=== PATIENT | male | born 1965 | race African-American/Black ===

== ENCOUNTER 2017-04-07 18:27 | Inpatient (IN) | payer MEDICARE, MEDICAID, SELFPAY ==
[2017-04-07 18:30] VITALS: BP 162/86; PULSE 69; RESP 16; TEMP 36.9; O2SAT 97
--- NOTE | 2017-04-07 18:50 | RAD_ITS ---
STUDY: X-RAY CHEST REASON FOR EXAM: Male, 51 years old. Cough and congestion times several days TECHNIQUE: Single AP portable view of the chest. COMPARISON: 06/04/2016 FINDINGS: The lungs are clear and expanded. There is no demonstrated pleural abnormality. Normal size heart. Normal mediastinum and velma. Normal visualized pulmonary arteries. Normal visualized aortic arch and descending thoracic aorta. Normal visualized thoracic spine. Normal visualized ribs, clavicles, and shoulders. There is no demonstrated abnormality of the visualized soft tissue structures of the upper abdomen. RAD/Chest 1 View (Portable) IMPRESSION: Normal x-ray examination of the chest. Electronically Signed: Stephan Buenrostro DO at 19:10 EST Tel , Service support ,
--- NOTE | 2017-04-07 18:50 | EKG12_ITS ---
Test Reason : COLD SYM Blood Pressure : / mmHG Vent. Rate : 064 BPM Atrial Rate : 064 BPM P-R Int : 148 ms QRS Dur : 084 ms QT Int : 400 ms P-R-T Axes : 068 -01 027 degrees QTc Int : 412 ms Normal sinus rhythm Low voltage QRS Confirmed by COLLEEN TOMAS, KAREN ([id number]), medical editor YASMIN HOOVER ([id number] on 04/10/2017 11:26:20 AM Referred By: Confirmed By:KAREN MACIAS MD
[2017-04-07 19:37] LABS: Absolute Lymphocyte Count 0.95 X10^3/ul (0.83-4.51); Absolute Neutrophil Count 6.6 X10^3/uL (2.0-7.7); Basophil# 0.04 X10^3/uL; Basophil% 0.4 % (0-1); Eosinophil# 0.33 X10^3/uL; Eosinophils% 3.7 % (0-5); Hematocrit 35.6 % (40-54); Hemoglobin 11.7 g/dl (13.0-16.5); Lymphocyte # 0.95 X10^3/ul (4.0); Lymphocyte % 10.5 % (19-41); Mean Corp Hgb Conc 32.9 g/gl (32-36); Mean Corpuscular Volume 91.3 fL (80-94); Monocyte% 12.2 % (0-10); Platelet Count 214 K/mm3 (150-450); RBC Distribution Width CV 13.1 % (11.6-14.6); RBC Distribution Width SD 43.5 fl (35.1-43.9)
[2017-04-07 19:38] LABS: POSITIVE COUNT NO; POSITIVE DIFFERENTIAL NO; POSITIVE MORPHOLOGY NO
[2017-04-07 20:23] LABS: Anion Gap 13 (5-15); BUN 81 mg/dL (7-18); BUN/Creat Ratio 3.2 RATIO (10-20); Calcium,Total 8.7 mg/dL (8.5-10.1); Chloride 100 mmol/L (98-107); EST Glomerular Filtration Rate 2 mL/min (>60); Est Glom Filt Rate - Afr Amer 3 mL/min (>60); Estimated Creatinine Clearance 18.38 ml/min; Glucose 79 mg/dL (70-110); Potassium 6.9 mmol/L (3.5-5.1); Sodium Level 138 mmol/L (136-145)
--- NOTE | 2017-04-07 20:23 | ED.RN ---
DR. ENRIQUEZ AWARE OF CRITICAL LABS K 6.9 AND CR 25.1
--- NOTE | 2017-04-07 20:50 | ED.VISSUMM ---
- ER Visit Summary Date of Service: 04/07/17 Chief Complaint: [Cough congestion and need for dialysis] History of Present Illness: The patient is a 51 M [presents to the emergency department stating that he has been without dialysis for almost a week. Patient apparently has had some issues with his eyes and was diagnosed with styes to both eyes and he missed dialysis last Friday. Patient apparently went to try to go to dialysis 3 days ago but was told he did not have a chair for him. Patient had dialysis scheduled for this morning but apparently missed it because he was feeling too weak. Patient complaining of dyspnea. Denies any chest pain. He denies any fevers.] Physical Examination: [HEENT-PERRLA, EOMI. Cranial nerves II through XII grossly intact. TMs clear. Mucous membranes moist. No adenopathy. Cardiovascular-regular rate and rhythm without murmur or ectopy Lungs-clear to auscultation, chest wall stable without crepitus or subcu emphysema Abdomen-normoactive bowel sounds, soft, nontender, no rebound or rigidity, no peritoneal signs. Patient morbidly obese Extremities-intact ?4, normal range of motion, normal pulses, atraumatic] Test Results: [EKG obtained showed a sinus rhythm with a ventricular rate of 64 bpm with no acute ST segment changes noted. CBC with differential showed a white count of 9.0 hemoglobin 11.7, hematocrit 36, platelets 214. Chemistry showed a sodium 138, potassium 6.9, chloride 100, CO2 25, glucose 79, BUN 81, creatinine 25. Troponin was less than 0.02. Chest x-ray was read as normal.] Emergency Department Course and Treatment: [Patient was ordered Kayexalate, calcium chloride, sodium bicarb, insulin and dextrose.] Treatment Plan: [Discussed case with government affairs researcher on-call for Dr. Carrillo who asked that we admit patient and he will make arrangements to have patient dialyzed tonight.] Disposition: [Admit for dialysis] Impression: [Hyperkalemia Renal failure] This note was generated with [employer] dictation software. It may contain incorrect words, spelling, and punctuation that were not noted in review of the chart prior to signing ED Disposition - Plan for ED Patient: Chief Complaint: Cold Sx Referrals: Kiet Martinez DO [Primary Care Provider] -
--- NOTE | 2017-04-07 20:53 | ED.DCSUM_ITS ---
- ER Visit Summary Date of Service: 04/07/17 Chief Complaint: [Cough congestion and need for dialysis] History of Present Illness: The patient is a 51 M [presents to the emergency department stating that he has been without dialysis for almost a week. Patient apparently has had some issues with his eyes and was diagnosed with styes to both eyes and he missed dialysis last Friday. Patient apparently went to try to go to dialysis 3 days ago but was told he did not have a chair for him. Patient had dialysis scheduled for this morning but apparently missed it because he was feeling too weak. Patient complaining of dyspnea. Denies any chest pain. He denies any fevers.] Physical Examination: [HEENT-PERRLA, EOMI. Cranial nerves II through XII grossly intact. TMs clear. Mucous membranes moist. No adenopathy. Cardiovascular-regular rate and rhythm without murmur or ectopy Lungs-clear to auscultation, chest wall stable without crepitus or subcu emphysema Abdomen-normoactive bowel sounds, soft, nontender, no rebound or rigidity, no peritoneal signs. Patient morbidly obese Extremities-intact ?4, normal range of motion, normal pulses, atraumatic] Test Results: [EKG obtained showed a sinus rhythm with a ventricular rate of 64 bpm with no acute ST segment changes noted. CBC with differential showed a white count of 9.0 hemoglobin 11.7, hematocrit 36, platelets 214. Chemistry showed a sodium 138, potassium 6.9, chloride 100, CO2 25, glucose 79, BUN 81, creatinine 25. Troponin was less than 0.02. Chest x-ray was read as normal.] Emergency Department Course and Treatment: [Patient was ordered Kayexalate, calcium chloride, sodium bicarb, insulin and dextrose.] Treatment Plan: [Discussed case with production team member on-call for Dr. Carrillo who asked that we admit patient and he will make arrangements to have patient dialyzed tonight.] Disposition: [Admit for dialysis] Impression: [Hyperkalemia Renal failure] This note was generated with [employer] dictation software. It may contain incorrect words, spelling, and punctuation that were not noted in review of the chart prior to signing ED Disposition - Plan for ED Patient: Chief Complaint: Cold Sx Referrals: Kiet Martinez DO [Primary Care Provider] -
[2017-04-07 21:26] VITALS: BP 144/65; PULSE 69; RESP 24; O2SAT 95
[2017-04-07 21:36] VITALS: BP 160/100; PULSE 79; RESP 19; TEMP 37.2; O2SAT 97
--- NOTE | 2017-04-07 22:06 | PCM.HP.STD ---
Problem List (1) Gastroesophageal reflux disease Status: Chronic (2) CKD (chronic kidney disease) Status: Chronic Qualifiers: Chronic kidney disease stage: on chronic dialysis Qualified Code(s): N18.6 - End stage renal disease; Z99.2 - Dependence on renal dialysis Comment: dialysis 2012 (3) Tobacco abuse Status: Chronic (4) Type II diabetes mellitus Status: Chronic Qualifiers: (5) ESRD (end stage renal disease) Status: Chronic (6) Hyperkalemia Status: Acute (7) TAY (obstructive sleep apnea) Status: Chronic History of Present Illness Date of Admission: 04/07/17 Chief Complaint: fatigue, general illness The patient is a 51 year old male patient who is on dialysis for the past eight years presents to the ER feeling fatigued. He has not attended dialysis since last Friday. He apparently avoided treatment due to an eye lid infection and when he went Friday found there were not spaces available for him. Today he is feeling more sickly and fatigued. His creatinine is 25 and his potassium is markedly elevated. He has received calcium chloride, insulin and dextrose along with bicarbonate. He will be admitted for dialysis. Past Medical History Past Medical History (Chronic Problems): Chronic Problems Gastroesophageal reflux disease (Chronic) CKD (chronic kidney disease) (Chronic) dialysis 2012 Tobacco abuse (Chronic) Type II diabetes mellitus (Chronic) ESRD (end stage renal disease) (Chronic) TAY (obstructive sleep apnea) (Chronic) Allergies latex Allergy (Verified 12/29/16 14:38) Rash TAPE Allergy (Uncoded 12/29/16 14:38) Rash Home Medications: Ambulatory Orders Medication Instructions Recorded Amlodipine [Norvasc] 10 mg PO DAILY 06/04/16 Cinacalcet HCl [Sensipar] 60 mg PO DAILY 06/04/16 Lisinopril [Zestril] 20 mg PO DAILY 06/04/16 Metoprolol Tartrate [Lopressor 50 mg PO DAILY 06/04/16 (beta cheryle)] Sevelamer Carbonate [Renvela] 2,400 mg PO TID 12/29/16 Surgical History: total knee arthroplasty - Left, - - Fistula right arm left knee Smoking Status: Unknown if ever smoked - *Family History Paternal History Items: Diabetes, Heart Disease, Hypertension, - - Polycystic kidney disease, at age 58 from renal failure Maternal History Items: No pertinent history Review of Systems Constitutional: Reports: Weakness, Fatigue. Denies: Chills, Fever, Weight Change HEENT: Denies: Head Aches, Sinus Congestion, Sinus Drainage Cardiovascular: Denies: Chest Pain, Palpitations Respiratory: Denies: Cough, Shortness of breath at rest, Sputum production Gastrointestinal: Denies: Abdominal Pain, Nausea, Vomiting Genitourinary: Denies: Dysuria Musculoskeletal: Denies: Joint Pain, Joint Tenderness Skin: Denies: Rash, Wounds Neurological: Denies: Numbness, Tingling, Focal weakness Psychiatric: Denies: Anxiety, Depression, Homicidal Ideations, Suicidal Ideations Hematologic/ Lymphatic: Denies: Easy Bruising, Easy Bleeding VTE Information - Inpt Only VTE Present on Admission: No VTE Mechan Device Prophylaxis: SCD's VTE Pharm Prophylaxis ordered?: No Reason prophylaxis not ordered:: Medical Contraindication - Physical Exam General: Alert, Oriented x3, Cooperative HEENT: Atraumatic, Normocephalic Neck: Supple Lungs: Clear to auscultation, Normal air movement, No rhonchi, No wheeze, No rales Cardiovascular: Regular rate, Regular Rhythm, Normal S1, Normal S2, No murmurs Abdomen: Bowel Sounds Present, Soft, Non Tender, Obese Extremities: No edema, - - right arm fistula with palpable thrill Skin: No rashes, No breakdown Musculoskeletal: No Tenderness to Palpation of Joints or Extremities Neurological: Neuro grossly intact Psych/Mental Status: Normal Affect, Appropriate Vital Signs Temp Pulse Resp BP Pulse Ox 98.9 F 79 19 H 160/100 H 97 04/07/17 21:36 04/07/17 21:36 04/07/17 21:36 04/07/17 21:36 04/07/17 21:36 Oxygen Delivery Method Room Air Weight: 804 lb 10.995 oz Body Mass Index (BMI) 4.2 Finger Stick Blood Glucose 100 Laboratory Tests Past 24 Hrs 04/07/17 04/07/17 19:02 19:02 WBC 9.0 RBC 3.90 L Hgb 11.7 L Hct 35.6 L MCV 91.3 MCH 30.0 MCHC 32.9 RDW 13.1 RDW Differential 43.5 Plt Count 214 MPV 9.0 Immature Gran % (Auto) 0.200 Neut % (Auto) 73.0 H Lymph % (Auto) 10.5 L Routt % (Auto) 12.2 H Eos % (Auto) 3.7 Baso % (Auto) 0.4 Absolute Neuts (auto) 6.6 Absolute Lymphs (auto) 0.95 Total Counted Not Reportable Sodium 138 Potassium 6.9 H* Chloride 100 Carbon Dioxide 25.0 Anion Gap 13 BUN 81 H Creatinine 25.10 H* Estim Creat Clear Calc 18.38 Est GFR (MDRD) Af Amer 3 L Est GFR (MDRD) Non-Af 2 L BUN/Creatinine Ratio 3.2 L Glucose 79 Calcium 8.7 Troponin I < 0.02 Assessment/Plan Chronic Problems Gastroesophageal reflux disease (Chronic) CKD (chronic kidney disease) (Chronic) dialysis 2012 Tobacco abuse (Chronic) Type II diabetes mellitus (Chronic) ESRD (end stage renal disease) (Chronic) Hyperkalemia (Chronic) TAY (obstructive sleep apnea) (Chronic) Assessment - Renal Failure with hyperkalemia Plan - admit to medical surgical floor. - Consult Dr Carrillo for dialysis - bmp in am - renal diet - SCDs for DVT prophylaxis - continue routine home medications - tobacco cessation encouraged Code Visit Inpatient E&M: 58397 Init Hosp L3
[2017-04-07] MEDS: Dextrose 50%-Water 25 GM/50 ML DISP.SYRIN IV (22:19)
[2017-04-07] MEDS: Calcium Chloride 1 GM/10 ML Syringe IV (22:19)
[2017-04-07] MEDS: Sodium Bicarbonate 8.4% 50 ML Syringe IV (22:19)
[2017-04-07] MEDS: Sodium Polystyrene Sulfonate 15 GM/60 ML UDC 30 GM PO (22:20)
[2017-04-07 23:01] VITALS: BMI 54.1
[2017-04-07 23:20] VITALS: BP 168/83; PULSE 96; RESP 20; TEMP 37.1; O2SAT 96
[2017-04-07 23:21] LABS: Bedside Glucose 106 mg/dL (70-110)
[2017-04-08 03:21] VITALS: BP 148/82; PULSE 79; RESP 20; TEMP 36.8
--- NOTE | 2017-04-08 03:22 | DIALYSIS ---
Pt ran 2 hours and 55 min. Tx was discontinued 5 min early per pt request d/t needing to use the restroom. Tolerated tx well. Used upper right arm fistula. Stable post tx. See tx sheet for more details. Report was given to MESERET Saeed.
[2017-04-08 03:29] VITALS: PULSE 89
[2017-04-08 07:35] LABS: Anion Gap 10 (5-15); BUN 49 mg/dL (7-18); BUN/Creat Ratio 2.8 RATIO (10-20); Calcium,Total 8.1 mg/dL (8.5-10.1); Chloride 100 mmol/L (98-107); EST Glomerular Filtration Rate 3 mL/min (>60); Est Glom Filt Rate - Afr Amer 4 mL/min (>60); Estimated Creatinine Clearance 5.35 ml/min; Glucose 145 mg/dL (70-110); Potassium 4.9 mmol/L (3.5-5.1); Sodium Level 139 mmol/L (136-145)
[2017-04-08] MEDS: SEVELAMER CARBONATE 800 MG TABLET 2400 MG PO (08:16)
[2017-04-08 08:50] VITALS: BP 156/95; PULSE 88; RESP 16; TEMP 37.1; O2SAT 98
[2017-04-08 08:54] VITALS: PULSE 88
[2017-04-08] MEDS: amLODIPine 10 MG Tablet PO (08:54)
[2017-04-08] MEDS: Cinacalcet HCl 30 MG Tablet 60 MG PO (08:54)
[2017-04-08] MEDS: Metoprolol Tartrate 50 MG Tablet PO (08:54)
[2017-04-08] MEDS: Lisinopril 20 MG Tablet PO (08:54)
--- NOTE | 2017-04-08 09:05 | DS.PCM_ITS ---
Discharge Date and Diagnosis Date of Admission: 04/07/17 Date of Discharge: 04/08/17 - Primary Discharge Diagnosis Hyperkalemia - Secondary Discharge Diagnosis Chronic Problems Gastroesophageal reflux disease (Chronic) CKD (chronic kidney disease) (Chronic) dialysis 2012 Tobacco abuse (Chronic) Type II diabetes mellitus (Chronic) ESRD (end stage renal disease) (Chronic) TAY (obstructive sleep apnea) (Chronic) Hospital Course and Treatment Imaging Results: Clinical Impression(s) from Imaging Studies Chest X-Ray 04/07/17 18:50 IMPRESSION: Normal x-ray examination of the chest. Electronically Signed: Stephan Buenrostro DO at 19:10 EST Tel , Service support , Operations: None, - - OR 04/23/14 w/ L quadriceps tendon repair using transpatellar technique Dr. Boudreaux. Summary of Care Provided: The patient is a 51 year old M with past medical history significant for hypertension, end-stage renal disease on hemodialysis presented with shortness of breath. Patient apparently missed his dialysis because of an eye infection patient was found to have hyperkalemia on admission. Patient was admitted to regular nursing floor did have emergency dialysis with improvement both in his symptoms as well as his potassium level. Patient was discharged a day after his admission in stable condition. 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 for dialysis as outpatient Discharge Diet: Renal Diet Home Medications: Medications to take at Discharge Amlodipine [Norvasc] 10 mg PO DAILY 06/04/16 Cinacalcet HCl [Sensipar] 60 mg PO DAILY 06/04/16 Lisinopril [Zestril] 20 mg PO DAILY 06/04/16 Metoprolol Tartrate [Lopressor (beta cheryle)] 50 mg PO DAILY 06/04/16 Sevelamer Carbonate [Renvela] 2,400 mg PO TIDCM 12/29/16 Primary Care Physician: Kiet Martinez DO [Primary Care Provider] - Disposition: Home Minutes spent on discharge:: 35 Patient Condition:: Stable Meaningful Use Info Meaningful Use Diagnoses (Choose all that apply): None applicable Code Visit Inpatient E&M: 81732 Disch Hosp
--- NOTE | 2017-04-08 09:05 | PCM.DC ---
You will use the following diet at home:: Renal (restricted protein/sodium) Discharge Activity: Return to Normal Activity Allergies/Adverse Reactions: Allergies latex Allergy (Verified 12/29/16 14:38) Rash TAPE Allergy (Uncoded 12/29/16 14:38) Rash Medications to take at Discharge Amlodipine [Norvasc] 10 mg PO DAILY 06/04/16 Cinacalcet HCl [Sensipar] 60 mg PO DAILY 06/04/16 Lisinopril [Zestril] 20 mg PO DAILY 06/04/16 Metoprolol Tartrate [Lopressor (beta cheryle)] 50 mg PO DAILY 06/04/16 Sevelamer Carbonate [Renvela] 2,400 mg PO TIDCM 12/29/16 Primary Care Physician: Kiet Martinez DO [Primary Care Provider] - Please follow up with your Primary Care Physician in: in 3-5 days
--- NOTE | 2017-04-08 10:27 | PCM.CONS.R ---
Problem List (1) ESRD (end stage renal disease) on dialysis Status: Acute (2) Hyperkalemia Status: Acute Consultation - Renal PCP/ Referring MD: Requesting physician: [] Primary care physician: Kiet Martinez - History of Present Illness History of Present Illness: The patient is a 51 year old M PMH of ESRD on MWF . Patient missed HD for a week due to eye lid infection. Patient presented to ED with fatigue. Patient was found to have hyperkalemia t 6.9. Patient was urgently dialyzed. K today is 4.9. The plan is to discharge him ROS: 12 systems review this morning is negative - Allergies Allergies: Allergies latex Allergy (Verified 12/29/16 14:38) Rash TAPE Allergy (Uncoded 12/29/16 14:38) Rash - Past Medical History Past Medical History (Chronic Problems): Chronic Problems Gastroesophageal reflux disease (Chronic) CKD (chronic kidney disease) (Chronic) dialysis 2012 Tobacco abuse (Chronic) Type II diabetes mellitus (Chronic) ESRD (end stage renal disease) (Chronic) TAY (obstructive sleep apnea) (Chronic) - Past Surgical History Surgical History: total knee arthroplasty - Left, - - Fistula right arm left knee - Social History Smoking Status: Current some day smoker - Family History Paternal History Items: Diabetes, Heart Disease, Hypertension, - - Polycystic kidney disease, at age 58 from renal failure Maternal History Items: No pertinent history - Physical Exam General: Alert, Oriented x3 HEENT: Atraumatic Oral: Moist Mucosa Neck: Supple, No JVD Lungs: Clear to auscultation, Normal air movement, No rhonchi, No wheeze Cardiovascular: Regular rate, Regular Rhythm, Normal S1, Normal S2 Abdomen: Bowel Sounds Present, Soft, Non Tender Extremities: No clubbing, No cyanosis, No edema Skin: No rashes Musculoskeletal: No Tenderness to Palpation of Joints or Extremities Lymphatic: No Cervical, Supraclavicular, or Inguinal Adenopathy Neurological: Cranial nerves II-XII grossly intact, Neuro grossly intact Psych/Mental Status: Normal Affect Vital Signs Temp Pulse Resp BP Pulse Ox 98.8 F 88 16 156/95 H 98 04/08/17 08:50 04/08/17 08:54 04/08/17 08:50 04/08/17 08:50 04/08/17 08:50 Oxygen Delivery Method Room Air Weight: 173.6 kg Body Mass Index (BMI) 54.1 Intake and Output for Last 24 Hours 04/06/17 04/07/17 04/08/17 23:59 23:59 23:59 Intake Total 400 / 400 Output Total 5900 / 5900 Balance -5500 / -5500 Laboratory Tests Past 24 Hrs 04/08/17 06:48 Sodium 139 Potassium 4.9 Chloride 100 Carbon Dioxide 29.0 Anion Gap 10 BUN 49 H Creatinine 17.80 H* Estim Creat Clear Calc 5.35 Est GFR (MDRD) Af Amer 4 L Est GFR (MDRD) Non-Af 3 L BUN/Creatinine Ratio 2.8 L Glucose 145 H Calcium 8.1 L POC Glucose 04/07/17 23:16 POC Glucose 106 Assessment/Plan 1- ESRD on MWF Last HD session last night for 3 hours . Next HD 2 2- hyperkalemia due to missing HD . resolved with HD thank you for the consult Georgie Velez
== END 2017-04-08 10:16 | disposition home or self-care (01) | DRG 640 ==
LOC: ED 21:33 → MS3 22:22
PROVIDERS: Admitting Provider Family Medicine; Emergency Provider Emergency Medicine; Family Provider Student in an Organized Health Care Education/Training Program; PCP Student in an Organized Health Care Education/Training Program; Visit Provider Internal Medicine
DX: E87.5 Hyperkalemia (principal); N18.6 End stage renal disease; I12.0 Hypertensive chronic kidney disease with stage 5 chronic kidney disease or end stage renal disease; Z68.43 Body mass index [BMI] 50.0-59.9, adult; K21.9 Gastro-esophageal reflux disease without esophagitis; E11.9 Type 2 diabetes mellitus without complications; G47.33 Obstructive sleep apnea (adult) (pediatric); F17.210 Nicotine dependence, cigarettes, uncomplicated; Z99.2 Dependence on renal dialysis; Z91.040 Latex allergy status
CPT/HCPCS: 36415; 71045; 80048; 82962; 84484; 85025; 90937; 93005; 99284; J7050; A4216; G0257

== ENCOUNTER 2017-06-18 08:50 | Day surgery (SDC) | payer MEDICARE, MEDICAID, SELFPAY ==
[2017-06-17 08:16] VITALS: BMI 52.9
--- NOTE | 2017-06-18 11:39 | OP.PCM_ITS ---
Problem List (1) ESRD (end stage renal disease) on dialysis Status: Acute Report of Operation Date of Procedure: 06/18/17 Pre-Operative Diagnosis: Function AV fistula with poor clearance and increased bleeding times Post-Operative Diagnosis: The same Surgery/Procedure Performed:: 1. Ultrasound-guided access antegrade right brachial basilic AV fistula. 2. Fistula gram a central venous imaging. 3. Balloon angioplasty of the fistula in 2 different spots with an 8 mm and then a 10 mm balloon. 4. Balloon through the subclavian and innominate vein that was widely patent Type of Anesthesia:: Sedation,Conscious Description of Procedure: Patient brought to the Double Needle Operator. Underwent the appropriate timeout consent. Underwent conscious sedation. Prepped and draped in a sterile fashion. We did ultrasound-guided access antegrade in the AV fistula. We then did a cystogram showing some areas of stenosis. We will put a Glidewire through it with the 6 Bulgarian sheath. Gave 3000 units of heparin. We then balloon through the outflow with an 8 mm balloon and then just past the sheet with an 8 mm balloon each of these for over 2-1/2 minutes. It appeared improved on the fistulogram the upper area on the outflow we ballooned with a 10 mm balloon then. As was much improved with better flow through here. Still little bit sluggish centrally we imaged hard to tell if there is a stenosis from the subclavian to innominate we ballooned with a 10 mm balloon and this actually passed were able to pull and push with the fully inflated freely through the segment so it was widely patent. There is a probably getting some higher right-sided heart pressures at sleepiness some of this increased bleeding times. We then put a U stitch around the sheath removed out the sheath held pressure had to hold for about 5-10 minutes got hemostasis he was then brought to recovery in stable condition
== END 2017-06-18 23:59 | disposition home or self-care (01) ==
LOC: CLSP 08:51
PROVIDERS: Family Provider Student in an Organized Health Care Education/Training Program; PCP Student in an Organized Health Care Education/Training Program; Visit Provider Surgery Vascular Surgery
DX: T82.858A Stenosis of other vascular prosthetic devices, implants and grafts, initial encounter (principal); I12.0 Hypertensive chronic kidney disease with stage 5 chronic kidney disease or end stage renal disease; N18.6 End stage renal disease; Z99.2 Dependence on renal dialysis; F41.9 Anxiety disorder, unspecified; E11.59 Type 2 diabetes mellitus with other circulatory complications; I51.9 Heart disease, unspecified; K76.9 Liver disease, unspecified; Z87.891 Personal history of nicotine dependence
CPT/HCPCS: 36902; 76937; 99152; 99153; J3010; J7030; Q9967; C1725; C1769

== ENCOUNTER 2017-10-31 15:02 | Emergency (ER) | payer MEDICARE, MEDICAID, SELFPAY ==
[2017-10-31 15:03] VITALS: BP 142/75; PULSE 82; RESP 15; TEMP 37.1; O2SAT 99; BMI 52.4
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
[2017-10-31] MEDS: oxyCODONE 5 MG Tablet 10 MG PO (15:13)
[2017-10-31 16:22] VITALS: BP 142/85; PULSE 74; RESP 15; O2SAT 95
== END 2017-10-31 16:23 | disposition home or self-care (01) ==
LOC: ED 16:21
PROVIDERS: Emergency Provider Emergency Medicine; Family Provider Student in an Organized Health Care Education/Training Program; PCP Student in an Organized Health Care Education/Training Program
DX: S80.02XA Contusion of left knee, initial encounter (principal); S80.01XA Contusion of right knee, initial encounter; S13.4XXA Sprain of ligaments of cervical spine, initial encounter; V43.52XA Car driver injured in collision with other type car in traffic accident, initial encounter; Y93.9 Activity, unspecified; Y92.410 Unspecified street and highway as the place of occurrence of the external cause; Y99.8 Other external cause status; N18.6 End stage renal disease; Z99.2 Dependence on renal dialysis
CPT/HCPCS: 72040; 73564; 99284

== ENCOUNTER 2018-01-15 03:06 | Emergency (ER) | payer MEDICARE, MEDICAID, SELFPAY ==
[2018-01-15 03:06] VITALS: BP 172/93; PULSE 80; RESP 24; TEMP 36.8; O2SAT 94; BMI 49.5
--- NOTE | 2018-01-15 03:24 | RAD_ITS ---
STUDY: X-RAY CHEST REASON FOR EXAM: Male, 52 years old. Shortness of breath TECHNIQUE: Single AP portable view of the chest. COMPARISON: 04/07/2017 FINDINGS: Moderate central pulmonary vascular congestion. Mild to moderate bilateral perihilar and bibasilar interstitial and airspace infiltration. No pleural effusion or pneumothorax. Borderline cardiomegaly. Normal mediastinum and velma. Normal visualized aortic arch and descending thoracic aorta. Normal visualized thoracic spine. Normal visualized ribs, clavicles, and shoulders. There is no demonstrated abnormality of the visualized soft tissue structures of the upper abdomen. RAD/Chest 1 View (Portable) IMPRESSION: Mild to moderate congestive heart failure. Electronically Signed: Devon Chapman MD at 3:40 EST Tel , Service support ,
--- NOTE | 2018-01-15 03:24 | EKG12_ITS ---
Test Reason : SOB Blood Pressure : / mmHG Vent. Rate : 067 BPM Atrial Rate : 067 BPM P-R Int : 144 ms QRS Dur : 090 ms QT Int : 442 ms P-R-T Axes : 062 008 063 degrees QTc Int : 467 ms Normal sinus rhythm Nonspecific T wave abnormality Prolonged QT Abnormal ECG Confirmed by GERRI DAVIS ([id number]), news editor YASMIN HOOVER ([id number]) on 01/19/2018 2:31:53 PM Referred By: DR DESIR Confirmed By:GERRI DAVIS
[2018-01-15 03:38] VITALS: PULSE 79; RESP 20
[2018-01-15] MEDS: Ipratropium/Albuterol Sulfate 3 ML AMPUL.NEB INHALATION (03:38)
--- NOTE | 2018-01-15 03:55 | ED.RN ---
MD AWARE PT WILL NOT PERMIT AN IV.
[2018-01-15 04:02] LABS: Absolute Lymphocyte Count 1.78 X10^3/ul (0.83-4.51); Basophil# 0.02 X10^3/uL; Basophil% 0.2 % (0-1); Eosinophil# 0.35 X10^3/uL; Eosinophils% 4.4 % (0-5); Hematocrit 30.4 % (40-54); Lymphocyte # 1.78 X10^3/ul (4.0); Lymphocyte % 22.1 % (19-41); Mean Corp Hgb Conc 32.9 g/gl (32-36); Mean Corpuscular Hgb 30.1 pg (27.0-32.0); Mean Corpuscular Volume 91.6 fL (80-94); Mean Platelet Vol. 9.1 fl (6.2-12.0); Monocyte# 0.92 X10^3/uL; Monocyte% 11.4 % (0-10); Neutrophil # 4.96 X10^3/uL (2.7-7.7); Neutrophil % 61.8 % (47-70); Platelet Count 191 K/mm3 (150-450); RBC Distribution Width CV 12.8 % (11.6-14.6); RBC Distribution Width SD 41.6 fl (35.1-43.9); Red Blood Count 3.32 M/mm3 (4.6-6.2)
[2018-01-15 04:03] LABS: POSITIVE COUNT NO; POSITIVE DIFFERENTIAL NO; POSITIVE MORPHOLOGY NO
[2018-01-15 04:29] LABS: Anion Gap 8 (5-15); BUN 24 mg/dL (7-18); BUN/Creat Ratio 2.7 RATIO (10-20); Calcium,Total 7.5 mg/dL (8.5-10.1); Chloride 98 mmol/L (98-107); Creatinine, Serum 9.03 mg/dL (0.70-1.30); EST Glomerular Filtration Rate 7 mL/min (>60); Est Glom Filt Rate - Afr Amer 8 mL/min (>60); Estimated Creatinine Clearance 10.42 ml/min; Glucose 87 mg/dL (74-106); Potassium 4.3 mmol/L (3.5-5.1); Sodium Level 140 mmol/L (136-145)
--- NOTE | 2018-01-15 04:29 | ED.RN ---
DR DESIR AWARE OF CREAT 11.10.
--- NOTE | 2018-01-15 05:13 | ED.DCSUM_ITS ---
- ER Visit Summary Date of Service: 01/15/18 Chief Complaint: Shortness of breath History of Present Illness: The patient is a 52 M who presents with shortness of breath, he has dialysis he had dialysis less than 24 hours ago, he has had dialysis for the past 2 times and has continued to have a cough and congestion. No fever or chills. The cough is productive but clear. He has no chest pain. No abdominal pain. Physical Examination: Not appear in acute distress. Moist mucous membranes, no obvious facial deformity No C-spine tenderness supple neck. Regular rate and rhythm without any obvious murmurs Coarse and slightly wheezy lungs bilaterally speaking in full sentences without any obvious respiratory distress Abdomen soft and nontender no guarding or rebound Moves all extremities without any difficulty or pain. Fistula shows palpable thrill Skin does not show any obvious rashes or lesions, no trauma. Alert oriented ?3 with no gross focal deficit Emergency Department Course and Treatment: Patient appears well, he is unremarkable workup. This may be bronchitis with his medical history I am worried about progression to pneumonia therefore I will treat with antibiotics. There is some congestion on his x-ray, he has normal saturation is speaking in full sentences and appears well. Discharge stable condition Impression: Bronchitis End-stage renal disease on dialysis This note was generated with [employer] dictation software. It may contain incorrect words, spelling, and punctuation that were not noted in review of the chart prior to signing ED Disposition - Plan for ED Patient: Disposition: Home or Assisted Living Chief Complaint: Shortness of Breath Instructions: Acute Bronchitis Prescriptions: Azithromycin 500 mg PO DAILY #4 tab Referrals: Kiet Martinez DO [Primary Care Provider] - 2 Days
[2018-01-15] MEDS: Azithromycin 250 MG Tablet 500 MG PO (05:18)
[2018-01-15 05:24] VITALS: BP 162/80; PULSE 72; RESP 20; O2SAT 96
== END 2018-01-15 05:25 | disposition home or self-care (01) ==
PROVIDERS: Emergency Provider Emergency Medicine; Family Provider Student in an Organized Health Care Education/Training Program; PCP Student in an Organized Health Care Education/Training Program
DX: J40 Bronchitis, not specified as acute or chronic (principal); I12.0 Hypertensive chronic kidney disease with stage 5 chronic kidney disease or end stage renal disease; N18.6 End stage renal disease; Z99.2 Dependence on renal dialysis; E11.9 Type 2 diabetes mellitus without complications
CPT/HCPCS: 36415; 71045; 80048; 85025; 93005; 94640; 99284

== ENCOUNTER → 2018-03-12 21:24 | Outpatient (CLI) | payer MEDICARE, SELFPAY ==
[2018-02-24 13:55] VITALS: BMI 51.3
== END ==
PROVIDERS: Family Provider Student in an Organized Health Care Education/Training Program; PCP Student in an Organized Health Care Education/Training Program; Visit Provider Internal Medicine Cardiovascular Disease
DX: G47.33 Obstructive sleep apnea (adult) (pediatric) (principal)
CPT/HCPCS: 95811

== ENCOUNTER → 2018-04-14 12:48 | Outpatient (CLI) | payer MEDICARE, SELFPAY ==
[2018-02-24 13:55] VITALS: BMI 51.3
--- NOTE | 2018-04-14 12:54 | ECHOD_ITS ---
Reason For Study: Dyspnea/SOB Procedure This was a 2D Doppler, Color Flow transthoracic echocardiogram. Exam performed in department. Left Ventricle Moderate concentric left ventricular hypertrophy. The estimated ejection fraction is 65 %. Stage 1 diastolic dysfunction. No regional wall motion abnormalities noted. Right Ventricle Mildly dilated right ventricle. Normal systolic function. Atria The left atrium is severely enlarged. The right atrium is moderately enlarged. Mitral Valve The mitral valve is structurally normal. No prolapse or stenosis seen. Tricuspid Valve Normal tricuspid valve. Trivial tricuspid valve insufficiency. Right ventricular systolic pressure estimated to be 42 mmHg. Mild pulmonary hypertension. Aortic Valve Trisinus/trileaflet aortic valve. Pulmonic Valve Normal pulmonic valve. Trivial pulmonic valve insufficiency. Great Vessels Normal aortic root. Normal arch. Normal inferior vena cava. Inferior vena cava collapse with sniff. Pericardium/Pleural No pericardial effusion. MMode/2D Measurements & Calculations LVIDd: 6.3 cm IVSd: 1.6 cm LVOT diam: 2.4 cm LVIDs: 3.9 cm LVPWd: 1.4 cm LVOT area: 4.3 cm2 RVDd: 3.8 cm FS: 38.6 % Ao root diam: 3.9 cm LAV(MOD-bp): 142.4 ml LA A4 area: 37.0 cm2 LA dimension: 4.9 cm LAV(MOD-bp) Indexed: 52.3 ml/m2 LAV(MOD-sp2): 136.4 ml LAV(MOD-sp4): 135.9 ml RA A4 area: 23.1 cm2 Time Measurements MV dec time: 0.30 sec Doppler Measurements & Calculations MV E max jean carlos: 102.6 cm/sec Lat Peak E' Jean Carlos: 10.5 cm/sec Med Peak E' Jean Carlos: 10.4 cm/sec MV A max jean carlos: 128.8 cm/sec E/E' lat: 9.7 E/E' med: 9.8 MV E/A: 0.80 MV V2 max: 137.2 cm/sec MV P1/2t max jean carlos: 120.8 cm/sec Ao V2 max: 214.8 cm/sec MV max P.5 mmHg MV P1/2t: 144.4 msec Ao max P.5 mmHg MV V2 mean: 81.1 cm/sec MV dec slope: 245.0 cm/sec2 Ao V2 mean: 130.4 cm/sec MV mean P.1 mmHg Ao mean P.2 mmHg MV V2 VTI: 52.1 cm MVA(P1/2t): 1.5 cm2 Ao V2 VTI: 39.4 cm MVA(VTI): 2.8 cm2 AMISH(I,D): 3.8 cm2 AMISH(V,D): 3.1 cm2 LV V1 max: 153.5 cm/sec SV(LVOT): 148.2 ml PA V2 max: 141.2 cm/sec LV V1 max P.4 mmHg LV V1 mean P.2 mmHg LV V1 mean: 106.7 cm/sec LV V1 VTI: 34.1 cm TR max jean carlos: 307.0 cm/sec TR max P.7 mmHg Interpretation Summary Moderate concentric left ventricular hypertrophy. The estimated ejection fraction is 65 %. Stage 1 diastolic dysfunction. Mildly dilated right ventricle. The left atrium is severely enlarged. The right atrium is moderately enlarged. Trivial tricuspid valve insufficiency. Right ventricular systolic pressure estimated to be 42 mmHg. Mild pulmonary hypertension. Compared to echo report dated 06/05/2016, LVH has gone from mild to moderate, LVEF and pulmonary pressures have remained the same. Ordering Physician: Yousuf Slade Referring Physician: Yousuf Slade Performed By: Milton Vu RCS
== END ==
PROVIDERS: Family Provider Student in an Organized Health Care Education/Training Program; PCP Student in an Organized Health Care Education/Training Program; Referring Provider Internal Medicine Cardiovascular Disease; Visit Provider Internal Medicine Cardiovascular Disease
DX: I36.1 Nonrheumatic tricuspid (valve) insufficiency (principal)
CPT/HCPCS: 93306

== ENCOUNTER → 2018-04-16 12:38 | Outpatient (CLI) | payer MEDICARE, SELFPAY ==
[2018-02-24 13:55] VITALS: BMI 51.3
--- NOTE | 2018-04-16 12:40 | STE_ITS ---
Reason For Study: DYSPNEA/SOB Stress Results Protocol: Stress Echocardiogram Maximum Predicted HR: 170 bpm Target HR: 145 bpm % Maximum Predicted HR: 71 % Heart Stage Duration Rate BP Comment (mm:ss) (bpm) PT REQUESTED TO NOT HAVE IV DUE TO HARD STICK, BASELINE 74 120/59 REQUESTED TO DO TREADMILL HOA PROTOCOL- STAGE 1 3:00 121 176/100SOB, FATIGUE RECOVERY 80 144/80 Stress Duration: 3:00 mm:ss Maximum Stress HR: 121 bpm Baseline Echocardiogram Findings The estimated ejection fraction is 65 %. Stress Echo Wall motion Data Resting WM Intermediate WM Stress WM Resting Wall Motion Wall Motion Stress No regional wall motion No regional wall motion abnormalities noted. abnormalities noted. EKG Data Normal intervals are noted. The patient exercised according to the regular Hoa protocol for a total duration of 4:11. The maximum heart rate attained was 121 beats per minute. This was 71% of maximum predicted heart rate. The patient exercised into stage 2 of the Hoa protocol. During stress, there were no ST or T wave changes noted to suggest ischemia. No clinical angina was noted. Interpretation Summary The estimated ejection fraction is 65 %. Normal, adequate, treadmill echocardiogram. Negative for ischemia by EKG and echocardiographic criteria. No anginal symptoms noted. Rare PVCs and ventricular couplets noted during exercise. Below average exercise capacity for age. Appropriate blood pressure response to exercise. Test terminated due to dyspnea and fatigue. Final LVEF is 75%. Although patient did not reach target heart rate, his rate pressure product was sufficient to indicate an adequate test. No complications. Ordering Physician: Yousuf Slade Referring Physician: Yousuf Slade Performed By: Janae Sellers RDCS
== END ==
PROVIDERS: Family Provider Student in an Organized Health Care Education/Training Program; PCP Student in an Organized Health Care Education/Training Program; Referring Provider Internal Medicine Cardiovascular Disease; Visit Provider Internal Medicine Cardiovascular Disease
DX: R06.09 Other forms of dyspnea (principal); R07.9 Chest pain, unspecified
CPT/HCPCS: 93017; 93350

== ENCOUNTER 2018-08-12 11:39 | Observation (INO) | payer MEDICARE, SELFPAY ==
[2018-02-24 13:55] VITALS: BMI 51.3
[2018-08-12] VITALS (17 sets, daily range): BP systolic 175–213; BP diastolic 102–140; PULSE 65–81; RESP 14–24; TEMP 36.7–36.9; O2SAT 83–99; BMI 44.6; BMI 43.9
--- NOTE | 2018-08-12 11:55 | EKG12_ITS ---
Test Reason : SOB Blood Pressure : / mmHG Vent. Rate : 070 BPM Atrial Rate : 070 BPM P-R Int : 150 ms QRS Dur : 092 ms QT Int : 414 ms P-R-T Axes : 069 007 042 degrees QTc Int : 447 ms Normal sinus rhythm Low voltage QRS (limb leads) Poor R wave progression Confirmed by COLLEEN TOMAS, KAREN ([id number]), primer expeditor and drier YASMIN HOOVER ([id number]) on 08/14/2018 6:38:02 AM Referred By: MINA Confirmed By:KAREN MACIAS MD
--- NOTE | 2018-08-12 11:55 | RAD_ITS ---
STUDY: X-RAY CHEST REASON FOR EXAM: Male, 52 years old. Chest pain. TECHNIQUE: Single AP portable view of the chest. COMPARISON: Comparison is made with prior study dated January 15, 2019. FINDINGS: EKG electrodes are seen. There is evidence of vascular congestion and mild degree of CHF. There is no demonstrated pleural abnormality. There is moderate cardiac enlargement. Normal mediastinum and velma. Normal visualized pulmonary arteries. Normal visualized aortic arch and descending thoracic aorta. Normal visualized thoracic spine. Normal visualized ribs, clavicles, and shoulders. There is no demonstrated abnormality of the visualized soft tissue structures of the upper abdomen. RAD/Chest 1 View (Portable) IMPRESSION: Cardiomegaly. Vascular congestion and CHF. Electronically Signed: Aron Wagner, at 12:49 EDT , Service support ,
--- NOTE | 2018-08-12 11:59 | ED.VISSUMM ---
- ER Visit Summary Date of Service: 08/12/18 Chief Complaint: [Shortness of breath] History of Present Illness: The patient is a 52 M [presents the emergency department complaint of shortness of breath for the last 5 days. Patient has had a persistent cough. Cough at times productive of sputum that is clear to green in color. Patient had subjective fever and chills. Patient also states that he has been throwing up every time he tries to eat. He denies any abdominal pain. He denies any diarrhea. Patient did not feel well 2 days ago so he missed dialysis. He denies any sick contacts. Patient has history of diabetes, hypertension, high cholesterol, end-stage renal disease, sleep apnea, and hyperparathyroidism. She denies any chest pain. She denies recent travel or surgery.] Physical Examination: [RUBIA SHARMAMI. Cranial nerves II through XII grossly intact. TMs clear. Mucous membranes moist. No adenopathy. Cardiovascular-regular rate and rhythm without murmur or ectopy Lungs-good aeration bilaterally. Patient has faint expiratory wheezes noted bilaterally. No accessory muscle use or retractions noted. Abdomen-normoactive bowel sounds, soft, nontender, no rebound or rigidity, no peritoneal signs. Patient is morbidly obese. Extremities-intact ?4, normal range of motion, normal pulses, atraumatic. No edema. Left anterior white patient has a small soft tissue swelling to the anterior tibia measuring approximately 1.5 cm in diameter with a central excoriated area that appears suspicious for a small soft tissue abscess. There is no surrounding erythema or cellulitis.] Test Results: [EKG obtained on arrival showed a sinus rhythm with a ventricular rate of 70 bpm with no acute I segment changes. CBC with differential showed a white count 7.4, hemoglobin 9.9, hematocrit 30, platelets 192. Chemistries unremarkable. BUN was 52 and creatinine was 18. Troponin was 0.064. Chest x-ray showed cardiomegaly and CHF.] Emergency Department Course and Treatment: [While in the emergency department patient received a DuoNeb aerosol. Patient was noted to drop his O2 sat down into the 83% range and was placed on oxygen. Patient continues to complain of feeling dyspneic.] Treatment Plan: [Admit] Disposition: [Admit] Impression: [Asthmatic bronchitis CHF Acute on chronic renal failure Elevated troponin I-rule out non-ST TX] This note was generated with [employer] dictation software. It may contain incorrect words, spelling, and punctuation that were not noted in review of the chart prior to signing ED Disposition - Plan for ED Patient: Referrals: Kiet Martinez DO [Primary Care Provider] -
--- NOTE | 2018-08-12 12:03 | ED.DCSUM_ITS ---
- ER Visit Summary Date of Service: 08/12/18 Chief Complaint: [Shortness of breath] History of Present Illness: The patient is a 52 M [presents the emergency department complaint of shortness of breath for the last 5 days. Patient has had a persistent cough. Cough at times productive of sputum that is clear to green in color. Patient had subjective fever and chills. Patient also states that he has been throwing up every time he tries to eat. He denies any abdominal pain. He denies any diarrhea. Patient did not feel well 2 days ago so he missed dialysis. He denies any sick contacts. Patient has history of diabetes, hypertension, high cholesterol, end-stage renal disease, sleep apnea, and hyperparathyroidism. She denies any chest pain. She denies recent travel or surgery.] Physical Examination: [RUBIA SHARMAMI. Cranial nerves II through XII grossly intact. TMs clear. Mucous membranes moist. No adenopathy. Cardiovascular-regular rate and rhythm without murmur or ectopy Lungs-good aeration bilaterally. Patient has faint expiratory wheezes noted bilaterally. No accessory muscle use or retractions noted. Abdomen-normoactive bowel sounds, soft, nontender, no rebound or rigidity, no peritoneal signs. Patient is morbidly obese. Extremities-intact ?4, normal range of motion, normal pulses, atraumatic. No edema. Left anterior white patient has a small soft tissue swelling to the anterior tibia measuring approximately 1.5 cm in diameter with a central excoriated area that appears suspicious for a small soft tissue abscess. There is no surrounding erythema or cellulitis.] Test Results: [EKG obtained on arrival showed a sinus rhythm with a ventricular rate of 70 bpm with no acute I segment changes. CBC with differential showed a white count 7.4, hemoglobin 9.9, hematocrit 30, platelets 192. Chemistries unremarkable. BUN was 52 and creatinine was 18. Troponin was 0.064. Chest x- ray showed cardiomegaly and CHF.] Emergency Department Course and Treatment: [While in the emergency department patient received a DuoNeb aerosol. Patient was noted to drop his O2 sat down into the 83% range and was placed on oxygen. Patient continues to complain of feeling dyspneic.] Treatment Plan: [Admit] Disposition: [Admit] Impression: [Asthmatic bronchitis CHF Acute on chronic renal failure Elevated troponin I-rule out non-ST ND] This note was generated with [employer] dictation software. It may contain incorrect words, spelling, and punctuation that were not noted in review of the chart prior to signing ED Disposition - Plan for ED Patient: Referrals: Kiet Martinez DO [Primary Care Provider] -
[2018-08-12] MEDS: 0.9% Normal Saline 1,000 ML 15 ML IV (12:28)
[2018-08-12] MEDS: Ondansetron 4 MG/2 ML Vial IV (12:28)
[2018-08-12] MEDS: Ipratropium/Albuterol Sulfate 3 ML AMPUL.NEB INHALATION ×4 (12:28→23:15)
[2018-08-12 12:47] LABS: Lactic Acid 0.8 mmol/L (0.4-2.0)
[2018-08-12 12:48] LABS: ALB/GLOB Ratio 0.6 RATIO (0.9-2.4); AST(SGOT) 37 U/L (15-37); Alanine Aminotransfer ALT/SGPT 18 U/L (16-61); Albumin, Serum 2.1 g/dL (3.2-5.0); Alkaline Phosphatase 37 U/L (45-117); Anion Gap 11 (5-15); BUN 52 mg/dL (7-18); BUN/Creat Ratio 2.8 RATIO (10-20); Calcium,Total 8.6 mg/dL (8.5-10.1); Chloride 98 mmol/L (98-107); EST Glomerular Filtration Rate 3 mL/min (>60); Est Glom Filt Rate - Afr Amer 4 mL/min (>60); Estimated Creatinine Clearance 5.12 ml/min; Globulin 3.3 g/dL (2.2-4.2); Glucose 122 mg/dL (74-106); Lipase 128 U/L (73-393); Potassium 4.5 mmol/L (3.5-5.1); Protein, Total 5.4 g/dL (6.4-8.2); Sodium Level 140 mmol/L (136-145)
[2018-08-12 13:44] LABS: Absolute Lymphocyte Count 1.44 X10^3/ul (0.83-4.51); Basophil# 0.02 X10^3/uL; Basophil% 0.3 % (0-1); Eosinophil# 0.32 X10^3/uL; Eosinophils% 4.3 % (0-5); Hematocrit 29.8 % (40-54); Hemoglobin 9.9 g/dl (13.0-16.5); Lymphocyte # 1.44 X10^3/ul (4.0); Lymphocyte % 19.5 % (19-41); Mean Corp Hgb Conc 33.2 g/gl (32-36); Mean Corpuscular Hgb 28.8 pg (27.0-32.0); Mean Corpuscular Volume 86.6 fL (80-94); Mean Platelet Vol. 9.6 fl (6.2-12.0); Monocyte# 0.66 X10^3/uL; Monocyte% 8.9 % (0-10); Neutrophil # 4.95 X10^3/uL (2.7-7.7); Neutrophil % 66.9 % (47-70); Platelet Count 192 K/mm3 (150-450); RBC Distribution Width CV 13.9 % (11.6-14.6); RBC Distribution Width SD 44.2 fl (35.1-43.9); Red Blood Count 3.44 M/mm3 (4.6-6.2); White Blood Count 7.4 K/mm3 (4.4-11.0)
[2018-08-12 13:45] LABS: POSITIVE COUNT NO; POSITIVE DIFFERENTIAL NO; POSITIVE MORPHOLOGY NO
--- NOTE | 2018-08-12 14:29 | NURSING ---
DR CASTORENA FOR DR ENRIQUEZ
[2018-08-12] MEDS: Aspirin 81 MG TAB.CHEW 162 MG PO (14:35)
[2018-08-12] MEDS: MethylPREDNISolone 125 MG/2 ML Vial 60 MG IV (14:35)
--- NOTE | 2018-08-12 14:41 | NURSING ---
PCU ACUTE ON CHRONIC RENAL FAILURE, ELEVATED TRP, HTN, HYPOXIA, ASTHMATIC BRONCHITIS REBECA
--- NOTE | 2018-08-12 14:59 | HP.PCM_ITS ---
<Deo Wiley - Last Filed: 08/12/18 14:53> Problem List (1) COPD exacerbation Status: Acute (2) CHF (congestive heart failure) Status: Acute (3) History of obstructive sleep apnea Status: Chronic (4) Nonrheumatic tricuspid (valve) insufficiency Status: Chronic Comment: Moderate (2+) per echo 06/05/2016: RVSP38 mmhg (5) History of Vides's palsy Status: Chronic (6) Bipolar affective disorder Status: Chronic (7) Hyperparathyroidism due to end stage renal disease on dialysis Status: Chronic (8) Anemia Status: Chronic Comment: associated with renal disease (9) Polycystic kidney disease Status: Chronic (10) Hypertriglyceridemia Status: Chronic (11) History of peptic ulcer disease Status: Chronic (12) Hypertension Status: Chronic (13) Type II diabetes mellitus Status: Chronic (14) Gastroesophageal reflux disease Status: Chronic (15) ESRD (end stage renal disease) on dialysis Status: Chronic (16) Pulmonary HTN Status: Chronic History of Present Illness Date of Admission: 08/12/18 Chief Complaint: SOB The patient is a 52 year old M with past medical history of end-stage renal disease secondary to polycystic kidney disease, dialysis patient for 7 years, patient of Dr. Dent, also with a history of COPD, pulmonary hypertension, obesity, ongoing nicotine abuse, hyperlipidemia, who presented to the emergency room with complaints of shortness of breath progressively worsening over the past 5 days associated with a nonproductive cough. In the ER he was hypoxic on room air at 83%. He has stable on 3 L/min oxygen via nasal cannula at this point. He has severely elevated blood pressure 213/125, however he does admit that he recently ran out of a blood pressure medications and has not been taking 1 of them. The patient has been feeling unwell for several days with increased nausea, vomiting, and diarrhea. For this reason he states he missed dialysis on Friday. He is Friday dialysis patient. He has become more short of breath since then. He has not eaten anything in several days as every time he eats he vomits. At the moment his nausea is controlled in the ER. No fevers or chills. In the ER his chest x-ray is suggestive of CHF, his troponin is indeterminate beta natruretic peptide is pending, EKG is negative for acute changes, and his renal function is grossly abnormal with a BUN of 52 a creatinin e of 18.4, potassium is normal at this point. He will be admitted for suspected COPD exacerbation and CHF exacerbation secondary to missing dialysis. [] Past Medical History Past Medical History (Chronic Problems): Chronic Problems (Last Reviewed 03/19/18 @ 08:09 by Wendie Carrillo) Pulmonary HTN (Chronic) Obstructive Sleep Apnea-Hypopnea Syndrome (Chronic) History of obstructive sleep apnea (Chronic) Snoring (Chronic) Excessive daytime sleepiness (Chronic) Nonrheumatic tricuspid (valve) insufficiency (Chronic) Moderate (2+) per echo 06/05/2016: RVSP38 mmhg History of Vides's palsy (Chronic) Bipolar affective disorder (Chronic) Hyperparathyroidism due to end stage renal disease on dialysis (Chronic) Anemia (Chronic) associated with renal disease Polycystic kidney disease (Chronic) Hypertriglyceridemia (Chronic) Hyperlipidemia (Chronic) History of peptic ulcer disease (Chronic) AV fistula (Chronic ~2013) Right arm Hypertension (Chronic) Type II diabetes mellitus (Chronic) Tobacco abuse (Chronic) Gastroesophageal reflux disease (Chronic) ESRD (end stage renal disease) on dialysis (Chronic) TAY (obstructive sleep apnea) (Chronic) Medical History: Medical History (Last Reviewed 03/19/18 @ 08:09 by Wendie Carrillo) Obstructive Sleep Apnea-Hypopnea Syndrome (Chronic) G47.33 History of obstructive sleep apnea (Chronic) Z86.69 Snoring (Chronic) R06.83 Excessive daytime sleepiness (Chronic) G47.19 Nonrheumatic tricuspid (valve) insufficiency (Chronic) I36.1 Moderate (2+) per echo 06/05/2016: RVSP38 mmhg History of Vides's palsy (Chronic) Z86.69 Bipolar affective disorder (Chronic) F31.9 Hyperparathyroidism due to end stage renal disease on dialysis (Chronic) N25.81, N18.6, Z99.2 Anemia (Chronic) D64.9 associated with renal disease Polycystic kidney disease (Chronic) Q61.3 Hypertriglyceridemia (Chronic) E78.1 Hyperlipidemia (Chronic) E78.5 Edema extremities (Acute) R60.0 History of peptic ulcer disease (Chronic) Z87.11 Hypertension (Chronic) I10 Type II diabetes mellitus (Chronic) E11.9 Tobacco abuse (Chronic) Z72.0 Gastroesophageal reflux disease (Chronic) K21.9 ESRD (end stage renal disease) on dialysis (Chronic) N18.6, Z99.2 TAY (obstructive sleep apnea) (Chronic) G47.33 Chest pain (Acute) R07.9 Derangement of left patella M22.3X2 Allergies latex Allergy (Verified 08/12/18 11:41) Rash hydrocodone Adverse Reaction (Verified 08/12/18 11:41) Abd cramps/diarrhea TAPE Allergy (Uncoded 08/12/18 11:41) Rash Home Medications: Ambulatory Orders Medication Instructions Recorded Metoprolol Tartrate [Lopressor 50 mg PO DAILY 06/04/16 (beta cheryle)] vitamin B complex and vitamin C 1 cap PO DAILY 11/17/17 no.20-folic acid 1 mg capsule amlodipine 10 mg tablet 10 mg PO DAILY 02/24/18 furosemide 80 mg tablet 80 mg PO DAILY 02/24/18 lisinopril 40 mg tablet 40 mg PO DAILY 02/24/18 minoxidil 10 mg tablet 5 mg PO DAILY 02/24/18 aspirin 81 mg tablet,delayed 81 mg PO DAILY #30 tab 02/25/18 release Calcitriol 3 mcg PO DAILY 08/12/18 Cinacalcet HCl [Sensipar] 180 mg PO DAILY 08/12/18 Ferric Citrate [Auryxia] 420 mg PO TIDCM 08/12/18 Surgical History: Surgical History (Last Reviewed 03/19/18 @ 08:09 by Wendie Carrillo) AV fistula (Chronic) Onset Date: ~2013 I77.0 Right arm History of facial surgery Z98.890 History of total left knee replacement Z96.652 Surgical History: total knee arthroplasty - Left, - - Fistula right arm left knee Smoking Status: Current some day smoker - *Family History Paternal Family History: Family History (Last Reviewed 03/19/18 @ 08:09 by Wendie Carrillo) Brother CAD (coronary artery disease) Congestive heart failure Father Diabetes CAD (coronary artery disease) Kidney disease Mother Bleeding disorder Brother Kidney disease History Items: Diabetes, Heart Disease, Hypertension, - - Polycystic kidney disease, at age 58 from renal failure Maternal Family History: Family History (Last Reviewed 03/19/18 @ 08:09 by Wendie Carrillo) Brother CAD (coronary artery disease) Congestive heart failure Father Diabetes CAD (coronary artery disease) Kidney disease Mother Bleeding disorder Brother Kidney disease History Items: No pertinent history Review of Systems Constitutional: Reports: Malaise. Denies: Chills, Fever, Weight Change HEENT: Denies: Head Aches, Sinus Congestion, Sinus Drainage Cardiovascular: Reports: Edema. Denies: Chest Pain, Chest Pressure, Chest Tightness, Light Headedness, Palpitations Respiratory: Reports: Shortness of Breath, Shortness of breath at rest, Shortness of breath upon exertion, Wheezing. Denies: Cough, Sputum production Gastrointestinal: Denies: Abdominal Pain, Nausea, Vomiting Genitourinary: Denies: Dysuria Musculoskeletal: Denies: Joint Pain, Joint Tenderness Skin: Denies: Rash, Wounds Neurological: Denies: Numbness, Tingling, Focal weakness Psychiatric: Denies: Anxiety, Depression, Homicidal Ideations, Suicidal Ideations Hematologic/ Lymphatic: Denies: Easy Bruising, Easy Bleeding VTE Information - Inpt Only VTE Present on Admission: No VTE Mechan Device Prophylaxis: None VTE Pharm Prophylaxis ordered?: Yes Patient Problems: Active and Suspected Problems (Last Reviewed 03/19/18 @ 08:09 by Wendie Carrillo) COPD exacerbation (Acute) CHF (congestive heart failure) (Acute) - Physical Exam General: Alert, Oriented x3, Cooperative HEENT: Atraumatic, PERRLA, EOMI, Normocephalic Neck: Supple, No JVD, Negative Carotid Bruits Lungs: Diminished, Wheezes Cardiovascular: Regular rate, No murmurs Abdomen: Bowel Sounds Present, Soft, Non Tender, Obese Extremities: Capillary Refill Less than 3 Seconds, Edema - trace Skin: No rashes, No breakdown Musculoskeletal: No Tenderness to Palpation of Joints or Extremities Neurological: Cranial nerves II-XII grossly intact Psych/Mental Status: Normal Affect, Appropriate, Alert and oriented to time, place, person, mood and affect Vital Signs Temp Pulse Resp BP Pulse Ox 98.4 F 71 20 H 177/105 H 91 08/12/18 13:02 08/12/18 13:53 08/12/18 13:53 08/12/18 13:53 08/12/18 13:53 Oxygen Flow Rate (L/min) 3 Oxygen Delivery Method Nasal Cannula Weight: 319 lb 10.724 oz Body Mass Index (BMI) 44.6 Finger Stick Blood Glucose 100 Laboratory Tests Past 24 Hrs 08/12/18 08/12/18 08/12/18 12:11 12:11 12:11 WBC 7.4 RBC 3.44 L Hgb 9.9 L Hct 29.8 L MCV 86.6 MCH 28.8 MCHC 33.2 RDW 13.9 RDW Differential 44.2 H Plt Count 192 MPV 9.6 Immature Gran % (Auto) 0.100 Neut % (Auto) 66.9 Lymph % (Auto) 19.5 [place] % (Auto) 8.9 Eos % (Auto) 4.3 Baso % (Auto) 0.3 Absolute Neuts (auto) 5.0 Absolute Lymphs (auto) 1.44 Total Counted Not Reportable Sodium 140 Potassium 4.5 Chloride 98 Carbon Dioxide 31.0 Anion Gap 11 BUN 52 H Creatinine 18.40 H* Estim Creat Clear Calc 5.12 Est GFR (MDRD) Af Amer 4 L Est GFR (MDRD) Non-Af 3 L BUN/Creatinine Ratio 2.8 L Glucose 122 H Lactic Acid 0.8 Calcium 8.6 Total Bilirubin 0.40 AST 37 ALT 18 Alkaline Phosphatase 37 L Troponin I 0.064 H Total Protein 5.4 L Albumin 2.1 L Globulin 3.3 Albumin/Globulin Ratio 0.6 L Lipase 128 Assessment/Plan All Active Problems (Last Reviewed 03/19/18 @ 08:09 by Wendie Carrillo) COPD exacerbation (Acute) CHF (congestive heart failure) (Acute) Edema extremities (Acute) Leucocytosis (Acute) Hyperkalemia (Acute) Chest pain (Acute) 1. Acute hypoxia secondary to COPD exacerbation and diastolic congestive heart failure exacerbation-patient will undergo dialysis for fluid removal, he will be started on breathing treatments and steroids with IV Solu-Medrol. provide incentive spirometer. Doubt infectious respiratory etiology at this time. No fever/leukocytosis. Patient does not use oxygen at home. He recently had an echocardiogram that was performed April 14 of this year showing an EF of 65% stage I diastolic dysfunction, mild pulmonary hypertension with an RVSP of 42 mmHg and a severely enlarged left atrium. 2. Indeterminate troponin-likely secondary to heart failure exacerbation with underlying CKD-the patient recently had a stress test by Dr. Slade which was negative for ischemia. Will maintain on telemetry and repeat EKG. 3. Possible gastroenteritis - N/V/D with inability to tolerate PO for several days. This will be managed with supportive care. Again, no fever/leukocytosis. 4. End-stage renal disease secondary to polycystic kidney disease-dialysis per Dr. Dent. Missed his Friday session and is due for another session tonight. Patient states that he needs to continue to lose weight in order to be considered for kidney transplant. 5. Ongoing nicotine abuse-despite his COPD and other end-stage issues he continues to smoke intermittently-cigars occasionally, and sometimes will partake of his significant other cigarettes that she is smoking. 6. Uncontrolled hypertension-patient recently ran out of 1 of his blood pressure medications he cannot remember which at this time. Will resume his normal home medications. Suspect his blood pressure to be depressed after undergoing fluid removal with dialysis. PRN hydralazine in the meantime. 7. Type 2 diabetes mellitus-does not appear that he is on any medications for this, can add sliding scale insulin if his blood sugar rises, currently mildly elevated at 122. Continue to treat with diabetic diet. 8. Obstructive sleep apnea-continue home CPAP DVT prophylaxis: Heparin This patient was seen by Deo Wiley PA-C under the supervision of Doctor Leatha. <Silvestre Zhang - Last Filed: 08/12/18 17:14> History of Present Illness The patient is a 52 year old M [] Past Medical History Medical History: Medical History (Last Reviewed 03/19/18 @ 08:09 by Wendie Carrillo) Obstructive Sleep Apnea-Hypopnea Syndrome (Chronic) G47.33 History of obstructive sleep apnea (Chronic) Z86.69 Snoring (Chronic) R06.83 Excessive daytime sleepiness (Chronic) G47.19 Nonrheumatic tricuspid (valve) insufficiency (Chronic) I36.1 Moderate (2+) per echo 06/05/2016: RVSP38 mmhg History of Vides's palsy (Chronic) Z86.69 Bipolar affective disorder (Chronic) F31.9 Hyperparathyroidism due to end stage renal disease on dialysis (Chronic) N25.81, N18.6, Z99.2 Anemia (Chronic) D64.9 associated with renal disease Polycystic kidney disease (Chronic) Q61.3 Hypertriglyceridemia (Chronic) E78.1 Hyperlipidemia (Chronic) E78.5 Edema extremities (Acute) R60.0 History of peptic ulcer disease (Chronic) Z87.11 Hypertension (Chronic) I10 Type II diabetes mellitus (Chronic) E11.9 Tobacco abuse (Chronic) Z72.0 Gastroesophageal reflux disease (Chronic) K21.9 ESRD (end stage renal disease) on dialysis (Chronic) N18.6, Z99.2 TAY (obstructive sleep apnea) (Chronic) G47.33 Chest pain (Acute) R07.9 Derangement of left patella M22.3X2 Allergies latex Allergy (Verified 08/12/18 11:41) Rash hydrocodone Adverse Reaction (Verified 08/12/18 11:41) Abd cramps/diarrhea TAPE Allergy (Uncoded 08/12/18 11:41) Rash Surgical History: Surgical History (Last Reviewed 03/19/18 @ 08:09 by Wendie Carrillo) AV fistula (Chronic) Onset Date: ~2013 I77.0 Right arm History of facial surgery Z98.890 History of total left knee replacement Z96.652 - *Family History Paternal Family History: Family History (Last Reviewed 03/19/18 @ 08:09 by Wendie Carrillo) Brother CAD (coronary artery disease) Congestive heart failure Father Diabetes CAD (coronary artery disease) Kidney disease Mother Bleeding disorder Brother Kidney disease Maternal Family History: Family History (Last Reviewed 03/19/18 @ 08:09 by Wendie Carrillo) Brother CAD (coronary artery disease) Congestive heart failure Father Diabetes CAD (coronary artery disease) Kidney disease Mother Bleeding disorder Brother Kidney disease - Physical Exam Vital Signs Temp Pulse Resp BP Pulse Ox 98.1 F 70 18 187/102 H 95 08/12/18 15:22 08/12/18 15:39 08/12/18 15:39 08/12/18 15:39 08/12/18 15:39 Oxygen Flow Rate (L/min) 2 Oxygen Delivery Method Nasal Cannula Weight: 319 lb 10.724 oz Body Mass Index (BMI) 43.9 Finger Stick Blood Glucose 100 Laboratory Tests Past 24 Hrs 08/12/18 08/12/18 08/12/18 12:11 12:11 12:11 WBC 7.4 RBC 3.44 L Hgb 9.9 L Hct 29.8 L MCV 86.6 MCH 28.8 MCHC 33.2 RDW 13.9 RDW Differential 44.2 H Plt Count 192 MPV 9.6 Immature Gran % (Auto) 0.100 Neut % (Auto) 66.9 Lymph % (Auto) 19.5 [place] % (Auto) 8.9 Eos % (Auto) 4.3 Baso % (Auto) 0.3 Absolute Neuts (auto) 5.0 Absolute Lymphs (auto) 1.44 Total Counted Not Reportable Sodium 140 Potassium 4.5 Chloride 98 Carbon Dioxide 31.0 Anion Gap 11 BUN 52 H Creatinine 18.40 H* Estim Creat Clear Calc 5.12 Est GFR (MDRD) Af Amer 4 L Est GFR (MDRD) Non-Af 3 L BUN/Creatinine Ratio 2.8 L Glucose 122 H Lactic Acid 0.8 Calcium 8.6 Total Bilirubin 0.40 AST 37 ALT 18 Alkaline Phosphatase 37 L Troponin I 0.064 H B-Natriuretic Peptide Total Protein 5.4 L Albumin 2.1 L Globulin 3.3 Albumin/Globulin Ratio 0.6 L Lipase 128 08/12/18 12:11 WBC RBC Hgb Hct MCV MCH MCHC RDW RDW Differential Plt Count MPV Immature Gran % (Auto) Neut % (Auto) Lymph % (Auto) [place] % (Auto) Eos % (Auto) Baso % (Auto) Absolute Neuts (auto) Absolute Lymphs (auto) Total Counted Sodium Potassium Chloride Carbon Dioxide Anion Gap BUN Creatinine Estim Creat Clear Calc Est GFR (MDRD) Af Amer Est GFR (MDRD) Non-Af BUN/Creatinine Ratio Glucose Lactic Acid Calcium Total Bilirubin AST ALT Alkaline Phosphatase Troponin I B-Natriuretic Peptide 1866.4 H Total Protein Albumin Globulin Albumin/Globulin Ratio Lipase Code Visit Addendum: Dr. Zhang I personally examined the patient and reviewed the chart. I agree with the above. 52-year-old male with a history of polycystic kidney disease presenting to the hospital with shortness of breath. He states that for the last several days he has not been able to eat or drink anything very well because he is either had nausea and vomiting or diarrhea. He skipped dialysis on Friday because he was not feeling well and today he had more significant shortness of breath. He does have difficulty with chronic lower extremity edema though it does not seem to be bad edematous today. He had an elevated BNP to over 1800 though a lot of this is due to the lack of filtration through his kidneys. Also had an elevated troponin II 0.067 without any chest pain and this is likely secondary to also his renal failure and possible heart failure due to fluid overload. He also has some wheezing on exam and therefore will be started on duo nebs and steroids as well as twice daily Lasix IV. Nephrology was consulted for dialysis. Inpatient E&M: 83876 Init Hosp L3
[2018-08-12 15:39] LABS: BNP,B-Type NATRIURETIC PEPTIDE 1866.4 pg/mL (0-100)
[2018-08-12] MEDS: Furosemide 40 MG/4 ML Vial IV (16:04)
[2018-08-12] MEDS: 0.9% NaCl Peripheral Flush Adult/Peds IV ×2 (16:05→22:56)
[2018-08-12] MEDS: Heparin 10,000 UNITS/10 ML Vial 16000 UNITS IV (18:14)
--- NOTE | 2018-08-12 21:40 | DIALYSIS ---
Hemodialysis x 4.75 hours completed. Pt tolerated tx well. Fluid balance -5000ml. [place] pulled. Hemostasis achieved. Dressing applied. Venofer 50mg given. Heparin 44199tccle pre tx bolus given. Report given to MESERET Lau. Pt stable.
[2018-08-12] MEDS: hydrALAZINE 20 MG/ML Vial 10 MG IV (22:55)
[2018-08-13] VITALS (12 sets, daily range): BP systolic 108–183; BP diastolic 85–105; PULSE 65–80; RESP 14–18; TEMP 36.8–37; O2SAT 92–98
--- NOTE | 2018-08-13 00:11 | CPS ---
pt has own bipap, set up and ready for use with o2 bled in 2L
[2018-08-13] MEDS: 0.9% NaCl Peripheral Flush Adult/Peds IV ×2 (05:43→13:29)
[2018-08-13 06:19] LABS: Absolute Lymphocyte Count 0.56 X10^3/ul (0.83-4.51); Absolute Neutrophil Count 5.7 X10^3/uL (2.0-7.7); Hematocrit 28.5 % (40-54); Hemoglobin 9.4 g/dl (13.0-16.5); Lymphocyte # 0.56 X10^3/ul (4.0); Lymphocyte % 8.6 % (19-41); Mean Corpuscular Hgb 28.5 pg (27.0-32.0); Mean Corpuscular Volume 86.4 fL (80-94); Mean Platelet Vol. 9.6 fl (6.2-12.0); Monocyte# 0.17 X10^3/uL; Monocyte% 2.6 % (0-10); Neutrophil # 5.73 X10^3/uL (2.7-7.7); Neutrophil % 88.5 % (47-70); Platelet Count 181 K/mm3 (150-450); RBC Distribution Width CV 13.8 % (11.6-14.6); White Blood Count 6.5 K/mm3 (4.4-11.0)
[2018-08-13 06:28] LABS: Differential Indicated SCAN CRITERIA MET; POSITIVE COUNT NO; POSITIVE DIFFERENTIAL YES; POSITIVE MORPHOLOGY NO
[2018-08-13] MEDS: Ipratropium/Albuterol Sulfate 3 ML AMPUL.NEB INHALATION ×2 (06:42→10:39)
[2018-08-13 06:45] LABS: Anion Gap 8 (5-15); BUN 34 mg/dL (7-18); BUN/Creat Ratio 2.9 RATIO (10-20); Calcium,Total 8.7 mg/dL (8.5-10.1); Chloride 99 mmol/L (98-107); EST Glomerular Filtration Rate 5 mL/min (>60); Est Glom Filt Rate - Afr Amer 6 mL/min (>60); Estimated Creatinine Clearance 8.11 ml/min; Glucose 127 mg/dL (74-106); Potassium 5.1 mmol/L (3.5-5.1); Sodium Level 139 mmol/L (136-145)
[2018-08-13] MEDS: Furosemide 80 MG Tablet PO (10:51)
[2018-08-13] MEDS: Aspirin E.C. 81 MG Tablet PO (10:51)
[2018-08-13] MEDS: Lisinopril 40 MG Tablet PO (10:51)
[2018-08-13] MEDS: Metoprolol Tartrate 50 MG Tablet PO (10:52)
[2018-08-13] MEDS: amLODIPine 10 MG Tablet PO (10:52)
[2018-08-13] MEDS: Folic Acid/Vitamin B Comp W-C 1 Capsule 1 CAP PO (10:52)
[2018-08-13] MEDS: Minoxidil 10 MG Tablet 5 MG PO (10:52)
[2018-08-13] MEDS: Calcitriol 0.25 MCG Capsule 3 MCG PO (10:53)
[2018-08-13] MEDS: Doxycycline 100 MG CAPSULE PO (10:54)
--- NOTE | 2018-08-13 11:36 | PCM.DC ---
- Discharge Diagnoses Current Active Problems: Current Active and Chronic Problems (Last Reviewed 03/19/18 @ 08:09 by Wendie Carrillo) COPD exacerbation (Acute) CHF (congestive heart failure) (Acute) Pulmonary HTN (Chronic) You will use the following diet at home:: Renal (restricted protein/sodium) Your food should be the consistency of: Regular Your liquids should be the consistency of: Regular/Thin Discharge Activity: Return to Normal Activity Weight Bearing Status: Weight bearing as tolerated Call your doctor if you observe: Fever of 101 or Higher, Shortness of breath, Dizziness, Swelling in the ankles Instructions: ED Renal Failure Chronic, Hemodialysis Allergies/Adverse Reactions: Allergies latex Allergy (Verified 08/12/18 11:41) Rash hydrocodone Adverse Reaction (Verified 08/12/18 11:41) Abd cramps/diarrhea TAPE Allergy (Uncoded 08/12/18 11:41) Rash Medications to take at Discharge Metoprolol Tartrate [Lopressor (beta chreyle)] 50 mg PO DAILY 06/04/16 vitamin B complex and vitamin C no.20-folic acid 1 mg capsule 1 cap PO DAILY 11/17/17 amlodipine 10 mg tablet 10 mg PO DAILY 02/24/18 furosemide 80 mg tablet 80 mg PO DAILY 02/24/18 lisinopril 40 mg tablet 40 mg PO DAILY 02/24/18 minoxidil 10 mg tablet 5 mg PO DAILY 02/24/18 aspirin 81 mg tablet,delayed release 81 mg PO DAILY #30 tab 02/25/18 Calcitriol 3 mcg PO DAILY 08/12/18 Cinacalcet HCl [Sensipar] 180 mg PO DAILY 08/12/18 Ferric Citrate [Auryxia] 420 mg PO TIDCM 08/12/18 Doxycycline 100 mg PO BID 5 Days #10 capsule 08/13/18 The following prescriptions were given: Doxycycline 100 mg PO BID 5 Days #10 capsule Primary Care Physician: Kiet Martinez DO [Primary Care Provider] - Please follow up with your Primary Care Physician in: one week Test Results: Test results from this visit will be discussed in further detail at your follow-up appointment, if applicable. Please Follow Up With: Sandhya Dent MD When: one week Proposed Discharge Date: 08/13/18
--- NOTE | 2018-08-13 11:40 | DCINST_ITS ---
- Discharge Diagnoses Current Active Problems: Current Active and Chronic Problems (Last Reviewed 03/19/18 @ 08:09 by Wendie Carrillo) COPD exacerbation (Acute) CHF (congestive heart failure) (Acute) Pulmonary HTN (Chronic) You will use the following diet at home:: Renal (restricted protein/sodium) Your food should be the consistency of: Regular Your liquids should be the consistency of: Regular/Thin Discharge Activity: Return to Normal Activity Weight Bearing Status: Weight bearing as tolerated Call your doctor if you observe: Fever of 101 or Higher, Shortness of breath, Dizziness, Swelling in the ankles Instructions: ED Renal Failure Chronic, Hemodialysis Allergies/Adverse Reactions: Allergies latex Allergy (Verified 08/12/18 11:41) Rash hydrocodone Adverse Reaction (Verified 08/12/18 11:41) Abd cramps/diarrhea TAPE Allergy (Uncoded 08/12/18 11:41) Rash Medications to take at Discharge Metoprolol Tartrate [Lopressor (beta cheryle)] 50 mg PO DAILY 06/04/16 vitamin B complex and vitamin C no.20-folic acid 1 mg capsule 1 cap PO DAILY 11/17/17 amlodipine 10 mg tablet 10 mg PO DAILY 02/24/18 furosemide 80 mg tablet 80 mg PO DAILY 02/24/18 lisinopril 40 mg tablet 40 mg PO DAILY 02/24/18 minoxidil 10 mg tablet 5 mg PO DAILY 02/24/18 aspirin 81 mg tablet,delayed release 81 mg PO DAILY #30 tab 02/25/18 Calcitriol 3 mcg PO DAILY 08/12/18 Cinacalcet HCl [Sensipar] 180 mg PO DAILY 08/12/18 Ferric Citrate [Auryxia] 420 mg PO TIDCM 08/12/18 Doxycycline 100 mg PO BID 5 Days #10 capsule 08/13/18 The following prescriptions were given: Doxycycline 100 mg PO BID 5 Days #10 capsule Primary Care Physician: Kiet Martinez DO [Primary Care Provider] - Please follow up with your Primary Care Physician in: one week Test Results: Test results from this visit will be discussed in further detail at your follow- up appointment, if applicable. Please Follow Up With: Sandhya Dent MD When: one week Proposed Discharge Date: 08/13/18
--- NOTE | 2018-08-13 11:40 | PCM.DC.SUM ---
Discharge Date and Diagnosis - Problem List Patient Problems: Active and Suspected Problems (Last Reviewed 03/19/18 @ 08:09 by Wendie Carrillo) COPD exacerbation (Acute) CHF (congestive heart failure) (Acute) Date of Admission: 08/12/18 Date of Discharge: 08/13/18 - Primary Discharge Diagnosis Active and Suspected Problems (Last Reviewed 03/19/18 @ 08:09 by Wendie Carrillo) fluid overload from missed dialysis cellulitis of LLE - Secondary Discharge Diagnosis Chronic Problems (Last Reviewed 03/19/18 @ 08:09 by Wendie Carrillo) Pulmonary HTN (Chronic) Obstructive Sleep Apnea-Hypopnea Syndrome (Chronic) History of obstructive sleep apnea (Chronic) Snoring (Chronic) Excessive daytime sleepiness (Chronic) Nonrheumatic tricuspid (valve) insufficiency (Chronic) Moderate (2+) per echo 06/05/2016: RVSP38 mmhg History of Vides's palsy (Chronic) Bipolar affective disorder (Chronic) Hyperparathyroidism due to end stage renal disease on dialysis (Chronic) Anemia (Chronic) associated with renal disease Polycystic kidney disease (Chronic) Hypertriglyceridemia (Chronic) Hyperlipidemia (Chronic) History of peptic ulcer disease (Chronic) AV fistula (Chronic ~2013) Right arm Hypertension (Chronic) Type II diabetes mellitus (Chronic) Tobacco abuse (Chronic) Gastroesophageal reflux disease (Chronic) ESRD (end stage renal disease) on dialysis (Chronic) TAY (obstructive sleep apnea) (Chronic) Hospital Course and Treatment Imaging Results: Diagnostic Data Chest X-Ray 08/12/18 11:55 IMPRESSION: Cardiomegaly. Vascular congestion and CHF. Electronically Signed: Aron Wagner, at 12:49 EDT , Service support , nephrology- Dr Dent Operations: None, - - OR 04/23/14 w/ L quadriceps tendon repair using transpatellar technique Dr. Boudreaux. Procedures: Dialysis Summary of Care Provided: The patient is a 52 year old M with past medical history which includes ESRD due to polycystic kidney disease and on dialysis on Wednesdays and not compliant with dialysis. He was admitted to the ED on 08/12/2018 with a complaint of shortness of breath which had progressively worsened over the past 5 days prior to admission as well as a nonproductive cough. He was found to be hypoxic in the ED saturation at 83% and required 3 L of oxygen to maintain saturation above 90%. His blood pressure was also markedly elevated at 213/125 patient admitted he had run out of 1 of his blood pressure medication stand up and taking them. He also had nausea vomiting and diarrhea and admits dialysis on Friday. Chest x-ray was suggestive of CHF and BNP was elevated but in the setting of ESRD, BNP is not accurate and reliable. EKG showed acute ST changes. He was admitted initially for acute CHF exacerbation and COPD exacerbation. However the diagnosis was revised to fluid overload due to noncompliance with dialysis. Patient received dialysis on the evening of 08/12/2018 with removal of about 5 L of fluid. Shortness of breath resolved and blood pressure control improved. Patient also came off of oxygen was saturating well. Per discussion with patient, he stated that his dry weight had not been consistent at the dialysis center. This was discussed with director of mechanical engineering who stated patient had not been compliant with dialysis and was always giving excuses about why he missed dialysis. They had therefore not been able to accurately get a dry weight on account of his inconsistent attendance. Patient was counseled strongly that he needed to be compliant with dialysis. Of note, patient complained of swelling on his left white. On examination, was noted to be a cellulitic area which he said had oozed pus for a few days. It was firm and indurated but not tender. A diagnosis of cellulitis likely due to insect bite was made and he was given a prescription for p.o. doxycycline 100 mg twice daily for 5 days. Patient remained stable and was discharged on 08/13/2018. He is to follow-up with dialysis on 08/14/2018. Of note, patient also complained of weight loss and said he thought he had lost about 30 pounds in 1 week. When asked how he knew he had lost 30 pounds in 1 week as it seemed excessive, patient stated that he had been weighing himself at dialysis even though he had not been very compliant with dialysis. Patient also said he had had early satiety and stated that his grandfather of stomach cancer at the age of 67. Patient told to follow-up with his PCP for appointment for EGD on outpatient basis as needed as well as colonoscopy as he had just turned 52 and had never had a colonoscopy. Patient seen and examined prior to discharge. He complained of weight loss as above. Shortness of breath had resolved and review of systems otherwise negative. Patient stated that he had had a lot on his mind of late and thus had not been taking care of himself and been compliant with dialysis. Labs and vitals reviewed. Home medication reviewed and reconciled. o/e: Vital Signs Height 5 ft 11.5 in Weight: 311 lb 15.265 oz Weight in Pounds 312.0 lbs Pulse Ox 98 Temperature 98.6 F Pulse Rate 72 Respiratory Rate 14 Blood Pressure [BP] 187/102 Blood Pressure 183/105 Blood Pressure Position [BP] Semi-Fowlers Blood Pressure Position Sitting [] Patient Problems: Active and Suspected Problems (Last Reviewed 03/19/18 @ 08:09 by Wendie Carrillo) COPD exacerbation (Acute) CHF (congestive heart failure) (Acute) - Physical Exam General: Alert, Oriented x3, Cooperative, No apparent distress HEENT: Atraumatic, PERRLA, EOMI, Normocephalic Oral: Moist Mucosa Neck: Supple, No JVD, Negative Carotid Bruits Lungs: Clear to auscultation, Normal air movement, No rhonchi, No wheeze, No rales Cardiovascular: Regular rate, Regular Rhythm, Normal S1, Normal S2, No murmurs Abdomen: Bowel Sounds Present, Soft, Non Tender, Non-Distended, No Hepato-splenomegaly Extremities: No cyanosis, No edema, Capillary Refill Less than 3 Seconds, - - AV fistula in LUE with good thrill Skin: - - small area of firmness and induration and superficially ulcerated swelling on right white; no discharge Musculoskeletal: No Tenderness to Palpation of Joints or Extremities Lymphatic: No Cervical, Supraclavicular, or Inguinal Adenopathy Neurological: Cranial nerves II-XII grossly intact, Deep Tendon Reflexes 2+/4 and Symmetrical, Neuro grossly intact, Motor Exam 5/5 strength throughout Psych/Mental Status: Normal Affect, Appropriate, Alert and oriented to time, place, person, mood and affect Vital Signs Temp Pulse Resp BP Pulse Ox 98.6 F 80 16 159/85 H 92 08/13/18 09:34 08/13/18 10:52 08/13/18 10:39 08/13/18 10:52 08/13/18 09:34 Oxygen Flow Rate (L/min) 2 Oxygen Delivery Method Room Air Weight: 311 lb 15.265 oz Body Mass Index (BMI) 43.9 Finger Stick Blood Glucose 100 Intake and Output for Last 24 Hours 08/11/18 08/12/18 08/13/18 23:59 23:59 23:59 Intake Total 360 / 360 240 / 240 Output Total 225 / 225 125 / 125 Balance 135 / 135 115 / 115 Laboratory Tests Past 24 Hrs 08/12/18 08/12/18 08/12/18 12:11 12:11 12:11 WBC 7.4 RBC 3.44 L Hgb 9.9 L Hct 29.8 L MCV 86.6 MCH 28.8 MCHC 33.2 RDW 13.9 RDW Differential 44.2 H Plt Count 192 MPV 9.6 Immature Gran % (Auto) 0.100 Neut % (Auto) 66.9 Lymph % (Auto) 19.5 [place] % (Auto) 8.9 Eos % (Auto) 4.3 Baso % (Auto) 0.3 Absolute Neuts (auto) 5.0 Absolute Lymphs (auto) 1.44 Total Counted Not Reportable Sodium 140 Potassium 4.5 Chloride 98 Carbon Dioxide 31.0 Anion Gap 11 BUN 52 H Creatinine 18.40 H* Estim Creat Clear Calc 5.12 Est GFR (MDRD) Af Amer 4 L Est GFR (MDRD) Non-Af 3 L BUN/Creatinine Ratio 2.8 L Glucose 122 H Lactic Acid 0.8 Calcium 8.6 Total Bilirubin 0.40 AST 37 ALT 18 Alkaline Phosphatase 37 L Troponin I 0.064 H B-Natriuretic Peptide Total Protein 5.4 L Albumin 2.1 L Globulin 3.3 Albumin/Globulin Ratio 0.6 L Lipase 128 08/12/18 08/13/18 08/13/18 12:11 05:35 05:35 WBC 6.5 RBC 3.30 L Hgb 9.4 L Hct 28.5 L MCV 86.4 MCH 28.5 MCHC 33.0 RDW 13.8 RDW Differential 44.0 H Plt Count 181 MPV 9.6 Immature Gran % (Auto) 0.300 Neut % (Auto) 88.5 H Lymph % (Auto) 8.6 L [place] % (Auto) 2.6 Eos % (Auto) 0.0 Baso % (Auto) 0.0 Absolute Neuts (auto) 5.7 Absolute Lymphs (auto) 0.56 L Total Counted Not Reportable Sodium 139 Potassium 5.1 Chloride 99 Carbon Dioxide 32.0 Anion Gap 8 BUN 34 H Creatinine 11.60 H* Estim Creat Clear Calc 8.11 Est GFR (MDRD) Af Amer 6 L Est GFR (MDRD) Non-Af 5 L BUN/Creatinine Ratio 2.9 L Glucose 127 H Lactic Acid Calcium 8.7 Total Bilirubin AST ALT Alkaline Phosphatase Troponin I B-Natriuretic Peptide 1866.4 H Total Protein Albumin Globulin Albumin/Globulin Ratio Lipase Diagnostic Data Chest X-Ray 08/12/18 11:55 IMPRESSION: Cardiomegaly. Vascular congestion and CHF. Electronically Signed: Aron Wagner, at 12:49 EDT , Service support , Discharge Diet: Renal Diet Discharge Activity: Return to Normal Activity Weight Bearing Status: Weight bearing as tolerated Call your doctor if you observe: Fever of 101 or Higher, Shortness of breath, Dizziness, Swelling in the ankles Home Medications: Medications to take at Discharge Metoprolol Tartrate [Lopressor (beta cheryle)] 50 mg PO DAILY 06/04/16 vitamin B complex and vitamin C no.20-folic acid 1 mg capsule 1 cap PO DAILY 11/17/17 amlodipine 10 mg tablet 10 mg PO DAILY 02/24/18 furosemide 80 mg tablet 80 mg PO DAILY 02/24/18 lisinopril 40 mg tablet 40 mg PO DAILY 02/24/18 minoxidil 10 mg tablet 5 mg PO DAILY 02/24/18 aspirin 81 mg tablet,delayed release 81 mg PO DAILY #30 tab 02/25/18 Calcitriol 3 mcg PO DAILY 08/12/18 Cinacalcet HCl [Sensipar] 180 mg PO DAILY 08/12/18 Ferric Citrate [Auryxia] 420 mg PO TIDCM 08/12/18 Doxycycline 100 mg PO BID 5 Days #10 capsule 08/13/18 Following Prescrptions Were Given to Patient: Doxycycline 100 mg PO BID 5 Days #10 capsule Primary Care Physician: Kiet Martinez DO [Primary Care Provider] - Please follow up with your Primary Care Physician in: one week Please Follow Up With: Sandhya Dent MD When: one week Patient Instructions: Hemodialysis, ED Renal Failure Chronic Disposition: Home Minutes spent on discharge:: 40 Patient Condition:: Stable Medical Necessity - Tobacco Use Smoking Status: Current some day smoker Tobacco Use: Cigarettes Meaningful Use Info Meaningful Use Diagnoses (Choose all that apply): None applicable Code Visit Inpatient E&M: 83666 Disch Hosp
[2018-08-13] MEDS: hydrALAZINE 20 MG/ML Vial 10 MG IV (13:29)
--- NOTE | 2018-08-13 13:36 | NURSING ---
hydralazine given for bp Dr. Oconnor aware
--- NOTE | 2018-08-13 14:44 | PCM.CONS.R ---
Problem List (1) ESRD (end stage renal disease) on dialysis Status: Chronic Consultation - Renal 08/13/18 PCP/ Referring MD: Requesting physician: Dr Jauregui Primary care physician: Kiet Martinez DO Reason for Consultation:: ESRD - History of Present Illness History of Present Illness: The patient is a 52 year old M well known to us. ESRD on HD MWF schedule. admitted with dyspnea. found to have CHF. s/p dialysis yesterday. feels better today. Bp usually runs high. fairly non compliant although he has been doing better recently. - Allergies Allergies: Allergies latex Allergy (Verified 08/12/18 11:41) Rash hydrocodone Adverse Reaction (Verified 08/12/18 11:41) Abd cramps/diarrhea TAPE Allergy (Uncoded 08/12/18 11:41) Rash - Past Medical History Past Medical History (Chronic Problems): Chronic Problems (Last Reviewed 03/19/18 @ 08:09 by Wendie Carrillo) Pulmonary HTN (Chronic) Obstructive Sleep Apnea-Hypopnea Syndrome (Chronic) History of obstructive sleep apnea (Chronic) Snoring (Chronic) Excessive daytime sleepiness (Chronic) Nonrheumatic tricuspid (valve) insufficiency (Chronic) Moderate (2+) per echo 06/05/2016: RVSP38 mmhg History of Vides's palsy (Chronic) Bipolar affective disorder (Chronic) Hyperparathyroidism due to end stage renal disease on dialysis (Chronic) Anemia (Chronic) associated with renal disease Polycystic kidney disease (Chronic) Hypertriglyceridemia (Chronic) Hyperlipidemia (Chronic) History of peptic ulcer disease (Chronic) AV fistula (Chronic ~2013) Right arm Hypertension (Chronic) Type II diabetes mellitus (Chronic) Tobacco abuse (Chronic) Gastroesophageal reflux disease (Chronic) ESRD (end stage renal disease) on dialysis (Chronic) TAY (obstructive sleep apnea) (Chronic) - Past Surgical History Surgical History: total knee arthroplasty - Left, - - Fistula right arm left knee - Social History Smoking Status: Current some day smoker - Family History Paternal Family History: Family History (Last Reviewed 03/19/18 @ 08:09 by Wendie Carrillo) Brother CAD (coronary artery disease) Congestive heart failure Father Diabetes CAD (coronary artery disease) Kidney disease Mother Bleeding disorder Brother Kidney disease History Items: Diabetes, Heart Disease, Hypertension, - - Polycystic kidney disease, at age 58 from renal failure Maternal Family History: Family History (Last Reviewed 03/19/18 @ 08:09 by Wendie Carrillo) Brother CAD (coronary artery disease) Congestive heart failure Father Diabetes CAD (coronary artery disease) Kidney disease Mother Bleeding disorder Brother Kidney disease History Items: No pertinent history Review of Systems Constitutional: Denies: Chills, Fever, Weight Change HEENT: Denies: Head Aches, Sinus Congestion, Sinus Drainage Cardiovascular: Denies: Chest Pain, Palpitations Respiratory: Denies: Cough, Shortness of breath at rest, Sputum production Gastrointestinal: Denies: Abdominal Pain, Nausea, Vomiting Genitourinary: Denies: Dysuria Musculoskeletal: Denies: Joint Pain, Joint Tenderness Skin: Denies: Rash, Wounds Neurological: Denies: Numbness, Tingling, Focal weakness Psychiatric: Denies: Anxiety, Depression, Homicidal Ideations, Suicidal Ideations Hematologic/ Lymphatic: Denies: Easy Bruising, Easy Bleeding - Physical Exam General: Alert, Oriented x3, Cooperative HEENT: Atraumatic, PERRLA, EOMI, Normocephalic Neck: Supple, No JVD, Negative Carotid Bruits Lungs: Clear to auscultation, Normal air movement Cardiovascular: Regular rate, No murmurs Abdomen: Bowel Sounds Present, Soft, Non Tender Extremities: No edema, Capillary Refill Less than 3 Seconds Skin: No rashes, No breakdown Musculoskeletal: No Tenderness to Palpation of Joints or Extremities Neurological: Cranial nerves II-XII grossly intact Psych/Mental Status: Normal Affect, Appropriate Vital Signs Temp Pulse Resp BP Pulse Ox 98.6 F 72 14 108/97 H 97 08/13/18 13:21 08/13/18 13:56 08/13/18 13:21 08/13/18 13:56 08/13/18 14:25 Oxygen Flow Rate (L/min) 2 Oxygen Delivery Method Room Air Weight: 141.5 kg Body Mass Index (BMI) 43.9 Finger Stick Blood Glucose 100 Intake and Output for Last 24 Hours 08/11/18 08/12/18 08/13/18 23:59 23:59 23:59 Intake Total 360 / 360 820 / 820 Output Total 225 / 225 125 / 125 Balance 135 / 135 695 / 695 Laboratory Tests Past 24 Hrs 08/12/18 08/13/18 08/13/18 12:11 05:35 05:35 WBC 6.5 RBC 3.30 L Hgb 9.4 L Hct 28.5 L MCV 86.4 MCH 28.5 MCHC 33.0 RDW 13.8 RDW Differential 44.0 H Plt Count 181 MPV 9.6 Immature Gran % (Auto) 0.300 Neut % (Auto) 88.5 H Lymph % (Auto) 8.6 L [place] % (Auto) 2.6 Eos % (Auto) 0.0 Baso % (Auto) 0.0 Absolute Neuts (auto) 5.7 Absolute Lymphs (auto) 0.56 L Total Counted Not Reportable Sodium 139 Potassium 5.1 Chloride 99 Carbon Dioxide 32.0 Anion Gap 8 BUN 34 H Creatinine 11.60 H* Estim Creat Clear Calc 8.11 Est GFR (MDRD) Af Amer 6 L Est GFR (MDRD) Non-Af 5 L BUN/Creatinine Ratio 2.9 L Glucose 127 H Calcium 8.7 B-Natriuretic Peptide 1866.4 H Assessment/Plan All Active Problems (Last Reviewed 03/19/18 @ 08:09 by Wendie Carrillo) COPD exacerbation (Acute) CHF (congestive heart failure) (Acute) Edema extremities (Acute) Leucocytosis (Acute) Hyperkalemia (Acute) Chest pain (Acute) ESRD. HD yesterday. continue as per schedule HTN. UF as tolerated Weight loss. lost significant weight in last 2 months. Reviewed data from dialysis clinic. weight was 151 kg. early this year he was in 160s. now 145. says has been nauseated for a while now. ? etiology. will adjust down EDW. called dialysis clinic and adjusted EDW referral to surgery regarding nausea zofran script given
== END 2018-08-13 11:38 | disposition home or self-care (01) ==
LOC: ED 12:12 → PCU 15:10
PROVIDERS: Physician Assistant; Admitting Provider Family Medicine; Emergency Provider Emergency Medicine; Family Provider Student in an Organized Health Care Education/Training Program; PCP Student in an Organized Health Care Education/Training Program; Visit Provider Student in an Organized Health Care Education/Training Program
DX: J44.1 Chronic obstructive pulmonary disease with (acute) exacerbation (principal); I13.2 Hypertensive heart and chronic kidney disease with heart failure and with stage 5 chronic kidney disease, or end stage renal disease; I50.33 Acute on chronic diastolic (congestive) heart failure; E66.01 Morbid (severe) obesity due to excess calories; G47.33 Obstructive sleep apnea (adult) (pediatric); F31.9 Bipolar disorder, unspecified; N25.81 Secondary hyperparathyroidism of renal origin; Q61.3 Polycystic kidney, unspecified; D63.1 Anemia in chronic kidney disease; E11.22 Type 2 diabetes mellitus with diabetic chronic kidney disease; N18.6 End stage renal disease; I27.20 Pulmonary hypertension, unspecified; K21.9 Gastro-esophageal reflux disease without esophagitis; Z87.11 Personal history of peptic ulcer disease; E78.5 Hyperlipidemia, unspecified; Z99.2 Dependence on renal dialysis; Z79.82 Long term (current) use of aspirin; Z79.899 Other long term (current) drug therapy; Z68.41 Body mass index [BMI] 40.0-44.9, adult; Z71.3 Dietary counseling and surveillance; F17.210 Nicotine dependence, cigarettes, uncomplicated; Z91.15 Patient's noncompliance with renal dialysis; E87.79 Other fluid overload
CPT/HCPCS: 36415; 71045; 80048; 80053; 83605; 83690; 83880; 84484; 85025; 87040; 90937; 93005; 94640; 96374; 96375; 96376; 99218; 99285; J1756; J7030; A4216; G0257; G0378; J1940; J2405

== ENCOUNTER 2018-11-11 08:48 | Day surgery (SDC) | payer MEDICARE, SELFPAY ==
[2018-08-19 10:54] VITALS: BMI 43.9
[2018-11-11 09:46] VITALS: BMI 41.1
[2018-11-11 09:49] LABS: Hemoglobin 10.3 g/dL (13.0-16.5); Mean Corp Hgb Conc 33.2 g/dL (32-36); Mean Corpuscular Hgb 29.4 pg (27.0-32.0); Mean Corpuscular Volume 88.6 fL (80-94); Mean Platelet Vol. 9.5 fl (6.2-12.0); Platelet Count 234 K/mm3 (150-450); RBC Distribution Width CV 13.2 % (11.6-14.6); RBC Distribution Width SD 42.5 fl (35.1-43.9); White Blood Count 7.7 K/mm3 (4.4-11.0)
[2018-11-11 10:11] LABS: Albumin, Serum 2.6 g/dL (3.2-5.0); BUN 46 mg/dL (7-18); BUN/Creat Ratio 3.4 RATIO (10-20); Calcium,Total 9.5 mg/dL (8.5-10.1); Chloride 103 mmol/L (98-107); EST Glomerular Filtration Rate 4 mL/min (>60); Est Glom Filt Rate - Afr Amer 5 mL/min (>60); Estimated Creatinine Clearance 6.89 ml/min; Glucose 89 mg/dL (74-106); Phosphorus 6.2 mg/dL (2.5-4.9); Sodium Level 141 mmol/L (136-145)
--- NOTE | 2018-11-11 11:16 | PCM.OPRPT ---
Problem List (1) AV fistula Status: Chronic Comment: Right arm Report of Operation Date of Procedure: 11/11/18 Pre-Operative Diagnosis: malfunction fistula Post-Operative Diagnosis: same Surgery/Procedure Performed:: 1. Ultrasound guided access right arm fistula. 2. Fistulogram with central venous imaging. 3. Balloon angioplasty of the mid outflow fascia with an 8 mm balloon x3 inflations Type of Anesthesia:: Sedation,Conscious Description of Procedure: Patient brought to the operating room. And with the appropriate timeout consent. Underwent sedation. Prepped and draped in a sterile fashion. We did ultrasound guided access antegrade into the AV fistula. Put a Glidewire up and then a 6 [place] sheath. We did a fistulogram showing some stenosis around the area of the tortuosity. There was some aneurysmal segments. We then image centrally in the basilic then through the axillary and subclavian through innominate veins were widely patent. We then brought an 8 x 80 balloon and balloon from the area the outflow through the AV fistula with 3 different inflations. Each of these for over 2 minutes. Was markedly improved with better flow appeared to have a better thrill felt. We put a U stitch removed out the sheath held pressure with good hemostasis although had some bleeding and had to put another stitch but was then good. Brought to recovery stable condition. Sedation: This 53-year-old gentleman underwent moderate sedation given by Dr. Adolph Escamilla. He was moderate EKG blood pressure and pulse ox for over the 30 minutes of the procedure. See the EMR for complete record.
== END 2018-11-11 12:30 | disposition home or self-care (01) ==
LOC: CLSP 08:51
PROVIDERS: Family Provider Student in an Organized Health Care Education/Training Program; PCP Student in an Organized Health Care Education/Training Program; Referring Provider Surgery Vascular Surgery; Visit Provider Surgery Vascular Surgery
DX: T82.858A Stenosis of other vascular prosthetic devices, implants and grafts, initial encounter (principal); E11.59 Type 2 diabetes mellitus with other circulatory complications; K76.9 Liver disease, unspecified; I13.11 Hypertensive heart and chronic kidney disease without heart failure, with stage 5 chronic kidney disease, or end stage renal disease; E11.22 Type 2 diabetes mellitus with diabetic chronic kidney disease; N18.6 End stage renal disease; Z87.891 Personal history of nicotine dependence; F41.9 Anxiety disorder, unspecified
CPT/HCPCS: 36415; 36902; 76937; 80069; 85027; 99152; 99153; J7040; Q9967; C1725; C1769; C1887; C1894

== ENCOUNTER 2018-11-18 10:49 | Emergency (ER) | payer MEDICARE, SELFPAY ==
[2018-11-18 10:50] VITALS: BP 164/76; PULSE 64; RESP 16; TEMP 36.3; O2SAT 93; BMI 42.0
--- NOTE | 2018-11-18 11:24 | EKG12_ITS ---
Test Reason : CP Blood Pressure : / mmHG Vent. Rate : 054 BPM Atrial Rate : 054 BPM P-R Int : 158 ms QRS Dur : 096 ms QT Int : 430 ms P-R-T Axes : 071 -22 012 degrees QTc Int : 407 ms Sinus bradycardia Otherwise normal ECG Confirmed by DEAN TOMAS, MARLENE ([id number]), video effects editor PATRICIO VALENZUELA ([id number]) on 11/20/2018 11:38:18 AM Referred By: THANG Confirmed By:CLINTON MORAN MD
[2018-11-18 11:34] VITALS: PULSE 55; RESP 22
[2018-11-18] MEDS: Ipratropium/Albuterol Sulfate 3 ML AMPUL.NEB INHALATION (11:34)
--- NOTE | 2018-11-18 12:10 | ED.VIS.GEN ---
History of Present Illness Chief Complaint: Chest Pain Narrative: Patient told me that he missed the last 3 dialysis sessions due to stress at home, he is presenting with chest pain and shortness of breath today. He denies fever chills or cough. He does not know if he has gained weight or not. He denies abdominal pain, he does admit to some increased swelling. Past Medical History - Allergies and Home Meds Allergies/Adverse Reactions: Allergies latex Allergy (Verified 11/18/18 10:50) Rash hydrocodone Adverse Reaction (Verified 11/18/18 10:50) Abd cramps/diarrhea TAPE Allergy (Uncoded 11/18/18 10:50) Rash Primary Care Physician: Kiet Martinez DO [Primary Care Provider] - Past Medical History: - - End-stage renal disease, DJD, multiple medical problems, see [facility] Surgical History: total knee arthroplasty, - Smoking Status: Current every day smoker - Family History Paternal Family History: Family History (Last Reviewed 08/26/18 @ 13:44 by Brianda Yang) Brother CAD (coronary artery disease) Congestive heart failure Father Diabetes CAD (coronary artery disease) Kidney disease Mother Bleeding disorder Brother Kidney disease Family History: Reports: Diabetes, Heart Disease, Hypertension, - - Polycystic kidney disease, at age 58 from renal failure Maternal Family History: Family History (Last Reviewed 08/26/18 @ 13:44 by Brianda Yang) Brother CAD (coronary artery disease) Congestive heart failure Father Diabetes CAD (coronary artery disease) Kidney disease Mother Bleeding disorder Brother Kidney disease Family History: Reports: No pertinent history Review of Systems All systems negative except as indicated General: Denies: Fever Cardiovascular: Reports: Chest pain. Denies: Palpitations Respiratory: Reports: Dyspnea Gastrointestinal: Denies: Nausea Neurological: Denies: Headache, Weakness Psych: Reports: Anxiety Physical Exam Vital Signs/Narrative: Vital Signs Temp Pulse Resp BP Pulse Ox 11/18/18 11:34 55 L 22 H 11/18/18 10:50 97.4 F L 64 16 164/76 H 93 General: Negative for: Acute Distress Head: Normocephalic Eyes: Perrl ENT: Moist mucous membranes Neck: Supple Cardiovascular: Regular rate Respiratory: - - Coarse bilateral breath sounds with some wheezing. Speaking in full sentences Abdomen: Soft Back: Nontender, Normal Inspection Extremities: Edema - Symmetric bilateral lower extremity edema, - - Left upper extremity shows an old fistula without any palpable thrill. Right upper extremity shows a fistula with a palpable thrill. There is been a recent procedure and he has one stitch present in the antecubital region. No signs of infection. Skin: Normal color Neurological: Alert, Normal Strength Diagnostic/Tx/Re-eval - Medical Decision Making I wanted to do a chest x-ray and assess his potassium, I wanted to work him up, unfortunately the nurse came up to me and told me that the patient had left and could not talk to him any further or explained to him the urgency of me getting an x-ray or EKG or potassium. Disposition is eloped ED Disposition - Plan for ED Patient: Diagnosis: ESRD (end stage renal disease) on dialysis Referrals: Kiet Martinez DO [Primary Care Provider] -
--- NOTE | 2018-11-18 12:11 | ED.RN ---
Pt unable to tolerate IV attempts x3. He bucked all over the bed and needed assist x1 to hold arm till. Pt became frustrated with inability to start line and refused additional treatment. He would not accept redirection or allow another attempt. He removed naturopathic oncology provider and walked out of department. dr Garcia is aware.
== END 2018-11-18 12:15 | disposition left against medical advice (07) ==
PROVIDERS: Emergency Provider Emergency Medicine; Family Provider Student in an Organized Health Care Education/Training Program; PCP Student in an Organized Health Care Education/Training Program
DX: N18.6 End stage renal disease (principal); Z99.2 Dependence on renal dialysis; F17.200 Nicotine dependence, unspecified, uncomplicated; Z82.49 Family history of ischemic heart disease and other diseases of the circulatory system; Z88.5 Allergy status to narcotic agent; Z91.040 Latex allergy status
CPT/HCPCS: 93005; 94640

== ENCOUNTER 2019-05-17 22:07 | Observation (INO) | payer MEDICARE, MEDICAID, SELFPAY ==
[2019-05-17 22:09] VITALS: BP 186/88; PULSE 62; RESP 15; TEMP 36.7; O2SAT 93; BMI 40.9
--- NOTE | 2019-05-17 22:41 | EKG12_ITS ---
Test Reason : WEAKNESS Blood Pressure : / mmHG Vent. Rate : 056 BPM Atrial Rate : 056 BPM P-R Int : 162 ms QRS Dur : 100 ms QT Int : 470 ms P-R-T Axes : 074 -09 021 degrees QTc Int : 453 ms Sinus bradycardia Otherwise normal ECG Confirmed by COLLEEN TOMAS, KAREN ([id number]), clinical editor PATRICIO VALENZUELA ([id number]) on 05/18/2019 1:46:14 PM Referred By: PHILIP Confirmed By:KAREN MACIAS MD
--- NOTE | 2019-05-17 22:42 | ED.DCSUM_ITS ---
- ER Visit Summary Date of Service: 05/17/19 Chief Complaint: I have missed my dialysis and not feeling well History of Present Illness: The patient is a 53 M history of end-stage renal disease and dialysis. He is dialyzed Friday. Last dialysis was last Friday he missed Friday and today. Patient states he just did not go. Patient also history of diet-controlled diabetes and hypertension. States she just feels weak all over. He has some nausea. He has some mild chills. No vomiting. Mild nonproductive cough. Physical Examination: Middle-aged male no acute distress. Vital signs are stable and afebrile. He does not look septic or toxic. H EENT exam unremarkable. Neck nontender no JVD. Lungs dry cough but no rales, rhonchi or wheezing. Heart regular rate and rhythm no murmur. Abdomen morbidly obese but soft nontender normal bowel sounds no peritoneal signs. Extremities moves all 4. Calves are nontender without cords. He has a right upper arm fistula with a good thrill. Neurologically is awake alert with no focal motor deficits. Test Results: CBC white count of 5. Hemoglobin 10. Which is his baseline chronic anemia. EKG shows a sinus bradycardia rate of 56 unchanged from prior EKG from November of last year. Chest x-ray cardiomegaly. Right pleural effusion. BMP shows hypokalemia with a potassium of 6.9 and acute on chronic renal failure. Anion gap is 17. Emergency Department Course and Treatment: Dialysis patient has not been dialyzed now for 5 days. Generalized weakness. Repeat exam at 12:20 AM is unchanged. Discussed with patient at length. He abs olutely refuses an IV. He understands he has severe hyperkalemia and this could potentially be fatal. He is still refusing the IV. He will be given p.o. Kayexalate and aerosol treatments. Will be admitted for dialysis. Treatment Plan: Admission for treatment of hyperkalemia and dialysis. I also spoke to the certified corporate travel executive alternative medicine practitioner. He wants to have the potassium repeated 2 hours after the patient is treated with the Kayexalate. He will hold on emergency dialysis at this time. That will be reconsidered if the patient's status worsens. Disposition: Admission Impression: Acute generalized weakness Acute hyperkalemia End-stage renal disease and has missed dialysis. Medical Noncompliance and refusing IV This note was generated with [employer] dictation software. It may contain incorrect words, spelling, and punctuation that were not noted in review of the chart prior to signing ED Disposition - Plan for ED Patient:
--- NOTE | 2019-05-17 23:00 | RAD_ITS ---
STUDY: X-RAY CHEST REASON FOR EXAM: Male, 53 years old. weakness today. Hx of HTN, CHF. dialysis patient. TECHNIQUE: Portable chest COMPARISON: 08/12/2018 FINDINGS: There are patchy bilateral pulmonary opacities. This is most significant within the right upper lobe and right lower lobe. There is stable mild cardiomegaly. There is likely small right pleural effusion. Normal mediastinum and velma. Normal visualized pulmonary arteries. Normal visualized aortic arch and descending thoracic aorta. Normal visualized thoracic spine. Normal visualized ribs, clavicles, and shoulders. There is no demonstrated abnormality of the visualized soft tissue structures of the upper abdomen. RAD/Chest 1 View (Portable) IMPRESSION: Patchy bilateral pulmonary opacities most significant within the right upper lobe and right lower lobe, pneumonia and/or pulmonary edema Mild cardiomegaly Likely small right pleural effusion Electronically Signed: Juan Manuel Connor, at 23:21 EDT Tel , Service support ,
[2019-05-17 23:35] LABS: Absolute Lymphocyte Count 1.18 X10^3/uL (0.83-4.51); Absolute Neutrophil Count 3.7 X10^3/uL (2.0-7.7); Basophil# 0.02 X10^3/uL; Basophil% 0.4 % (0-1); Eosinophil# 0.18 X10^3/uL; Eosinophils% 3.2 % (0-5); Hematocrit 31.7 % (40-54); Hemoglobin 10.3 g/dL (13.0-16.5); Lymphocyte # 1.18 X10^3/ul (4.0); Lymphocyte % 21.1 % (19-41); Mean Corp Hgb Conc 32.5 g/dL (32-36); Mean Corpuscular Hgb 28.7 pg (27.0-32.0); Mean Corpuscular Volume 88.3 fL (80-94); Mean Platelet Vol. 9.9 fl (6.2-12.0); Monocyte# 0.45 X10^3/uL; NRBC Flagged by Analyzer 0 % (0-5); Neutrophil # 3.73 X10^3/uL (2.7-7.7); Neutrophil % 66.6 % (47-70); Platelet Count 184 K/mm3 (150-450); RBC Distribution Width CV 12.7 % (11.6-14.6); RBC Distribution Width SD 41.1 fl (35.1-43.9); Red Blood Count 3.59 M/mm3 (4.6-6.2); White Blood Count 5.6 K/mm3 (4.4-11.0)
[2019-05-18] VITALS (15 sets, daily range): BP systolic 150–208; BP diastolic 70–95; PULSE 54–73; RESP 16–22; TEMP 36.7–37.2; O2SAT 93–97; BMI 40.4
[2019-05-18 00:06] LABS: Anion Gap 17 (5-15); BUN 141 mg/dL (7-18); Calcium,Total 8.6 mg/dL (8.5-10.1); Chloride 101 mmol/L (98-107); Glucose 68 mg/dL (74-106); Potassium 6.9 mmol/L (3.5-5.1); Sodium Level 138 mmol/L (136-145)
[2019-05-18] MEDS: Sodium Polystyrene Sulfonate 15 GM/60 ML UDC 30 GM PO ×2 (00:37→04:11)
[2019-05-18] MEDS: Polyethylene Glycol 3350 17 GM PACKET 34 GM PO ×2 (00:37→06:00)
--- NOTE | 2019-05-18 00:43 | ED.RN ---
pt refusing IV for admission, pt took kayexalate and would only drink half of miralax. pt states he can't have that much fluids and refuses to drink the rest of it. fluids left at bedside to see if pt will complete later.
--- NOTE | 2019-05-18 00:52 | HP.PCM_ITS ---
Problem List (1) COPD exacerbation Status: Acute (2) CHF (congestive heart failure) Status: Chronic (3) Pulmonary HTN Status: Chronic (4) Obstructive Sleep Apnea-Hypopnea Syndrome Status: Chronic (5) History of obstructive sleep apnea Status: Chronic (6) Snoring Status: Chronic (7) Excessive daytime sleepiness Status: Chronic (8) Nonrheumatic tricuspid (valve) insufficiency Status: Chronic Comment: Moderate (2+) per echo 06/05/2016: RVSP38 mmhg (9) History of Vides's palsy Status: Chronic (10) Bipolar affective disorder Status: Chronic (11) Hyperparathyroidism due to end stage renal disease on dialysis Status: Chronic (12) Anemia Status: Chronic Comment: associated with renal disease (13) Polycystic kidney disease Status: Chronic (14) Hypertriglyceridemia Status: Chronic (15) Hyperlipidemia Status: Chronic (16) History of peptic ulcer disease Status: Chronic (17) AV fistula Status: Chronic Comment: Right arm (18) Hypertension Status: Chronic (19) Type II diabetes mellitus Status: Chronic Qualifiers: (20) Tobacco abuse Status: Chronic (21) Gastroesophageal reflux disease Status: Chronic (22) ESRD (end stage renal disease) on dialysis Status: Chronic (23) TAY (obstructive sleep apnea) Status: Chronic (24) Hyperkalemia Status: Acute (25) Chest pain Status: Acute Qualifiers: Chest pain type: unspecified Qualified Code(s): R07.9 - Chest pain, unspecified History of Present Illness Date of Admission: 05/18/19 Chief Complaint: leg weakness The patient is a 53 year old M with a significant history of hypertension; COPD; end-stage renal disease who presents emergency department with leg weakness x1 week. Associated with symptoms is back pain. Patient get dialysis Mondays, Wednesdays and Fridays. Patient has missed dialysis. At the emergency department his potassium was found to be severely elevated. His BUN was also severely elevated. At the time of examination his creatinine was pending. Further patient reported he has been coughing for about 2 weeks. Associated with his cough is left-sided chest pain. He reported his cough is productive for clear sputum. He thinks that he got a cold from a relative. Past Medical History Past Medical History (Chronic Problems): Chronic Problems (Last Reviewed 05/18/19 @ 01:[address] Tano García MD) CHF (congestive heart failure) (Chronic) Pulmonary HTN (Chronic) Obstructive Sleep Apnea-Hypopnea Syndrome (Chronic) History of obstructive sleep apnea (Chronic) Snoring (Chronic) Excessive daytime sleepiness (Chronic) Nonrheumatic tricuspid (valve) insufficiency (Chronic) Moderate (2+) per echo 06/05/2016: RVSP38 mmhg History of Vides's palsy (Chronic) Bipolar affective disorder (Chronic) Hyperparathyroidism due to end stage renal disease on dialysis (Chronic) Anemia (Chronic) associated with renal disease Polycystic kidney disease (Chronic) Hypertriglyceridemia (Chronic) Hyperlipidemia (Chronic) History of peptic ulcer disease (Chronic) AV fistula (Chronic ~2013) Right arm Hypertension (Chronic) Type II diabetes mellitus (Chronic) Tobacco abuse (Chronic) Gastroesophageal reflux disease (Chronic) ESRD (end stage renal disease) on dialysis (Chronic) TAY (obstructive sleep apnea) (Chronic) Medical History: Medical History (Last Reviewed 05/18/19 @ 01:[address] Tano García MD) Obstructive Sleep Apnea-Hypopnea Syndrome (Chronic) G47.33 History of obstructive sleep apnea (Chronic) Z86.69 Snoring (Chronic) R06.83 Excessive daytime sleepiness (Chronic) G47.19 Nonrheumatic tricuspid (valve) insufficiency (Chronic) I36.1 Moderate (2+) per echo 06/05/2016: RVSP38 mmhg History of Vides's palsy (Chronic) Z86.69 Bipolar affective disorder (Chronic) F31.9 Hyperparathyroidism due to end stage renal disease on dialysis (Chronic) N25.81, N18.6, Z99.2 Anemia (Chronic) D64.9 associated with renal disease Polycystic kidney disease (Chronic) Q61.3 Hypertriglyceridemia (Chronic) E78.1 Hyperlipidemia (Chronic) E78.5 Edema extremities (Inactive) R60.0 History of peptic ulcer disease (Chronic) Z87.11 Hypertension (Chronic) I10 Type II diabetes mellitus (Chronic) E11.9 Tobacco abuse (Chronic) Z72.0 Gastroesophageal reflux disease (Chronic) K21.9 ESRD (end stage renal disease) on dialysis (Chronic) N18.6, Z99.2 TAY (obstructive sleep apnea) (Chronic) G47.33 Chest pain (Acute) R07.9 Derangement of left patella M22.3X2 Allergies latex Allergy (Verified 05/17/19 22:18) Rash hydrocodone Adverse Reaction (Verified 05/17/19 22:18) Abd cramps/diarrhea TAPE Allergy (Uncoded 05/17/19 22:18) Rash Home Medications: Ambulatory Orders Medication Instructions Recorded Metoprolol Tartrate [Lopressor 50 mg PO DAILY 06/04/16 (beta cheryle)] lisinopril 40 mg tablet 40 mg PO DAILY 02/24/18 Cinacalcet HCl [Sensipar] 60 mg PO DAILY 11/10/18 Renal-Neal Tablet 1 cap PO DAILY 11/10/18 Sevelamer Carbonate [Renvela] 1 tab PO TID 11/10/18 Sucroferric Oxyhydroxide [Velphoro] 1,000 mg PO TID 11/10/18 Amlodipine [Norvasc] 10 mg PO DAILY 05/17/19 Surgical History: Surgical History (Last Reviewed 05/18/19 @ 01:[address] Tano García MD) AV fistula (Chronic) Onset Date: ~2013 I77.0 Right arm History of facial surgery Z98.890 History of total left knee replacement Z96.652 Surgical History: total knee arthroplasty, - Psychiatric History: No pertinent psych hx Lives: Alone Smoking Status: Current every day smoker Tobacco Use: Cigarettes, Cigars - *Family History Paternal Family History: Family History (Last Reviewed 05/18/19 @ 01:[address] Tano García MD) Brother CAD (coronary artery disease) Congestive heart failure Father Diabetes CAD (coronary artery disease) Kidney disease Mother Bleeding disorder Brother Kidney disease History Items: Diabetes, Heart Disease, Hypertension, - - Polycystic kidney d parveen, at age 58 from renal failure Maternal Family History: Family History (Last Reviewed 05/18/19 @ 01:[address] Tano García MD) Brother CAD (coronary artery disease) Congestive heart failure Father Diabetes CAD (coronary artery disease) Kidney disease Mother Bleeding disorder Brother Kidney disease History Items: No pertinent history Review of Systems Constitutional: Denies: Chills, Fever, Weight Change HEENT: Denies: Head Aches, Sinus Congestion, Sinus Drainage Cardiovascular: Reports: Chest Pain. Denies: Palpitations Respiratory: Reports: Cough, Sputum production. Denies: Shortness of breath at rest Gastrointestinal: Denies: Abdominal Pain, Nausea, Vomiting Genitourinary: Denies: Dysuria Musculoskeletal: Denies: Joint Pain, Joint Tenderness Skin: Denies: Rash, Wounds Neurological: Denies: Numbness, Tingling, Focal weakness Psychiatric: Denies: Anxiety, Depression, Homicidal Ideations, Suicidal Ideations Hematologic/ Lymphatic: Denies: Easy Bruising, Easy Bleeding VTE Information - Inpt Only VTE Present on Admission: No VTE Mechan Device Prophylaxis: None VTE Pharm Prophylaxis ordered?: Yes - Physical Exam Vitals/I&O's: Vital Signs Temp Pulse Resp BP Pulse Ox 98.1 F 62 15 186/88 H 93 05/17/19 22:09 05/17/19 22:09 05/17/19 22:09 05/17/19 22:05/17/19 22:09 Oxygen Delivery Method Room Air Weight: 133.2 kg Body Mass Index (BMI) 40.9 Finger Stick Blood Glucose 100 General: Alert, Oriented x3, Cooperative HEENT: Atraumatic, PERRLA, EOMI, Normocephalic Neck: Supple, Trachea Midline Lungs: Rhonchi, Wheezes Cardiovascular: Normal S1, Normal S2, No murmurs, Bradycardic Abdomen: Bowel Sounds Present, Soft, Non Tender Extremities: No edema, Capillary Refill Less than 3 Seconds Skin: No rashes, No breakdown, - - Dialysis shunt in the right arm with bruit and thrill. Musculoskeletal: No Tenderness to Palpation of Joints or Extremities Neurological: Cranial nerves II-XII grossly intact Psych/Mental Status: Normal Affect, Appropriate Laboratory Results 05/17/19 23:20: WBC 5.6, RBC 3.59 L, Hgb 10.3 L, Hct 31.7 L, MCV 88.3, MCH 28.7, MCHC 32.5, RDW Std Deviation 41.1, RDW Coeff of Mook 12.7, Plt Count 184, MPV 9.9, Immature Gran % (Auto) 0.700, Neut % (Auto) 66.6, Lymph % (Auto) 21.1, Motley % (Auto) 8.0, Eos % (Auto) 3.2, Baso % (Auto) 0.4, Absolute Neuts (auto) 3.7, Absolute Lymphs (auto) 1.18, Nucleated RBC % 0 05/17/19 23:20: Sodium 138, Potassium 6.9 H*, Chloride 101, Carbon Dioxide 20.0 L, Anion Gap 17 H, BUN 141 H*, Creatinine Pending, Est GFR (MDRD) Af Amer 3 L, Est GFR (MDRD) Non-Af 2 L, BUN/Creatinine Ratio 6.4 L, Glucose 68 L, Calcium 8.6 Current Medications Albuterol/Ipratropium (Duoneb) 3 ml INHALATION Q4HWA.RT NORAH Hydralazine HCl (Apresoline Iv) 5 mg IV Q4H PRN PRN PRN Reason: SBP > 160 OR DBP > 120 Polyethylene Glycol (Miralax) 34 gm PO X1 PRN PRN Reason: Bowel Movement Prednisone () 40 mg PO DAILY@0800 [facility] Assessment/Plan All Active Problems (Last Reviewed 05/18/19 @ 01:[address] Tano García MD) COPD exacerbation (Acute) Hyperkalemia (Acute) Chest pain (Acute) The patient is a 53 year old M with a significant history of hypertension; COPD; end-stage renal disease who presents emergency department with leg weakness and back pain; and was found to have severely elevated potassium and also with signs of probably acute exacerbation of COPD. Hyperkalemia Potassium on presentation was 6.9. Likely secondary to missing dialysis. Patient is refusing IV insertion. Kayexalate and MiraLAX ordered at the emergency department. Emergent department doctor discussed the case with application technician who recommended that potassium level should be checked 2 hours after giving Kayexalate and potassium level is still elevated patient may be considered for dialysis. Also patient received treatment dose of albuterol inhaler for hyperkalemia. Hold lisinopril. Acute exacerbation of COPD. Chest pain from coughing. Scheduled DuoNeb and PRN albuterol ordered. Prednisone ordered. Mucinex ordered End-stage renal disease on dialysis: Phosphate binders continued. Sensipar continued. Low phosphate and low potassium diet. Nephrology consult. Hypertension: On presentation blood pressure was not within goal. Amlodipine and metoprolol continued. Lisinopril held secondary to hyperkalemia. PRN hydralazine added. Tobacco abuse: Counseled. DVT prophylaxis: Subcutaneous heparin OBSV E&M: 00080 Initial observation care L3
--- NOTE | 2019-05-18 00:52 | ED.RN ---
this RN went into patients room to hook him up to monitor and get ready to be admitted. pt refused to allow new BP to be taken, heart monitor to be applied or this RN to wheel him upstairs. He states RN is a liar for unknown reasons and yelled at her for not believing him that the heart monitor itched his chest. this RN stated that for transport we prefer to keep them on the monitor in order to ensure they are stable. pt refused and states we do not know what he needs he knows what he needs and we know nothing. this RN tried to explain the situation but refused to allow the RN to continue talking and said bye and forced this RN to leave room.
[2019-05-18 00:56] LABS: EST Glomerular Filtration Rate 3 mL/min (>60); Est Glom Filt Rate - Afr Amer 4 mL/min (>60); Estimated Creatinine Clearance 4.63 ml/min
[2019-05-18] MEDS: guaiFENesin 1,200 MG Tablet 1200 MG PO ×3 (01:42→21:59)
[2019-05-18] MEDS: predniSONE 20 MG Tablet 40 MG PO (01:43)
[2019-05-18 03:38] LABS: Anion Gap 18 (5-15); BUN 143 mg/dL (7-18); BUN/Creat Ratio 6.5 RATIO (10-20); Calcium,Total 8.3 mg/dL (8.5-10.1); Chloride 99 mmol/L (98-107); EST Glomerular Filtration Rate 2 mL/min (>60); Est Glom Filt Rate - Afr Amer 3 mL/min (>60); Glucose 117 mg/dL (74-106); Potassium 6.3 mmol/L (3.5-5.1); Sodium Level 139 mmol/L (136-145)
[2019-05-18] MEDS: Ipratropium/Albuterol Sulfate 3 ML AMPUL.NEB INHALATION ×3 (04:18→14:45)
--- NOTE | 2019-05-18 04:56 | NURSING ---
Pt refusing tele monitor. Will continue to monitor and attempt to put back on pt. Tony, RN
[2019-05-18 05:37] LABS: Estimated Creatinine Clearance 4.23 ml/min
[2019-05-18 08:48] LABS: Anion Gap 18 (5-15); BUN 141 mg/dL (7-18); BUN/Creat Ratio 6.6 RATIO (10-20); Calcium,Total 8.4 mg/dL (8.5-10.1); Chloride 100 mmol/L (98-107); EST Glomerular Filtration Rate 2 mL/min (>60); Est Glom Filt Rate - Afr Amer 3 mL/min (>60); Glucose 139 mg/dL (74-106); Potassium 6.6 mmol/L (3.5-5.1); Sodium Level 137 mmol/L (136-145)
[2019-05-18] MEDS: SEVELAMER CARBONATE 800 MG TABLET 2400 MG PO ×2 (09:52→14:55)
[2019-05-18] MEDS: Cinacalcet HCl 30 MG Tablet 60 MG PO (09:53)
[2019-05-18] MEDS: Folic Acid/Vitamin B Comp W-C 1 Capsule 1 CAP PO (09:54)
[2019-05-18 11:36] LABS: Estimated Creatinine Clearance 4.33 ml/min
--- NOTE | 2019-05-18 12:00 | PCM.HOSP.N ---
Hospitalist Note Pt came in for HD as he has not been to HD since last Friday becasue he didnt feel like going. he has been argumentative with all staff this am and verbally abusive. I went into the room trying to assess the situation and he explained that if he was not willing to do HD that there wasnt a reason for him to stay and assess if he would be signing out AMA. He states at that time that I threatened him and kicked me out of the room refusing to allow me to talk and was verbally abusive with me. He did say he would maybe take HD later today and I explained that dialysis would not come back today to do it. He did say that maybe he would allow it tomorrow. The fish processing supervisor was at the bedside at the end of the conversation (pt kicked him out of the room earlier) and said that he would now only allow him to examine him. Nsg gas pumping station supervisor was at the bedside. Security had to be called earlier today. The pt advocate was contacted.
--- NOTE | 2019-05-18 12:57 | NURSING ---
Pt continues to be difficult with all staff members. HD RN tried for hours to get patient to allow her to start his HD treatment and he consistently came up with excuses for why she was not allow to start him. First he wanted this breakfast, then he wanted a fan, then he wanted more food. After HD RN obtained Access through his fistula he became irate and combative complaining that she was hurting him and not placing the needle in the right spot. manager gift, hospitalist and gis physical scientist all came to bedside. Pt kicked hospitalist and gis physical scientist out of room along with HD RN. Pt has been noncompliant and refusing care since arrival. He has not allowed this RN to complete a full assessment or take vital signs. Later the gis physical scientist returned and did speak with him, unit tender and myself in a more cordal way but still refused to get HD right at this time but states he would be willing to try with another HD RN in a couple hours. Pt continues to not follow staff recommendations/rules. He went into RR and took a shower despite being told he should not.
--- NOTE | 2019-05-18 13:10 | NURSING ---
RN in to see patient and attempt to take VS, pt told RN to go away
--- NOTE | 2019-05-18 13:11 | CON.PCM_ITS ---
Consultation - Renal PCP/ Referring MD: Requesting physician: [] Primary care physician: Kiet Martinez, DO - History of Present Illness History of Present Illness: The patient is a 53 year old M PMH of ESRD on MWF HD schedule at [facility]. Pt missed the last 2 sessions of HD . Pt presented with legs weakness. Pt also has been coughing with elft side chest pain for 2 weeks. In ED he was found to have hyperkalemia at 6.9. Pt was given Kyaexalate . K improved to 6.3 but increased again to 6.6 Pt has h/o non compliance with HD session. Today the patient became agitated when HD nurse was trying to adjust HD needle after cannulating him . He asked the nurse to pull the needles right away and refused to start HD. Pt then became verbally offensive to the medical staff . Dr. Harmon , the primary hospitalist tried to convince him to do HD but he also refused and asked her to leave the room. Initially, I tried to walk to his room but he asked me to leave the room right now. After many be an hour, I tried again to talk to him. Pt agreed to have conversation with me. He said he would do HD but after 2 hours because his arm hurts him ROS: 12 systems review is negative except what mentioned in HPI [] - Allergies Allergies: Allergies latex Allergy (Verified 05/17/19 22:18) Rash hydrocodone Adverse Reaction (Verified 05/17/19 22:18) Abd cramps/diarrhea TAPE Allergy (Uncoded 05/17/19 22:18) Rash - Current Medications Current Medications: Current Medications Acetaminophen (Tylenol) 650 mg PO Q6H PRN PRN PRN Reason: Pain Score 1-10/Temp > 100.7 F Albuterol Sulfate (Ventolin Aerosols) 2.5 mg INHALATION Q2H PRN PRN PRN Reason: SOB/Wheezing Albuterol/Ipratropium (Duoneb) 3 ml INHALATION Q4HWA.RT [facility] Last Admin: 05/18/19 11:25 Dose: Not Given Documented by: Amlodipine Besylate (Norvasc) 10 mg PO DAILY [facility] Cinacalcet (Sensipar) 60 mg PO DAILYCM [facility] Last Admin: 05/18/19 09:53 Dose: 60 mg Documented by: Glucagon () 1 mg IM .X1 PRN PRN Reason: Hypoglycemia Guaifenesin (Mucinex) 1,200 mg PO BID [facility] Last Admin: 05/18/19 09:53 Dose: 1,200 mg Documented by: Heparin Sodium (Porcine) (Heparin Na) 5,000 unit SC Q8 [facility] Last Admin: 05/18/19 06:02 Dose: Not Given Documented by: Hydralazine HCl (Apresoline Iv) 5 mg IV Q4H PRN PRN PRN Reason: SBP > 160 OR DBP > 120 Dextrose (Dextrose 10%-Water) 250 mls @ 999 mls/hr IV .Q16M PRN; Protocol PRN Reason: HYPOGLYCEMIA Melatonin (Melatonin) 3 mg PO QHS PRN PRN PRN Reason: INSOMNIA Metoprolol Tartrate (Lopressor (Beta Seth)) 50 mg PO DAILY [facility] Multivit/Ca Carb/B Cmplx/FA/Prenat (Nephrocaps, Renaphro) 1 capsule PO DAILY [facility] Last Admin: 05/18/19 09:54 Dose: 1 capsule Documented by: Nicotine (Nicoderm Cq (Pbkc)) 21 mg TRANSDERM. DAILY [facility] Last Admin: 05/18/19 09:53 Dose: 21 mg Documented by: Ondansetron HCl (Zofran) 4 mg IV Q8H PRN PRN PRN Reason: NAUSEA/VOMITING Polyethylene Glycol (Miralax) 34 gm PO X1 PRN PRN Reason: Bowel Movement Last Admin: 05/18/19 06:00 Dose: 34 gm Documented by: Prednisone () 40 mg PO DAILYCM [facility] Last Admin: 05/18/19 01:43 Dose: 40 mg Documented by: Sevelamer Carbonate (Renvela) 2,400 mg PO TIDCM [facility] Last Admin: 05/18/19 09:52 Dose: 2,400 mg Documented by: Sodium Chloride () 10 - 40 ml IV UD PRN PRN Reason: SALINE FLUSH - Past Medical History Past Medical History (Chronic Problems): Chronic Problems (Last Reviewed 05/18/19 @ 01:[address] Tano García MD) CHF (congestive heart failure) (Chronic) Pulmonary HTN (Chronic) Obstructive Sleep Apnea-Hypopnea Syndrome (Chronic) History of obstructive sleep apnea (Chronic) Snoring (Chronic) Excessive daytime sleepiness (Chronic) Nonrheumatic tricuspid (valve) insufficiency (Chronic) Moderate (2+) per echo 06/05/2016: [id number] mmhg History of Vides's palsy (Chronic) Bipolar affective disorder (Chronic) Hyperparathyroidism due to end stage renal disease on dialysis (Chronic) Anemia (Chronic) associated with renal disease Polycystic kidney disease (Chronic) Hypertriglyceridemia (Chronic) Hyperlipidemia (Chronic) History of peptic ulcer disease (Chronic) AV fistula (Chronic ~2013) Right arm Hypertension (Chronic) Type II diabetes mellitus (Chronic) Tobacco abuse (Chronic) Gastroesophageal reflux disease (Chronic) ESRD (end stage renal disease) on dialysis (Chronic) TAY (obstructive sleep apnea) (Chronic) - Past Surgical History Surgical History: total knee arthroplasty, - - Social History Smoking Status: Current every day smoker - Family History Paternal Family History: Family History (Last Reviewed 05/18/19 @ 01:[address] Tano García MD) Brother CAD (coronary artery disease) Congestive heart failure Father Diabetes CAD (coronary artery disease) Kidney disease Mother Bleeding disorder Brother Kidney disease History Items: Diabetes, Heart Disease, Hypertension, - - Polycystic kidney disease, at age 58 from renal failure Maternal Family History: Family History (Last Reviewed 05/18/19 @ 01:[address] Tano García MD) Brother CAD (coronary artery disease) Congestive heart failure Father Diabetes CAD (coronary artery disease) Kidney disease Mother Bleeding disorder Brother Kidney disease History Items: No pertinent history - Physical Exam Vitals/I&O's: Vital Signs Temp Pulse Resp BP Pulse Ox 98.9 F 67 20 H 150/70 H 93 05/18/19 06:02 05/18/19 07:15 05/18/19 07:15 05/18/19 06:02 05/18/19 08:09 Oxygen Flow Rate (L/min) 2 Oxygen Delivery Method Room Air Weight: 131.5 kg Body Mass Index (BMI) 40.4 Finger Stick Blood Glucose 100 Intake and Output for Last 24 Hours 05/16/19 05/17/19 05/18/19 23:59 23:59 23:59 Intake Total 300 / 300 Balance 300 / 300 General: Alert, Oriented x3 HEENT: Atraumatic Oral: Moist Mucosa Neck: Supple, No JVD Lungs: Clear to auscultation, Normal air movement, No rhonchi Cardiovascular: Regular rate, Regular Rhythm, Normal S1, Normal S2 Abdomen: Bowel Sounds Present, Soft, Non Tender, Non-Distended Extremities: No clubbing, No cyanosis, No edema Skin: No rashes Lymphatic: No Cervical, Supraclavicular, or Inguinal Adenopathy Neurological: Cranial nerves II-XII grossly intact, Neuro grossly intact Psych/Mental Status: Agitated Laboratory Results 05/17/19 23:20: WBC 5.6, RBC 3.59 L, Hgb 10.3 L, Hct 31.7 L, MCV 88.3, MCH 28.7, MCHC 32.5, RDW Std Deviation 41.1, RDW Coeff of Mook 12.7, Plt Count 184, MPV 9.9, Immature Gran % (Auto) 0.700, Neut % (Auto) 66.6, Lymph % (Auto) 21.1, Kleberg % (Auto) 8.0, Eos % (Auto) 3.2, Baso % (Auto) 0.4, Absolute Neuts (auto) 3.7, Absolute Lymphs (auto) 1.18, Nucleated RBC % 0 05/17/19 23:20: Sodium 138, Potassium 6.9 H*, Chloride 101, Carbon Dioxide 20.0 L, Anion Gap 17 H, BUN 141 H*, Creatinine 20.10 H*, Estim Creat Clear Calc 4.63, Est GFR (MDRD) Af Amer 4 L, Est GFR (MDRD) Non-Af 3 L, BUN/Creatinine Ratio 7.0 L, Glucose 68 L, Calcium 8.6 05/18/19 02:53: Sodium 139, Potassium 6.3 H*, Chloride 99, Carbon Dioxide 22.0, Anion Gap 18 H, BUN 143 H*, Creatinine 22.00 H*, Estim Creat Clear Calc 4.23, Est GFR (MDRD) Af Amer 3 L, Est GFR (MDRD) Non-Af 2 L, BUN/Creatinine Ratio 6.5 L, Glucose 117 H, Calcium 8.3 L 05/18/19 07:36: Sodium 137, Potassium 6.6 H*, Chloride 100, Carbon Dioxide 19.0 L, Anion Gap 18 H, BUN 141 H*, Creatinine 21.50 H*, Estim Creat Clear Calc 4.33, Est GFR (MDRD) Af Amer 3 L, Est GFR (MDRD) Non-Af 2 L, BUN/Creatinine Ratio 6.6 L, Glucose 139 H, Calcium 8.4 L Current Medications Acetaminophen (Tylenol) 650 mg PO Q6H PRN PRN PRN Reason: Pain Score 1-10/Temp > 100.7 F Albuterol Sulfate (Ventolin Aerosols) 2.5 mg INHALATION Q2H PRN PRN PRN Reason: SOB/Wheezing Albuterol/Ipratropium (Duoneb) 3 ml INHALATION Q4HWA.RT [facility] Last Admin: 05/18/19 11:25 Dose: Not Given Documented by: Amlodipine Besylate (Norvasc) 10 mg PO DAILY [facility] Last Admin: 05/18/19 09:53 Dose: 60 mg Documented by: Glucagon () 1 mg IM .X1 PRN PRN Reason: Hypoglycemia Guaifenesin (Mucinex) 1,200 mg PO BID [facility] Last Admin: 05/18/19 09:53 Dose: 1,200 mg Documented by: Heparin Sodium (Porcine) (Heparin Na) 5,000 unit SC Q8 [facility] Last Admin: 05/18/19 06:02 Dose: Not Given Documented by: Hydralazine HCl (Apresoline Iv) 5 mg IV Q4H PRN PRN PRN Reason: SBP > 160 OR DBP > 120 Dextrose (Dextrose 10%-Water) 250 mls @ 999 mls/hr IV .Q16M PRN; Protocol PRN Reason: HYPOGLYCEMIA Melatonin (Melatonin) 3 mg PO QHS PRN PRN PRN Reason: INSOMNIA Metoprolol Tartrate (Lopressor (Beta Seth)) 50 mg PO DAILY [facility] Multivit/Ca Carb/B Cmplx/FA/Prenat (Nephrocaps, Renaphro) 1 capsule PO DAILY [facility] Last Admin: 05/18/19 09:54 Dose: 1 capsule Documented by: Nicotine (Nicoderm Cq (Pbkc)) 21 mg TRANSDERM. DAILY [facility] Last Admin: 05/18/19 09:53 Dose: 21 mg Documented by: Ondansetron HCl (Zofran) 4 mg IV Q8H PRN PRN PRN Reason: NAUSEA/VOMITING Polyethylene Glycol (Miralax) 34 gm PO X1 PRN PRN Reason: Bowel Movement Last Admin: 05/18/19 06:00 Dose: 34 gm Documented by: Prednisone () 40 mg PO DAILYCM [facility] Last Admin: 05/18/19 01:43 Dose: 40 mg Documented by: Sevelamer Carbonate (Renvela) 2,400 mg PO TIDCM [facility] Last Admin: 05/18/19 09:52 Dose: 2,400 mg Documented by: Sodium Chloride () 10 - 40 ml IV UD PRN PRN Reason: SALINE FLUSH Assessment/Plan All Active Problems (Last Reviewed 05/18/19 @ 01:[address] Tano García MD) COPD exacerbation (Acute) Hyperkalemia (Acute) Chest pain (Acute) 1- ESRD . On MWF HD schedule Pt has h/o of non compliance . He missed the last 2 HD session Will attempt HD session today after 2 hours. I hope the patient will be corporative with HD nurse. Pt understands if he does not have HD session today, his hyperkalemia might worsen and he might have cardiac arrest 2- Hyperkalemia . from missing HD session K 6.6 this am Will do HD session today with 1K for the 1st hr then 2 K 3-Metabolic acidosis from missing HD session HCO3 19 Should correct with HD session 4- HTN: BP is well controlled Will aim for 3-4L UF Thank you for the consult. Renal team will continue to follow Please call if any question at [phone] d/w Dr. Faustino Acuña MD
--- NOTE | 2019-05-18 13:21 | NURSING ---
RN spoke with marine engine driver about seeing patient and told her not too as he is difficult and noncompliant anyway. Junior Copywriter put in orders for cardiac diet, 1500 FR, and potassium, phos restriction. This RN spoke with Hospitalist of situation and patient refusal to comply, she ordered to allow to patient to eat a regular diet.
[2019-05-18] MEDS: amLODIPine 10 MG Tablet PO (14:54)
[2019-05-18] MEDS: Metoprolol Tartrate 50 MG Tablet PO (14:54)
[2019-05-18] MEDS: Albuterol 2.5 MG/3 ML VIAL.NEB. INHALATION (17:05)
[2019-05-18] MEDS: proMETHazine 25 MG Tablet PO (17:55)
--- NOTE | 2019-05-18 20:42 | DIALYSIS ---
Hemodialysis completed x 4 hours First hour on a 1 K bath then remaining 3 hours on a 2 K bath. Fluid removed was 3600. Report given to Ingrid CARL
[2019-05-19] VITALS (7 sets, daily range): BP systolic 143–172; BP diastolic 38–101; PULSE 63–74; RESP 16–22; TEMP 36.3–37.2; O2SAT 92–97
[2019-05-19] MEDS: Albuterol 2.5 MG/3 ML VIAL.NEB. INHALATION (05:34)
[2019-05-19] MEDS: Ipratropium/Albuterol Sulfate 3 ML AMPUL.NEB INHALATION (06:51)
--- NOTE | 2019-05-19 09:17 | CASEMGMT ---
RN CM NOTE: To room to review CASEY form. Pt sleeping. Did not awaken him at this time. CM to attempt at a later time. Jenny WHITEN RN CM
--- NOTE | 2019-05-19 10:20 | CASEMGMT ---
MESERET MAYO NOTE: To room to review CASEY form with pt. Pt agreeable to listening to MESERET MAYO, although he appeared irritated and gave very brief answers. MESERET MAYO reviewed CASEY form with pt and he denies having any questions. Pt signed form, copy made and placed on chart, and original given back to pt. Jenny LUTZ RN, CM
--- NOTE | 2019-05-19 10:40 | PCM.PN.REN ---
Subjective: Pt had HD session today No complaint today except finger tips tingling No nausea No vomiting No SOB - Physical Exam Vitals/I&O's: Vital Signs Temp Pulse Resp BP Pulse Ox 98.3 F 63 16 159/38 H 97 05/19/19 08:20 05/19/19 08:20 05/19/19 08:20 05/19/19 08:20 05/19/19 08:20 Oxygen Flow Rate (L/min) 2 Oxygen Delivery Method Room Air Weight: 131.5 kg Body Mass Index (BMI) 40.4 Finger Stick Blood Glucose 100 Intake and Output for Last 24 Hours 05/17/19 05/18/19 05/19/19 23:59 23:59 23:59 Intake Total 300 / 300 1065 / 1065 Output Total 3600 / 3600 3600 / 3600 Balance -3300 / -3300 -2535 / -2535 General: Oriented x3 HEENT: Atraumatic Oral: Moist Mucosa Neck: Supple, No JVD Lungs: Clear to auscultation, Normal air movement, No rhonchi Cardiovascular: Regular rate, Regular Rhythm, Normal S1, Normal S2 Abdomen: Bowel Sounds Present, Soft, Non Tender Extremities: No clubbing, No cyanosis, No edema Skin: No rashes Musculoskeletal: No Tenderness to Palpation of Joints or Extremities Lymphatic: No Cervical, Supraclavicular, or Inguinal Adenopathy Neurological: Cranial nerves II-XII grossly intact, Neuro grossly intact Psych/Mental Status: Appropriate Laboratory Results 05/18/19 07:36: Creatinine 21.50 H*, Estim Creat Clear Calc 4.33 Current Medications Acetaminophen (Tylenol) 650 mg PO Q6H PRN PRN PRN Reason: Pain Score 1-10/Temp > 100.7 F Albuterol Sulfate (Ventolin Aerosols) 2.5 mg INHALATION Q2H PRN PRN PRN Reason: SOB/Wheezing Last Admin: 05/19/19 05:34 Dose: 2.5 mg Documented by: Albuterol/Ipratropium (Duoneb) 3 ml INHALATION Q4HWA.RT [facility] Last Admin: 05/19/19 06:51 Dose: 3 ml Documented by: Amlodipine Besylate (Norvasc) 10 mg PO DAILY [facility] Last Admin: 05/18/19 14:54 Dose: 10 mg Documented by: Cinacalcet (Sensipar) 60 mg PO DAILYCM [facility] Last Admin: 05/18/19 09:53 Dose: 60 mg Documented by: Glucagon () 1 mg IM .X1 PRN PRN Reason: Hypoglycemia Guaifenesin (Mucinex) 1,200 mg PO BID [facility] Last Admin: 05/18/19 21:59 Dose: 1,200 mg Documented by: Heparin Sodium (Porcine) (Heparin Na) 5,000 unit SC Q8 [facility] Last Admin: 05/19/19 05:31 Dose: Not Given Documented by: Hydralazine HCl (Apresoline Iv) 5 mg IV Q4H PRN PRN PRN Reason: SBP > 160 OR DBP > 120 Dextrose (Dextrose 10%-Water) 250 mls @ 999 mls/hr IV .Q16M PRN; Protocol PRN Reason: HYPOGLYCEMIA Melatonin (Melatonin) 3 mg PO QHS PRN PRN PRN Reason: INSOMNIA Metoprolol Tartrate (Lopressor (Beta Seth)) 50 mg PO DAILY [facility] Last Admin: 05/18/19 14:54 Dose: 50 mg Documented by: Multivit/Ca Carb/B Cmplx/FA/Prenat (Nephrocaps, Renaphro) 1 capsule PO DAILY [facility] Last Admin: 05/18/19 09:54 Dose: 1 capsule Documented by: Nicotine (Nicoderm Cq (Pbkc)) 21 mg TRANSDERM. DAILY [facility] Last Admin: 05/18/19 09:53 Dose: 21 mg Documented by: Ondansetron HCl (Zofran) 4 mg IV Q8H PRN PRN PRN Reason: NAUSEA/VOMITING Polyethylene Glycol (Miralax) 34 gm PO X1 PRN PRN Reason: Bowel Movement Last Admin: 05/18/19 06:00 Dose: 34 gm Documented by: [facility] () [facility] Last Admin: 05/18/19 01:43 Dose: 40 mg Documented by: Promethazine HCl (Phenergan Tablet) 25 mg PO Q6H PRN PRN PRN Reason: NAUSEA/VOMITING Last Admin: 05/18/19 17:55 Dose: 25 mg Documented by: Sevelamer Carbonate (Renvela) 2,400 mg PO TIDCM [facility] Last Admin: 05/18/19 17:54 Dose: Not Given Documented by: Sodium Chloride () 10 - 40 ml IV UD PRN PRN Reason: SALINE FLUSH Medical Necessity - Tobacco Use Smoking Status: Current every day smoker Tobacco Use: Cigarettes, Cigars Assessment/Plan All Active Problems (Last Reviewed 05/18/19 @ 01:[address] Tano García MD) COPD exacerbation (Acute) Hyperkalemia (Acute) Chest pain (Acute) 1- ESRD . On MWF HD schedule Pt has h/o of non compliance . He missed the 2 HD sessions before presenting to the hospital Pt had HD session yesterday with 3.6 L UF Next HD session tomorrow 2- Hyperkalemia . from missing HD session K 6.6 on 05/17. Had HD session with 1K for one hour then 2 K yesterday No repeated lab. Continue renal diet 3-Metabolic acidosis from missing HD session HCO3 was 19 yesterday. Had HD session yesterday 4- HTN: BP is Ok. continue same BP meds for now Will aim for 3-4L UF with HD session 5-BMD: continue sevelamer for hyperphosphatemia and Sensipar for SHPT Renal team will continue to follow Please call if any question at [phone] Georgie Acuña MD
--- NOTE | 2019-05-19 11:47 | CASEMGMT ---
Pt normally runs at [facility] at 1520. Pt has not gone to dialysis in the last week which is why he is admitted for hyperkalemia at this time. Call to [facility] and they state that they can still take pt today at 1520 for dialysis after discharge but pt states that he has no way to get to dialysis at discharge and this RN MARIA ESTHER offered [facility] tranport to dialysis and pt then states that he has no way home after dialysis. Pt also states that his mother usually drives him to/from dialysis and she is out of the state right now for two days. Pt also states that he lives with his mother and he doesn't have a lauren into his home at this time. Per Dr. Harmon, the plan was already to run pt here prior to discharge so that we know that pt gets his dialysis today and as per [facility], pt is not very compliant with dialysis normally. Per Sonja at dialysis, pt normally drives self and pt lives with his sig other. According to pt's contact info, pt's lives with his sig other, Gisselle, and his parents live in [place]. Pt gets angry with MESERET MAYO for 'being nosy' and states to this RN MARIA ESTHER to 'get out of my fucking face.' Dialysis nurse is at bedside to start dialysis at this time. Bruce CARL updated on all at this time and is aware that sig other listed as person to notify for possible ride at discharge, if needed. Per Dr. Harmon, plan is still for pt to be discharged after dialysis today. SStaten MESERET MAYO
--- NOTE | 2019-05-19 11:50 | PCM.DC.SUM ---
Discharge Date and Diagnosis Date of Admission: 05/18/19 Date of Discharge: 05/19/19 - Secondary Discharge Diagnosis Chronic Problems (Last Reviewed 05/18/19 @ 01:[address] Tano García MD) CHF (congestive heart failure) (Chronic) Pulmonary HTN (Chronic) Obstructive Sleep Apnea-Hypopnea Syndrome (Chronic) History of obstructive sleep apnea (Chronic) Snoring (Chronic) Excessive daytime sleepiness (Chronic) Nonrheumatic tricuspid (valve) insufficiency (Chronic) Moderate (2+) per echo 06/05/2016: RVSP38 mmhg History of Vides's palsy (Chronic) Bipolar affective disorder (Chronic) Hyperparathyroidism due to end stage renal disease on dialysis (Chronic) Anemia (Chronic) associated with renal disease Polycystic kidney disease (Chronic) Hypertriglyceridemia (Chronic) Hyperlipidemia (Chronic) History of peptic ulcer disease (Chronic) AV fistula (Chronic ~2013) Right arm Hypertension (Chronic) Type II diabetes mellitus (Chronic) Tobacco abuse (Chronic) Gastroesophageal reflux disease (Chronic) ESRD (end stage renal disease) on dialysis (Chronic) TAY (obstructive sleep apnea) (Chronic) Hospital Course and Treatment Operations: None, - Procedures: Dialysis - run 05/17 and 05/18 Summary of Care Provided: Mr Mcneill is a 53 year old M who presented to the ED on 05/18/2019 early in the am with leg weakness and back pain. Pt has ESRD and is on HD. He has a long h/o non-compliance but is supposed to get HD on MWF. At the time of admission he had not been dialyzed for 1 week because he did not feel like going. He was admitted and was very abusive both verbally and physically with the staff. He has kick multiple people out of his room who were trying to help him. He initially refused HD on 05/17 but finally allowed HD to be run. He was also run on 05/18 which is his normal dialysis day prior to D/C. He also c/o of some SOB and cough on admission. His sats were stable on RA and his CXR showed B patchy opacities suspected to be most c/w volume overload give his clinical history. He did have a normal WBC ct and was stable on RA throughout his admission. He was afebrile. He was discharged in stable condition on 05/18 after HD was completed. Subjective: Pt is argumentative and combative again today. Currently on HD. Refuses to open eyes and only answers a few question. Objective: Pt refuses - Physical Exam Vitals/I&O's: Vital Signs Temp Pulse Resp BP Pulse Ox 98.3 F 63 16 159/38 H 97 05/19/19 08:20 05/19/19 08:20 05/19/19 08:20 05/19/19 08:20 05/19/19 08:20 Oxygen Flow Rate (L/min) 2 Oxygen Delivery Method Room Air Weight: 131.5 kg Body Mass Index (BMI) 40.4 Finger Stick Blood Glucose 100 Intake and Output for Last 24 Hours 05/17/19 05/18/19 05/19/19 23:59 23:59 23:59 Intake Total 300 / 300 1065 / 1065 Output Total 3600 / 3600 3600 / 3600 Balance -3300 / -3300 -2535 / -2535 General: - - lying in bed pretending to sleep, on HD, uncooperative with conversation Lungs: No rhonchi, No rales, Diminished, Wheezes - few scattered end expiratory wheezes Cardiovascular: Regular rate, Regular Rhythm, Normal S1, Normal S2, No murmurs, No Ectopic Activity, No rub noted, No Gallop Abdomen: Bowel Sounds Present, Soft, Non Tender, Non-Distended, Obese, No hernias noted Extremities: No clubbing, No cyanosis, No edema Psych/Mental Status: Impulsive, Irrational Behavior Current Medications Acetaminophen (Tylenol) 650 mg PO Q6H PRN PRN PRN Reason: Pain Score 1-10/Temp > 100.7 F Albuterol Sulfate (Ventolin Aerosols) 2.5 mg INHALATION Q2H PRN PRN PRN Reason: SOB/Wheezing Last Admin: 05/19/19 05:34 Dose: 2.5 mg Documented by: Albuterol/Ipratropium (Duoneb) 3 ml INHALATION Q4HWA.RT [facility] Last Admin: 05/19/19 06:51 Dose: 3 ml Documented by: Amlodipine Besylate (Norvasc) 10 mg PO DAILY [facility] Last Admin: 05/18/19 14:54 Dose: 10 mg Documented by: [facility]) [facility] Last Admin: 05/18/19 09:53 Dose: 60 mg Documented by: Glucagon () 1 mg IM .X1 PRN PRN Reason: Hypoglycemia Guaifenesin (Mucinex) 1,200 mg PO BID [facility] Last Admin: 05/18/19 21:59 Dose: 1,200 mg Documented by: Heparin Sodium (Porcine) (Heparin Na) 5,000 unit SC Q8 [facility] Last Admin: 05/19/19 05:31 Dose: Not Given Documented by: Hydralazine HCl (Apresoline Iv) 5 mg IV Q4H PRN PRN PRN Reason: SBP > 160 OR DBP > 120 Dextrose (Dextrose 10%-Water) 250 mls @ 999 mls/hr IV .Q16M PRN; Protocol PRN Reason: HYPOGLYCEMIA Melatonin (Melatonin) 3 mg PO QHS PRN PRN PRN Reason: INSOMNIA Metoprolol Tartrate (Lopressor (Beta Seth)) 50 mg PO DAILY [facility] Last Admin: 05/18/19 14:54 Dose: 50 mg Documented by: Multivit/Ca Carb/B Cmplx/FA/Prenat (Nephrocaps, Renaphro) 1 capsule PO DAILY [facility] Last Admin: 05/18/19 09:54 Dose: 1 capsule Documented by: Nicotine (Nicoderm Cq (Pbkc)) 21 mg TRANSDERM. DAILY [facility] Last Admin: 05/18/19 09:53 Dose: 21 mg Documented by: Ondansetron HCl (Zofran) 4 mg IV Q8H PRN PRN PRN Reason: NAUSEA/VOMITING Polyethylene Glycol (Miralax) 34 gm PO X1 PRN PRN Reason: Bowel Movement Last Admin: 05/18/19 06:00 Dose: 34 gm Documented by: Prednisone () [facility] Last Admin: 05/18/19 01:43 Dose: 40 mg Documented by: Promethazine HCl (Phenergan Tablet) 25 mg PO Q6H PRN PRN PRN Reason: NAUSEA/VOMITING Last Admin: 05/18/19 17:55 Dose: 25 mg Documented by: Sevelamer Carbonate (Renvela) 2,400 mg PO TIDCM [facility] Last Admin: 05/18/19 17:54 Dose: Not Given Documented by: Sodium Chloride () 10 - 40 ml IV UD PRN PRN Reason: SALINE FLUSH Home Medications: Medications to take at Discharge Metoprolol Tartrate [Lopressor (beta seth)] 50 mg PO DAILY 06/04/16 lisinopril 40 mg tablet 40 mg PO DAILY 02/24/18 Cinacalcet HCl [Sensipar] 60 mg PO DAILY 11/10/18 Renal-Enal Tablet 1 cap PO DAILY 11/10/18 Sevelamer Carbonate [Renvela] 1 tab PO TID 11/10/18 Sucroferric Oxyhydroxide [Velphoro] 1,000 mg PO TID 11/10/18 Amlodipine [Norvasc] 10 mg PO DAILY 05/17/19 Primary Care Physician: Kiet Martinez DO [Primary Care Provider] - Medical Necessity - Tobacco Use Smoking Status: Current every day smoker Tobacco Use: Cigarettes, Cigars Meaningful Use Info Meaningful Use Diagnoses (Choose all that apply): None applicable Inpatient E&M: 89618 [facility]
--- NOTE | 2019-05-19 12:12 | DCINST_ITS ---
You will use the following diet at home:: Renal (restricted protein/sodium) Your food should be the consistency of: Regular Your liquids should be the consistency of: Regular/Thin Discharge Activity: Return to Normal Activity, No Restrictions Allergies/Adverse Reactions: Allergies latex Allergy (Verified 05/17/19 22:18) Rash hydrocodone Adverse Reaction (Verified 05/17/19 22:18) Abd cramps/diarrhea TAPE Allergy (Uncoded 05/17/19 22:18) Rash Medications to take at Discharge Metoprolol Tartrate [Lopressor (beta cheryle)] 50 mg PO DAILY 06/04/16 lisinopril 40 mg tablet 40 mg PO DAILY 02/24/18 Cinacalcet HCl [Sensipar] 60 mg PO DAILY 11/10/18 Renal-Neal Tablet 1 cap PO DAILY 11/10/18 Sevelamer Carbonate [Renvela] 1 tab PO TID 11/10/18 Sucroferric Oxyhydroxide [Velphoro] 1,000 mg PO TID 11/10/18 Amlodipine [Norvasc] 10 mg PO DAILY 05/17/19 Primary Care Physician: Kiet Martinez DO [Primary Care Provider] - Please follow up with your Primary Care Physician in: 1-2 weeks Test Results: Test results from this visit will be discussed in further detail at your follow- up appointment, if applicable. Please Follow Up With: HD on Friday
--- NOTE | 2019-05-19 12:21 | PHA.DC.MR ---
Pharmacy Service has performed discharge medication reconciliation for this patient. The patient's discharge medication list was reviewed for discrepancies and discrepancies were resolved. Home Medications Metoprolol Tartrate [Lopressor (beta cheryle)] 50 mg PO DAILY 06/04/16 lisinopril 40 mg tablet 40 mg PO DAILY 02/24/18 Cinacalcet HCl [Sensipar] 60 mg PO DAILY 11/10/18 Renal-Neal Tablet 1 cap PO DAILY 11/10/18 Sevelamer Carbonate [Renvela] 1 tab PO TID 11/10/18 Sucroferric Oxyhydroxide [Velphoro] 1,000 mg PO TID 11/10/18 Amlodipine [Norvasc] 10 mg PO DAILY 05/17/19
--- NOTE | 2019-05-19 16:37 | DIALYSIS ---
HD x2.8 hours completed at 1610, tolerated well, UF 2700mL, accessed via NAYANA AVF using 15G needles, +bruit and +thrill, 2 aneurysms noted to AVF, good flows, pt moves RUE frequently, needs needles extra secured, came off his 3 hr tx 20 mins early, refused to continue, only c/o being hot and need to get out of here, fan on high for pt, needles pulled and stasis achieved in 10 mins each site
[2019-05-19] MEDS: predniSONE 20 MG Tablet 40 MG PO (16:42)
[2019-05-19] MEDS: guaiFENesin 1,200 MG Tablet 1200 MG PO (16:43)
[2019-05-19] MEDS: amLODIPine 10 MG Tablet PO (16:43)
[2019-05-19] MEDS: Metoprolol Tartrate 50 MG Tablet PO (16:44)
[2019-05-19] MEDS: Cinacalcet HCl 30 MG Tablet 60 MG PO (16:44)
[2019-05-19] MEDS: Folic Acid/Vitamin B Comp W-C 1 Capsule 1 CAP PO (16:44)
[2019-05-19] MEDS: SEVELAMER CARBONATE 800 MG TABLET 2400 MG PO (16:45)
== END 2019-05-19 12:13 | disposition home or self-care (01) ==
LOC: ED 05-18 00:15 → PCU 05-18 01:03
PROVIDERS: Admitting Provider Hospitalist; Emergency Provider Emergency Medicine; PCP Student in an Organized Health Care Education/Training Program; Visit Provider Internal Medicine
DX: E11.22 Type 2 diabetes mellitus with diabetic chronic kidney disease (principal); I13.2 Hypertensive heart and chronic kidney disease with heart failure and with stage 5 chronic kidney disease, or end stage renal disease; I50.9 Heart failure, unspecified; N18.6 End stage renal disease; N25.81 Secondary hyperparathyroidism of renal origin; J44.1 Chronic obstructive pulmonary disease with (acute) exacerbation; E87.2 Acidosis; G47.33 Obstructive sleep apnea (adult) (pediatric); K21.9 Gastro-esophageal reflux disease without esophagitis; E87.5 Hyperkalemia; J44.9 Chronic obstructive pulmonary disease, unspecified; I27.20 Pulmonary hypertension, unspecified; E78.5 Hyperlipidemia, unspecified; D63.1 Anemia in chronic kidney disease; Q61.3 Polycystic kidney, unspecified; Z99.2 Dependence on renal dialysis; Z91.19 Patient's noncompliance with other medical treatment and regimen; Z79.899 Other long term (current) drug therapy; F17.210 Nicotine dependence, cigarettes, uncomplicated
CPT/HCPCS: 36415; 71045; 80048; 85025; 90937; 93005; 94640; 97802; 99218; 99251; 99285; 99406; J7030; G0257; G0378; G0463

== ENCOUNTER 2019-05-25 16:13 | Inpatient (IN) | payer MEDICARE, MEDICAID, SELFPAY ==
[2019-05-18 01:20] VITALS: BMI 40.4
[2019-05-25] VITALS (12 sets, daily range): BP systolic 131–145; BP diastolic 60–86; PULSE 64–71; RESP 20–28; TEMP 36.7–36.9; O2SAT 93–100; BMI 42.2; BMI 41.7
--- NOTE | 2019-05-25 16:25 | EKG12_ITS ---
Test Reason : CP Blood Pressure : / mmHG Vent. Rate : 063 BPM Atrial Rate : 063 BPM P-R Int : 150 ms QRS Dur : 086 ms QT Int : 428 ms P-R-T Axes : 102 -31 007 degrees QTc Int : 437 ms Normal sinus rhythm Left axis deviation Possible Anterior infarct , age undetermined Abnormal ECG Confirmed by DEAN TOMAS, MARLENE ([id number]), news video editor PATRICIO VALENZUELA ([id number]) on 05/31/2019 11:17:15 AM Referred By: JOHANA Confirmed By:CLINTON MORAN MD
--- NOTE | 2019-05-25 16:35 | RAD_ITS ---
STUDY: X-RAY CHEST REASON FOR EXAM: Male, 53 years old. cough and worsening shortness of breath TECHNIQUE: Single AP portable view of the chest. COMPARISON: 05/17/2019 FINDINGS: No change in right upper lobe and right lower lobe discoid atelectasis or There is no demonstrated pleural abnormality. Normal size heart. Normal mediastinum and velma. Normal visualized pulmonary arteries. Normal visualized aortic arch and descending thoracic aorta. Normal visualized thoracic spine. Normal visualized ribs, clavicles, and shoulders. There is no demonstrated abnormality of the visualized soft tissue structures of the upper abdomen. RAD/Chest 1 View (Portable) IMPRESSION: No change from 05/17/2019. Electronically Signed: Delbert Gonzalez MD at 16:48 EDT Tel , Service support ,
[2019-05-25 16:51] LABS: Absolute Lymphocyte Count 1.47 X10^3/uL (0.83-4.51); Absolute Neutrophil Count 7.6 X10^3/uL (2.0-7.7); Basophil# 0.02 X10^3/uL; Basophil% 0.2 % (0-1); Eosinophil# 0.24 X10^3/uL; Eosinophils% 2.3 % (0-5); Hematocrit 27.1 % (40-54); Hemoglobin 8.8 g/dL (13.0-16.5); Lymphocyte # 1.47 X10^3/ul (4.0); Lymphocyte % 14.1 % (19-41); Mean Corp Hgb Conc 32.5 g/dL (32-36); Mean Corpuscular Hgb 28.9 pg (27.0-32.0); Mean Corpuscular Volume 89.1 fL (80-94); Mean Platelet Vol. 9.3 fl (6.2-12.0); Monocyte# 1.05 X10^3/uL; Monocyte% 10.1 % (0-10); NRBC Flagged by Analyzer 0 % (0-5); Neutrophil # 7.56 X10^3/uL (2.7-7.7); Neutrophil % 72.6 % (47-70); Platelet Count 299 K/mm3 (150-450); RBC Distribution Width CV 13.4 % (11.6-14.6); RBC Distribution Width SD 42.9 fl (35.1-43.9); Red Blood Count 3.04 M/mm3 (4.6-6.2); White Blood Count 10.4 K/mm3 (4.4-11.0)
[2019-05-25 17:07] LABS: Lactic Acid 0.7 mmol/L (0.4-1.9)
[2019-05-25 17:08] LABS: International Normalized Ratio 1.1; Prothrombin Time (Protime)PT. 13.9 SECONDS (11.7-14.9)
[2019-05-25 17:12] LABS: ALB/GLOB Ratio 0.6 RATIO (0.9-2.4); AST(SGOT) 26 U/L (15-37); Alanine Aminotransfer ALT/SGPT 20 U/L (16-61); Albumin, Serum 2.1 g/dL (3.2-5.0); Alkaline Phosphatase 69 U/L (45-117); Anion Gap 11 (5-15); BUN 89 mg/dL (7-18); BUN/Creat Ratio 6.5 RATIO (10-20); Calcium,Total 8.8 mg/dL (8.5-10.1); Chloride 102 mmol/L (98-107); EST Glomerular Filtration Rate 4 mL/min (>60); Est Glom Filt Rate - Afr Amer 5 mL/min (>60); Estimated Creatinine Clearance 6.79 ml/min; Globulin 3.5 g/dL (2.2-4.2); Glucose 99 mg/dL (74-106); Potassium 5.8 mmol/L (3.5-5.1); Protein, Total 5.6 g/dL (6.4-8.2); Sodium Level 140 mmol/L (136-145)
--- NOTE | 2019-05-25 17:56 | ED.DCSUM_ITS ---
- ER Visit Summary Date of Service: 05/25/19 Chief Complaint: Shortness of breath History of Present Illness: The patient is a 53 M with shortness of breath that started yesterday. The patient has end-stage renal disease. He missed his Friday dialysis because he did not have a ride. He also is complaining of fever, cough, chest pain. He was hypoxic for EMS and was started on a nonrebreather. Physical Examination: Afebrile and vital signs unremarkable. 100% on nonrebreather. Lungs diminished. Heart regular. Skin normal. Alert and oriented. Test Results: EKG showed sinus rhythm at a rate of 63. Hemoglobin 8.8. Potassium 5.8. BUN 89 and creatinine 13.7. Coags normal. Liver panel normal. Urinalysis pending. Troponin normal. Lactate normal. Respiratory panel and flu test pending. Cultures pending. Chest x-ray showed no change from his pr ior chest x-ray but shows patchy bilateral infiltrates, possible edema. Emergency Department Course and Treatment: Patient did screen positive for coronavirus. Influenza and respiratory panel are pending. Contact and droplet precautions were maintained by va. He was placed on a monitor. He was doing well on nasal cannula, 5 L, 100%. We will continue to wean. Lab work as above. He does not appear to be septic. He did not have a fever here. We were notified by EMS that he had a fever. I suspect most of his issues are related to missing dialysis. He was treated with calcium, dextrose, insulin. We will continue to monitor his respiratory panel, flu test, white count, temperature. Treatment Plan: As above Disposition: Admission Impression: 1. Hypoxic respiratory failure 2. End-stage renal disease 3. Hyperkalemia This note was generated with [employer] software. It may contain incorrect words, spelling, and punctuation that were not noted in review of the chart prior to signing ED Disposition - Plan for ED Patient: Referrals: Kiet Martinez DO [Primary Care Provider] -
--- NOTE | 2019-05-25 18:00 | NURSING ---
114 TRISTAN HYPOXIA, HYPERKALEMIA
[2019-05-25] MEDS: Insulin Lispro 5 UNIT in Syringe 0 ML 3 UNIT IV (18:07)
[2019-05-25] MEDS: Calcium Gluconate 1 GM/10 ML Vial IV (18:08)
[2019-05-25] MEDS: Dextrose 50%-Water 25 GM/50 ML DISP.SYRIN IV (18:08)
--- NOTE | 2019-05-25 18:47 | HP.PCM_ITS ---
History of Present Illness Date of Admission: 05/25/19 Chief Complaint: shortness of breath. fever. The patient is a 53 year old M is with shortness of breath and fever. Symptoms began over the past couple days. Patient is end-stage renal disease on dialysis on Friday but missed his dialysis on the due to the fact that is mother could or would not take him. Is been an issue before where he was just admitted and discharged on the after missing dialysis for a week. He stated that time his mother refused to take him. He states that he will finally have reliable transportation on June 09 for going to and fro from dialysis. In the emergency room, he was brought in on a nonrebreather and then eventually weaned down to 2 L. Chest x-ray was essentially unchanged from the . Patient was found to have a potassium of 5.8. Received Calcium gluconate, insulin and D50. Patient denies any recent travel nor any sick contacts outside being in the hospital and dialysis. [] Past Medical History Past Medical History (Chronic Problems): Chronic Problems (Last Reviewed 05/18/19 @ 01:[address] Tano García MD) CHF (congestive heart failure) (Chronic) Pulmonary HTN (Chronic) Obstructive Sleep Apnea-Hypopnea Syndrome (Chronic) History of obstructive sleep apnea (Chronic) Snoring (Chronic) Excessive daytime sleepiness (Chronic) Nonrheumatic tricuspid (valve) insufficiency (Chronic) Moderate (2+) per echo 06/05/2016: RVSP38 mmhg History of Vides's palsy (Chronic) Bipolar affective disorder (Chronic) Hyperparathyroidism due to end stage renal disease on dialysis (Chronic) Anemia (Chronic) associated with renal disease Polycystic kidney disease (Chronic) Hypertriglyceridemia (Chronic) Hyperlipidemia (Chronic) History of peptic ulcer disease (Chronic) AV fistula (Chronic ~2013) Right arm Hypertension (Chronic) Type II diabetes mellitus (Chronic) Tobacco abuse (Chronic) Gastroesophageal reflux disease (Chronic) ESRD (end stage renal disease) on dialysis (Chronic) TAY (obstructive sleep apnea) (Chronic) Medical History: Medical History (Last Reviewed 05/25/19 @ 18:[address] J Carlos Gonzales DO) Obstructive Sleep Apnea-Hypopnea Syndrome (Chronic) G47.33 History of obstructive sleep apnea (Chronic) Z86.69 Snoring (Chronic) R06.83 Excessive daytime sleepiness (Chronic) G47.19 Nonrheumatic tricuspid (valve) insufficiency (Chronic) I36.1 Moderate (2+) per echo 06/05/2016: RVSP38 mmhg History of Vides's palsy (Chronic) Z86.69 Bipolar affective disorder (Chronic) F31.9 Hyperparathyroidism due to end stage renal disease on dialysis (Chronic) N25.81, N18.6, Z99.2 Anemia (Chronic) D64.9 associated with renal disease Polycystic kidney disease (Chronic) Q61.3 Hypertriglyceridemia (Chronic) E78.1 Hyperlipidemia (Chronic) E78.5 Edema extremities (Inactive) R60.0 History of peptic ulcer disease (Chronic) Z87.11 Hypertension (Chronic) I10 Type II diabetes mellitus (Chronic) E11.9 Tobacco abuse (Chronic) Z72.0 Gastroesophageal reflux disease (Chronic) K21.9 ESRD (end stage renal disease) on dialysis (Chronic) N18.6, Z99.2 TAY (obstructive sleep apnea) (Chronic) G47.33 Chest pain (Acute) R07.9 Derangement of left patella M22.3X2 Allergies latex Allergy (Verified 05/25/19 16:13) Rash hydrocodone Adverse Reaction (Verified 05/25/19 16:13) Abd cramps/diarrhea TAPE Allergy (Uncoded 05/25/19 16:13) Rash Home Medications: Ambulatory Orders Medication Instructions Recorded Metoprolol Tartrate [Lopressor 50 mg PO DAILY 06/04/16 (beta cheryle)] lisinopril 40 mg tablet 40 mg PO DAILY 02/24/18 Cinacalcet HCl [Sensipar] 60 mg PO DAILY 11/10/18 Sevelamer Carbonate [Renvela] 1 tab PO TID 11/10/18 Sucroferric Oxyhydroxide [Velphoro] 1,000 mg PO TID 11/10/18 Amlodipine [Norvasc] 10 mg PO DAILY 05/17/19 Folic Acid/Vit B Complex and C 0.8 mg PO DAILY 05/25/19 [Renal Vitamin Tablet] Surgical History: Surgical History (Last Reviewed 05/25/19 @ 18:[address] J Carlos Gonzales, DO) AV fistula (Chronic) Onset Date: ~2013 I77.0 Right arm History of facial surgery Z98.890 History of total left knee replacement Z96.652 Surgical History: total knee arthroplasty, - Psychiatric History: No pertinent psych hx Smoking Status: Current every day smoker - *Family History Paternal Family History: Family History (Last Reviewed 05/25/19 @ 18:[address] J Carlos Gonzales DO) Brother CAD (coronary artery disease) Congestive heart failure Father Diabetes CAD (coronary artery disease) Kidney disease Mother Bleeding disorder Brother Kidney disease History Items: Diabetes, Heart Disease, Hypertension, - - Polycystic kidney disease, at age 58 from renal failure Maternal Family History: Family History (Last Reviewed 05/25/19 @ 18:[address] J Carlos Gonzales DO) Brother CAD (coronary artery disease) Congestive heart failure Father Diabetes CAD (coronary artery disease) Kidney disease Mother Bleeding disorder Brother Kidney disease History Items: No pertinent history Review of Systems Constitutional: Reports: Chills, Malaise. Denies: Anorexia Eyes: Denies: Blurred vision, Double vision HEENT: Denies: Head Aches, Sinus Congestion, Sinus Drainage Cardiovascular: Denies: Chest Pain, Palpitations Respiratory: Reports: Cough, Shortness of Breath Gastrointestinal: Denies: Abdominal Pain, Nausea, Vomiting Genitourinary: Denies: Dysuria Musculoskeletal: Denies: Joint Pain, Joint Tenderness Skin: Denies: Rash, Wounds Neurological: Denies: Numbness, Tingling, Focal weakness Psychiatric: Denies: Anxiety, Depression Hematologic/ Lymphatic: Denies: Easy Bruising, Easy Bleeding, Hx of blood clot Comment: All review of systems were negative except as mentioned above in the history of present illness and the other review of systems. VTE Information - Inpt Only VTE Present on Admission: No VTE Mechan Device Prophylaxis: None VTE Pharm Prophylaxis ordered?: Yes - Physical Exam Vitals/I&O's: Vital Signs Temp Pulse Resp BP Pulse Ox 36.9 C 64 23 H 140/85 H 99 05/25/19 18:28 05/25/19 18:28 05/25/19 18:28 05/25/19 18:28 05/25/19 18:28 Oxygen Flow Rate (L/min) 2 Oxygen Delivery Method Nasal Cannula Weight: 135.6 kg Body Mass Index (BMI) 41.7 Finger Stick Blood Glucose 100 Intake and Output for Last 24 Hours 05/23/19 05/24/19 05/25/19 23:59 23:59 23:59 Intake Total 0.05 / 0.05 Balance 0.05 / 0.05 General: Alert, Cooperative, No apparent distress HEENT: Atraumatic, Normocephalic Oral: Moist Mucosa, No Gingival or Mucosal Lesions/ Ulcerations Neck: No Nodes, Trachea Midline Lungs: Clear to auscultation, Normal air movement, No rhonchi, No wheeze, No rales Cardiovascular: Regular rate, Regular Rhythm, Normal S1, Normal S2, No murmurs Abdomen: Bowel Sounds Present, Soft, Non Tender, Non-Distended, No Hepato- splenomegaly Extremities: No Calf Tenderness, Edema - Trace around the ankles Skin: No rashes, No breakdown Musculoskeletal: No Tenderness to Palpation of Joints or Extremities, No Muscle Wasting Psych/Mental Status: Normal Affect, Appropriate Microbiology Past 72 Hours 05/25/19 16:45 Mucosa - Nose Influenza Types A,B Direct FA (CRISTHIAN) - Final Laboratory Results 05/25/19 16:30: Sodium 140, Potassium 5.8 H, Chloride 102, Carbon Dioxide 27.0, Anion Gap 11, BUN 89 H, Creatinine 13.70 H*, Estim Creat Clear Calc 6.79, Est GFR (MDRD) Af Amer 5 L, Est GFR (MDRD) Non-Af 4 L, BUN/Creatinine Ratio 6.5 L, Glucose 99, Calcium 8.8, Total Bilirubin 0.30, AST 26, ALT 20, Alkaline Phosphat ase 69, Troponin I 0.045, Total Protein 5.6 L, Albumin 2.1 L, Globulin 3.5, Albumin/Globulin Ratio 0.6 L 05/25/19 16:30: WBC 10.4, RBC 3.04 L, Hgb 8.8 L, Hct 27.1 L, MCV 89.1, MCH 28.9, MCHC 32.5, RDW Std Deviation 42.9, RDW Coeff of Mook 13.4, Plt Count 299, MPV 9.3, Immature Gran % (Auto) 0.700, Neut % (Auto) 72.6 H, Lymph % (Auto) 14.1 L, Wirt % (Auto) 10.1 H, Eos % (Auto) 2.3, Baso % (Auto) 0.2, Absolute Neuts (auto) 7.6, Absolute Lymphs (auto) 1.47, Nucleated RBC % 0 05/25/19 16:30: PT 13.9, INR 1.1, APTT 31.0 05/25/19 16:30: Lactic Acid 0.7 X-ray reviewed and showed atelectasis in the right lower lobe but unchanged from May 16. May be some pulmonary vascular congestion. Current Medications Sodium Chloride () 10 - 40 ml IV UD PRN PRN Reason: SALINE FLUSH Assessment/Plan All Active Problems (Last Reviewed 05/18/19 @ 01:[address] Tano García MD) COPD exacerbation (Acute) Hyperkalemia (Acute) Chest pain (Acute) 1. Hyperkalemia: Likely due to the fact that he did not receive dialysis. Did not appear to be hemolyzed. Patient received calcium gluconate plus insulin and D50. Will recheck and if still elevated then may consider giving Kayexalate. Patient will need to get dialysis to get further stabilization of his electrol ytes 2. Dyspnea: Patient does not have anything that is really concerning for a coronavirus. Feels related more with the volume overload. Wean oxygen as tolerated would anticipate that after he gets dialysis that his oxygen may continue to improve. 3. End-stage renal disease: Patient is noncompliant due to the fact that he does not have adequate transportation per his description. He states that he will have more reliable transportation, June 09. Nephrology will be on consultation. No indication for urgent dialysis at this time can be deferred until the . Discussed with Dr. Mays 4. Hypertension: Fair control. Continue with his home medications 5. VTE prophylaxis: Moderate risk. Subcu heparin. 6. Advanced care planning: Patient wishes to be full CODE STATUS. Inpatient E&M: 54042 Init Hosp L2
[2019-05-25] MEDS: Acetaminophen 325 MG Tablet 650 MG PO (19:07)
--- NOTE | 2019-05-25 22:16 | ED.RN ---
[facility] called to see if patient was tested for covid-19. patient not tested EMS aware
[2019-05-26] VITALS (11 sets, daily range): BP systolic 125–143; BP diastolic 67–75; PULSE 58–77; RESP 19–22; TEMP 36.7–36.9; O2SAT 95–99
[2019-05-26] MEDS: Acetaminophen 325 MG Tablet 650 MG PO (00:27)
[2019-05-26 00:35] LABS: Bedside Glucose 105 mg/dL (70-110)
[2019-05-26 00:55] LABS: Anion Gap 10 (5-15); BUN 94 mg/dL (7-18); BUN/Creat Ratio 6.8 RATIO (10-20); Calcium,Total 8.7 mg/dL (8.5-10.1); Chloride 101 mmol/L (98-107); EST Glomerular Filtration Rate 4 mL/min (>60); Est Glom Filt Rate - Afr Amer 5 mL/min (>60); Glucose 112 mg/dL (74-106); Potassium 5.9 mmol/L (3.5-5.1); Sodium Level 139 mmol/L (136-145)
[2019-05-26 06:50] LABS: Bedside Glucose 84 mg/dL (70-110)
[2019-05-26 07:22] LABS: Absolute Lymphocyte Count 1.46 X10^3/uL (0.83-4.51); Absolute Neutrophil Count 6.2 X10^3/uL (2.0-7.7); Basophil# 0.02 X10^3/uL; Basophil% 0.2 % (0-1); Eosinophil# 0.25 X10^3/uL; Eosinophils% 2.8 % (0-5); Hematocrit 23.8 % (40-54); Hemoglobin 7.8 g/dL (13.0-16.5); Lymphocyte # 1.46 X10^3/ul (4.0); Lymphocyte % 16.4 % (19-41); Mean Corp Hgb Conc 32.8 g/dL (32-36); Mean Corpuscular Hgb 29.3 pg (27.0-32.0); Mean Corpuscular Volume 89.5 fL (80-94); Mean Platelet Vol. 9.1 fl (6.2-12.0); Monocyte# 0.93 X10^3/uL; Monocyte% 10.4 % (0-10); NRBC Flagged by Analyzer 0 % (0-5); Neutrophil % 69.6 % (47-70); Platelet Count 243 K/mm3 (150-450); RBC Distribution Width CV 13.5 % (11.6-14.6); RBC Distribution Width SD 43.9 fl (35.1-43.9); Red Blood Count 2.66 M/mm3 (4.6-6.2); White Blood Count 8.9 K/mm3 (4.4-11.0)
[2019-05-26 07:45] LABS: Anion Gap 10 (5-15); BUN 97 mg/dL (7-18); BUN/Creat Ratio 6.9 RATIO (10-20); Calcium,Total 8.9 mg/dL (8.5-10.1); Chloride 100 mmol/L (98-107); EST Glomerular Filtration Rate 4 mL/min (>60); Est Glom Filt Rate - Afr Amer 5 mL/min (>60); Glucose 120 mg/dL (74-106); Potassium 5.8 mmol/L (3.5-5.1); Sodium Level 137 mmol/L (136-145)
--- NOTE | 2019-05-26 10:01 | CASEMGMT ---
Patient is stating he has no transportation to dialysis until June 09. SW wrote down the 800 number to [facility] Plan Transportation. SW went to patient's room and asked him if he has ever called [facility] to set up transport as this is available. He said he has not. SW told him if he calls this number it is a service available to him through his insurance, but he has to call and arrange it. SW wrote down the phone number and his insurance policy number. The phone number is toll free. Patient told DAREK, I'm not gonna do that. He mumbled something else and something along the lines of they won't help. SW asked why he does not think it will help and he did not answer. SW told him if he calls today he should be able to get transport to dialysis for Friday as they need 48 hours notice. He said if he is discharged today he won't be able to get to dialysis Friday. SW told him if he calls that 800 number he would likely be able to get transport for Friday. He said, I won't do it and turned his back to DAREK. DAREK then let physician know this information. She accompanied SW to the room and told him that staff is trying to help him. She told him he needs to call the number today and handed him his phone. He then got on his phone. Elvia BUENO
--- NOTE | 2019-05-26 10:11 | DCINST_ITS ---
- Discharge Diagnoses Reason(s) for Visit for Discharge Instructions: Shortness of breath You will use the following diet at home:: Renal (restricted protein/sodium) Your food should be the consistency of: Regular Your liquids should be the consistency of: Regular/Thin Discharge Activity: Return to Normal Activity Additional Instructions: Continue to take all your medications as prescribed. Continue with dialysis as scheduled. Follow-up on the resources given to you for transport to and from dialysis. Allergies/Adverse Reactions: Allergies latex Allergy (Verified 05/25/19 16:13) Rash hydrocodone Adverse Reaction (Verified 05/25/19 16:13) Abd cramps/diarrhea TAPE Allergy (Uncoded 05/25/19 16:13) Rash Medications to take at Discharge Metoprolol Tartrate [Lopressor (beta cheryle)] 50 mg PO DAILY 06/04/16 lisinopril 40 mg tablet 40 mg PO DAILY 02/24/18 Cinacalcet HCl [Sensipar] 60 mg PO DAILY 11/10/18 Sevelamer Carbonate [Renvela] 1 tab PO TID 11/10/18 Sucroferric Oxyhydroxide [Velphoro] 1,000 mg PO TID 11/10/18 Amlodipine [Norvasc] 10 mg PO DAILY 05/17/19 Folic Acid/Vit B Complex and C [Renal Vitamin Tablet] 0.8 mg PO DAILY 05/25/19 Primary Care Physician: Kiet Martinez DO [Primary Care Provider] - Please follow up with your Primary Care Physician in: within 1-2 weeks Test Results: Test results from this visit will be discussed in further detail at your follow- up appointment, if applicable. Proposed Discharge Date: 05/26/19
--- NOTE | 2019-05-26 10:14 | PCM.DC.SUM ---
Discharge Date and Diagnosis Date of Admission: 05/25/19 Date of Discharge: 05/26/19 - Primary Discharge Diagnosis Hyperkalemia secondary to missed dialysis Upper respiratory infection - Secondary Discharge Diagnosis Chronic Problems (Last Reviewed 05/25/19 @ 18:[address] J Carlos Gonzales, DO) CHF (congestive heart failure) (Chronic) Pulmonary HTN (Chronic) Obstructive Sleep Apnea-Hypopnea Syndrome (Chronic) History of obstructive sleep apnea (Chronic) Snoring (Chronic) Excessive daytime sleepiness (Chronic) Nonrheumatic tricuspid (valve) insufficiency (Chronic) Moderate (2+) per echo 06/05/2016: RVSP38 mmhg History of Vides's palsy (Chronic) Bipolar affective disorder (Chronic) Hyperparathyroidism due to end stage renal disease on dialysis (Chronic) Anemia (Chronic) associated with renal disease Polycystic kidney disease (Chronic) Hypertriglyceridemia (Chronic) Hyperlipidemia (Chronic) History of peptic ulcer disease (Chronic) AV fistula (Chronic ~2013) Right arm Hypertension (Chronic) Type II diabetes mellitus (Chronic) Tobacco abuse (Chronic) Gastroesophageal reflux disease (Chronic) ESRD (end stage renal disease) on dialysis (Chronic) TAY (obstructive sleep apnea) (Chronic) Hospital Course and Treatment Imaging Results: Clinical Impression(s) from Imaging Studies Chest X-Ray 05/25/19 16:35 IMPRESSION: No change from 05/17/2019. Electronically Signed: Delbert Gonzalez MD at 16:48 EDT Tel , Service support , Nephrology Operations: None, - Procedures: None Summary of Care Provided: The patient is a 53 year old M with past medical history of ESRD on hemodialysis, hypertension, type II DM who comes in with progressive shortness of breath and fever. Patient admits to missing his dialysis the day before discharge. He complains of lack of transport to dialysis. Patient has been in the hospital multiple times for similar episodes. He admits to feeling very weak and unable to walk or drive. In the emergency room, he was found to be hypoxic but improved with breathing treatments and oxygen therapy. His admitting chest x-ray was unchanged. His potassium on admission was 5.8. No acute EKG changes. Patient received calcium gluconate, insulin and D50. He underwent dialysis on the morning after discharge. His repeat potassium was 5.3. During the hospital stay, patient insisted on being on a regular diet. Counseled strongly about renal diet and the need to maintain low potassium. He was seen by PT and OT and skilled for subacute rehab. Subjective: On the day of discharge, patient was seen and examined. He denied any new complaints. Objective: Physical exam: General: Alert, Cooperative, No apparent distress HEENT: Atraumatic, Normocephalic Oral: Moist Mucosa, No Gingival or Mucosal Lesions/ Ulcerations Neck: No Nodes, Trachea Midline Lungs: Clear to auscultation, Normal air movement, No rhonchi, No wheeze, No rales Cardiovascular: Regular rate, Regular Rhythm, Normal S1, Normal S2, No murmurs Abdomen: Bowel Sounds Present, Soft, Non Tender, Non-Distended, No Hepato-splenomegaly Extremities: No Calf Tenderness, Edema - Trace around the ankles Skin: No rashes, No breakdown Musculoskeletal: No Tenderness to Palpation of Joints or Extremities, No Muscle Wasting Psych/Mental Status: Normal Affect, Appropriate - Physical Exam Vitals/I&O's: Vital Signs Temp Pulse Resp BP Pulse Ox 98.2 F 70 22 H 143/75 H 96 05/26/19 05:30 05/26/19 06:51 05/26/19 05:30 05/26/19 05:30 05/26/19 05:30 Oxygen Flow Rate (L/min) 3 Oxygen Delivery Method Nasal Cannula Weight: 135.6 kg Body Mass Index (BMI) 41.7 Finger Stick Blood Glucose 100 Intake and Output for Last 24 Hours 05/24/19 05/25/19 05/26/19 23:59 23:59 23:59 Intake Total 240.05 / 240.05 240 / 240 Balance 240.05 / 240.05 240 / 240 Microbiology Past 72 Hours 05/25/19 16:45 Mucosa - Nose Respiratory Panel (PCR) - Final 05/25/19 16:45 Mucosa - Nose Influenza Types A,B Direct FA ([facility]) - Final Laboratory Results 05/25/19 16:30: Sodium 140, Potassium 5.8 H, Chloride 102, Carbon Dioxide 27.0, Anion Gap 11, BUN 89 H, Creatinine 13.70 H*, Estim Creat Clear Calc 6.79, Est GFR (MDRD) Af Amer 5 L, Est GFR (MDRD) Non-Af 4 L, BUN/Creatinine Ratio 6.5 L, Glucose 99, Calcium 8.8, Total Bilirubin 0.30, AST 26, ALT 20, Alkaline Phosphatase 69, Troponin I 0.045, Total Protein 5.6 L, Albumin 2.1 L, Globulin 3.5, Albumin/Globulin Ratio 0.6 L 05/25/19 16:30: WBC 10.4, RBC 3.04 L, Hgb 8.8 L, Hct 27.1 L, MCV 89.1, MCH 28.9, MCHC 32.5, RDW Std Deviation 42.9, RDW Coeff of Mook 13.4, Plt Count 299, MPV 9.3, Immature Gran % (Auto) 0.700, Neut % (Auto) 72.6 H, Lymph % (Auto) 14.1 L, Jefferson % (Auto) 10.1 H, Eos % (Auto) 2.3, Baso % (Auto) 0.2, Absolute Neuts (auto) 7.6, Absolute Lymphs (auto) 1.47, Nucleated RBC % 0 05/25/19 16:30: PT 13.9, INR 1.1, APTT 31.0 05/25/19 16:30: Lactic Acid 0.7 05/26/19 00:10: POC Glucose 105 05/26/19 00:15: Sodium 139, Potassium 5.9 H, Chloride 101, Carbon Dioxide 28.0, Anion Gap 10, BUN 94 H, Creatinine 13.90 H*, Estim Creat Clear Calc 6.70, Est GFR (MDRD) Af Amer 5 L, Est GFR (MDRD) Non-Af 4 L, BUN/Creatinine Ratio 6.8 L, Glucose 112 H, Calcium 8.7 05/26/19 06:20: POC Glucose 84 05/26/19 07:10: WBC 8.9, RBC 2.66 L, Hgb 7.8 L, Hct 23.8 L, MCV 89.5, MCH 29.3, MCHC 32.8, RDW Std Deviation 43.9, RDW Coeff of Mook 13.5, Plt Count 243, MPV 9.1, Immature Gran % (Auto) 0.600, Neut % (Auto) 69.6, Lymph % (Auto) 16.4 L, Jefferson % (Auto) 10.4 H, Eos % (Auto) 2.8, Baso % (Auto) 0.2, Absolute Neuts (auto) 6.2, Absolute Lymphs (auto) 1.46, Nucleated RBC % 0 05/26/19 07:10: Sodium 137, Potassium 5.8 H, Chloride 100, Carbon Dioxide 27.0, Anion Gap 10, BUN 97 H, Creatinine 14.10 H*, Estim Creat Clear Calc 6.60, Est GFR (MDRD) Af Amer 5 L, Est GFR (MDRD) Non-Af 4 L, BUN/Creatinine Ratio 6.9 L, Glucose 120 H, Calcium 8.9 Current Medications Acetaminophen (Tylenol) 650 mg PO Q4H PRN PRN PRN Reason: Pain Score 1-10/10 Last Admin: 05/26/19 00:27 Dose: 650 mg Documented by: Acetaminophen (Tylenol) 650 mg PO Q6H PRN PRN PRN Reason: Pain Score 1-10/Temp > 100.7 F Amlodipine Besylate (Norvasc) 10 mg PO DAILY [facility] Cinacalcet (Sensipar) 60 mg PO DAILY [facility] Heparin Sodium (Porcine) (Heparin Na) 5,000 unit SC Q12 [facility] Last Admin: 05/26/19 00:22 Dose: Not Given Documented by: Lisinopril (Zestril) 40 mg PO DAILY [facility] Metoprolol Tartrate (Lopressor (Beta Seth)) 50 mg PO DAILY [facility] Multivit/Ca Carb/B Cmplx/FA/Prenat (Nephrocaps, Renaphro) 1 capsule PO DAILY [facility] Non-Formulary Medication (Sucroferric Oxyhydroxide) 1,000 mg PO TID [facility] Ondansetron HCl (Zofran) 4 mg IV Q8H PRN PRN PRN Reason: NAUSEA/VOMITING Sevelamer Carbonate (Renvela) 800 mg PO TIDCM [facility] Sodium Chloride () 10 - 40 ml IV UD PRN PRN Reason: SALINE FLUSH Discharge Diet: Renal Diet Discharge Activity: Return to Normal Activity Home Medications: Medications to take at Discharge Metoprolol Tartrate [Lopressor (beta seth)] 50 mg PO DAILY 06/04/16 lisinopril 40 mg tablet 40 mg PO DAILY 02/24/18 Cinacalcet HCl [Sensipar] 60 mg PO DAILY 11/10/18 Sevelamer Carbonate [Renvela] 1 tab PO TID 11/10/18 Sucroferric Oxyhydroxide [Velphoro] 1,000 mg PO TID 11/10/18 Amlodipine [Norvasc] 10 mg PO DAILY 05/17/19 Folic Acid/Vit B Complex and C [Renal Vitamin Tablet] 0.8 mg PO DAILY 05/25/19 Primary Care Physician: Kiet Martinez DO [Primary Care Provider] - Please follow up with your Primary Care Physician in: within 1-2 weeks Disposition: Senior Care facility Minutes spent on discharge:: 40 Patient Condition:: Stable Medical Necessity - Tobacco Use Smoking Status: Current every day smoker Tobacco Use: Cigarettes Meaningful Use Info Meaningful Use Diagnoses (Choose all that apply): None applicable Inpatient E&M: [id number] [facility]
--- NOTE | 2019-05-26 10:37 | PCM.CONS.R ---
Consultation - Renal PCP/ Referring MD: Requesting physician: [] Primary care physician: Kiet Martinez DO - History of Present Illness History of Present Illness: The patient is a 53 year old M PMH of ESRD on MWF HD schedule. Pt was just discharged from the hospital last week after he was admitted for fluid overload, hyperkalemia fro missing 2 HD sessions. Pt missed last outpatient session of HD due to transportation issue. Pt presented again because he is not feeling well and feeling SOB. In ED he was found to have hyperkalemia of 5.9 Hyperkalemia was treated medically.K is 5.8 this am. UD session was arranged for today and I saw the patient during HD session chest xray did not show pulmonary edema. No nausea No vomiting No SOB this am ROS: 12 systems review is negative this am [] - Allergies Allergies: Allergies latex Allergy (Verified 05/25/19 16:13) Rash hydrocodone Adverse Reaction (Verified 05/25/19 16:13) Abd cramps/diarrhea TAPE Allergy (Uncoded 05/25/19 16:13) Rash - Current Medications Current Medications: Current Medications Acetaminophen (Tylenol) 650 mg PO Q4H PRN PRN PRN Reason: Pain Score 1-10/10 Last Admin: 05/26/19 00:27 Dose: 650 mg Documented by: Acetaminophen (Tylenol) 650 mg PO Q6H PRN PRN PRN Reason: Pain Score 1-10/Temp > 100.7 F Amlodipine Besylate (Norvasc) 10 mg PO DAILY [facility] Cinacalcet (Sensipar) 60 mg PO DAILY [facility] Heparin Sodium (Porcine) (Heparin Na) 5,000 unit SC Q12 [facility] Last Admin: 05/26/19 00:22 Dose: Not Given Documented by: Lisinopril (Zestril) 40 mg PO DAILY [facility] Metoprolol Tartrate (Lopressor (Beta Seth)) 50 mg PO DAILY [facility] Multivit/Ca Carb/B Cmplx/FA/Prenat (Nephrocaps, Renaphro) 1 capsule PO DAILY [facility] Non-Formulary Medication (Sucroferric Oxyhydroxide) 1,000 mg PO TID [facility] Ondansetron HCl (Zofran) 4 mg IV Q8H PRN PRN PRN Reason: NAUSEA/VOMITING Sevelamer Carbonate (Renvela) 800 mg PO TIDCM [facility] Sodium Chloride () 10 - 40 ml IV UD PRN PRN Reason: SALINE FLUSH - Past Medical History Past Medical History (Chronic Problems): Chronic Problems (Last Reviewed 05/25/19 @ 18:[address] J Carlos Gonzales DO) CHF (congestive heart failure) (Chronic) Pulmonary HTN (Chronic) Obstructive Sleep Apnea-Hypopnea Syndrome (Chronic) History of obstructive sleep apnea (Chronic) Snoring (Chronic) Excessive daytime sleepiness (Chronic) Nonrheumatic tricuspid (valve) insufficiency (Chronic) Moderate (2+) per echo 06/05/2016: [id number] mmhg History of Vides's palsy (Chronic) Bipolar affective disorder (Chronic) Hyperparathyroidism due to end stage renal disease on dialysis (Chronic) Anemia (Chronic) associated with renal disease Polycystic kidney disease (Chronic) Hypertriglyceridemia (Chronic) Hyperlipidemia (Chronic) History of peptic ulcer disease (Chronic) AV fistula (Chronic ~2013) Right arm Hypertension (Chronic) Type II diabetes mellitus (Chronic) Tobacco abuse (Chronic) Gastroesophageal reflux disease (Chronic) ESRD (end stage renal disease) on dialysis (Chronic) TAY (obstructive sleep apnea) (Chronic) - Past Surgical History Surgical History: total knee arthroplasty, - - Social History Smoking Status: Current every day smoker - Family History Paternal Family History: Family History (Last Reviewed 05/25/19 @ 18:[address] J Carlos Gonzales DO) Brother CAD (coronary artery disease) Congestive heart failure Father Diabetes CAD (coronary artery disease) Kidney disease Mother Bleeding disorder Brother Kidney disease History Items: Diabetes, Heart Disease, Hypertension, - - Polycystic kidney disease, at age 58 from renal failure Maternal Family History: Family History (Last Reviewed 05/25/19 @ 18:[address] J Carlos Gonzales DO) Brother CAD (coronary artery disease) Congestive heart failure Father Diabetes CAD (coronary artery disease) Kidney disease Mother Bleeding disorder Brother Kidney disease History Items: No pertinent history - Physical Exam Vitals/I&O's: Vital Signs Temp Pulse Resp BP Pulse Ox 98.2 F 70 22 H 143/75 H 96 05/26/19 05:30 05/26/19 06:51 05/26/19 05:30 05/26/19 05:30 05/26/19 05:30 Oxygen Flow Rate (L/min) 3 Oxygen Delivery Method Nasal Cannula Weight: 135.6 kg Body Mass Index (BMI) 41.7 Finger Stick Blood Glucose 100 Intake and Output for Last 24 Hours 05/24/19 05/25/19 05/26/19 23:59 23:59 23:59 Intake Total 240.05 / 240.05 240 / 240 Balance 240.05 / 240.05 240 / 240 General: Alert HEENT: Atraumatic Oral: Moist Mucosa Neck: Supple, No JVD Lungs: Clear to auscultation, Normal air movement, No rhonchi, No wheeze, No rales Cardiovascular: Regular rate, Regular Rhythm, Normal S1, Normal S2 Abdomen: Bowel Sounds Present, Soft, Non Tender, Non-Distended Extremities: No clubbing, No cyanosis, No edema Skin: No rashes Musculoskeletal: No Tenderness to Palpation of Joints or Extremities Lymphatic: No Cervical, Supraclavicular, or Inguinal Adenopathy Neurological: Cranial nerves II-XII grossly intact, Neuro grossly intact Psych/Mental Status: Appropriate Microbiology Past 72 Hours 05/25/19 16:45 Mucosa - Nose Respiratory Panel (PCR) - Final 05/25/19 16:45 Mucosa - Nose Influenza Types A,B Direct FA (CRISTHIAN) - Final Laboratory Results 05/25/19 16:30: Sodium 140, Potassium 5.8 H, Chloride 102, Carbon Dioxide 27.0, Anion Gap 11, BUN 89 H, Creatinine 13.70 H*, Estim Creat Clear Calc 6.79, Est GFR (MDRD) Af Amer 5 L, Est GFR (MDRD) Non-Af 4 L, BUN/Creatinine Ratio 6.5 L, Glucose 99, Calcium 8.8, Total Bilirubin 0.30, AST 26, ALT 20, Alkaline Phosphatase 69, Troponin I 0.045, Total Protein 5.6 L, Albumin 2.1 L, Globulin 3.5, Albumin/Globulin Ratio 0.6 L 05/25/19 16:30: WBC 10.4, RBC 3.04 L, Hgb 8.8 L, Hct 27.1 L, MCV 89.1, MCH 28.9, MCHC 32.5, RDW Std Deviation 42.9, RDW Coeff of Mook 13.4, Plt Count 299, MPV 9.3, Immature Gran % (Auto) 0.700, Neut % (Auto) 72.6 H, Lymph % (Auto) 14.1 L, Overton % (Auto) 10.1 H, Eos % (Auto) 2.3, Baso % (Auto) 0.2, Absolute Neuts (auto) 7.6, Absolute Lymphs (auto) 1.47, Nucleated RBC % 0 05/25/19 16:30: PT 13.9, INR 1.1, APTT 31.0 05/25/19 16:30: Lactic Acid 0.7 05/26/19 00:10: POC Glucose 105 05/26/19 00:15: Sodium 139, Potassium 5.9 H, Chloride 101, Carbon Dioxide 28.0, Anion Gap 10, BUN 94 H, Creatinine 13.90 H*, Estim Creat Clear Calc 6.70, Est GFR (MDRD) Af Amer 5 L, Est GFR (MDRD) Non-Af 4 L, BUN/Creatinine Ratio 6.8 L, Glucose 112 H, Calcium 8.7 05/26/19 06:20: POC Glucose 84 05/26/19 07:10: WBC 8.9, RBC 2.66 L, Hgb 7.8 L, Hct 23.8 L, MCV 89.5, MCH 29.3, MCHC 32.8, RDW Std Deviation 43.9, RDW Coeff of Mook 13.5, Plt Count 243, MPV 9.1, Immature Gran % (Auto) 0.600, Neut % (Auto) 69.6, Lymph % (Auto) 16.4 L, Overton % (Auto) 10.4 H, Eos % (Auto) 2.8, Baso % (Auto) 0.2, Absolute Neuts (auto) 6.2, Absolute Lymphs (auto) 1.46, Nucleated RBC % 0 05/26/19 07:10: Sodium 137, Potassium 5.8 H, Chloride 100, Carbon Dioxide 27.0, Anion Gap 10, BUN 97 H, Creatinine 14.10 H*, Estim Creat Clear Calc 6.60, Est GFR (MDRD) Af Amer 5 L, Est GFR (MDRD) Non-Af 4 L, BUN/Creatinine Ratio 6.9 L, Glucose 120 H, Calcium 8.9 Current Medications Acetaminophen (Tylenol) 650 mg PO Q4H PRN PRN PRN Reason: Pain Score 1-12/17 Last Admin: 05/26/19 00:27 Dose: 650 mg Documented by: Acetaminophen (Tylenol) 650 mg PO Q6H PRN PRN PRN Reason: Pain Score 1-10/Temp > 100.7 F Amlodipine Besylate (Norvasc) 10 mg PO DAILY [facility] Cinacalcet (Sensipar) 60 mg PO DAILY [facility] Heparin Sodium (Porcine) (Heparin Na) 5,000 unit SC Q12 [facility] Last Admin: 05/26/19 00:22 Dose: Not Given Documented by: Lisinopril (Zestril) 40 mg PO DAILY [facility] Metoprolol Tartrate (Lopressor (Beta Seth)) 50 mg PO DAILY [facility] Multivit/Ca Carb/B Cmplx/FA/Prenat (Nephrocaps, Renaphro) 1 capsule PO DAILY [facility] Non-Formulary Medication (Sucroferric Oxyhydroxide) 1,000 mg PO TID [facility] Ondansetron HCl (Zofran) 4 mg IV Q8H PRN PRN PRN Reason: NAUSEA/VOMITING Sevelamer Carbonate (Renvela) 800 mg PO TIDCM [facility] Sodium Chloride () 10 - 40 ml IV UD PRN PRN Reason: SALINE FLUSH Assessment/Plan All Active Problems (Last Reviewed 05/25/19 @ 18:[address] J Carlos Gonzales, DO) COPD exacerbation (Acute) Hyperkalemia (Acute) Chest pain (Acute) 1- ESRD . On MWF HD schedule Pt has h/o of non compliance . He missed the last HD session HD session today: BQ 440 DQ 700 UF 3L 2- Hyperkalemia . from missing HD session K 5.8 this am Will do HD session today with 1K for the 1st hr then 2 K 3- HTN: BP is well controlled Will aim for 3-4L UF today. continue same BP medication Pt was calling his insurance, when I saw him today, to set up transportation back and forth to HD unit. Hope this will resolve frequent admissions from missing HD sessions Thank you for the consult. Renal team will continue to follow while inpatient Ok to d/c patient from nephrology stand point Please call if any question at [phone] Georgie Acuña MD
--- NOTE | 2019-05-26 11:32 | CASEMGMT ---
Per RN patient did call [facility] and they told him they won't be able to tell him if they can transport him Friday until tomorrow. DAREK called [facility] and was able to find out that transportation was set up for Friday05-28-19 through [facility] [employer]. However, this agency cannot provide transport for the other days. [facility] worker then said she will try and set up transport for every Friday, Fri and Fri. SW was put on hold. [facility] worker was able to arrange transportation through [employer] for every Friday, Fri, Fri with [employer] spot picker of [employer]. They will call patient the day before [employer] spot picker. The confirmation number is [id number]. SW wrote down the phone number for [facility]. SW took this information in to the patient and let him know [facility] will transport him every M,W, and F and that they will call him the day before to confirm. He said, We'll see. He said [facility] will start taking him on the 09 of June. SW told him they will now start Friday instead of the . He said it isn't up to [facility] it is up to his insurance. DAREK told him spoke with his insurance and they are the ones that arranged this. He then mumbled something and turned over in bed turning his back towards . Plan: DAREK called patient's insurance to get transportation to dialysis. [facility] arranged the transport through [employer]. This information was given to patient. Transport has been set up for every M,W, and F through [employer]. Patient's insurance arranged this. Elvia SIMPSON MSW
--- NOTE | 2019-05-26 11:40 | PHA.DC.MR ---
Pharmacy Service has performed discharge medication reconciliation for this patient. The patient's discharge medication list was reviewed for discrepancies and discrepancies were resolved. Home Medications Metoprolol Tartrate [Lopressor (beta cheryle)] 50 mg PO DAILY 06/04/16 lisinopril 40 mg tablet 40 mg PO DAILY 02/24/18 Cinacalcet HCl [Sensipar] 60 mg PO DAILY 11/10/18 Sevelamer Carbonate [Renvela] 1 tab PO TID 11/10/18 Sucroferric Oxyhydroxide [Velphoro] 1,000 mg PO TID 11/10/18 Amlodipine [Norvasc] 10 mg PO DAILY 05/17/19 Folic Acid/Vit B Complex and C [Renal Vitamin Tablet] 0.8 mg PO DAILY 05/25/19
[2019-05-26] MEDS: Metoprolol Tartrate 50 MG Tablet PO ×2 (14:27→20:46)
[2019-05-26] MEDS: Folic Acid/Vitamin B Comp W-C 1 Capsule 1 CAP PO (14:27)
[2019-05-26] MEDS: Lisinopril 40 MG Tablet PO (14:28)
[2019-05-26] MEDS: amLODIPine 10 MG Tablet PO (14:28)
--- NOTE | 2019-05-26 14:41 | CASEMGMT ---
Per RN patient was up and walking to the kitchenette earlier this am. However when he worked with therapy he was unstable. Patient started crying with therapy stating he wants to go to a correction. They did ask him what happened that he walked on his own to the kitchenette earlier and now he can't walk. He told them not to municipal court judge him and they don't know him. DAREK met with patient and gave him a list of nursing homes in the area. He said he wants [facility]. DAREK told him to think about other options in the event [facility] cannot accept him. DAREK called [facility] with referral and also faxed referral. DAREK called [facility] and spoke isabelle Pollard. He said that patient is usually there until about 9p. He said if patient is going to a correction they could possibly change his chair time to something that may be easier for transport. DAREK called [facility] and left a message for Keya letting her know this information. Elvia SIMPSON ENERGY CONTROL OFFICER
[2019-05-26] MEDS: CLARIFY ORDER NOTE ×2 (14:48)
--- NOTE | 2019-05-26 14:57 | CHAPLAIN ---
Type of Pastoral Visit _x__ Initial Visit ___ Follow-up Visit ___ On-call Visit ___ General Patient Visit ___ Spiritual Assessment ___ Family Conference ___ Bereavement ___ Rapid Response ___ Code Blue ___ Other (describe below) Pastoral Care Referral From _x__ Patient ___ Family ___ Nurse ___ Physician ___ Microphone Boom Operator ___ Inorganic Chemistry Professor ___ Other (describe below) Sacrament/Intervention ___ Active listening ___ Anointing ___ Episcopalian ___ Bereavement ___ Communion ___ Jailyn exploration ___ ___ Life review ___ Prayer ___ Reconciliation ___ Sacrament of Sick _x__ Supportive presence ___ Wedding ___ Other (describe below) Pastoral Comments patient was undergoing dialysis and declined further support at this time but would welcome that in the future
--- NOTE | 2019-05-26 15:00 | CASEMGMT ---
Readmission chart review: Pt was admitted as an OBS pt 05/17-05/19/19 for Hyperkalemia after missing dialysis for a week. Per dialysis center, pt is non-compliant intermittently. Pt was dialyzed here on day of discharge because he stated his mom was out of state and would not be able to take him to and from dialysis that day. His mom then came to pick him up at discharge that day. Pt then returned 05/25/19 for Hyperkalemia, SOB. Pt did not go to his dialysis on 05/24/19 as scheduled. Pt to be discharged today after dialysis but then states he would like to go to SNF at discharge. Pt states that he does not have transportation to/from dialysis now. Call to [facility] and SW there that pt has 'burned bridges' with [facility] transportation assistance because he was getting cab vouchers and then not using them for dialysis. Per dialysis SW, pt needs to call [facility] to set up transportation for self. E.Angelina SW aware, voices understanding. See SW note. CM to follow for any further discharge planning/needs. John CARL CM
--- NOTE | 2019-05-26 15:11 | PN_ITS ---
Reason for Visit: Upper respiratory symptoms/hyperkalemia Subjective: Patient was seen and examined. He insists on having a regular diet instead of a renal carb controlled diet. He complains of feeling very weak and unable to go for dialysis because he does not have a car and relies on his mother taking him to dialysis. Denies any fever. He has had upper respiratory symptoms including runny nose and cough ongoing for more than 1 month. Objective: Physical exam: General: Alert, Cooperative, No apparent distress HEENT: Atraumatic, Normocephalic Oral: Moist Mucosa, No Gingival or Mucosal Lesions/ Ulcerations Neck: No Nodes, Trachea Midline Lungs: Clear to auscultation, Normal air movement, No rhonchi, No wheeze, No rales Cardiovascular: Regular rate, Regular Rhythm, Normal S1, Normal S2, No murmurs Abdomen: Bowel Sounds Present, Soft, Non Tender, Non-Distended, No Hepato- splenomegaly Extremities: No Calf Tenderness, Edema - Trace around the ankles Skin: No rashes, No breakdown Musculoskeletal: No Tenderness to Palpation of Joints or Extremities, No Muscle Wasting Psych/Mental Status: Normal Affect, Appropriate Vitals/I&O's: Vital Signs Temp Pulse Resp BP Pulse Ox 98.4 F 70 20 H 125/67 H 95 05/26/19 11:30 05/26/19 14:27 05/26/19 11:30 05/26/19 11:30 05/26/19 11:30 Oxygen Flow Rate (L/min) 3 Oxygen Delivery Method Nasal Cannula Weight: 135.6 kg Body Mass Index (BMI) 41.7 Finger Stick Blood Glucose 100 Intake and Output for Last 24 Hours 05/24/19 05/25/19 05/26/19 23:59 23:59 23:59 Intake Total 240.05 / 240.05 240 / 240 Balance 240.05 / 240.05 240 / 240 Microbiology Past 72 Hours 05/25/19 16:45 Mucosa - Nose Respiratory Panel (PCR) - Final 05/25/19 16:45 Mucosa - Nose Influenza Types A,B Direct FA ([facility]) - Final Laboratory Results 05/25/19 16:30: Sodium 140, Potassium 5.8 H, Chloride 102, Carbon Dioxide 27.0, Anion Gap 11, BUN 89 H, Creatinine 13.70 H*, Estim Creat Clear Calc 6.79, Est GFR (MDRD) Af Amer 5 L, Est GFR (MDRD) Non-Af 4 L, BUN/Creatinine Ratio 6.5 L, Glucose 99, Calcium 8.8, Total Bilirubin 0.30, AST 26, ALT 20, Alkaline Phosphatase 69, Troponin I 0.045, Total Protein 5.6 L, Albumin 2.1 L, Globulin 3.5, Albumin/Globulin Ratio 0.6 L 05/25/19 16:30: WBC 10.4, RBC 3.04 L, Hgb 8.8 L, Hct 27.1 L, MCV 89.1, MCH 28.9, MCHC 32.5, RDW Std Deviation 42.9, RDW Coeff of Mook 13.4, Plt Count 299, MPV 9.3, Immature Gran % (Auto) 0.700, Neut % (Auto) 72.6 H, Lymph % (Auto) 14.1 L, Gilchrist % (Auto) 10.1 H, Eos % (Auto) 2.3, Baso % (Auto) 0.2, Absolute Neuts (auto) 7.6, Absolute Lymphs (auto) 1.47, Nucleated RBC % 0 05/25/19 16:30: PT 13.9, INR 1.1, APTT 31.0 05/25/19 16:30: Lactic Acid 0.7 05/26/19 00:10: POC Glucose 105 05/26/19 00:15: Sodium 139, Potassium 5.9 H, Chloride 101, Carbon Dioxide 28.0, Anion Gap 10, BUN 94 H, Creatinine 13.90 H*, Estim Creat Clear Calc 6.70, Est GFR (MDRD) Af Amer 5 L, Est GFR (MDRD) Non-Af 4 L, BUN/Creatinine Ratio 6.8 L, Glucose 112 H, Calcium 8.7 05/26/19 06:20: POC Glucose 84 05/26/19 07:10: WBC 8.9, RBC 2.66 L, Hgb 7.8 L, Hct 23.8 L, MCV 89.5, MCH 29.3, MCHC 32.8, RDW Std Deviation 43.9, RDW Coeff of Mook 13.5, Plt Count 243, MPV 9.1, Immature Gran % (Auto) 0.600, Neut % (Auto) 69.6, Lymph % (Auto) 16.4 L, Gilchrist % (Auto) 10.4 H, Eos % (Auto) 2.8, Baso % (Auto) 0.2, Absolute Neuts (auto) 6.2, Absolute Lymphs (auto) 1.46, Nucleated RBC % 0 05/26/19 07:10: Sodium 137, Potassium 5.8 H, Chloride 100, Carbon Dioxide 27.0, Anion Gap 10, BUN 97 H, Creatinine 14.10 H*, Estim Creat Clear Calc 6.60, Est GFR (MDRD) Af Amer 5 L, Est GFR (MDRD) Non-Af 4 L, BUN/Creatinine Ratio 6.9 L, Glucose 120 H, Calcium 8.9 Current Medications Acetaminophen (Tylenol) 650 mg PO Q4H PRN PRN PRN Reason: Pain Score 1-10/10 Last Admin: 05/26/19 00:27 Dose: 650 mg Documented by: Acetaminophen (Tylenol) 650 mg PO Q6H PRN PRN PRN Reason: Pain Score 1-10/Temp > 100.7 F Amlodipine Besylate (Norvasc) 10 mg PO DAILY FOR[facility]LY [facility], [facility]1983 Last Admin: 05/26/19 14:28 Dose: 10 mg Documented by: Cinacalcet (Sensipar) 60 mg PO DAILY [facility], [facility] Heparin Sodium (Porcine) (Heparin Na) 5,000 unit SC Q12 [facility], [facility] Last Admin: 05/26/19 14:26 Dose: Not Given Documented by: Lisinopril (Zestril) 40 mg PO DAILY [facility], [facility] Last Admin: 05/26/19 14:28 Dose: 40 mg Documented by: Metoprolol Tartrate (Lopressor (Beta Seth)) 50 mg PO DAILY [facility], [facility] Last Admin: 05/26/19 14:27 Dose: 50 mg Documented by: Multivit/Ca Carb/B Cmplx/FA/Prenat (Nephrocaps, Renaphro) 1 capsule PO DAILY [facility], [facility] Last Admin: 05/26/19 14:27 Dose: 1 capsule Documented by: Ondansetron HCl (Zofran) 4 mg IV Q8H PRN PRN PRN Reason: NAUSEA/VOMITING Sodium Chloride () 10 - 40 ml IV UD PRN PRN Reason: SALINE FLUSH STROKE Vital Signs/Narrative: Vital Signs Temp Pulse Resp BP Pulse Ox 05/26/19 14:27 70 05/26/19 11:30 98.4 F 74 20 H 125/67 H 95 Medical Necessity - Tobacco Use Smoking Status: Current every day smoker Tobacco Use: Cigarettes Assessment/Plan All Active Problems (Last Reviewed 05/25/19 @ 18:[address] J Carlos Gonzales, DO) COPD exacerbation (Acute) Hyperkalemia (Acute) Chest pain (Acute) 1. Hyperkalemia, secondary to missed dialysis, getting dialysis today, Will recheck in am 2. URI ongoing for 1 month, resp panel is negative, influenza negative 3. ESRD on HD, dialysis today 4. Hypertension, controlled, continue with amlodipine, lisinopril, metoprolol 5. DVT PPx- Heparin SC Inpatient E&M: 64630 Subs Hosp L2
--- NOTE | 2019-05-26 15:28 | CASEMGMT ---
DAREK spoke with patient asking for a second choice. [facility] has not said no, but it could be difficult finding a SNF due to dialysis. He picked [facility]. DAREK told him SW will probably not have an answer for him today. DAREK faxed referral to [facility] and also called with referral. Await responses from [facility] and [facility]. Elvia SIMPSON MSW
--- NOTE | 2019-05-26 15:48 | CASEMGMT ---
DAREK received a call from Keya at [facility] and she had some questions. She was asking what his dialysis schedule could be switched to, and she was wondering if he will be on 2 particular meds on his med list as they are around $5,000. DAREK will have to check with Annabel Ivy about the schedule and physician regarding medications. Elvia SIMPSON MSW
[2019-05-26 16:45] LABS: Bedside Glucose 97 mg/dL (70-110)
[2019-05-26] MEDS: Cinacalcet HCl 30 MG Tablet 60 MG PO (16:54)
[2019-05-27] VITALS (7 sets, daily range): BP systolic 121–136; BP diastolic 60–75; PULSE 58–66; RESP 19–20; TEMP 36.6–36.9; O2SAT 96–98
[2019-05-27 06:57] LABS: Absolute Lymphocyte Count 1.48 X10^3/uL (0.83-4.51); Absolute Neutrophil Count 5.8 X10^3/uL (2.0-7.7); Basophil# 0.03 X10^3/uL; Basophil% 0.3 % (0-1); Eosinophil# 0.25 X10^3/uL; Eosinophils% 2.9 % (0-5); Hematocrit 25.2 % (40-54); Hemoglobin 8.2 g/dL (13.0-16.5); Lymphocyte # 1.48 X10^3/ul (4.0); Lymphocyte % 17.2 % (19-41); Mean Corp Hgb Conc 32.5 g/dL (32-36); Mean Corpuscular Hgb 28.9 pg (27.0-32.0); Mean Corpuscular Volume 88.7 fL (80-94); Mean Platelet Vol. 9.4 fl (6.2-12.0); Monocyte# 1.02 X10^3/uL; Monocyte% 11.9 % (0-10); NRBC Flagged by Analyzer 0 % (0-5); Neutrophil # 5.77 X10^3/uL (2.7-7.7); Neutrophil % 67.1 % (47-70); Platelet Count 233 K/mm3 (150-450); RBC Distribution Width CV 13.6 % (11.6-14.6); RBC Distribution Width SD 43.6 fl (35.1-43.9); Red Blood Count 2.84 M/mm3 (4.6-6.2); White Blood Count 8.6 K/mm3 (4.4-11.0)
[2019-05-27 07:43] LABS: ALB/GLOB Ratio 0.6 RATIO (0.9-2.4); AST(SGOT) 24 U/L (15-37); Alanine Aminotransfer ALT/SGPT 18 U/L (16-61); Alkaline Phosphatase 44 U/L (45-117); Anion Gap 8 (5-15); BUN 65 mg/dL (7-18); BUN/Creat Ratio 6.1 RATIO (10-20); Calcium,Total 8.5 mg/dL (8.5-10.1); Chloride 101 mmol/L (98-107); EST Glomerular Filtration Rate 5 mL/min (>60); Est Glom Filt Rate - Afr Amer 7 mL/min (>60); Globulin 3.3 g/dL (2.2-4.2); Glucose 80 mg/dL (74-106); Potassium 5.3 mmol/L (3.5-5.1); Protein, Total 5.3 g/dL (6.4-8.2); Sodium Level 137 mmol/L (136-145)
[2019-05-27] MEDS: Metoprolol Tartrate 50 MG Tablet PO (08:45)
[2019-05-27] MEDS: Folic Acid/Vitamin B Comp W-C 1 Capsule 1 CAP PO (08:46)
[2019-05-27] MEDS: Lisinopril 40 MG Tablet PO (08:46)
[2019-05-27] MEDS: Acetaminophen 325 MG Tablet 650 MG PO (08:46)
[2019-05-27] MEDS: Loratadine 10 MG Tablet PO (08:46)
[2019-05-27] MEDS: amLODIPine 10 MG Tablet PO (08:46)
[2019-05-27] MEDS: Cinacalcet HCl 30 MG Tablet 60 MG PO (08:46)
--- NOTE | 2019-05-27 11:23 | PCM.TXEXTCAR ---
- Diet 05/26/19 10:30 Diet:Renal Diet Is pt able to select menu?: Yes - Routine Orders/Code Status Routine Lab Work: CBC - within 3 days, BMP - within 3 days Code Status: Full Code - Therapies Weight Bearing: Weight bearing as tolerated Physical Therapy: Eval and Treat Occupational Therapy: Eval and Treat - Allergies/Procedures Done in Hospital Allergies/Adverse Reactions: Allergies latex Allergy (Verified 05/25/19 16:13) Rash hydrocodone Adverse Reaction (Verified 05/25/19 16:13) Abd cramps/diarrhea TAPE Allergy (Uncoded 05/25/19 16:13) Rash - Type of Care/Length of Stay Estimated LOS: Convalescent Care Less Than 30 days Type of Care Needed: Skilled Rehab Potential: Good Prognosis: Good - Additional Orders/Day of Discharge Additional Orders: Dialysis as scheduled. Day of Discharge: 05/27/19 - Dietary and Speech Recommendations Dietitian Recommendations/Changes: Will provide pt CHO Controlled:Cardiac/Low Cholesterol/low sodium/ low phosphorous/ low potassium diet with fluid restriction as medically indicated. - Follow Up Care Primary Care Physician: Kiet Martinez DO [Primary Care Provider] - Please follow up with your Primary Care Physician in: within 1-2 weeks
--- NOTE | 2019-05-27 11:53 | CASEMGMT ---
DAREK received another call from [facility] and they are going to decline the referral. DAREK had a voice mail from Brenda at [facility] this am and she said they can take patient if the dialysis schedule can be changed to early afternoon or morning. DAREK called Atul at [facility] and he said they may not be able to change his dialysis time as they were told he came in with a fever. He needs to run this past his director. DAREK faxed him H&P and patient's vitals from his stay here at [facility]. Due to the Mckeon Virus if he has a fever he would have to stay at the late time. DAREK did receive a return call from Atul at [facility] and they can change patient to 630a and he would be done around noon. DAREK called Brenda at [facility] letting her know this information. She asked DAREK if [facility] was going to transport. DAREK told her SW will call. DAREK called [facility] and spoke with Tatiana. She said they can transport, but SW will have to go through patient's insurance to get it approved. DAREK called [facility] and made the changes for spanish moss picker and the address for spanish moss picker. Patient will be picked up at [facility] at 6a and they will pick him up at [facility] around noon. The confirmation number is [id number]. DAREK called Tatiana at [facility] and she looked and this did show up in the computer. They will start tomorrow. DAREK called [facility] and arranged for patient to get picked up at 2p via [facility]. [facility] and let Brenda know above information. DAREK went to patient's room and let him know. He told SW he was going to call his sister who is a nurse and see where she thinks he should go. DAREK told him SW already made arrangements for [facility] as this was his 2nd choice. He said he was going to call his sister. DAREK spoke with physician and she then went and talked with patient and his sister. She wanted to make sure that if he was not happy at [facility] he could move to another facility. DAREK called patient's sister, Sandra Youngblood ([phone]) and let her know that [facility]. She thanked DAREK for the return call and SW let her know that he will be leaving at 2p. Plan[facility] care on a convalescent stay. [facility] transported him via at 2p. Elvia BUENO
--- NOTE | 2019-05-27 13:48 | NURSING ---
report called to [facility]
== END 2019-05-27 13:49 | disposition skilled nursing facility (03) | DRG 640 ==
LOC: ED 17:56 → PCU 18:49
PROVIDERS: Emergency Provider Emergency Medicine; PCP Student in an Organized Health Care Education/Training Program; Visit Provider Internal Medicine
DX: E87.5 Hyperkalemia (principal); N18.6 End stage renal disease; I13.2 Hypertensive heart and chronic kidney disease with heart failure and with stage 5 chronic kidney disease, or end stage renal disease; Q61.3 Polycystic kidney, unspecified; Z99.2 Dependence on renal dialysis; Z91.15 Patient's noncompliance with renal dialysis; J06.9 Acute upper respiratory infection, unspecified; G47.33 Obstructive sleep apnea (adult) (pediatric); E78.5 Hyperlipidemia, unspecified; E11.22 Type 2 diabetes mellitus with diabetic chronic kidney disease; I50.9 Heart failure, unspecified; K21.9 Gastro-esophageal reflux disease without esophagitis; I36.1 Nonrheumatic tricuspid (valve) insufficiency; I27.20 Pulmonary hypertension, unspecified; F17.210 Nicotine dependence, cigarettes, uncomplicated
CPT/HCPCS: 36415; 71045; 80048; 80053; 82962; 83605; 84484; 85025; 85610; 85730; 87040; 87633; 87804; 90937; 93005; 97162; 97167; 97530; 99285; 99406; A4216; G0257; J0610

== ENCOUNTER 2019-12-11 03:20 | Observation (INO) | payer MEDICARE, MEDICAID, SELFPAY ==
[2019-05-25 18:35] VITALS: BMI 41.7
[2019-12-11] VITALS (10 sets, daily range): BP systolic 139–186; BP diastolic 69–92; PULSE 61–90; RESP 16–23; TEMP 36.8–37.1; O2SAT 96–100; BMI 39.4; BMI 39.1
--- NOTE | 2019-12-11 03:43 | ED.DCSUM_ITS ---
History of Present Illness Chief Complaint: Chest Pain Informant: Patient, EMS Onset: Hours - 2 Activity at onset: Sleep Timing: Continuous Quality: Aching Location: Left Chest - with some left arm discomfort Current Severity: 03/19 Maximum Severity: Moderate Worsened By: Nothing. Not Worsened By: Breathing Relieved By: NTG, NSAIDS - asa Associated Symptoms: Dyspnea. Negative for: Nausea, Vomiting, Diaphoresis, Cough, Fever, Lightheadedness, Palpitations Narrative: Patient has been feeling gradually dyspneic this past week, he has chronic kidney disease, and missed his last 2 dialysis sessions. He gets dialyzed Friday and Friday. It is currently Friday morning. He states he has had a treadmill stress test and was diagnosed with a leaky valve, but has no other known heart disease. He also has COPD, that has been stable recently. Denies any recent illness, he states he missed dialysis mainly because of family issues and depression. Feels heavier and more swollen but has not noticed anything in his legs. No fevers, chills, cough. Patient presents during the national coronavirus emergency declaration/pandemic. He denies any known contact with anyone infected with COVID-19. He denies traveling out of the [facility] area recently. Prior Similar Symptoms: Yes - Past Medical History (1) COPD (chronic obstructive pulmonary disease) Status: Chronic (2) Anemia Status: Chronic Comment: associated with renal disease (3) Bipolar affective disorder Status: Chronic (4) CHF (congestive heart failure) Status: Chronic (5) ESRD (end stage renal disease) on dialysis Status: Chronic (6) Gastroesophageal reflux disease Status: Chronic (7) Hyperlipidemia Status: Chronic (8) Hypertension Status: Chronic (9) Hypertriglyceridemia Status: Chronic (10) Nonrheumatic tricuspid (valve) insufficiency Status: Chronic Comment: Moderate (2+) per echo 06/05/2016: RVSP38 mmhg (11) TAY (obstructive sleep apnea) Status: Chronic (12) Obstructive Sleep Apnea-Hypopnea Syndrome Status: Chronic (13) Polycystic kidney disease Status: Chronic (14) Pulmonary HTN Status: Chronic (15) Type II diabetes mellitus Status: Chronic Past Medical History - Allergies and Home Meds Allergies/Adverse Reactions: Allergies latex Allergy (Verified 12/11/19 03:29) Rash hydrocodone Adverse Reaction (Verified 12/11/19 03:29) Abd cramps/diarrhea TAPE Allergy (Uncoded 12/11/19 03:29) Rash Primary Care Physician: Kiet Martinez DO [Primary Care Provider] - Doctors: Jailene - nephrology Surgical History: total knee arthroplasty, - - AVF BUE Smoking Status: Current every day smoker - Family History Paternal Family History: Family History (Last Reviewed 05/25/19 @ 18:[address] J Carlos Gonzales DO) Brother CAD (coronary artery disease) Congestive heart failure Father Diabetes CAD (coronary artery disease) Kidney disease Mother Bleeding disorder Brother Kidney disease Family History: Reports: Diabetes, Heart Disease, Hypertension, - - Polycystic kidney disease, at age 58 from renal failure Maternal Family History: Family History (Last Reviewed 05/25/19 @ 18:[address] J Carlos Gonzales DO) Brother CAD (coronary artery disease) Congestive heart failure Father Diabetes CAD (coronary artery disease) Kidney disease Mother Bleeding disorder Brother Kidney disease Family History: Reports: No pertinent history Review of Systems General: Reports: Malaise - I feel heavy/swollen. Denies: Chills, Fever, Sweats Eyes: Denies: Visual changes - bilaterally, Diplopia ENT: Denies: Rhinorrhea, Sore throat Cardiovascular: Reports: Chest pain. Denies: Palpitations Respiratory: Reports: Dyspnea, Dyspnea on exertion. Denies: Cough Gastrointestinal: Denies: Abdominal pain, Nausea, Vomiting, Diarrhea, Melena, Hematochezia Genitourinary: Denies: Dysuria, Hematuria, Frequency Musculoskeletal: Denies: Myalgias, Back pain Skin: Denies: Rash, Wounds Neurological: Denies: Headache, Weakness, Numbness Physical Exam Vital Signs/Narrative: Vital Signs Temp Pulse Resp BP Pulse Ox 12/11/19 03:21 98.2 F 67 16 160/92 H 98 Inital Vital Signs reviewed: Yes General: Well nourished, Well developed, No Acute Distress Head: Normocephalic, Atraumatic Eyes: Perrl, EOMI ENT: Moist mucous membranes, No rhinorrhea Neck: Supple, Nontender Cardiovascular: Regular rate, Regular rhythm Respiratory: No distress, CTA bilaterally, Chest nontender Abdomen: Soft, Nontender, Nondistended, Normal bowel sounds Back: Nontender, Normal Inspection Extremities: Nontender, No edema, - - Good palpable thrill AV fistula right upper arm. No palpable thrill AV fistula left upper arm, which patient states is nonfunctional. Good bilateral radial pulses, 2+/4, symmetric. Skin: Normal color, No rash Neurological: Alert, Oriented x3, Cranial nerves II-XII grossly intact, Normal Strength, Normal Sensation Psychological: Normal affect, Normal Mood Diagnostic/Tx/Re-eval Impressions Chest X-Ray 12/11/19 03:55 IMPRESSION: 1. Possible tiny right pleural effusion. 2. No CHF or pneumonia. at 0503 Reported and signed by: Desmond Mayberry MD Electronically Signed: Desmond Mayberry, at 5:02 EDT Tel , Service support , 12/11/19 03:55 Chest 1 View (Portable) [RAD] Stat Laboratory Results 12/11/19 12/11/19 05:24 05:24 WBC 7.1 RBC 3.48 L Hgb 10.8 L Hct 31.5 L MCV 90.5 MCH 31.0 MCHC 34.3 RDW Std Deviation 47.8 H RDW Coeff of Mook 14.6 Plt Count 234 MPV 8.9 Immature Gran % (Auto) 0.600 Neut % (Auto) 61.7 Lymph % (Auto) 25.6 [place] % (Auto) 8.3 Eos % (Auto) 2.8 Baso % (Auto) 1.0 Absolute Neuts (auto) 4.4 Absolute Lymphs (auto) 1.82 Nucleated RBC % 0 Sodium 130 L Potassium TNP Chloride 94 L Carbon Dioxide 20.0 L Anion Gap 16 H BUN 95 H Creatinine 16.90 H* Estim Creat Clear Calc 5.45 Est GFR (MDRD) Af Amer 4 L Est GFR (MDRD) Non-Af 3 L BUN/Creatinine Ratio 5.6 L Glucose 62 L Calcium 9.0 Troponin I < 0.015 - Rhythm Strip Rhythm Strip: Sinus Rhythm Rate: 60 Ectopy: None - EKG Initial EKG Interpretation: Sinus Rhythm, No Acute Injury Pattern, - - leftward axis Prior: Unchanged Treatment: Aspirin, NTG Topical ANGEL Risk: Age >/= 65, >/= 3RF Score: 2 - Medical Decision Making Nitroglycerin paste was placed in the patient's chest. On reevaluation his chest discomfort is completely gone. He states he feels well. There were significant delay in getting blood work from this patient since he is a very difficult venous stick. Multiple nurses and lab personnel tried. They eventually stuck him in the finger to get blood, so potassium was not tested for. In reviewing his EKG, he does have some lateral T wave peaks, but he has normal intervals otherwise throughout his EKG. This suggests he may have some mild hyperkalemia, but in no acute life-threatening state with it. He should be dialyzed, clearly. Discussed with nephrology Dr. Carrillo. He discussed with the outpatient dialysis center locally, and recommends we admit him to observation and dialyze him here today, to ensure that we take care of any hyperkalemia. Discussed with hospitalist. ED Disposition - Plan for ED Patient: Disposition: Acute Care [facility] Diagnosis: ESRD (end stage renal disease) on dialysis, Noncompliance with renal dialysis, Atypical chest pain, Hyperkalemia Referrals: Kiet Martinez DO [Primary Care Provider] -
--- NOTE | 2019-12-11 03:43 | EKG12_ITS ---
Test Reason : CP Blood Pressure : / mmHG Vent. Rate : 060 BPM Atrial Rate : 060 BPM P-R Int : 166 ms QRS Dur : 104 ms QT Int : 442 ms P-R-T Axes : 075 -29 052 degrees QTc Int : 442 ms Normal sinus rhythm Normal ECG Confirmed by DEAN TOMAS, MARLENE ([id number]), editorial specialist HARLEY ABDI ([id number]) on 12/14/2019 8:56:19 AM Referred By: JOHANA Confirmed By:CLINTON MORAN MD
--- NOTE | 2019-12-11 03:55 | RAD_ITS ---
HISTORY: CHEST PAIN STARTING 2 HOURS AGO. MISSED 2 DIALYSIS THIS WEEK. EXAMINATION/TECHNIQUE: XR Chest 1 View: Portable upright COMPARISON: 05/25/2019 FINDINGS: Cardiac telemetry leads in place. Low lung volumes. Normal heart size. No focal infiltrate or vascular congestion. Mild blunting of the right costophrenic angle with possible tiny right pleural effusion. No pneumothorax. RAD/Chest 1 View (Portable) IMPRESSION: 1. Possible tiny right pleural effusion. 2. No CHF or pneumonia. at 0503 Reported and signed by: Desmond Mayberry MD Electronically Signed: Desmond Mayberry, at 5:02 EDT Tel , Service support ,
[2019-12-11] MEDS: Nitroglycerin Oint 1 INCH PACKET TRANSDERM. (04:06)
[2019-12-11 05:30] LABS: Absolute Lymphocyte Count 1.82 X10^3/uL (0.83-4.51); Absolute Neutrophil Count 4.4 X10^3/uL (2.0-7.7); Basophil# 0.07 X10^3/uL; Eosinophils% 2.8 % (0-5); Hematocrit 31.5 % (40-54); Hemoglobin 10.8 g/dL (13.0-16.5); Lymphocyte # 1.82 X10^3/ul (4.0); Lymphocyte % 25.6 % (19-41); Mean Corp Hgb Conc 34.3 g/dL (32-36); Mean Corpuscular Volume 90.5 fL (80-94); Mean Platelet Vol. 8.9 fl (6.2-12.0); Monocyte# 0.59 X10^3/uL; Monocyte% 8.3 % (0-10); NRBC Flagged by Analyzer 0 % (0-5); Neutrophil # 4.38 X10^3/uL (2.7-7.7); Neutrophil % 61.7 % (47-70); Platelet Count 234 K/mm3 (150-450); RBC Distribution Width CV 14.6 % (11.6-14.6); RBC Distribution Width SD 47.8 fl (35.1-43.9); Red Blood Count 3.48 M/mm3 (4.6-6.2); White Blood Count 7.1 K/mm3 (4.4-11.0)
[2019-12-11 05:59] LABS: Anion Gap 16 (5-15); BUN 95 mg/dL (7-18); BUN/Creat Ratio 5.6 RATIO (10-20); Chloride 94 mmol/L (98-107); EST Glomerular Filtration Rate 3 mL/min (>60); Est Glom Filt Rate - Afr Amer 4 mL/min (>60); Estimated Creatinine Clearance 5.45 ml/min; Glucose 62 mg/dL (74-106); Sodium Level 130 mmol/L (136-145)
[2019-12-11] MEDS: Aspirin 81 MG TAB.CHEW 324 MG PO (07:28)
--- NOTE | 2019-12-11 07:59 | HP.PCM_ITS ---
Problem List (1) COPD exacerbation Status: Acute (2) CHF (congestive heart failure) Status: Chronic (3) Pulmonary HTN Status: Chronic (4) COPD (chronic obstructive pulmonary disease) Status: Chronic (5) Noncompliance with renal dialysis Status: Chronic (6) Atypical chest pain Status: Acute (7) Obstructive Sleep Apnea-Hypopnea Syndrome Status: Chronic (8) History of obstructive sleep apnea Status: Chronic (9) Snoring Status: Chronic (10) Excessive daytime sleepiness Status: Chronic (11) Nonrheumatic tricuspid (valve) insufficiency Status: Chronic Comment: Moderate (2+) per echo 06/05/2016: RVSP38 mmhg (12) History of Vides's palsy Status: Chronic (13) Bipolar affective disorder Status: Chronic (14) Hyperparathyroidism due to end stage renal disease on dialysis Status: Chronic (15) Anemia Status: Chronic Comment: associated with renal disease (16) Polycystic kidney disease Status: Chronic (17) Hypertriglyceridemia Status: Chronic (18) Hyperlipidemia Status: Chronic (19) Edema extremities Status: Inactive (20) History of peptic ulcer disease Status: Chronic (21) AV fistula Status: Chronic Comment: Right arm (22) Hypertension Status: Chronic (23) Type II diabetes mellitus Status: Chronic Qualifiers: (24) Tobacco abuse Status: Chronic (25) Gastroesophageal reflux disease Status: Chronic (26) ESRD (end stage renal disease) on dialysis Status: Chronic (27) TAY (obstructive sleep apnea) Status: Chronic (28) Leucocytosis Status: Inactive Qualifiers: Leukocytosis type: unspecified Qualified Code(s): D72.829 - Elevated white blood cell count, unspecified (29) Hyperkalemia Status: Suspected History of Present Illness Date of Admission: 12/11/19 Chief Complaint: chest pain The patient is a 54 year old Bianca Jenkins with a several day history of chest pain. Chest pain is midsternal rating to his left arm. Was concerned presented to the emergency room today. In the emergency room, patient's troponin and EKG were normal. Patient did have lab test but were very difficult to draw and were apparently drawn through his finger so potassium level could not be tested. Patient had missed the past dialysis sessions. The ER reached out to Dr. Carrillo who advised patient be brought in for dialysis treatment today. Patient states that he is very anxious and has been so for about the past year. Roughly a year ago, his father and then some point after that his brother and more recently cousin who was very close to the patient had . Also patient's significant other has been imprisoned which he describes her as being his rock. Patient is also looking to get a renal transplant at [facility]. Patient does state that he does drink on occasion and smoke marijuana on occasion. Does actively smoke though he stated that he threw away his cigarettes and is ashtrays when he started having this chest pain. Patient endorses that he is very anxious at this time and has been treated for anxiety and bipolar but had stopped taking medications because of perceived ineffectiveness. Has not followed up with any recent counselor or psychiatrist in the past few years. [] Past Medical History Past Medical History (Chronic Problems): Chronic Problems (Last Reviewed 05/25/19 @ 18:[address] J Carlos Gonzales DO) CHF (congestive heart failure) (Chronic) Pulmonary HTN (Chronic) COPD (chronic obstructive pulmonary disease) (Chronic) Noncompliance with renal dialysis (Chronic) Obstructive Sleep Apnea-Hypopnea Syndrome (Chronic) History of obstructive sleep apnea (Chronic) Snoring (Chronic) Excessive daytime sleepiness (Chronic) Nonrheumatic tricuspid (valve) insufficiency (Chronic) Moderate (2+) per echo 06/05/2016: RVSP38 mmhg History of Vides's palsy (Chronic) Bipolar affective disorder (Chronic) Hyperparathyroidism due to end stage renal disease on dialysis (Chronic) Anemia (Chronic) associated with renal disease Polycystic kidney disease (Chronic) Hypertriglyceridemia (Chronic) Hyperlipidemia (Chronic) History of peptic ulcer disease (Chronic) AV fistula (Chronic ~2013) Right arm Hypertension (Chronic) Type II diabetes mellitus (Chronic) Tobacco abuse (Chronic) Gastroesophageal reflux disease (Chronic) ESRD (end stage renal disease) on dialysis (Chronic) TAY (obstructive sleep apnea) (Chronic) Medical History: Medical History (Last Reviewed 12/11/19 @ 08:[address] J Carlos Gonzales DO) Obstructive Sleep Apnea-Hypopnea Syndrome (Chronic) G47.33 History of obstructive sleep apnea (Chronic) Z86.69 Snoring (Chronic) R06.83 Excessive daytime sleepiness (Chronic) G47.19 Nonrheumatic tricuspid (valve) insufficiency (Chronic) I36.1 Moderate (2+) per echo 06/05/2016: RVSP38 mmhg History of Vides's palsy (Chronic) Z86.69 Bipolar affective disorder (Chronic) F31.9 Hyperparathyroidism due to end stage renal disease on dialysis (Chronic) N25.81, N18.6, Z99.2 Anemia (Chronic) D64.9 associated with renal disease Polycystic kidney disease (Chronic) Q61.3 Hypertriglyceridemia (Chronic) E78.1 Hyperlipidemia (Chronic) E78.5 Edema extremities (Inactive) R60.0 History of peptic ulcer disease (Chronic) Z87.11 Hypertension (Chronic) I10 Type II diabetes mellitus (Chronic) E11.9 Tobacco abuse (Chronic) Z72.0 Gastroesophageal reflux disease (Chronic) K21.9 ESRD (end stage renal disease) on dialysis (Chronic) N18.6, Z99.2 ATY (obstructive sleep apnea) (Chronic) G47.33 Chest pain (Acute) R07.9 Derangement of left patella M22.3X2 Allergies latex Allergy (Verified 12/11/19 03:29) Rash hydrocodone Adverse Reaction (Verified 12/11/19 03:29) Abd cramps/diarrhea TAPE Allergy (Uncoded 12/11/19 03:29) Rash Home Medications: Ambulatory Orders Medication Instructions Recorded lisinopril 40 mg tablet 40 mg PO DAILY 18 Cinacalcet HCl [Sensipar] 60 mg PO DAILY 11/10/18 Sevelamer Carbonate [Renvela] 1 tab PO TID 11/10/18 Sucroferric Oxyhydroxide [Velphoro] 1,000 mg PO TID 11/10/18 Amlodipine [Norvasc] 10 mg PO DAILY 05/17/19 Folic Acid/Vit B Complex and C 0.8 mg PO DAILY 05/25/19 [Renal Vitamin Tablet] Surgical History: Surgical History (Last Reviewed 12/11/19 @ 08:[address] J Carlos Gonzales DO) AV fistula (Chronic) Onset Date: ~2013 I77.0 Right arm History of facial surgery Z98.890 History of total left knee replacement Z96.652 Surgical History: total knee arthroplasty, - - AVF BUE Psychiatric History: No pertinent psych hx Smoking Status: Current every day smoker - *Family History Paternal Family History: Family History (Last Reviewed 12/11/19 @ 08:[address] J Carlos Gonzales DO) Brother CAD (coronary artery disease) Congestive heart failure Father Diabetes CAD (coronary artery disease) Kidney disease Mother Bleeding disorder Brother Kidney disease History Items: Diabetes, Heart Disease, Hypertension, - - Polycystic kidney disease, at age 58 from renal failure Maternal Family History: Family History (Last Reviewed 12/11/19 @ 08:[address] J Carlos Gonzales DO) Brother CAD (coronary artery disease) Congestive heart failure Father Diabetes CAD (coronary artery disease) Kidney disease Mother Bleeding disorder Brother Kidney disease History Items: No pertinent history Review of Systems Constitutional: Denies: Anorexia, Fever, Night Sweats Eyes: Denies: Blurred vision, Double vision HEENT: Denies: Head Aches, Sinus Congestion, Sinus Drainage Cardiovascular: Reports: Edema - Trace. Denies: Chest Pain, Palpitations Respiratory: Denies: Cough, Shortness of breath at rest, Sputum production Genitourinary: Denies: Dysuria Musculoskeletal: Denies: Joint Pain, Joint Tenderness Skin: Denies: Rash, Wounds Neurological: Denies: Numbness, Tingling, Focal weakness Psychiatric: Denies: Anxiety, Depression Hematologic/ Lymphatic: Denies: Easy Bruising, Easy Bleeding, Hx of blood clot Comment: All review of systems were negative except as mentioned above in the history of present illness and the other review of systems. VTE Information - Inpt Only VTE Present on Admission: No VTE Mechan Device Prophylaxis: None VTE Pharm Prophylaxis ordered?: No Reason prophylaxis not ordered:: Treatment Not Indicated Patient Problems: Active and Suspected Problems (Last Reviewed 05/25/19 @ 18:[address] J Carlos Gonzales DO) Atypical chest pain (Acute) Hyperkalemia (Suspected) - Physical Exam Vitals/I&O's: Vital Signs Temp Pulse Resp BP Pulse Ox 36.8 C 73 18 186/88 H 98 12/11/19 07:24 12/11/19 07:24 12/11/19 07:24 12/11/19 07:24 12/11/19 05:43 Oxygen Delivery Method Room Air Weight: 128.367 kg Body Mass Index (BMI) 39.4 Finger Stick Blood Glucose 100 General: Alert, No apparent distress, - - Very anxious. Gets in and out of bed frequently. Cooperative and pleasant otherwise. HEENT: Atraumatic, Normocephalic, - - No icterus Oral: Moist Mucosa, No Gingival or Mucosal Lesions/ Ulcerations Neck: No Nodes, Thyroid Normal Size and Texture Lungs: Clear to auscultation, Normal air movement, No rhonchi, No wheeze, No rales Cardiovascular: Regular rate, Regular Rhythm, Normal S1, Normal S2, No murmurs Abdomen: Bowel Sounds Present, Soft, Non Tender, Non-Distended Extremities: No Calf Tenderness, Edema - Trace, - - Patient has palpable thrill in his right upper extremity fistula. 1 in his medial bicep region but also judie und the antecubital fossa. Patient has some old thrombosed fistulas on his left without any erythema. Skin: No rashes, No breakdown Musculoskeletal: No Tenderness to Palpation of Joints or Extremities, No Muscle Wasting Neurological: Coordination normal, Gait narrow based and stable Psych/Mental Status: Appropriate, Anxious Laboratory Results 12/11/19 05:24: WBC 7.1, RBC 3.48 L, Hgb 10.8 L, Hct 31.5 L, MCV 90.5, MCH 31.0, MCHC 34.3, RDW Std Deviation 47.8 H, RDW Coeff of Mook 14.6, Plt Count 234, MPV 8.9, Immature Gran % (Auto) 0.600, Neut % (Auto) 61.7, Lymph % (Auto) 25.6, [place] % (Auto) 8.3, Eos % (Auto) 2.8, Baso % (Auto) 1.0, Absolute Neuts (auto) 4.4, Absolute Lymphs (auto) 1.82, Nucleated RBC % 0 12/11/19 05:24: Sodium 130 L, Potassium TNP, Chloride 94 L, Carbon Dioxide 20.0 L, Anion Gap 16 H, BUN 95 H, Creatinine 16.90 H*, Estim Creat Clear Calc 5.45, Est GFR (MDRD) Af Amer 4 L, Est GFR (MDRD) Non-Af 3 L, BUN/Creatinine Ratio 5.6 L, Glucose 62 L, Calcium 9.0, Troponin I < 0.015 EKG reviewed and that was normal sinus rhythm with no acute changes. Chest x-ray showed normal airways without any infiltrate nor pulmonary edema. Assessment/Plan All Active Problems (Last Reviewed 05/25/19 @ 18:[address] J Carlos Gonzales, DO) COPD exacerbation (Acute) Atypical chest pain (Acute) 1. Chest pain: Atypical. I suspect is more related with anxiety but may also be component of costochondritis which may be overtly exacerbating his anxiety. His cardiac work-up thus far is unremarkable. Patient had a stress test in April 2018 that was normal. Being that my pretest probability of this being cardiac is extremely low I would not order stress test unless his cardiac enzymes are coming back abnormal. I feel that this chest pain is prime more from anxiety and/or costochondritis. We will cycle troponins though. 2. End-stage renal disease: Patient has missed dialysis least for the past couple sessions. Patient fairly endorses that. States that he is just been too anxious to get over and do his dialysis. Patient will have dialysis here then resume his normal routine. Patient is going to start the process for transplant evaluation. I did have a conversation with him that he needs to be compliant with dialysis because they will look at that as a criteria for showing compliance. Also told him that he needs to quit the tobacco alcohol and marijuana. 3. Anxiety, depression and bipolar disorder: This is overall complicating his medical care as he is very anxious and not following up appropriately. Reinforced compliance and also encouraged patient to be reinitiated on an SSRI and I recommended sertraline but also to seek out counseling so that he can develop better coping mechanisms. Patient further endorses he has been under a lot of stress and is actively grieving the passing of several family members within the past year but also the fact that his significant other is currently imprisoned complicates this. He is in agreement with starting sertraline and he is aware that he will not feel anything immediately with that and it may take several weeks to notice any effect but is possible that he may need to have the dosage increased down the road. Patient to follow-up with the primary care provider in regards to this but also he needs to seek counseling. 4. history of diabetes mellitus type 2: Not any home medications. Will monitor. Blood sugar appears stable at this time. 5. Disposition: Plan is just for the patient to be discharged today if cardiac enzymes are negative and patient tolerates dialysis well. OBSV E&M: 62420 Initial observation care L3
--- NOTE | 2019-12-11 08:36 | EKG12_ITS ---
Test Reason : ADMISSION CP Blood Pressure : / mmHG Vent. Rate : 065 BPM Atrial Rate : 065 BPM P-R Int : 158 ms QRS Dur : 102 ms QT Int : 424 ms P-R-T Axes : 072 -16 029 degrees QTc Int : 440 ms Normal sinus rhythm Normal ECG Confirmed by COLLEEN TOMAS, KAREN ([id number]), advertising editor HARLEY ABDI ([id number]) on 12/15/2019 10:25:57 AM Referred By: TRISTAN Confirmed By:KAREN MACIAS MD
--- NOTE | 2019-12-11 10:55 | NURSING ---
10:10, Physician notifed of patient refusing IV access and a critical K+ level of 6.0. Patient currently recieveing HD and physician order ok to leave patient without IV access
--- NOTE | 2019-12-11 13:01 | PCM.DC ---
- Discharge Diagnoses Current Active Problems: Current Active and Chronic Problems (Last Reviewed 12/11/19 @ 08:[address] J Carlos Gonzales DO) Noncompliance with renal dialysis (Chronic) Atypical chest pain (Acute) ESRD (end stage renal disease) on dialysis (Chronic) You will use the following diet at home:: Calorie/Carbohydrate Controlled (specify 1200, 1400, etc) - 1800 Call your doctor if you observe: Shortness of breath, Chest pain Allergies/Adverse Reactions: Allergies latex Allergy (Verified 12/11/19 03:29) Rash hydrocodone Adverse Reaction (Verified 12/11/19 03:29) Abd cramps/diarrhea TAPE Allergy (Uncoded 12/11/19 03:29) Rash Medications to take at Discharge lisinopril 40 mg tablet 40 mg PO DAILY 02/24/18 Cinacalcet HCl [Sensipar] 60 mg PO DAILY 11/10/18 Sevelamer Carbonate [Renvela] 1 tab PO TID 11/10/18 Sucroferric Oxyhydroxide [Velphoro] 1,000 mg PO TID 11/10/18 Amlodipine [Norvasc] 10 mg PO DAILY 05/17/19 Folic Acid/Vit B Complex and C [Renal Vitamin Tablet] 0.8 mg PO DAILY 05/25/19 Sertraline HCl [Zoloft] 50 mg PO DAILY #30 tab 12/11/19 The following prescriptions were given: Sertraline HCl [Zoloft] 50 mg PO DAILY #30 tab Transmission Status: Pending to [facility] Primary Care Physician: Kiet Martinez DO [Primary Care Provider] - Within 2 Weeks Test Results: Test results from this visit will be discussed in further detail at your follow-up appointment, if applicable. Proposed Discharge Date: 12/11/19
--- NOTE | 2019-12-11 13:02 | DS.PCM_ITS ---
Discharge Date and Diagnosis - Problem List Patient Problems: Active and Suspected Problems (Last Reviewed 12/11/19 @ 08:[address] J Carlos Gonzales DO) Atypical chest pain (Acute) Hyperkalemia (Suspected) Date of Admission: 12/11/19 Date of Discharge: 12/11/19 - Primary Discharge Diagnosis Acute Problems: Active Problems (Last Reviewed 12/11/19 @ 08:[address] J Carlos Gonzales DO) Atypical chest pain (Acute) Suspected Problems: Suspected Problems (Last Reviewed 12/11/19 @ 08:[address] J Carlos Gonzales DO) Hyperkalemia (Suspected) - Secondary Discharge Diagnosis Chronic Problems: Chronic Problems (Last Reviewed 12/11/19 @ 08:[address] J Carlos Gonzales DO) CHF (congestive heart failure) (Chronic) Pulmonary HTN (Chronic) COPD (chronic obstructive pulmonary disease) (Chronic) Noncompliance with renal dialysis (Chronic) Obstructive Sleep Apnea-Hypopnea Syndrome (Chronic) History of obstructive sleep apnea (Chronic) Snoring (Chronic) Excessive daytime sleepiness (Chronic) Nonrheumatic tricuspid (valve) insufficiency (Chronic) Moderate (2+) per echo 06/05/2016: RVSP38 mmhg History of Vides's palsy (Chronic) Bipolar affective disorder (Chronic) Hyperparathyroidism due to end stage renal disease on dialysis (Chronic) Anemia (Chronic) associated with renal disease Polycystic kidney disease (Chronic) Hypertriglyceridemia (Chronic) Hyperlipidemia (Chronic) History of peptic ulcer disease (Chronic) AV fistula (Chronic ~2013) Right arm Hypertension (Chronic) Type II diabetes mellitus (Chronic) Tobacco abuse (Chronic) Gastroesophageal reflux disease (Chronic) ESRD (end stage renal disease) on dialysis (Chronic) TAY (obstructive sleep apnea) (Chronic) Hospital Course and Treatment Imaging Results: Clinical Impression(s) from Imaging Studies Chest X-Ray 12/11/19 03:55 IMPRESSION: 1. Possible tiny right pleural effusion. 2. No CHF or pneumonia. at 0503 Reported and signed by: Desmond Mayberry MD Electronically Signed: Desmond Mayberry, at 5:02 EDT Tel , Service support , landa, nephrology Operations: None, - Procedures: Dialysis Summary of Care Provided: The patient is a 54 year old M presents with chest pain. Chest pain has been going on for some time now was midsternal. Essentially felt to be related with anxiety and/or costochondritis. Patient is here his troponins are negative. Not felt to be appropriate for a stress test as pretest probability of this being cardiac was extremely low. 1. Chest pain: Atypical. I suspect is more related with anxiety but may also be component of costochondritis which may be overtly exacerbating his anxiety. His cardiac work-up thus far is unremarkable. Patient had a stress test in April 2018 that was normal. Being that my pretest probability of this being cardiac is extremely low I would not order stress test unless his cardiac enzymes are coming back abnormal. I feel that this chest pain is prime more from anxiety and/or costochondritis. We will cycle troponins though. 2. End-stage renal disease: Patient has missed dialysis least for the past couple sessions. Patient fairly endorses that. States that he is just been too anxious to get over and do his dialysis. Patient will have dialysis here then resume his normal routine. Patient is going to start the process for transplant evaluation. I did have a conversation with him that he needs to be compliant with dialysis because they will look at that as a criteria for showing compliance. Also told him that he needs to quit the tobacco alcohol and marijuana. 3. Anxiety, depression and bipolar disorder: This is overall complicating his medical care as he is very anxious and not following up appropriately. Reinforced compliance and also encouraged patient to be reinitiated on an SSRI and I recommended sertraline but also to seek out counseling so that he can develop better coping mechanisms. Patient further endorses he has been under a lot of stress and is actively grieving the passing of several family members within the past year but also the fact that his significant other is currently imprisoned complicates this. He is in agreement with starting sertraline and he is aware that he will not feel anything immediately with that and it may take several weeks to notice any effect but is possible that he may need to have the dosage increased down the road. Patient to follow-up with the primary care provider in regards to this but also he needs to seek counseling. [] Patient Problems: Active and Suspected Problems (Last Reviewed 12/11/19 @ 08:[address] J Carlos Gonzales, DO) Atypical chest pain (Acute) Hyperkalemia (Suspected) - Physical Exam Vitals/I&O's: Vital Signs Temp Pulse Resp BP Pulse Ox 36.8 C 90 18 167/80 H 97 12/11/19 08:12 12/11/19 10:24 12/11/19 08:12 12/11/19 08:12 12/11/19 08:15 Oxygen Delivery Method Room Air Weight: 127.233 kg Body Mass Index (BMI) 39.1 Finger Stick Blood Glucose 100 Intake and Output for Last 24 Hours 12/09/19 12/10/19 12/11/19 23:59 23:59 23:59 Intake Total 240 / 240 Output Total 0 / 0 Balance 240 / 240 Laboratory Results 12/11/19 05:24: WBC 7.1, RBC 3.48 L, Hgb 10.8 L, Hct 31.5 L, MCV 90.5, MCH 31.0, MCHC 34.3, RDW Std Deviation 47.8 H, RDW Coeff of [place]ook 14.6, Plt Count 234, MPV 8.9, Immature Gran % (Auto) 0.600, Neut % (Auto) 61.7, Lymph % (Auto) 25.6, [place] % (Auto) 8.3, Eos % (Auto) 2.8, Baso % (Auto) 1.0, Absolute Neuts (auto) 4.4, Absolute Lymphs (auto) 1.82, Nucleated RBC % 0 12/11/19 05:24: Sodium 130 L, Potassium TNP, Chloride 94 L, Carbon Dioxide 20.0 L, Anion Gap 16 H, BUN 95 H, Creatinine 16.90 H*, Estim Creat Clear Calc 5.45, Est GFR (MDRD) Af Amer 4 L, Est GFR (MDRD) Non-Af 3 L, BUN/Creatinine Ratio 5.6 L, Glucose 62 L, Calcium 9.0, Troponin I < 0.015 12/11/19 08:25: Troponin I < 0.015 12/11/19 09:30: Potassium 6.0 H* 12/11/19 11:30: Troponin I 0.016 Current Medications Acetaminophen (Tylenol) 650 mg PO Q6H PRN PRN PRN Reason: Pain Score 1-10/Temp > 100.7 F Amlodipine Besylate (Norvasc) 10 mg PO DAILY [facility] Last Admin: 12/11/19 11:16 Dose: Not Given Documented by: Cinacalcet (Sensipar) 60 mg PO DAILY [facility] Lisinopril (Zestril) 40 mg PO DAILY [facility] Last Admin: 12/11/19 11:17 Dose: Not Given Documented by: Multivit/Ca Carb/B Cmplx/FA/Prenat (Nephrocaps, Renaphro) 1 capsule PO DAILY [facility] Non-Formulary Medication (Sucroferric Oxyhydroxide) 1,000 mg PO TID [facility] Pantoprazole Sodium (Protonix) 40 mg PO DAILY [facility] Sertraline HCl (Zoloft) 50 mg PO DAILY [facility] Sevelamer Carbonate (Renvela) 800 mg PO TID [facility] Discharge Diet: 1800 Calorie Control Diet Call your doctor if you observe: Shortness of breath, Chest pain Home Medications: Medications to take at Discharge lisinopril 40 mg tablet 40 mg PO DAILY 02/24/18 Cinacalcet HCl [Sensipar] 60 mg PO DAILY 11/10/18 Sevelamer Carbonate [Renvela] 1 tab PO TID 11/10/18 Sucroferric Oxyhydroxide [Velphoro] 1,000 mg PO TID 11/10/18 Amlodipine [Norvasc] 10 mg PO DAILY 05/17/19 Folic Acid/Vit B Complex and C [Renal Vitamin Tablet] 0.8 mg PO DAILY 05/25/19 Sertraline HCl [Zoloft] 50 mg PO DAILY #30 tab 12/11/19 Following Prescriptions Were Given to Patient: Sertraline HCl [Zoloft] 50 mg PO DAILY #30 tab Transmission Status: Pending to [facility] [facility] Primary Care Physician: Kiet Martinez DO [Primary Care Provider] - Within 2 Weeks Disposition: Home Minutes spent on discharge:: 45 Patient Condition:: Good Medical Necessity - Tobacco Use Smoking Status: Current every day smoker Tobacco Use: Cigarettes Meaningful Use Info Meaningful Use Diagnoses (Choose all that apply): None applicable OBSV E&M: 34231 Observ/hosp same date L3
[2019-12-11] MEDS: Folic Acid/Vitamin B Comp W-C 1 Capsule 1 CAP PO (14:20)
[2019-12-11] MEDS: SEVELAMER CARBONATE 800 MG TABLET PO (14:21)
[2019-12-11] MEDS: Pantoprazole Sodium 40 MG Tablet PO (14:21)
[2019-12-11] MEDS: Sertraline 50 MG Tablet PO (14:21)
[2019-12-11] MEDS: Cinacalcet HCl 30 MG Tablet 60 MG PO (14:22)
--- NOTE | 2019-12-11 15:01 | DIALYSIS ---
HD x4 hours completed at 1345 on a 2K bath, K level drawn pre-tx, tolerated well, UF 2900mL, accessed via NAYANA AVF using 15G needles, worked well, aneurysms noted and avoided, needles pulled post tx, stasis achieved without
== END 2019-12-11 13:01 | disposition home or self-care (01) ==
LOC: ED 06:34 → PCU 08:01
PROVIDERS: Emergency Provider Emergency Medicine; PCP Student in an Organized Health Care Education/Training Program
DX: R07.89 Other chest pain (principal); E11.22 Type 2 diabetes mellitus with diabetic chronic kidney disease; I13.2 Hypertensive heart and chronic kidney disease with heart failure and with stage 5 chronic kidney disease, or end stage renal disease; I50.9 Heart failure, unspecified; N18.6 End stage renal disease; Z23 Encounter for immunization; Z79.899 Other long term (current) drug therapy; E78.5 Hyperlipidemia, unspecified; K21.9 Gastro-esophageal reflux disease without esophagitis; E78.1 Pure hyperglyceridemia; G47.33 Obstructive sleep apnea (adult) (pediatric); I27.20 Pulmonary hypertension, unspecified; Q61.3 Polycystic kidney, unspecified; Z99.2 Dependence on renal dialysis; E87.5 Hyperkalemia; Z91.15 Patient's noncompliance with renal dialysis; J44.9 Chronic obstructive pulmonary disease, unspecified; N25.81 Secondary hyperparathyroidism of renal origin; F31.9 Bipolar disorder, unspecified; F41.9 Anxiety disorder, unspecified; F17.210 Nicotine dependence, cigarettes, uncomplicated
CPT/HCPCS: 36415; 71045; 80048; 84132; 84484; 85025; 90937; 93005; 97802; 99218; 99285; 99406; G0008; J7030; 90686; A4216; G0257; G0378

== ENCOUNTER 2020-06-14 19:40 | Inpatient (IN) | payer MEDICARE, MEDICAID, SELFPAY ==
[2019-12-11 08:09] VITALS: BMI 39.1
[2020-06-14] VITALS (8 sets, daily range): BP systolic 144–168; BP diastolic 74–93; PULSE 57–73; RESP 14–18; TEMP 36.4–36.7; O2SAT 98–100; BMI 41.3; BMI 41.2
--- NOTE | 2020-06-14 19:41 | ED.RN ---
RN CALLED FOR EKG, PULLED OLD EKGS FOR
--- NOTE | 2020-06-14 20:04 | EKG12_ITS ---
Test Reason : CP Blood Pressure : / mmHG Vent. Rate : 062 BPM Atrial Rate : 062 BPM P-R Int : 140 ms QRS Dur : 102 ms QT Int : 438 ms P-R-T Axes : 041 -10 044 degrees QTc Int : 444 ms Normal sinus rhythm Normal ECG Confirmed by DEAN TOMAS, MARLENE ([id number]), editorial clerk PATRICIO VALENZUELA ([id number]) on 06/16/2020 2:41:15 PM Referred By: CAT/KASSANDRA Confirmed By:CLINTON MORAN MD
[2020-06-14 20:12] LABS: Absolute Lymphocyte Count 0.78 X10^3/uL (0.83-4.51); Absolute Neutrophil Count 2.6 X10^3/uL (2.0-7.7); Basophil# 0.01 X10^3/uL; Basophil% 0.3 % (0-1); Eosinophil# 0.01 X10^3/uL; Eosinophils% 0.3 % (0-5); Hematocrit 34.6 % (40-54); Hemoglobin 11.5 g/dL (13.0-16.5); Lymphocyte # 0.78 X10^3/ul (4.0); Lymphocyte % 20.9 % (19-41); Mean Corp Hgb Conc 33.2 g/dL (32-36); Mean Corpuscular Volume 90.3 fL (80-94); Mean Platelet Vol. 9.5 fl (6.2-12.0); Monocyte# 0.34 X10^3/uL; Monocyte% 9.1 % (0-10); NRBC Flagged by Analyzer 0 % (0-5); Neutrophil # 2.57 X10^3/uL (2.7-7.7); Neutrophil % 68.6 % (47-70); Platelet Count 215 K/mm3 (150-450); RBC Distribution Width CV 12.5 % (11.6-14.6); RBC Distribution Width SD 40.8 fl (35.1-43.9); Red Blood Count 3.83 M/mm3 (4.6-6.2); White Blood Count 3.7 K/mm3 (4.4-11.0)
[2020-06-14] MEDS: Aspirin 81 MG TAB.CHEW 324 MG PO (20:15)
[2020-06-14] MEDS: Ondansetron 4 MG/2 ML Vial IV (20:16)
[2020-06-14] MEDS: morphine 8 MG/ML Syringe IV (20:18)
--- NOTE | 2020-06-14 20:20 | RAD_ITS ---
INDICATION: chest pain EXAMINATION/TECHNIQUE: X-RAY - XR Chest 1 View COMPARISON: None. FINDINGS: The lungs are clear. The cardiomediastinal silhouette is unremarkable. No pleural effusion or pneumothorax. No acute osseous abnormalities. RAD/Chest 1 View (Portable) IMPRESSION: No acute radiographic abnormalities. Electronically Signed: Ze Martines MD at 20:39 EDT Tel , Service support ,
[2020-06-14 20:30] LABS: Anion Gap 19 (5-15); BUN 91 mg/dL (7-18); BUN/Creat Ratio 3.9 RATIO (10-20); Calcium,Total 9.6 mg/dL (8.5-10.1); Chloride 87 mmol/L (98-107); EST Glomerular Filtration Rate 2 mL/min (>60); Est Glom Filt Rate - Afr Amer 3 mL/min (>60); Glucose 93 mg/dL (74-106); Sodium Level 127 mmol/L (136-145)
[2020-06-14 20:39] LABS: Estimated Creatinine Clearance 3.95 ml/min
--- NOTE | 2020-06-14 22:23 | PCM.HP.STD ---
Problem List (1) CHF (congestive heart failure) Status: Chronic (2) COPD (chronic obstructive pulmonary disease) Status: Chronic (3) Noncompliance with renal dialysis Status: Chronic (4) Hyperparathyroidism due to end stage renal disease on dialysis Status: Chronic (5) Polycystic kidney disease Status: Chronic (6) Hypertriglyceridemia Status: Chronic (7) Hyperlipidemia Status: Chronic (8) Type II diabetes mellitus Status: Chronic Qualifiers: (9) Gastroesophageal reflux disease Status: Chronic (10) ESRD (end stage renal disease) on dialysis Status: Chronic (11) TAY (obstructive sleep apnea) Status: Chronic History of Present Illness Date of Admission: 06/14/20 Chief Complaint: Chest pain. The patient is a 54 year old M with past medical history as mentioned above presented to the emergency room because of chest pain. Patient had a history of ESRD on hemodialysis and he stated that he missed hemodialysis for this week and last week. He is known with noncompliance to hemodialysis. Today, he started complaining of chest pain started around 7 hours ago when he was working, sharp pain, he said it is 10 out of 10 in severity, radiates to his right arm and associated with mild shortness of breath, was constant and no aggravating or relieving factors. In the emergency department, his vital signs are stable, was afebrile. Routine blood work was remarkable for hemoglobin of 11.5 which is chronic, sodium is 127, BUN is 91, creatinine is 23.3. EKG revealed normal sinus rhythm, normal IN interval, normal QRS, no acute ischemic changes. Troponin was negative. Chest x-ray showed no acute findings. He is being admitted for chest pain for evaluation and also for noncompliance with hemodialysis leading to highly elevated BUN and creatinine. Past Medical History Past Medical History (Chronic Problems): Chronic Problems (Last Updated 06/14/20 @ 22:[address] Ange Lopez MD) CHF (congestive heart failure) (Chronic) Pulmonary HTN (Chronic) COPD (chronic obstructive pulmonary disease) (Chronic) Noncompliance with renal dialysis (Chronic) Nonrheumatic tricuspid (valve) insufficiency (Chronic) Moderate (2+) per echo 06/05/2016: RVSP38 mmhg History of Vides's palsy (Chronic) Bipolar affective disorder (Chronic) Hyperparathyroidism due to end stage renal disease on dialysis (Chronic) Anemia (Chronic) associated with renal disease Polycystic kidney disease (Chronic) Hypertriglyceridemia (Chronic) Hyperlipidemia (Chronic) History of peptic ulcer disease (Chronic) AV fistula (Chronic ~2013) Right arm Hypertension (Chronic) Type II diabetes mellitus (Chronic) Tobacco abuse (Chronic) Gastroesophageal reflux disease (Chronic) ESRD (end stage renal disease) on dialysis (Chronic) TAY (obstructive sleep apnea) (Chronic) Medical History: Medical History (Last Updated 06/14/20 @ 22:[address] Ange Lopez MD) Nonrheumatic tricuspid (valve) insufficiency (Chronic) I36.1 Moderate (2+) per echo 06/05/2016: RVSP38 mmhg History of Vides's palsy (Chronic) Z86.69 Bipolar affective disorder (Chronic) F31.9 Hyperparathyroidism due to end stage renal disease on dialysis (Chronic) N25.81, N18.6, Z99.2 Anemia (Chronic) D64.9 associated with renal disease Polycystic kidney disease (Chronic) Q61.3 Hypertriglyceridemia (Chronic) E78.1 Hyperlipidemia (Chronic) E78.5 History of peptic ulcer disease (Chronic) Z87.11 Hypertension (Chronic) I10 Type II diabetes mellitus (Chronic) E11.9 Tobacco abuse (Chronic) Z72.0 Gastroesophageal reflux disease (Chronic) K21.9 ESRD (end stage renal disease) on dialysis (Chronic) N18.6, Z99.2 TAY (obstructive sleep apnea) (Chronic) G47.33 Derangement of left patella M22.3X2 Excessive daytime sleepiness (Inactive) G47.19 Obstructive Sleep Apnea-Hypopnea Syndrome (Inactive) G47.33 Allergies latex Allergy (Verified 06/14/20 19:43) Rash hydrocodone Adverse Reaction (Verified 06/14/20 19:43) Abd cramps/diarrhea TAPE Allergy (Uncoded 12/11/19 03:29) Rash Home Medications: Ambulatory Orders Medication Instructions Recorded lisinopril 40 mg tablet 40 mg PO DAILY 02/24/18 Cinacalcet HCl [Sensipar] 60 mg PO DAILY 11/10/18 Sevelamer Carbonate [Renvela] 1 tab PO TID 11/10/18 Sucroferric Oxyhydroxide [Velphoro] 1,000 mg PO TID 11/10/18 Amlodipine [Norvasc] 10 mg PO DAILY 05/17/19 Folic Acid/Vit B Complex and C 0.8 mg PO DAILY 05/25/19 [Renal Vitamin Tablet] Sertraline HCl [Zoloft] 50 mg PO DAILY #30 tab 12/11/19 Surgical History: Surgical History (Last Reviewed 12/11/19 @ 08:[address] J Carlos Gonzales DO) AV fistula (Chronic) Onset Date: ~2013 I77.0 Right arm History of facial surgery Z98.890 History of total left knee replacement Z96.652 Surgical History: total knee arthroplasty, - - AVF BUE Psychiatric History: No pertinent psych hx Smoking Status: Current every day smoker Tobacco Use: Cigarettes Alcohol: None Drugs: None - *Family History Paternal Family History: Family History (Last Reviewed 12/11/19 @ 08:[address] J Carlos Gonzales DO) Brother CAD (coronary artery disease) Congestive heart failure Father Diabetes CAD (coronary artery disease) Kidney disease Mother Bleeding disorder Brother Kidney disease History Items: Diabetes, Heart Disease, Hypertension, - - Polycystic kidney disease, at age 58 from renal failure Maternal Family History: Family History (Last Reviewed 12/11/19 @ 08:[address] J Carlos Gonzales DO) Brother CAD (coronary artery disease) Congestive heart failure Father Diabetes CAD (coronary artery disease) Kidney disease Mother Bleeding disorder Brother Kidney disease History Items: No pertinent history Review of Systems Constitutional: Denies: Anorexia, Chills, Fever, Weakness Eyes: Denies: Blurred vision, Double vision, Drainage, Redness HEENT: Denies: Difficulty Hearing, Ear Pain, Eye Pain, Nasal Congestion, Sore Throat Cardiovascular: Reports: Chest Pain. Denies: Chest Tightness, Edema, Heaviness, Palpitations, Paroxysmal Noc. Dyspnea, Syncope Respiratory: Reports: Shortness of Breath. Denies: Cough, Hemoptysis, Sputum production, Wheezing Gastrointestinal: Denies: Abdominal Pain, Constipation, Diarrhea, Nausea, Vomiting Genitourinary: Denies: Dysuria, Frequency, Hematuria Musculoskeletal: Denies: Arm Pain, Back Pain, Foot Pain Skin: Denies: Dryness, Rash Neurological: Denies: Balance problems, Double vision, Change in Speech, Slurred speech, Confusion, Headaches Psychiatric: Reports: Depression. Denies: Anxiety Endocrine: Denies: Change in Body Habitus, Polydipsia, Polyuria VTE Information - Inpt Only VTE Present on Admission: No VTE Mechan Device Prophylaxis: None VTE Pharm Prophylaxis ordered?: Yes - Physical Exam Vitals/I&O's: Vital Signs Temp Pulse Resp BP Pulse Ox 98.1 F 57 L 14 149/84 H 100 06/14/20 22:15 06/14/20 22:15 06/14/20 22:15 06/14/20 22:15 06/14/20 22:15 Oxygen Flow Rate (L/min) 2 Oxygen Delivery Method Nasal Cannula Weight: 296 lb 8.348 oz Body Mass Index (BMI) 41.3 Finger Stick Blood Glucose 100 General: Alert, Oriented x3, Cooperative, No apparent distress HEENT: Atraumatic, PERRLA, EOMI, Normocephalic Oral: Moist Mucosa, No Gingival or Mucosal Lesions/ Ulcerations Neck: Supple, No JVD, Negative Carotid Bruits, Trachea Midline, Thyroid Normal Size and Texture Lungs: Clear to auscultation, No rhonchi, No wheeze, No rales, Diminished Cardiovascular: Regular rate, Regular Rhythm, Normal S1, Normal S2, PMI Normal Abdomen: Bowel Sounds Present, Soft, Non Tender, Non-Distended, No Hepato-splenomegaly, Obese Extremities: No clubbing, No cyanosis, Edema Skin: No rashes, No breakdown Lymphatic: No Cervical, Supraclavicular, or Inguinal Adenopathy Neurological: Cranial nerves II-XII grossly intact, Motor Exam 5/5 strength throughout Psych/Mental Status: Normal Affect, Appropriate, Alert and oriented to time, place, person, mood and affect Laboratory Results 06/14/20 19:54: WBC 3.7 L, RBC 3.83 L, Hgb 11.5 L, Hct 34.6 L, MCV 90.3, MCH 30.0, MCHC 33.2, RDW Std Deviation 40.8, RDW Coeff of Mook 12.5, Plt Count 215, MPV 9.5, Immature Gran % (Auto) 0.800, Neut % (Auto) 68.6, Lymph % (Auto) 20.9, [place] % (Auto) 9.1, Eos % (Auto) 0.3, Baso % (Auto) 0.3, Absolute Neuts (auto) 2.6, Absolute Lymphs (auto) 0.78 L, Nucleated RBC % 0 06/14/20 19:54: Sodium 127 L, Potassium 5.0, Chloride 87 L, Carbon Dioxide 21.0, Anion Gap 19 H, BUN 91 H, Creatinine 23.30 H*, Estim Creat Clear Calc 3.95, Est GFR (MDRD) Af Amer 3 L, Est GFR (MDRD) Non-Af 2 L, BUN/Creatinine Ratio 3.9 L, Glucose 93, Calcium 9.6, Troponin I < 0.015 Clinical Impression(s) from Imaging Studies Chest X-Ray 06/14/20 20:20 IMPRESSION: No acute radiographic abnormalities. Electronically Signed: Ze Martines MD at 20:39 EDT Tel , Service support , Assessment/Plan This is a 54 years old male patient presented to the emergency room because of chest pain, missed hemodialysis over the last couple of weeks, found to have high elevated BUN and creatinine and is being admitted for evaluation for chest pain and hemodialysis. #1 chest pain: Risk factors are age, hypertension, history of diabetes and ESRD. Drug-seeking behavior is a possibility. EKG revealed no acute hemic changes. Troponin is negative. Chest x-ray showed no acute findings. Patient was ended back on April, for chest pain, had stress echocardiogram which was normal. He was readmitted again on December, for chest pain, had serial cardiac enzymes and EKG which was unremarkable and he was discharged home. No stress test done on December,. Plan: Admit to PCU, cardiac monitoring, serial cardiac enzymes, Tylenol as needed, sublingual nitro as needed, nuclear stress test tomorrow morning if cardiac enzymes are negative, continue aspirin and lisinopril. #2 uremia/noncompliance: Patient missed his dialysis this week and last week. His BUN is 91, creatinine is 23.3. No evidence of encephalopathy. Potassium is 5. Plan: Nephrology consult, patient will need hemodialysis tomorrow morning. No indication for urgent dialysis. #3 ESRD on hemodialysis: Patient known to be noncompliant with hemodialysis. Today, he stated that he will do hemodialysis as recommended by nephrology. Plan as above, continue sevelamer, cinacalcet and velphoro. #4 hyponatremia: It is likely due to hypervolemic hyponatremia due to fluid retention secondary to missed dialysis. Expect sodium to improve with hemodialysis. #5 COPD: Currently stable, chest x-ray without acute findings. Plan for DuoNeb every 6 hours. #6 hypertension: Blood pressure stable, continue Norvasc and lisinopril. #7 history of type 2 diabetes mellitus: Patient had a history of type 2 diabetes, not on treatment for now. We will check hemoglobin A1c. #8 GERD: He is not on PPI. #9 chronic anemia: Due to anemia of chronic disease, hemoglobin and hematocrit are stable. #10 DVT prophylaxis: Subcu heparin. This note was generated with [employer] dictation software. It may contain incorrect words, spelling, and punctuation that were not noted in checking the note before signing. Inpatient E&M: [id number] Init Hosp L3
--- NOTE | 2020-06-14 22:36 | ED.DCSUM_ITS ---
- ER Visit Summary Date of Service: 06/14/20 Chief Complaint: Chest pain History of Present Illness: The patient is a 54 M presenting with chest pain. Patient states this started approximately 4 hours prior to arrival. He has midsternal chest pain that radiates to his right arm. He has associated shortn ess of breath and nausea. He states he has missed his last 3 dialysis treatments. He states he has been under a lot of stress and did not go to dialysis for this reason. He denies fever. Denies other complaints. Physical Examination: Vitals are stable. Patient is afebrile. Alert no acute distress. HEENT exam is unremarkable. Neck is supple. Lungs are clear and equal bilaterally. Heart is regular rate and rhythm. Abdomen is soft nontender nondistended. Extremities are unremarkable. Skin is warm and dry. No focal neurologic deficit. Remainder of exam is unremarkable. Emergency Department Course and Treatment: Patient was given aspirin, morphine, Zofran. EKG is sinus rhythm rate of 62 with no acute ischemic changes. CBC shows white count 3.7, hemoglobin 11.5. Chemistries show sodium 127, BUN 91, creatinine 23.3. Troponin is negative. Chest x-ray read by myself and radiology shows no acute process. On reevaluation, patient is resting comfortably. Discussed with hospitalist for admission. Disposition: Observation Impression: Chest pain, end-stage renal disease, noncompliance This note was generated with [employer] dictation software. It may contain incorrect words, spelling, and punctuation that were not noted in review of the chart prior to signing ED Disposition - Plan for ED Patient: Disposition: Acute Care [facility]
[2020-06-14 23:46] LABS: International Normalized Ratio 1.1; Prothrombin Time (Protime)PT. 13.8 SECONDS (11.7-14.9)
[2020-06-15] VITALS (15 sets, daily range): BP systolic 118–153; BP diastolic 65–89; PULSE 52–65; RESP 13–18; TEMP 36.3–37.2; O2SAT 96–100
--- NOTE | 2020-06-15 00:25 | EKG12_ITS ---
Test Reason : CP ADMIT Blood Pressure : / mmHG Vent. Rate : 052 BPM Atrial Rate : 052 BPM P-R Int : 176 ms QRS Dur : 100 ms QT Int : 460 ms P-R-T Axes : 060 -04 029 degrees QTc Int : 427 ms Sinus bradycardia Low voltage QRS (Limb Leads) Confirmed by COLLEEN TOMAS, KAREN ([id number]), loan expeditor HARLEY ABDI ([id number]) on 06/22/2020 11:23:23 AM Referred By: DR CAPPS Confirmed By:KAREN MACIAS MD
[2020-06-15 00:26] LABS: Hemoglobin A1c 5.2 % (3.8-5.6)
--- NOTE | 2020-06-15 04:53 | EKG12_ITS ---
Test Reason : AM EKG Blood Pressure : / mmHG Vent. Rate : 051 BPM Atrial Rate : 051 BPM P-R Int : 178 ms QRS Dur : 100 ms QT Int : 454 ms P-R-T Axes : 062 007 044 degrees QTc Int : 418 ms Sinus bradycardia Otherwise normal ECG When compared with ECG of 14-JUN-2020 23:12, MANUAL COMPARISON REQUIRED, DATA IS UNCONFIRMED Confirmed by ANA ROSA TOMAS, INDER ([id number]), restaurant expeditor HARLEY ABDI ([id number]) on 06/21/2020 1:11:50 PM Referred By: GÉNESIS Confirmed By:INDER OSEGUERA MD
[2020-06-15] MEDS: Lisinopril 40 MG Tablet PO (05:33)
[2020-06-15] MEDS: Aspirin E.C. 81 MG Tablet PO (05:33)
--- NOTE | 2020-06-15 06:58 | NURSING ---
PT REFUSING VASCULAR LAB DRAWS. ONLY WANTS LABS DRAWN DURING DIALYSIS.
[2020-06-15 07:37] LABS: Absolute Lymphocyte Count 0.81 X10^3/uL (0.83-4.51); Absolute Neutrophil Count 2.1 X10^3/uL (2.0-7.7); Basophil# 0.03 X10^3/uL; Basophil% 0.9 % (0-1); Eosinophil# 0.03 X10^3/uL; Eosinophils% 0.9 % (0-5); Hematocrit 31.1 % (40-54); Hemoglobin 10.5 g/dL (13.0-16.5); Lymphocyte # 0.81 X10^3/ul (4.0); Lymphocyte % 24.3 % (19-41); Mean Corp Hgb Conc 33.8 g/dL (32-36); Mean Corpuscular Hgb 30.9 pg (27.0-32.0); Mean Corpuscular Volume 91.5 fL (80-94); Mean Platelet Vol. 9.4 fl (6.2-12.0); Monocyte# 0.31 X10^3/uL; Monocyte% 9.3 % (0-10); NRBC Flagged by Analyzer 0 % (0-5); Neutrophil # 2.13 X10^3/uL (2.7-7.7); Platelet Count 193 K/mm3 (150-450); RBC Distribution Width CV 12.5 % (11.6-14.6); RBC Distribution Width SD 40.9 fl (35.1-43.9); White Blood Count 3.3 K/mm3 (4.4-11.0)
[2020-06-15] MEDS: Ipratropium/Albuterol Sulfate 3 ML AMPUL.NEB INHALATION ×3 (07:42→19:51)
[2020-06-15 07:53] LABS: Anion Gap 20 (5-15); BUN 97 mg/dL (7-18); BUN/Creat Ratio 4.2 RATIO (10-20); Calcium,Total 9.3 mg/dL (8.5-10.1); Chloride 90 mmol/L (98-107); EST Glomerular Filtration Rate 2 mL/min (>60); Est Glom Filt Rate - Afr Amer 3 mL/min (>60); Glucose 75 mg/dL (74-106); Potassium 4.9 mmol/L (3.5-5.1); Sodium Level 128 mmol/L (136-145)
[2020-06-15] MEDS: Cinacalcet HCl 30 MG Tablet 60 MG PO (08:17)
[2020-06-15] MEDS: SEVELAMER CARBONATE 800 MG TABLET PO ×3 (08:17→17:18)
[2020-06-15] MEDS: amLODIPine 10 MG Tablet PO (08:17)
[2020-06-15] MEDS: Sertraline 50 MG Tablet PO (08:17)
[2020-06-15 08:31] LABS: Estimated Creatinine Clearance 3.95 ml/min
--- NOTE | 2020-06-15 10:22 | CASEMGMT ---
Addendum entered by Deon Henson 06/15/20 12:10: Unable to set up transportation for pt to receive OP dialysis @ [facility] today, as pt would have needed to arrive @ [facility] by [address] Fenton made aware. Pt to receive dialysis today @ [facility]. Per Atul @ [facility], they have chair time available for OP dialysis @ [facility] for pt @ 1230 tomorrow/Friday. Addendum entered by Deon Henson 06/15/20 10:27: Pt has not received dialysis @ [facility] yet and charge, Ivania, inquiring if pt able to receive OP dialysis @ [facility] today. Call placed to Atul @ [facility] and he states they have chair time available for pt to receive OP dialysis today. Ivania made aware and will notify Dr Fenton. Original Note: MESERET MAYO NOTE: Call placed to Atul @ [facility]. Per Atul, pt receives OP dialysis MWF @ [facility], chair time 0630, but he has missed his dialysis appts x 1 week. Last OP dialysis there was 06/07. Atul states they have been trying to reach pt, but have been unsuccessful. He was made aware pt has been admitted to [facility] and is receiving dialysis today. Jenny LUTZ RN, CM
--- NOTE | 2020-06-15 10:40 | CON.PCM_ITS ---
Problem List (1) ESRD (end stage renal disease) on dialysis Status: Chronic Consultation - Renal 06/15/20 PCP/ Referring MD: Requesting physician: [] Primary care physician: Dr. Kiet Martinez DO Reason for Consultation:: end-stage renal disease - History of Present Illness History of Present Illness: The patient is a 54 year old M who was admitted to the hospital with complains of chest pain. Nephrology consult for ESRD. ESRD on dialysis Friday, Friday, Friday schedule. Somewhat noncompliant. Is significantly above his estimated dry weight. Missed dialysis for more than a week now. Currently denies any complaints. - Allergies Allergies: Allergies latex Allergy (Verified 06/14/20 19:43) Rash hydrocodone Adverse Reaction (Verified 06/14/20 19:43) Abd cramps/diarrhea TAPE Allergy (Uncoded 12/11/19 03:29) Rash - Current Medications Current Medications: Current Medications Acetaminophen (Acetaminophen 325 Mg Tablet) 650 mg PO Q6H PRN PRN PRN Reason: Pain Score 1-10/Temp > 100.7 F Albuterol/Ipratropium (Ipratropium/Albuterol Sulfate 3 Ml Ampul.Neb) 3 ml INHALATION Q6H.RT [facility] Last Admin: 06/15/20 07:42 Dose: 3 ml Documented by: Amlodipine Besylate (Amlodipine 10 Mg Tablet) 10 mg PO DAILY [facility] Last Admin: 06/15/20 08:17 Dose: 10 mg Documented by: Aspirin (Aspirin E.C. 81 Mg Tablet) 81 mg PO DAILY@0800 [facility] Last Admin: 06/15/20 05:33 Dose: 81 mg Documented by: Cinacalcet (Cinacalcet Hcl 30 Mg Tablet) 60 mg PO DAILY [facility] Last Admin: 06/15/20 08:17 Dose: 60 mg Documented by: Heparin Sodium (Porcine) (Heparin Injection (Vial) 5,000 Unit/Ml Vial) 5,000 unit SC Q12 [facility] Sodium Chloride () 250 mls @ 15 mls/hr IV .[id number] PRN PRN Reason: Saline Flush Sodium Chloride () 250 mls @ 15 mls/hr IV .[id number] PRN PRN Reason: Additional IVPB Infusion Lisinopril (Lisinopril 40 Mg Tablet) 40 mg PO DAILY [facility] Last Admin: 06/15/20 05:33 Dose: 40 mg Documented by: Nitroglycerin (Nitroglycerin (Inpatient Use) 0.4 Mg Tab.Subl) 0.4 mg SL Q5M PRN PRN Reason: CARDIAC/CHEST PAIN Non-Formulary Medication (Sucroferric Oxyhydroxide) 1,000 mg PO TID [facility] Ondansetron HCl (Ondansetron 4 Mg/2 Ml Vial) 4 mg IV Q8H PRN PRN PRN Reason: NAUSEA/VOMITING Senna/Docusate Sodium (Senna/Docusate Sodium 1 Tablet) 2 tablet PO BID PRN PRN PRN Reason: Constipation Sertraline HCl (Sertraline 50 Mg Tablet) 50 mg PO DAILY [facility] Last Admin: 06/15/20 08:17 Dose: 50 mg Documented by: Sevelamer Carbonate (Sevelamer Carbonate 800 Mg Tablet) 800 mg PO TIDCM [facility] Last Admin: 06/15/20 08:17 Dose: 800 mg Documented by: Sodium Chloride (0.9% Saline Lock 10 Ml Syringe) 10 - 40 ml IV UD PRN PRN Reason: SALINE FLUSH Zolpidem Tartrate (Zolpidem Tartrate 5 Mg Tablet) 5 mg PO QHS PRN PRN PRN Reason: INSOMNIA - Past Medical History Past Medical History (Chronic Problems): Chronic Problems (Last Updated 06/14/20 @ 22:[address] Ange Lopez MD) CHF (congestive heart failure) (Chronic) Pulmonary HTN (Chronic) COPD (chronic obstructive pulmonary disease) (Chronic) Noncompliance with renal dialysis (Chronic) Nonrheumatic tricuspid (valve) insufficiency (Chronic) Moderate (2+) per echo 06/05/2016: [id number] mmhg History of Vides's palsy (Chronic) Bipolar affective disorder (Chronic) Hyperparathyroidism due to end stage renal disease on dialysis (Chronic) Anemia (Chronic) associated with renal disease Polycystic kidney disease (Chronic) Hypertriglyceridemia (Chronic) Hyperlipidemia (Chronic) History of peptic ulcer disease (Chronic) AV fistula (Chronic ~2013) Right arm Hypertension (Chronic) Type II diabetes mellitus (Chronic) Tobacco abuse (Chronic) Gastroesophageal reflux disease (Chronic) ESRD (end stage renal disease) on dialysis (Chronic) TAY (obstructive sleep apnea) (Chronic) - Past Surgical History Surgical History: total knee arthroplasty, - - AVF BUE - Social History Smoking Status: Former smoker Alcohol: None Drugs: None - Family History Paternal Family History: Family History (Last Reviewed 12/11/19 @ 08:[address] J Carlos Gonzales DO) Brother CAD (coronary artery disease) Congestive heart failure Father Diabetes CAD (coronary artery disease) Kidney disease Mother Bleeding disorder Brother Kidney disease History Items: Diabetes, Heart Disease, Hypertension, - - Polycystic kidney disease, at age 58 from renal failure Maternal Family History: Family History (Last Reviewed 12/11/19 @ 08:[address] J Carlos Gonzales DO) Brother CAD (coronary artery disease) Congestive heart failure Father Diabetes CAD (coronary artery disease) Kidney disease Mother Bleeding disorder Brother Kidney disease History Items: No pertinent history Review of Systems Constitutional: Denies: Chills, Fever, Weight Change HEENT: Denies: Head Aches, Sinus Congestion, Sinus Drainage Cardiovascular: Denies: Chest Pain, Palpitations Respiratory: Denies: Cough, Shortness of breath at rest, Sputum production Gastrointestinal: Denies: Abdominal Pain, Nausea, Vomiting Genitourinary: Denies: Dysuria Musculoskeletal: Denies: Joint Pain, Joint Tenderness Skin: Denies: Rash, Wounds Neurological: Denies: Numbness, Tingling, Focal weakness Psychiatric: Denies: Anxiety, Depression, Homicidal Ideations, Suicidal Ideations Hematologic/ Lymphatic: Denies: Easy Bruising, Easy Bleeding - Physical Exam Vitals/I&O's: Vital Signs Temp Pulse Resp BP Pulse Ox 97.3 F L 60 16 145/89 H 97 06/15/20 08:11 06/15/20 08:11 06/15/20 08:11 06/15/20 08:11 06/15/20 08:11 Oxygen Flow Rate (L/min) 3 Oxygen Delivery Method Room Air Weight: 134.5 kg Body Mass Index (BMI) 41.2 Finger Stick Blood Glucose 100 Intake and Output for Last 24 Hours 06/13/20 06/14/20 06/15/20 23:59 23:59 23:59 Intake Total 100 / 100 Output Total 0 / 0 Balance 100 / 100 General: Alert, Oriented x3, Cooperative HEENT: Atraumatic, PERRLA, EOMI, Normocephalic Neck: Supple, No JVD, Negative Carotid Bruits Lungs: Clear to auscultation, Normal air movement Cardiovascular: Regular rate, No murmurs Abdomen: Bowel Sounds Present, Soft, Non Tender Extremities: No edema, Capillary Refill Less than 3 Seconds Skin: No rashes, No breakdown Musculoskeletal: No Tenderness to Palpation of Joints or Extremities Neurological: Cranial nerves II-XII grossly intact Psych/Mental Status: Normal Affect, Appropriate Microbiology Past 72 Hours 06/14/20 23:15 Interface Orders SARS-CoV-2 Antigen (Rapid) - Final Laboratory Results 06/14/20 19:54: WBC 3.7 L, RBC 3.83 L, Hgb 11.5 L, Hct 34.6 L, MCV 90.3, MCH 30.0, MCHC 33.2, RDW Std Deviation 40.8, RDW Coeff of Mook 12.5, Plt Count 215, MPV 9.5, Immature Gran % (Auto) 0.800, Neut % (Auto) 68.6, Lymph % (Auto) 20.9, [place] % (Auto) 9.1, Eos % (Auto) 0.3, Baso % (Auto) 0.3, Absolute Neuts (auto) 2.6, Absolute Lymphs (auto) 0.78 L, Nucleated RBC % 0 06/14/20 19:54: Sodium 127 L, Potassium 5.0, Chloride 87 L, Carbon Dioxide 21.0, Anion Gap 19 H, BUN 91 H, Creatinine 23.30 H*, Estim Creat Clear Calc 3.95, Est GFR (MDRD) Af Amer 3 L, Est GFR (MDRD) Non-Af 2 L, BUN/Creatinine Ratio 3.9 L, Glucose 93, Calcium 9.6, Troponin I < 0.015 06/14/20 19:54: Hemoglobin A1c 5.2 06/14/20 23:20: PT 13.8, INR 1.1 06/14/20 23:20: Troponin I < 0.015 06/15/20 03:18: WBC 3.3 L, RBC 3.40 L, Hgb 10.5 L, Hct 31.1 L, MCV 91.5, MCH 30.9, MCHC 33.8, RDW Std Deviation 40.9, RDW Coeff of Mook 12.5, Plt Count 193, MPV 9.4, Immature Gran % (Auto) 0.600, Neut % (Auto) 64.0, Lymph % (Auto) 24.3, [place] % (Auto) 9.3, Eos % (Auto) 0.9, Baso % (Auto) 0.9, Absolute Neuts (auto) 2.1, Absolute Lymphs (auto) 0.81 L, Nucleated RBC % 0 06/15/20 03:18: Sodium 128 L, Potassium 4.9, Chloride 90 L, Carbon Dioxide 18.0 L, Anion Gap 20 H, BUN 97 H, Creatinine 23.30 H*, Estim Creat Clear Calc 3.95, Est GFR (MDRD) Af Amer 3 L, Est GFR (MDRD) Non-Af 2 L, BUN/Creatinine Ratio 4.2 L, Glucose 75, Calcium 9.3 06/15/20 03:18: Troponin I < 0.015 Current Medications Acetaminophen (Acetaminophen 325 Mg Tablet) 650 mg PO Q6H PRN PRN PRN Reason: Pain Score 1-10/Temp > 100.7 F Albuterol/Ipratropium (Ipratropium/Albuterol Sulfate 3 Ml Ampul.Neb) 3 ml INHALATION Q6H.RT [facility] Last Admin: 06/15/20 07:42 Dose: 3 ml Documented by: Amlodipine Besylate (Amlodipine 10 Mg Tablet) 10 mg PO DAILY [facility] Last Admin: 06/15/20 08:17 Dose: 10 mg Documented by: Aspirin (Aspirin E.C. 81 Mg Tablet) 81 mg PO DAILY@0800 [facility] Last Admin: 06/15/20 05:33 Dose: 81 mg Documented by: Cinacalcet (Cinacalcet Hcl 30 Mg Tablet) 60 mg PO DAILY [facility] Last Admin: 06/15/20 08:17 Dose: 60 mg Documented by: Heparin Sodium (Porcine) (Heparin Injection (Vial) 5,000 Unit/Ml Vial) 5,000 unit SC Q12 [facility] Sodium Chloride () 250 mls @ 15 mls/hr IV .[id number] PRN PRN Reason: Saline Flush Sodium Chloride () 250 mls @ 15 mls/hr IV .[id number] PRN PRN Reason: Additional IVPB Infusion Lisinopril (Lisinopril 40 Mg Tablet) 40 mg PO DAILY [facility] Last Admin: 06/15/20 05:33 Dose: 40 mg Documented by: Nitroglycerin (Nitroglycerin (Inpatient Use) 0.4 Mg Tab.Subl) 0.4 mg SL Q5M PRN PRN Reason: CARDIAC/CHEST PAIN Non-Formulary Medication (Sucroferric Oxyhydroxide) 1,000 mg PO TID [facility] Ondansetron HCl (Ondansetron 4 Mg/2 Ml Vial) 4 mg IV Q8H PRN PRN PRN Reason: NAUSEA/VOMITING Senna/Docusate Sodium (Senna/Docusate Sodium 1 Tablet) 2 tablet PO BID PRN PRN PRN Reason: Constipation Sertraline HCl (Sertraline 50 Mg Tablet) 50 mg PO DAILY [facility] Last Admin: 06/15/20 08:17 Dose: 50 mg Documented by: Sevelamer Carbonate (Sevelamer Carbonate 800 Mg Tablet) 800 mg PO TIDCM [facility] Last Admin: 06/15/20 08:17 Dose: 800 mg Documented by: Sodium Chloride (0.9% Saline Lock 10 Ml Syringe) 10 - 40 ml IV UD PRN PRN Reason: SALINE FLUSH Zolpidem Tartrate (Zolpidem Tartrate 5 Mg Tablet) 5 mg PO QHS PRN PRN PRN Reason: INSOMNIA Assessment/Plan end-stage renal disease. Dialysis today. Called staff. Anemia. Gets long-acting erythropoietin with dialysis. Chest pain. Treatment as per primary.
[2020-06-15] MEDS: Ondansetron 8 MG Tablet PO (11:31)
--- NOTE | 2020-06-15 11:48 | DCINST_ITS ---
- Discharge Diagnoses Current Active Problems: Current Active and Chronic Problems (Last Updated 06/14/20 @ 22:[address] Ange Lopez MD) CHF (congestive heart failure) (Chronic) COPD (chronic obstructive pulmonary disease) (Chronic) Noncompliance with renal dialysis (Chronic) Hyperparathyroidism due to end stage renal disease on dialysis (Chronic) Polycystic kidney disease (Chronic) Hypertriglyceridemia (Chronic) Hyperlipidemia (Chronic) Type II diabetes mellitus (Chronic) Gastroesophageal reflux disease (Chronic) ESRD (end stage renal disease) on dialysis (Chronic) TAY (obstructive sleep apnea) (Chronic) You will use the following diet at home:: Calorie/Carbohydrate Controlled (specify 1200, 1400, etc) - 1800 elmer Your liquids should be the consistency of: Regular/Thin Discharge Activity: Return to Normal Activity Weight Bearing Status: Full weight bearing Allergies/Adverse Reactions: Allergies latex Allergy (Verified 06/14/20 19:43) Rash hydrocodone Adverse Reaction (Verified 06/14/20 19:43) Abd cramps/diarrhea TAPE Allergy (Uncoded 12/11/19 03:29) Rash Medications to take at Discharge lisinopril 40 mg tablet 40 mg PO DAILY 02/24/18 Cinacalcet HCl [Sensipar] 60 mg PO DAILY 11/10/18 Sevelamer Carbonate [Renvela] 1 tab PO TID 11/10/18 Sucroferric Oxyhydroxide [Velphoro] 1,000 mg PO TID 11/10/18 Amlodipine [Norvasc] 10 mg PO DAILY 05/17/19 Sertraline HCl [Zoloft] 50 mg PO DAILY #30 tab 12/11/19 Primary Care Physician: Kiet Martinez DO [Primary Care Provider] - Please follow up with your Primary Care Physician in: in one week Test Results: Test results from this visit will be discussed in further detail at your follow- up appointment, if applicable.
--- NOTE | 2020-06-15 14:00 | CASEMGMT ---
Social Work Pt to be discharged from [facility] tomorrow at 12:00 to go directly to out patient dialysis at [facility] for 12:30 appointment. DAREK placed a call to [facility] ([phone]) and arranged for transportation pick up man at 12:00. [facility] states Meenakshi will be the provider and will return to [facility] at 4:30 to take pt to his home after dialysis. Nursing notified. RUSTY Roberts
--- NOTE | 2020-06-15 14:14 | DIALYSIS ---
Report from primary RN, Sander Ward Access: Right upper arm AVF: Site benign. 2 aneurysms exist. AVF cannulated with 15 gauge needles x 2. [place] taped securely to patient's arm.
--- NOTE | 2020-06-15 15:30 | CASEMGMT ---
Addendum entered by Deon Henson 06/16/20 07:15: Dr Fenton made aware pt states is almost out of his inhalers and that he has not seen his PCP in years. Original Note: RN CM DRY CLEANING MACHINE OPERATOR HELPER CM to room to meet with patient for initial transition planning/care coordination assessment. RN MARIA ESTHER introduced self and role at [facility].? Pt voices understanding and consents to assessment at this time.? Pt resting in bed in no distress at this time, receiving dialysis at this time. ? Pt would open his eyes and respond to most questions but then occasionally would close his eyes and not answer unless RN CM repeated question or re-worded the question. Care providers, pharmacy, and demographics verified/updated at this time. PCP: Dr Martinez. Pt states, though, I haven't seen her in years. When asked, pt would not elaborate any further on why he does not go to his doctor. Specialists: Dr Dent--nephrology. Dialysis: Goes to OP dialysis. Scheduled for every MWF. Chair time 0630. Pt has missed dialysis x 3 this past week. Last OP dialysis done 06/07. Preferred Pharmacy: [facility] retail Insurance: [facility], [facility] Prescription Benefit:? Yes LNOK: Mother, Edith Mcneill Living Arrangements: Lives alone in one-story apt. Pt states he tries to complete ADL's @ home, stating that he needs assistance with everything and states, It is starting to get overwhelming. Transportation: [place] or neighbors. DME: ?States has the following DME:? shower chair, cane, walker, CPAP. Pt had told staff earlier today that he has oxygen at home through [employer]. Call placed to [employer] and they state pt does not get oxygen from them. MESERET MAYO asked pt again about home O2. He stated, Oh, I'm sorry. I don't have oxygen. It's a CPAP that I have. HHC/SNF: [facility]. Pt does not remember name of HHC agency. Initially pt stated that he would be interested in HHC, but then he stated, I have a torn meniscus and I have been falling a lot. I would like to go to a snf. Jahaira OSWALD, made aware. Pt states he uses an inhaler @ home and that he it is almost out. He states there are no refills on them, as he has not went to his PCP in years. MESERET MAYO inquired of how he has been getting prescriptions for the inhaler he currently has and he states, When I go to the ER. PLAN: ?TBD. Pt states wishes to go to a SNF. PT/OT evals pending. Jenny LUTZ RN, CM
--- NOTE | 2020-06-15 16:16 | CASEMGMT ---
Social Work Per MESERET ChavarriaCM, pt now requesting to go to SNF at discharge. SW met with pt in room. Pt very sleepy and not interested in speaking with SW at this time. SW provided list of SNF providers including quality and resource use data and consistent with the patients preferred geographic region, medical needs and insurance network. SW requested pt review list and SW will meet with pt in morning to obtain pt preferred provider. RUSTY Roberts
--- NOTE | 2020-06-15 17:54 | PCM.PROGNOTE ---
Subjective: Patient was seen and examined today, he refused to undergo a stress test today, his cardiac enzymes have been normal. It was set up today that he would be discharged but the patient's transportation cannot be arranged and so the discharge was canceled. Late today, the patient stated to the case management nurse that he desired to go to a detention and did not feel he could take care of himself. This examiner doubts that this is true, I let the patient know that if he did not qualify for inpatient shelter services, he would have to pay for it out of his pocket at which time he told me that he could not afford this and I told him that he would have to go home. Patient will have dialysis today. Patient was quite belligerent and argumentative this morning with hospital workers including nursing, patient could not give me a reason why he went a whole week without dialysis. I also discussed with him the possibility of perhaps considering a kidney transplant, patient told me that he was evaluated for 1 but did not follow through with it. - Physical Exam Vitals/I&O's: Vital Signs Temp Pulse Resp BP Pulse Ox 98.5 F 56 L 15 133/69 H 98 06/15/20 13:45 06/15/20 16:46 06/15/20 13:55 06/15/20 13:45 06/15/20 13:45 Oxygen Flow Rate (L/min) 2 Oxygen Delivery Method Nasal Cannula Weight: 134.5 kg Body Mass Index (BMI) 41.2 Finger Stick Blood Glucose 100 Intake and Output for Last 24 Hours 06/13/20 06/14/20 06/15/20 23:59 23:59 23:59 Intake Total 100 / 100 Output Total 0 / 0 Balance 100 / 100 General: Alert, Oriented x3, Cooperative, No apparent distress, Well developed, Well nourished HEENT: Atraumatic, PERRLA, EOMI, Normocephalic Oral: Moist Mucosa Neck: Supple, No JVD, Trachea Midline, Thyroid Normal Size and Texture Lungs: Clear to auscultation, Normal air movement, No rhonchi, No wheeze, No rales Cardiovascular: Regular rate, Regular Rhythm, Normal S1, Normal S2, No murmurs, PMI Normal, No rub noted, No Gallop Abdomen: Bowel Sounds Present, Soft, Non Tender, Non-Distended, Obese Extremities: No clubbing, No cyanosis, No edema, Capillary Refill Less than 3 Seconds Skin: No rashes, No breakdown Musculoskeletal: No Tenderness to Palpation of Joints or Extremities Neurological: Cranial nerves II-XII grossly intact, Neuro grossly intact, Sensory exam intact to light touch and pain Psych/Mental Status: Normal Affect, Agitated - At times, Alert and oriented to time, place, person, mood and affect Microbiology Past 72 Hours 06/14/20 23:15 Interface Orders SARS-CoV-2 Antigen (Rapid) - Final Laboratory Results 06/14/20 19:54: WBC 3.7 L, RBC 3.83 L, Hgb 11.5 L, Hct 34.6 L, MCV 90.3, MCH 30.0, MCHC 33.2, RDW Std Deviation 40.8, RDW Coeff of Mook 12.5, Plt Count 215, MPV 9.5, Immature Gran % (Auto) 0.800, Neut % (Auto) 68.6, Lymph % (Auto) 20.9, Barton % (Auto) 9.1, Eos % (Auto) 0.3, Baso % (Auto) 0.3, Absolute Neuts (auto) 2.6, Absolute Lymphs (auto) 0.78 L, Nucleated RBC % 0 06/14/20 19:54: Sodium 127 L, Potassium 5.0, Chloride 87 L, Carbon Dioxide 21.0, Anion Gap 19 H, BUN 91 H, Creatinine 23.30 H*, Estim Creat Clear Calc 3.95, Est GFR (MDRD) Af Amer 3 L, Est GFR (MDRD) Non-Af 2 L, BUN/Creatinine Ratio 3.9 L, Glucose 93, Calcium 9.6, Troponin I < 0.015 06/14/20 19:54: Hemoglobin A1c 5.2 06/14/20 23:20: PT 13.8, INR 1.1 06/14/20 23:20: Troponin I < 0.015 06/15/20 03:18: WBC 3.3 L, RBC 3.40 L, Hgb 10.5 L, Hct 31.1 L, MCV 91.5, MCH 30.9, MCHC 33.8, RDW Std Deviation 40.9, RDW Coeff of Mook 12.5, Plt Count 193, MPV 9.4, Immature Gran % (Auto) 0.600, Neut % (Auto) 64.0, Lymph % (Auto) 24.3, Barton % (Auto) 9.3, Eos % (Auto) 0.9, Baso % (Auto) 0.9, Absolute Neuts (auto) 2.1, Absolute Lymphs (auto) 0.81 L, Nucleated RBC % 0 06/15/20 03:18: Sodium 128 L, Potassium 4.9, Chloride 90 L, Carbon Dioxide 18.0 L, Anion Gap 20 H, BUN 97 H, Creatinine 23.30 H*, Estim Creat Clear Calc 3.95, Est GFR (MDRD) Af Amer 3 L, Est GFR (MDRD) Non-Af 2 L, BUN/Creatinine Ratio 4.2 L, Glucose 75, Calcium 9.3 06/15/20 03:18: Troponin I < 0.015 06/15/20 17:30: Hep Bs Antigen Pending Current Medications Acetaminophen (Acetaminophen 325 Mg Tablet) 650 mg PO Q6H PRN PRN PRN Reason: Pain Score 1-10/Temp > 100.7 F Albuterol/Ipratropium (Ipratropium/Albuterol Sulfate 3 Ml Ampul.Neb) 3 ml INHALATION Q6H.RT [facility] Last Admin: 06/15/20 13:57 Dose: 3 ml Documented by: Amlodipine Besylate (Amlodipine 10 Mg Tablet) 10 mg PO DAILY [facility] Last Admin: 06/15/20 08:17 Dose: 10 mg Documented by: Aspirin (Aspirin E.C. 81 Mg Tablet) 81 mg PO DAILY@0800 [facility] Last Admin: 06/15/20 05:33 Dose: 81 mg Documented by: Cinacalcet (Cinacalcet Hcl 30 Mg Tablet) 60 mg PO DAILY [facility] Last Admin: 06/15/20 08:17 Dose: 60 mg Documented by: Heparin Sodium (Porcine) (Heparin Injection (Vial) 5,000 Unit/Ml Vial) 5,000 unit SC Q12 [facility] Last Admin: 06/15/20 11:32 Dose: Not Given Documented by: Sodium Chloride () 250 mls @ 15 mls/hr IV .[id number] PRN PRN Reason: Saline Flush Sodium Chloride () 250 mls @ 15 mls/hr IV .[id number] PRN PRN Reason: Additional IVPB Infusion Lisinopril (Lisinopril 40 Mg Tablet) 40 mg PO DAILY [facility] Last Admin: 06/15/20 05:33 Dose: 40 mg Documented by: Nitroglycerin (Nitroglycerin (Inpatient Use) 0.4 Mg Tab.Subl) 0.4 mg SL Q5M PRN PRN Reason: CARDIAC/CHEST PAIN Ondansetron HCl (Ondansetron 4 Mg/2 Ml Vial) 4 mg IV Q8H PRN PRN PRN Reason: NAUSEA/VOMITING Senna/Docusate Sodium (Senna/Docusate Sodium 1 Tablet) 2 tablet PO BID PRN PRN PRN Reason: Constipation Sertraline HCl (Sertraline 50 Mg Tablet) 50 mg PO DAILY [facility] Last Admin: 06/15/20 08:17 Dose: 50 mg Documented by: Sevelamer Carbonate (Sevelamer Carbonate 800 Mg Tablet) 800 mg PO TIDCM [facility] Last Admin: 06/15/20 17:18 Dose: 800 mg Documented by: Sodium Chloride (0.9% Saline Lock 10 Ml Syringe) 10 - 40 ml IV UD PRN PRN Reason: SALINE FLUSH Zolpidem Tartrate (Zolpidem Tartrate 5 Mg Tablet) 5 mg PO QHS PRN PRN PRN Reason: INSOMNIA Medical Necessity - Tobacco Use Smoking Status: Former smoker Tobacco Use: Cigarettes Assessment/Plan #1 chest pain-etiology unclear, resolved at this time, patient refuses further work-up (stress test) #2 end-stage renal disease requiring dialysis with noncompliance with dialysis #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 #7 anemia of end-stage renal disease Inpatient E&M: [id number] [facility] L2
--- NOTE | 2020-06-15 19:01 | DIALYSIS ---
Pt completed hemodialysis treatment via left arm AV fistula with 5 liters fluid removed. Stasis obtained after needles removed. Pt tolerated treatment without difficulty.
[2020-06-16] VITALS (11 sets, daily range): BP systolic 110–114; BP diastolic 55–70; PULSE 52–68; RESP 16–20; TEMP 36.2–37.6; O2SAT 94–100
[2020-06-16] MEDS: Ipratropium/Albuterol Sulfate 3 ML AMPUL.NEB INHALATION ×2 (06:53→13:26)
--- NOTE | 2020-06-16 09:05 | PN.RENAL_ITS ---
Subjective: no new events - Physical Exam Vitals/I&O's: Vital Signs Temp Pulse Resp BP Pulse Ox 97.2 F L 60 16 111/61 94 06/16/20 03:37 06/16/20 07:00 06/16/20 06:57 06/16/20 03:37 06/16/20 06:57 Oxygen Flow Rate (L/min) 2 Oxygen Delivery Method Room Air Weight: 129.8 kg Body Mass Index (BMI) 41.2 Finger Stick Blood Glucose 100 Intake and Output for Last 24 Hours 06/14/20 06/15/20 06/16/20 23:59 23:59 23:59 Intake Total 220 / 220 200 / 200 Output Total 22577 / 60361 Balance -9780 / -9780 200 / 200 General: Alert, Oriented x3, Cooperative HEENT: Atraumatic, PERRLA, EOMI, Normocephalic Neck: Supple, No JVD, Negative Carotid Bruits Lungs: Clear to auscultation, Normal air movement Cardiovascular: Regular rate, No murmurs Abdomen: Bowel Sounds Present, Soft, Non Tender Extremities: No edema, Capillary Refill Less than 3 Seconds Skin: No rashes, No breakdown Musculoskeletal: No Tenderness to Palpation of Joints or Extremities Neurological: Cranial nerves II-XII grossly intact Psych/Mental Status: Normal Affect, Appropriate Microbiology Past 72 Hours 06/14/20 23:15 Interface Orders SARS-CoV-2 Antigen (Rapid) - Final Laboratory Results 06/15/20 17:30: Hep Bs Antigen Pending Current Medications Acetaminophen (Acetaminophen 325 Mg Tablet) 650 mg PO Q6H PRN PRN PRN Reason: Pain Score 1-10/Temp > 100.7 F Albuterol/Ipratropium (Ipratropium/Albuterol Sulfate 3 Ml Ampul.Neb) 3 ml INHALATION Q6H.RT [facility] Last Admin: 06/16/20 06:53 Dose: 3 ml Documented by: Amlodipine Besylate (Amlodipine 10 Mg Tablet) 10 mg PO DAILY [facility] Last Admin: 06/15/20 08:17 Dose: 10 mg Documented by: Aspirin (Aspirin E.C. 81 Mg Tablet) 81 mg PO DAILY@0800 [facility] Last Admin: 06/15/20 05:33 Dose: 81 mg Documented by: Cinacalcet (Cinacalcet Hcl 30 Mg Tablet) 60 mg PO DAILY [facility] Last Admin: 06/15/20 08:17 Dose: 60 mg Documented by: Heparin Sodium (Porcine) (Heparin Injection (Vial) 5,000 Unit/Ml Vial) 5,000 unit SC Q12 [facility] Last Admin: 06/15/20 21:41 Dose: Not Given Documented by: Sodium Chloride () 250 mls @ 15 mls/hr IV .[id number] PRN PRN Reason: Saline Flush Sodium Chloride () 250 mls @ 15 mls/hr IV .[id number] PRN PRN Reason: Additional IVPB Infusion Lisinopril (Lisinopril 40 Mg Tablet) 40 mg PO DAILY [facility] Last Admin: 06/15/20 05:33 Dose: 40 mg Documented by: Nitroglycerin (Nitroglycerin (Inpatient Use) 0.4 Mg Tab.Subl) 0.4 mg SL Q5M PRN PRN Reason: CARDIAC/CHEST PAIN Ondansetron HCl (Ondansetron 4 Mg/2 Ml Vial) 4 mg IV Q8H PRN PRN PRN Reason: NAUSEA/VOMITING Senna/Docusate Sodium (Senna/Docusate Sodium 1 Tablet) 2 tablet PO BID PRN PRN PRN Reason: Constipation Sertraline HCl (Sertraline 50 Mg Tablet) 50 mg PO DAILY [facility] Last Admin: 06/15/20 08:17 Dose: 50 mg Documented by: Sevelamer Carbonate (Sevelamer Carbonate 800 Mg Tablet) 800 mg PO TIDCM [facility] Last Admin: 06/15/20 17:18 Dose: 800 mg Documented by: Sodium Chloride (0.9% Saline Lock 10 Ml Syringe) 10 - 40 ml IV UD PRN PRN Reason: SALINE FLUSH Zolpidem Tartrate (Zolpidem Tartrate 5 Mg Tablet) 5 mg PO QHS PRN PRN PRN Reason: INSOMNIA Medical Necessity - Tobacco Use Smoking Status: Former smoker Tobacco Use: Cigarettes Assessment/Plan end-stage renal disease. Dialysis today Anemia. Gets long-acting erythropoietin with dialysis. Chest pain. better dc today
--- NOTE | 2020-06-16 10:01 | CASEMGMT ---
Addendum entered by Makenzie Dasilva 06/16/20 13:42: SW completed hospital exemption in the [facility]. SW called [facility], the transportation has not yet been set up. BRANDAN Stanford Addendum entered by Makenzie Dasilva 06/16/20 13:02: SW spoke w/Magy from [facility], they can take pt today after dialysis, and they can set up transport with [facility] to and from dialysis. SW let pt know, he is agreeable. SW called [facility] to set up transport this evening to take pt, SW will need to call back to see if they can take pt this evening, otherwise, pt will need set up in the morning. BRANDAN Stanford Original Note: SW spoke w/pt in the room in regard to custodial choices. Pt had told physician he would like [facility], SW called and they have no beds. SW asked pt for other choices, he is agreeable to a referral being sent to [facility]. SW called [facility] to cancel transport for today to dialysis from the hospital. SW faxed referral to [facility], called Magy at [facility] and left a message. SW will continue to follow. BRANDAN Stanford
--- NOTE | 2020-06-16 10:06 | CASEMGMT ---
Per therapy, they are recommending SNF for pt and pt would like to go to SNF. Call to [facility] to notify that pt will not be coming for OP dialysis today d/t SNF placement, Veronica voices understanding. John CARL CM
[2020-06-16 10:09] LABS: Hepatitis B Surface Antigen Non-Reactive (Nonreactive)
[2020-06-16] MEDS: Cinacalcet HCl 30 MG Tablet 60 MG PO (10:23)
[2020-06-16] MEDS: Lisinopril 40 MG Tablet PO (10:23)
[2020-06-16] MEDS: Sertraline 50 MG Tablet PO (10:24)
[2020-06-16] MEDS: Aspirin E.C. 81 MG Tablet PO (10:24)
[2020-06-16] MEDS: amLODIPine 10 MG Tablet PO (10:24)
[2020-06-16] MEDS: SEVELAMER CARBONATE 800 MG TABLET PO ×3 (10:24→18:58)
--- NOTE | 2020-06-16 10:48 | PCM.TXEXTCAR ---
- Diet 06/15/20 10:37 Diet: Renal - General Is pt able to select menu?: Yes - Routine Orders/Code Status Routine Lab Work: BMP - 06/19/20 - Therapies Weight Bearing: Full weight bearing Physical Therapy: Eval and Treat Occupational Therapy: Eval and Treat - Problem/Diagnosis (1) COPD (chronic obstructive pulmonary disease) Status: Chronic (2) Noncompliance with renal dialysis Status: Chronic (3) Bipolar affective disorder Status: Chronic (4) Anemia Status: Chronic Comment: associated with renal disease (5) Polycystic kidney disease Status: Chronic (6) Hypertension Status: Chronic (7) ESRD (end stage renal disease) on dialysis Status: Chronic (8) TAY (obstructive sleep apnea) Status: Chronic - Allergies/Procedures Done in Hospital Allergies/Adverse Reactions: Allergies latex Allergy (Verified 06/14/20 19:43) Rash hydrocodone Adverse Reaction (Verified 06/14/20 19:43) Abd cramps/diarrhea TAPE Allergy (Uncoded 12/11/19 03:29) Rash Procedures: Dialysis - Type of Care/Length of Stay Estimated LOS: Convalescent Care Less Than 30 days Type of Care Needed: Skilled Rehab Potential: Good Prognosis: Good - Additional Orders/Day of Discharge H&P will serve as current which was dated: 06/14/20 Day of Discharge: 06/16/20 - Dietary and Speech Recommendations Dietitian Recommendations/Changes: will change diet to renal-general - Follow Up Care Primary Care Physician: Kiet Martinez DO [Primary Care Provider] - Please follow up with your Primary Care Physician in: in one week
--- NOTE | 2020-06-16 15:57 | CASEMGMT ---
Transportation was set up through [facility] for 7pm. SW completed hospital exemption, faxed this with discharge instructions to [facility]. SW called Magy at [facility], let her know pt will be leaving here at 7pm. SW let pt and pt's bedside RN know also the pickup time to go to [facility]. Pt in agreement, no further needs, pt to [facility] today. BRANDAN Stanford
--- NOTE | 2020-06-16 18:44 | NURSING ---
Report called to nurse Afia at [facility] for pt transfer.
--- NOTE | 2020-06-16 18:54 | DIALYSIS ---
Hemodialysis treatment completed, patient came off 15 min early due to cramping,Fluid removed 3800 ml. Tolerated well.
--- NOTE | 2020-06-16 19:00 | PCM.DC.SUM ---
Discharge Date and Diagnosis Date of Admission: 06/14/20 Date of Discharge: 06/16/20 - Primary Discharge Diagnosis Acute Problems: #1 chest pain-etiology unclear #2 end-stage renal disease requiring dialysis with noncompliance with dialysis #3 bipolar disorder with personality disorder #4 morbid obesity #5 acute debility #6 anemia of end-stage renal disease #7 uremia secondary to noncompliance with dialysis - Secondary Discharge Diagnosis Chronic Problems: Chronic Problems (Last Updated 06/14/20 @ 22:[address] Ange Lopez MD) CHF (congestive heart failure) (Chronic) Pulmonary HTN (Chronic) COPD (chronic obstructive pulmonary disease) (Chronic) Noncompliance with renal dialysis (Chronic) Nonrheumatic tricuspid (valve) insufficiency (Chronic) Moderate (2+) per echo 06/05/2016: [id number] mmhg History of Vides's palsy (Chronic) Bipolar affective disorder (Chronic) Hyperparathyroidism due to end stage renal disease on dialysis (Chronic) Anemia (Chronic) associated with renal disease Polycystic kidney disease (Chronic) Hypertriglyceridemia (Chronic) Hyperlipidemia (Chronic) History of peptic ulcer disease (Chronic) AV fistula (Chronic ~2013) Right arm Hypertension (Chronic) Type II diabetes mellitus (Chronic) Tobacco abuse (Chronic) Gastroesophageal reflux disease (Chronic) ESRD (end stage renal disease) on dialysis (Chronic) TAY (obstructive sleep apnea) (Chronic) Hospital Course and Treatment Operations: None, - Procedures: Dialysis Summary of Care Provided: The patient is a 54 year old M was seen in the emergency room at [facility] with a chief complaint of chest pain which started approximately 4 hours prior to arrival. He complained of radiation into his right arm, he also complained of shortness of breath and nausea. Patient missed his last 3 dialysis treatments and he could not give a compelling reason why he missed the dialysis treatments. Patient has a long history of noncompliance. Work-up in the emergency room included cardiac enzymes, chest x-ray, and an EKG which showed no evidence of acute ischemic changes. Cardiac enzymes were unremarkable, chest x-ray is unremarkable. Patient's labs showed a creatinine of 23.3 and a BUN of 91 as well as a sodium of 127. Patient was admitted to PCU for chest pain and uremia, he was seen in consultation by nephrology, patient refused to undergo any work-up for his chest discomfort, he was belligerent at times during his hospitalization and argumentative at times. Patient finally stated that he felt he could not go home and take care of himself and wanted to go to an extended care facility. He was seen in consultation by PT and OT. On 06/16/2020, patient was seen and examined: On examination he appeared in good health and spirits. Vital signs as documented. Skin warm and dry and without overt rashes. Neck without JVD, neck was supple, trachea midline, thyroid was normal. Lungs clear bilaterally, normal air movement was noted. Heart exam notable for regular rhythm, normal sounds and absence of murmurs, rubs or gallops. Abdomen unremarkable and without evidence of organomegaly, masses, or abdominal aortic enlargement. Patient is obese. Bowel sounds are present, abdomen is not distended. Extremities nonedematous, no cyanosis was noted, no clubbing was noted. Neuro: Cranial nerves II through XII are grossly intact, no focal motor deficits were noted, sensation to light touch and pinprick intact, motor exam 5/5 throughout. Psych: Patient is alert and oriented x3, he does not appear anxious or depressed, he does not appear agitated. Patient was transferred to an extended care facility on 06/16/2020 in stable condition. - Physical Exam Vitals/I&O's: Vital Signs Temp Pulse Resp BP Pulse Ox 99.6 F H 61 20 H 114/55 L 97 06/16/20 16:08 06/16/20 17:11 06/16/20 17:11 06/16/20 16:08 06/16/20 16:08 Oxygen Flow Rate (L/min) 2 Oxygen Delivery Method Room Air Weight: 129.8 kg Body Mass Index (BMI) 41.2 Finger Stick Blood Glucose 100 Intake and Output for Last 24 Hours 06/14/20 06/15/20 06/16/20 23:59 23:59 23:59 Intake Total 220 / 220 440 / 440 Output Total 74447 / 99213 3800 / 3800 Balance -9780 / -9780 -3360 / -3360 Microbiology Past 72 Hours 06/14/20 23:15 Interface Orders SARS-CoV-2 Antigen (Rapid) - Final Laboratory Results 06/15/20 17:30: Hep Bs Antigen Non-Reactive Current Medications Acetaminophen (Acetaminophen 325 Mg Tablet) 650 mg PO Q6H PRN PRN PRN Reason: Pain Score 1-10/Temp > 100.7 F Albuterol/Ipratropium (Ipratropium/Albuterol Sulfate 3 Ml Ampul.Neb) 3 ml INHALATION Q6H.RT [facility] Last Admin: 06/16/20 13:26 Dose: 3 ml Documented by: Amlodipine Besylate (Amlodipine 10 Mg Tablet) 10 mg PO DAILY [facility] Last Admin: 06/16/20 10:24 Dose: 10 mg Documented by: Aspirin (Aspirin E.C. 81 Mg Tablet) 81 mg PO DAILY@0800 [facility] Last Admin: 06/16/20 10:24 Dose: 81 mg Documented by: Cinacalcet (Cinacalcet Hcl 30 Mg Tablet) 60 mg PO DAILY [facility] Last Admin: 06/16/20 10:23 Dose: 60 mg Documented by: Heparin Sodium (Porcine) (Heparin Injection (Vial) 5,000 Unit/Ml Vial) 5,000 unit SC Q12 [facility] Last Admin: 06/16/20 10:27 Dose: Not Given Documented by: Sodium Chloride () 250 mls @ 15 mls/hr IV .[id number] PRN PRN Reason: Saline Flush Sodium Chloride () 250 mls @ 15 mls/hr IV .[id number] PRN PRN Reason: Additional IVPB Infusion Lisinopril (Lisinopril 40 Mg Tablet) 40 mg PO DAILY [facility] Last Admin: 06/16/20 10:23 Dose: 40 mg Documented by: Nitroglycerin (Nitroglycerin (Inpatient Use) 0.4 Mg Tab.Subl) 0.4 mg SL Q5M PRN PRN Reason: CARDIAC/CHEST PAIN Ondansetron HCl (Ondansetron 4 Mg/2 Ml Vial) 4 mg IV Q8H PRN PRN PRN Reason: NAUSEA/VOMITING Senna/Docusate Sodium (Senna/Docusate Sodium 1 Tablet) 2 tablet PO BID PRN PRN PRN Reason: Constipation Sertraline HCl (Sertraline 50 Mg Tablet) 50 mg PO DAILY [facility] Last Admin: 06/16/20 10:24 Dose: 50 mg Documented by: Sevelamer Carbonate (Sevelamer Carbonate 800 Mg Tablet) 800 mg PO TIDCM [facility] Last Admin: 06/16/20 18:58 Dose: 800 mg Documented by: Sodium Chloride (0.9% Saline Lock 10 Ml Syringe) 10 - 40 ml IV UD PRN PRN Reason: SALINE FLUSH Zolpidem Tartrate (Zolpidem Tartrate 5 Mg Tablet) 5 mg PO QHS PRN PRN PRN Reason: INSOMNIA Discharge Activity: Return to Normal Activity Weight Bearing Status: Full weight bearing Home Medications: Medications to take at Discharge lisinopril 40 mg tablet 40 mg PO DAILY 02/24/18 Cinacalcet HCl [Sensipar] 60 mg PO DAILY 11/10/18 Sevelamer Carbonate [Renvela] 1 tab PO TID 11/10/18 Sucroferric Oxyhydroxide [Velphoro] 1,000 mg PO TID 11/10/18 Amlodipine [Norvasc] 10 mg PO DAILY 05/17/19 Sertraline HCl [Zoloft] 50 mg PO DAILY #30 tab 12/11/19 Ipratropium/Albuterol Sulfate [Duoneb] 3 ml INHALATION Q6H.RT #0 ampul.neb 06/16/20 Primary Care Physician: Kiet Martinez DO [Primary Care Provider] - Please follow up with your Primary Care Physician in: in one week Disposition: Senior Living facility Minutes spent on discharge:: 33 Patient Condition:: Stable Medical Necessity - Tobacco Use Smoking Status: Former smoker Tobacco Use: Cigarettes Meaningful Use Info Meaningful Use Diagnoses (Choose all that apply): None applicable Inpatient E&M: 21324 Disch Hosp
--- NOTE | 2020-06-16 21:15 | NURSING ---
Transport here to pick pack worker pt at this time. Pt has not requested anything this evening. Has been resting comfortably in bed. Pt notified that transport is here for him. Belongings at pt side. IV and tele monitor removed by prior shift. Report and transport paperwork provided to transport. No further needs by pt or transport company at this time.
== END 2020-06-16 21:15 | disposition skilled nursing facility (03) | DRG 313 ==
LOC: ED 20:30 → PCU 22:22
PROVIDERS: Internal Medicine Nephrology; Admitting Provider Hospitalist; Emergency Provider Emergency Medicine; PCP Student in an Organized Health Care Education/Training Program; Visit Provider Internal Medicine
DX: R07.9 Chest pain, unspecified (principal); N18.6 End stage renal disease; E87.1 Hypo-osmolality and hyponatremia; I13.2 Hypertensive heart and chronic kidney disease with heart failure and with stage 5 chronic kidney disease, or end stage renal disease; Q61.3 Polycystic kidney, unspecified; Z68.41 Body mass index [BMI] 40.0-44.9, adult; J44.9 Chronic obstructive pulmonary disease, unspecified; K21.9 Gastro-esophageal reflux disease without esophagitis; I36.1 Nonrheumatic tricuspid (valve) insufficiency; I27.20 Pulmonary hypertension, unspecified; F60.9 Personality disorder, unspecified; E78.5 Hyperlipidemia, unspecified; E78.1 Pure hyperglyceridemia; G47.33 Obstructive sleep apnea (adult) (pediatric); G51.0 Bell's palsy; F31.9 Bipolar disorder, unspecified; E66.01 Morbid (severe) obesity due to excess calories; D63.1 Anemia in chronic kidney disease; Z91.15 Patient's noncompliance with renal dialysis; Z87.891 Personal history of nicotine dependence; Z87.11 Personal history of peptic ulcer disease; Z91.19 Patient's noncompliance with other medical treatment and regimen; R53.81 Other malaise; E11.22 Type 2 diabetes mellitus with diabetic chronic kidney disease
CPT/HCPCS: 36415; 71045; 80048; 83036; 84484; 85025; 85610; 87340; 87426; 90937; 93005; 94640; 94660; 97162; 97166; 97802; 99251; 99285; A4216; G0257; G0463; J2405; J2785

== ENCOUNTER 2020-09-09 07:52 | Inpatient (IN) | payer MEDICARE, MEDICAID, SELFPAY ==
[2020-06-14 22:41] VITALS: BMI 41.2
[2020-09-09] VITALS (12 sets, daily range): BP systolic 117–151; BP diastolic 55–103; PULSE 58–74; RESP 16–19; TEMP 36.4–37.2; O2SAT 96–99; BMI 39.7; BMI 42.1
--- NOTE | 2020-09-09 08:09 | EKG12_ITS ---
Test Reason : [facility] [place] Blood Pressure : / mmHG Vent. Rate : 059 BPM Atrial Rate : 059 BPM P-R Int : 154 ms QRS Dur : 096 ms QT Int : 404 ms P-R-T Axes : 064 -22 025 degrees QTc Int : 399 ms Sinus bradycardia Low Voltage QRS (Limb Leads) Confirmed by COLLEEN TOMAS, KAREN ([id number]), editor magazine PATRICIO VALENZUELA ([id number]) on 09/13/2020 1:46:30 PM Referred By: KASSANDRA Confirmed By:KAREN MACIAS MD
--- NOTE | 2020-09-09 08:16 | EDS_ITS ---
HPI HPI - Psych History of Present Illness Chief Complaint: Mental Health Narrative Narrative: Patient is a 54-year-old male with a past medical history of end- stage renal disease on dialysis, bipolar disorder who presents to the emergency department for suicidal ideation and depression. He states that he is tired of all of his medical issues and he keeps screwing up. He did have a plan with overdosing on his Neurontin. Patient states he has acted on suicidal ideation many years ago. He denies taking anything to harm himself now. He states he did drink heavily yesterday and this morning. Patient is depressed because he does not feel he is going to get a transplant. He is on a list but he states he keeps testing positive for illicit substances. He uses cannabinoids, cocaine. Patient states he has been off of his anxiety medications lately. He does follow with 180 regularly. Patient states he did miss his Friday dialysis. Last time he went was Friday. He does complain of some inability to feel like taking a deep breath occasionally. He is feeling mildly nauseous now. Denies any chest pain. [facility] Medical History (Updated 09/09/20 @ 12:[address] Tano Young, ) Anemia Bipolar affective disorder Derangement of left patella ESRD (end stage renal disease) on dialysis Excessive daytime sleepiness Gastroesophageal reflux disease History of Vides's palsy History of peptic ulcer disease Hyperlipidemia Hyperparathyroidism due to end stage renal disease on dialysis Hypertension Hypertriglyceridemia Nonrheumatic tricuspid (valve) insufficiency Obstructive Sleep Apnea-Hypopnea Syndrome TAY (obstructive sleep apnea) Polycystic kidney disease Renal failure Tobacco abuse Type II diabetes mellitus Home Medications lisinopril 40 mg tablet 40 mg PO DAILY 02/24/18 [History Last Taken 05/25/19] cinacalcet [Sensipar] 60 mg PO DAILY 11/10/18 [History Last Taken 05/25/19] sevelamer carbonate [Renvela] 1 tab PO TID 11/10/18 [History Last Taken 05/25/19] sucroferric oxyhydroxide [Velphoro] 1,000 mg PO TID 11/10/18 [History Last Taken 05/24/19] amlodipine 10 mg PO DAILY 05/17/19 [History Last Taken 05/25/19] sertraline 50 mg PO DAILY #30 tab 12/11/19 [Rx Last Taken Unknown] ipratropium-albuterol 3 ml INHALATION Q6H.RT #0 ampul.neb 06/16/20 [Rx Last Taken Unknown] Allergy/AdvReac Type Severity Reaction Status Date / Time latex Allergy Rash Verified 09/09/20 08:23 hydrocodone AdvReac Abd Verified 09/09/20 08:23 cramps/diarrhea TAPE Allergy Rash Uncoded 09/09/20 08:23 Family History Brother CAD (coronary artery disease) Congestive heart failure Father , age 58 from polycystic kidney disease Diabetes CAD (coronary artery disease) Kidney disease polycystic kidney disease Mother Bleeding disorder Brother Kidney disease Surgical History AV fistula (~2013) History of facial surgery History of total left knee replacement Social History Smoking Status: Current some day smoker tobacco type: cigarettes Tobacco: How many years used: 14 ROS ROS ED Constitutional Constitutional ED: Denies chills or fever(s) Eyes Eyes: Denies change in vision ENT ENT ED: Denies epistaxis or rhinorrhea Cardiovascular Cardiovascular: Denies chest pain or palpitations Respiratory/Chest Respiratory/Chest: Denies cough, dyspnea or dyspnea on exertion Gastrointestinal Gastrointestinal: Reports nausea; Denies abdominal pain, diarrhea or vomiting Musculoskeletal Musculoskeletal: Denies back pain or neck pain Integumentary Denies rash Neurologic Neurologic: Denies dizziness, headache(s) or weakness Psychiatric Psychiatric: Reports anxiety, depression and suicidal thoughts EXAM Physical Exam Const Vital Signs: 09/09/20 07:53 09/09/20 08:02 09/09/20 09:28 Temperature 97.5 F L 98.7 F Temperature Source Temporal Temporal Pulse Rate 66 60 Respiratory Rate 18 16 17 Blood Pressure 151/103 H Blood Pressure Mean 119 Pulse Ox 97 98 Oxygen Delivery Method Room Air Room Air Positive well nourished and well developed General Appearance ED: well developed and NAD HEENT Reports normocephalic, head/scalp atraumatic and moist mucous membranes Eyes PERRL and EOMs intact bilaterally Neck supple Chest Wall inspection of chest normal Resp normal respiratory effort and clear to auscultation bilaterally Auscultation: Negative for rales, rhonchi or wheezes Cardio regular rate, regular rhythm and no murmurs GI normal to inspection, nondistended, normoactive bowel sounds and non-tender Palpation: soft; Negative for guarding or rebound tenderness present Extremity normal to inspection General Extremety ED: Negative for edema or tenderness General Extremity: Negative for edema Neuro oriented x3, CN's II-XII intact bilaterally and no sensory deficits noted Sensorium / Orientation: alert Motor Exam: strength 5/5 throughout Psych Appearance: grossly normal Mood & Affect: tearful Skin no rashes or lesions noted MDM MDM MDM Narrative Medical decision making narrative: Patient presents to the emergency department for suicidal ideation. He did have a plan to overdose on his Neurontin. On arrival to the emergency department he is mildly hypertensive but otherwise normal vital signs. He is tearful throughout exam but has a benign examination otherwise. He states he did miss his dialysis this past Friday. Will check basic lab work and consult crisis. Patient's lab work did come back positive for hyperkalemia. His alcohol is within normal limits. He is positive for cocaine. Given the fact he skipped his dialysis patient [facility] and will require dialysis. Did speak with the hospitalist who was willing to meet the patient for this. He otherwise has remained stable throughout ED stay. Lab Data Labs: Laboratory Results - last 24 hr 09/09/20 09/09/20 09/09/20 08:15 08:36 08:36 WBC 8.7 RBC 4.03 L Hgb 11.9 L Hct 36.3 L MCV 90.1 MCH 29.5 MCHC 32.8 RDW Std Deviation 42.1 RDW Coeff of Mook 12.8 Plt Count 261 MPV 9.1 Immature Gran % (Auto) 0.300 Neut % (Auto) 66.5 Lymph % (Auto) 19.2 [place] % (Auto) 7.9 Eos % (Auto) 5.3 H Baso % (Auto) 0.8 Absolute Neuts (auto) 5.8 Absolute Lymphs (auto) 1.68 Nucleated RBC % 0 Sodium 133 L Potassium 6.0 H* Chloride 92 L Carbon Dioxide 28.0 Anion Gap 13 BUN 68 H Creatinine 12.30 H* Estim Creat Clear Calc 7.48 Est GFR (MDRD) Af Amer 6 L Est GFR (MDRD) Non-Af 5 L BUN/Creatinine Ratio 5.5 L Glucose 73 L Calcium 9.9 Urine Opiates Screen NEGATIVE Urine Methadone Screen NEGATIVE Ur Barbiturates Screen NEGATIVE Ur Phencyclidine Scrn NEGATIVE Ur Amphetamines Screen NEGATIVE U Methamphetamin-MDMA NEGATIVE U Benzodiazepines Scrn NEGATIVE Urine Cocaine Screen POSITIVE H U Cannabinoids Screen NEGATIVE Ur Drug Screen Comment Ethyl Alcohol 09/09/20 08:36 WBC RBC Hgb Hct MCV MCH MCHC RDW Std Deviation RDW Coeff of Mook Plt Count MPV Immature Gran % (Auto) Neut % (Auto) Lymph % (Auto) [place] % (Auto) Eos % (Auto) Baso % (Auto) Absolute Neuts (auto) Absolute Lymphs (auto) Nucleated RBC % Sodium Potassium Chloride Carbon Dioxide Anion Gap BUN Creatinine Estim Creat Clear Calc Est GFR (MDRD) Af Amer Est GFR (MDRD) Non-Af BUN/Creatinine Ratio Glucose Calcium Urine Opiates Screen Urine Methadone Screen Ur Barbiturates Screen Ur Phencyclidine Scrn Ur Amphetamines Screen U Methamphetamin-MDMA U Benzodiazepines Scrn Urine Cocaine Screen U Cannabinoids Screen Ur Drug Screen Comment Ethyl Alcohol 9.0 EKG Initial EKG: Attestation: I personally reviewed and interpreted this EKG as follows: (Rate of 59 bpm in sinus rhythm. Normal intervals. Normal axis. No significant ST elevations or depressions. No peak T waves.) Discharge Plan Triage Chief Complaint: Mental Health ED Provider: Tano Young Dx/Rx/DC Orders Clinical Impression: Depression with suicidal ideation, ESRD on dialysis, Hyperkalemia, Substance use disorder Primary Care Provider: Care Physician,No Primary Disposition Disposition: Acute Care Hospital [facility] Discharge Date/Time: 09/09/20 11:29
[2020-09-09 08:43] LABS: Absolute Lymphocyte Count 1.68 X10^3/uL (0.83-4.51); Absolute Neutrophil Count 5.8 X10^3/uL (2.0-7.7); Basophil# 0.07 X10^3/uL; Basophil% 0.8 % (0-1); Eosinophil# 0.46 X10^3/uL; Eosinophils% 5.3 % (0-5); Hematocrit 36.3 % (40-54); Hemoglobin 11.9 g/dL (13.0-16.5); Lymphocyte # 1.68 X10^3/ul (0.83-4.51); Lymphocyte % 19.2 % (19-41); Mean Corp Hgb Conc 32.8 g/dL (32-36); Mean Corpuscular Hgb 29.5 pg (27.0-32.0); Mean Corpuscular Volume 90.1 fL (80-94); Mean Platelet Vol. 9.1 fl (6.2-12.0); Monocyte# 0.69 X10^3/uL; Monocyte% 7.9 % (0-10); NRBC Flagged by Analyzer 0 % (0-5); Neutrophil % 66.5 % (47-70); Platelet Count 261 K/mm3 (150-450); RBC Distribution Width CV 12.8 % (11.6-14.6); RBC Distribution Width SD 42.1 fl (35.1-43.9); Red Blood Count 4.03 M/mm3 (4.6-6.2); White Blood Count 8.7 K/mm3 (4.4-11.0)
[2020-09-09] MEDS: Acetaminophen 325 MG Tablet 650 MG PO ×2 (08:46→20:39)
[2020-09-09 08:47] LABS: Amphetamine Urine VISTA NEGATIVE (<1000 ng/mL); Barbiturate Urine VISTA NEGATIVE (< 200 ng/mL); Benzodiazepine Urine VISTA NEGATIVE (< 200 ng/mL); Cocaine Urine VISTA POSITIVE (< 300 ng/mL); Ecstacy Urine VISTA NEGATIVE (< 500 ng/mL); Methadone Urine VISTA NEGATIVE (< 300 ng/mL); PCP Urine VISTA NEGATIVE (< 25 ng/mL); THC Urine VISTA NEGATIVE (< 50 ng/mL); Vista UDS pH Range 8
[2020-09-09 09:07] LABS: Anion Gap 13 (5-15); BUN 68 mg/dL (7-18); BUN/Creat Ratio 5.5 RATIO (10-20); Calcium,Total 9.9 mg/dL (8.5-10.1); Chloride 92 mmol/L (98-107); EST Glomerular Filtration Rate 5 mL/min (>60); Est Glom Filt Rate - Afr Amer 6 mL/min (>60); Estimated Creatinine Clearance 7.48 ml/min; Glucose 73 mg/dL (74-106); Sodium Level 133 mmol/L (136-145)
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
--- NOTE | 2020-09-09 12:10 | PCM.CONS.R ---
Assessment & Plan Assessment/Plan (1) ESRD (end stage renal disease) on dialysis: PLAN: The patient usually dialyzes on a MWF schedule. However, he missed dialysis yesterday. I have arranged for dialysis today. The patient is hyperkalemic, so we will use a 2 mEq potassium dialysate. Next dialysis will be scheduled for 09/11/2020. (2) Hyperkalemia: PLAN: Hyperkalemia is due to missing dialysis. As mentioned above, we will use a 2 mEq potassium dialysate. Recheck potassium level tomorrow. (3) Anemia: PLAN: Hemoglobin is 11.9. Goal hemoglobin for dialysis patient is between 10 to 11 g/dL. Therefore, there is no need for NED at this time. Continue to monitor hemoglobin (4) Hypertension: PLAN: Blood pressure is well controlled. Continue home antihypertensives. We will ultrafilter the patient to his usual target weight. (5) Bipolar affective disorder: PLAN: The patient is depressed and has suicidal ideation. He will need further psychiatry evaluation. HPI Consult Data Date of Consult: 09/09/20 HPI Narrative Reason for Consultation: ESRD, need for dialysis. HPI Narrative: The patient is a 54-year-old man, known to our service with ESRD secondary, bipolar disorder, hypertension, anemia, hyperlipidemia, type 2 diabetes mellitus, and obstructive sleep apnea. The patient usually dialyzes at [facility] on a Friday, Friday and Friday schedule. The patient presented to the emergency department today with suicidal ideation. He had plan to overdose on gabapentin. The patient has been depressed about his chronic medical problems as well as back and hip pain. The patient also has history of substance abuse, and he was turned down for kidney transplant because of marijuana and cocaine use. This has added to his depression. The patient did not go to dialysis yesterday because he was depressed, and he was drinking alcohol heavily yesterday. The patient complains of bilateral hip and left knee pain. He denies chest pain, shortness of breath at rest, nausea, vomiting or lower extremity edema. The patient presented with a potassium level of 6 mmol/L. [facility] Medical History (Updated 09/09/20 @ 12:[address] Isidoro Rivera MD) Anemia Bipolar affective disorder Derangement of left patella ESRD (end stage renal disease) on dialysis Excessive daytime sleepiness Gastroesophageal reflux disease History of Vides's palsy History of peptic ulcer disease Hyperlipidemia Hyperparathyroidism due to end stage renal disease on dialysis Hypertension Hypertriglyceridemia Nonrheumatic tricuspid (valve) insufficiency Obstructive Sleep Apnea-Hypopnea Syndrome TAY (obstructive sleep apnea) Polycystic kidney disease Renal failure Tobacco abuse Type II diabetes mellitus Home Medications lisinopril 40 mg tablet 40 mg PO DAILY 02/24/18 [History Last Taken 05/25/19] cinacalcet [Sensipar] 60 mg PO DAILY 11/10/18 [History Last Taken 05/25/19] sevelamer carbonate [Renvela] 1 tab PO TID 11/10/18 [History Last Taken 05/25/19] sucroferric oxyhydroxide [Velphoro] 1,000 mg PO TID 11/10/18 [History Last Taken 05/24/19] amlodipine 10 mg PO DAILY 05/17/19 [History Last Taken 05/25/19] sertraline 50 mg PO DAILY #30 tab 12/11/19 [Rx Last Taken Unknown] ipratropium-albuterol 3 ml INHALATION Q6H.RT #0 ampul.neb 06/16/20 [Rx Last Taken Unknown] Allergy/AdvReac Type Severity Reaction Status Date / Time latex Allergy Rash Verified 09/09/20 08:23 hydrocodone AdvReac Abd Verified 09/09/20 08:23 cramps/diarrhea TAPE Allergy Rash Uncoded 09/09/20 08:23 Family History Brother CAD (coronary artery disease) Congestive heart failure Father , age 58 from polycystic kidney disease Diabetes CAD (coronary artery disease) Kidney disease polycystic kidney disease Mother Bleeding disorder Brother Kidney disease Surgical History AV fistula (~2013) History of facial surgery History of total left knee replacement Social History Smoking Status: Current some day smoker tobacco type: cigarettes Tobacco: How many years used: 14 ROS ROS Narrative As per HPI. 12/17 organ systems were reviewed and are noncontributory. Physical Exam Narrative General appearance: Alert and oriented x3 no apparent distress HEENT: Normocephalic atraumatic, mucous membranes moist without erythema, hearing is intact Neck: Supple, no JVD Heart: Normal S1, S2. There is no murmur, rubs or gallops Lungs: Clear to auscultation bilaterally Abdomen: Normal bowel sound, soft, nontender on palpation. There is no guarding or rebound Extremity: No edema. There is no clubbing or cyanosis Neurologic: No focal neurologic deficit Musculoskeletal: Pain with passive range of motion of the left knee Skin: Warm and dry, no rash Lab / Micro Data Result Diagrams: 09/09/20 08:36 09/09/20 08:36 Labs: Laboratory Results - last 24 hr 09/09/20 09/09/20 09/09/20 08:15 08:36 08:36 WBC 8.7 RBC 4.03 L Hgb 11.9 L Hct 36.3 L MCV 90.1 MCH 29.5 MCHC 32.8 RDW Std Deviation 42.1 RDW Coeff of Mook 12.8 Plt Count 261 MPV 9.1 Immature Gran % (Auto) 0.300 Neut % (Auto) 66.5 Lymph % (Auto) 19.2 Caldwell % (Auto) 7.9 Eos % (Auto) 5.3 H Baso % (Auto) 0.8 Absolute Neuts (auto) 5.8 Absolute Lymphs (auto) 1.68 Nucleated RBC % 0 Sodium 133 L Potassium 6.0 H* Chloride 92 L Carbon Dioxide 28.0 Anion Gap 13 BUN 68 H Creatinine 12.30 H* Estim Creat Clear Calc 7.48 Est GFR (MDRD) Af Amer 6 L Est GFR (MDRD) Non-Af 5 L BUN/Creatinine Ratio 5.5 L Glucose 73 L Calcium 9.9 Urine Opiates Screen NEGATIVE Urine Methadone Screen NEGATIVE Ur Barbiturates Screen NEGATIVE Ur Phencyclidine Scrn NEGATIVE Ur Amphetamines Screen NEGATIVE U Methamphetamin-MDMA NEGATIVE U Benzodiazepines Scrn NEGATIVE Urine Cocaine Screen POSITIVE H U Cannabinoids Screen NEGATIVE Ur Drug Screen Comment Ethyl Alcohol 09/09/20 08:36 WBC RBC Hgb Hct MCV MCH MCHC RDW Std Deviation RDW Coeff of Mook Plt Count MPV Immature Gran % (Auto) Neut % (Auto) Lymph % (Auto) Caldwell % (Auto) Eos % (Auto) Baso % (Auto) Absolute Neuts (auto) Absolute Lymphs (auto) Nucleated RBC % Sodium Potassium Chloride Carbon Dioxide Anion Gap BUN Creatinine Estim Creat Clear Calc Est GFR (MDRD) Af Amer Est GFR (MDRD) Non-Af BUN/Creatinine Ratio Glucose Calcium Urine Opiates Screen Urine Methadone Screen Ur Barbiturates Screen Ur Phencyclidine Scrn Ur Amphetamines Screen U Methamphetamin-MDMA U Benzodiazepines Scrn Urine Cocaine Screen U Cannabinoids Screen Ur Drug Screen Comment Ethyl Alcohol 9.0 Micro: Microbiology 09/09/20 08:36 SARS-CoV-2 Antigen (Rapid) - Final Mucosa - Nose
--- NOTE | 2020-09-09 13:55 | HP.PCM.HOS_ITS ---
Documented by User: Mercedes Veliz NP, PEDIATRIC MEDICAL ASSISTANT-C 09/09/20 14:32 HPI - General General Date of Admission: 09/09/20 Date of Service: 09/09/20 Chief Complaint: Suicidal ideations HPI Narrative CINDI WASHINGTON, is a 54 M who presents to the emergency room due to suicidal ideation and depression. States he had a plan which included overdosing on Neurontin. Currently denies any thoughts of self-harm. Agreeable to psychiatric placement. Denies shortness of breath, chest pain or other symptoms or complaints. Patient reports he is depressed and feels that he is not going to get a kidney transplant. He is on a list however continues to test positive for illicit substances including cocaine. He missed his dialysis on Friday. He states he binge drank yesterday due to his depression. He has a past medical history of end-stage renal disease on hemodialysis, hypertension, COPD, polysubstance use, bipolar disorder/depression. [facility] Medical History (Updated 09/09/20 @ 13:18 by Saima Ashford) Anemia Bipolar affective disorder Chronic back pain COPD (chronic obstructive pulmonary disease) Derangement of left patella ESRD (end stage renal disease) on dialysis Excessive daytime sleepiness Gastroesophageal reflux disease History of Vides's palsy History of drug dependence/abuse History of peptic ulcer disease Hyperlipidemia Hyperparathyroidism due to end stage renal disease on dialysis Hypertension Hypertriglyceridemia Neuropathy Nonrheumatic tricuspid (valve) insufficiency Obstructive Sleep Apnea-Hypopnea Syndrome TAY (obstructive sleep apnea) Polycystic kidney disease Renal failure Tobacco abuse Type II diabetes mellitus Home Medications lisinopril 40 mg tablet 40 mg PO DAILY 02/24/18 [History Last Taken 05/25/19] cinacalcet [Sensipar] 60 mg PO DAILY 11/10/18 [History Last Taken 05/25/19] sevelamer carbonate [Renvela] 1 tab PO TID 11/10/18 [History Last Taken 05/25/19] sucroferric oxyhydroxide [Velphoro] 1,000 mg PO TID 11/10/18 [History Last Taken 05/24/19] amlodipine 10 mg PO DAILY 05/17/19 [History Last Taken 05/25/19] sertraline 50 mg PO DAILY #30 tab 12/11/19 [Rx Last Taken Unknown] ipratropium-albuterol 3 ml INHALATION Q6H.RT #0 ampul.neb 06/16/20 [Rx Last Taken Unknown] Allergy/AdvReac Type Severity Reaction Status Date / Time latex Allergy Rash Verified 09/09/20 08:23 hydrocodone AdvReac Abd Verified 09/09/20 08:23 cramps/diarrhea TAPE Allergy Rash Uncoded 09/09/20 08:23 Family History (Reviewed 09/09/20 @ 14:15 by Mercedes Veliz PEDIATRIC MEDICAL ASSISTANT, PEDIATRIC MEDICAL ASSISTANT-C) Brother CAD (coronary artery disease) Congestive heart failure Father , age 58 from polycystic kidney disease Diabetes CAD (coronary artery disease) Kidney disease polycystic kidney disease Mother Bleeding disorder Brother Kidney disease Surgical History (Reviewed 09/09/20 @ 14:15 by Mercedes Veliz PEDIATRIC MEDICAL ASSISTANT, PEDIATRIC MEDICAL ASSISTANT-C) AV fistula (~2013) History of facial surgery History of total left knee replacement Social History (Updated 09/09/20 @ 14:16 by Mercedes Veliz NP, PEDIATRIC MEDICAL ASSISTANT-C) Smoking Status: Current some day smoker tobacco type: cigarettes Tobacco: How many years used: 14 alcohol intake: current substance use type: crack/cocaine ROS Constitutional Constitutional: Denies change in weight, chills, fatigue, fever(s) or weakness Cardiovascular Cardiovascular: Denies chest pain, edema, lightheadedness, palpitations or syncope Respiratory/Chest Respiratory/Chest: Denies cough, dyspnea, productive cough, shortness of breath at rest, shortness of breath with exertion or wheezing Gastrointestinal Gastrointestinal: Denies abdominal pain, constipation, diarrhea, nausea or vomiting Genitourinary Genitourinary: Denies burning urination, difficulty urinating, dysuria, hematuria, urinary frequency, urinary incontinence or urinary urgency Musculoskeletal Musculoskeletal: Denies back pain, joint pain or muscle weakness Integumentary Integumentary: Denies erythema, lesions, rash or wounds Neurologic Neurologic: Denies abnormal speech, confusion, dizziness, focal weakness, numbness, paresthesias, seizure-like activity or syncope Psychiatric Psychiatric: Reports depression, suicidal ideation and other Details: denies active thoughts of self-harm ; Denies anxiety Hematologic/Lymphatic Hematologic/Lymphatic: Denies anemia, easy bleeding or easy bruising Allergic/Immunologic Allergic/Immunologic: Denies hives or asthma Vital Signs Vital Signs Vital Signs: 09/09/20 07:53 09/09/20 08:02 09/09/20 09:28 Temperature 97.5 F L 98.7 F Temperature Source Temporal Temporal Pulse Rate 66 60 Respiratory Rate 18 16 17 Blood Pressure 151/103 H Blood Pressure Mean 119 Blood Pressure Source Blood Pressure Position Blood Pressure Location Pulse Ox 97 98 Oxygen Delivery Method Room Air Room Air 09/09/20 11:22 09/09/20 11:54 Temperature 98.1 F 99.0 F Temperature Source Temporal Temporal Pulse Rate 74 62 Respiratory Rate 17 16 Blood Pressure 140/81 H 121/55 H Blood Pressure Mean 100 77 Blood Pressure Source Monitor Blood Pressure Position Semi-Fowlers Blood Pressure Location Left Forearm Pulse Ox 99 97 Oxygen Delivery Method Room Air Room Air Weight Weight: 302 lb 0.533 oz Body Mass Index (BMI) 42.1 Physical Exam Const alert, oriented x3 and no apparent distress Orientation / Consciousness: awake, oriented to person, oriented to place and oriented to time HEENT normocephalic and moist oral mucous membranes Eyes PERRL, EOMs intact bilaterally and conjunctivae normal Neck no lymphadenopathy Resp normal respiratory effort and clear to auscultation bilaterally Cardio regular rate, regular rhythm and no murmurs Peripheral Pulses: pulses 2+ throughout GI normal to inspection, nondistended, normoactive bowel sounds, non-tender and non-distended Extremity normal to inspection Skin no rashes or lesions noted Lesions: no lesions Rashes: no rashes Trauma: no lacerations or abrasions Neuro CN's II-XII intact bilaterally, no focal motor deficits, no sensory deficits noted and deep tendon reflexes 2+ bilaterally Psych mental status grossly normal and affect normal Results Lab / Micro Data Result Diagrams: 09/09/20 08:36 09/09/20 08:36 Labs: Laboratory Results - last 24 hr 09/09/20 09/09/20 09/09/20 08:15 08:36 08:36 WBC 8.7 RBC 4.03 L Hgb 11.9 L Hct 36.3 L MCV 90.1 MCH 29.5 MCHC 32.8 RDW Std Deviation 42.1 RDW Coeff of Mook 12.8 Plt Count 261 MPV 9.1 Immature Gran % (Auto) 0.300 Neut % (Auto) 66.5 Lymph % (Auto) 19.2 Todd % (Auto) 7.9 Eos % (Auto) 5.3 H Baso % (Auto) 0.8 Absolute Neuts (auto) 5.8 Absolute Lymphs (auto) 1.68 Nucleated RBC % 0 Sodium 133 L Potassium 6.0 H* Chloride 92 L Carbon Dioxide 28.0 Anion Gap 13 BUN 68 H Creatinine 12.30 H* Estim Creat Clear Calc 7.48 Est GFR (MDRD) Af Amer 6 L Est GFR (MDRD) Non-Af 5 L BUN/Creatinine Ratio 5.5 L Glucose 73 L Calcium 9.9 Urine Opiates Screen NEGATIVE Urine Methadone Screen NEGATIVE Ur Barbiturates Screen NEGATIVE Ur Phencyclidine Scrn NEGATIVE Ur Amphetamines Screen NEGATIVE U Methamphetamin-MDMA NEGATIVE U Benzodiazepines Scrn NEGATIVE Urine Cocaine Screen POSITIVE H U Cannabinoids Screen NEGATIVE Ur Drug Screen Comment Ethyl Alcohol 09/09/20 08:36 WBC RBC Hgb Hct MCV MCH MCHC RDW Std Deviation RDW Coeff of Mook Plt Count MPV Immature Gran % (Auto) Neut % (Auto) Lymph % (Auto) Todd % (Auto) Eos % (Auto) Baso % (Auto) Absolute Neuts (auto) Absolute Lymphs (auto) Nucleated RBC % Sodium Potassium Chloride Carbon Dioxide Anion Gap BUN Creatinine Estim Creat Clear Calc Est GFR (MDRD) Af Amer Est GFR (MDRD) Non-Af BUN/Creatinine Ratio Glucose Calcium Urine Opiates Screen Urine Methadone Screen Ur Barbiturates Screen Ur Phencyclidine Scrn Ur Amphetamines Screen U Methamphetamin-MDMA U Benzodiazepines Scrn Urine Cocaine Screen U Cannabinoids Screen Ur Drug Screen Comment Ethyl Alcohol 9.0 Micro: Microbiology 09/09/20 08:36 SARS-CoV-2 Antigen (Rapid) - Final Mucosa - Nose Assessment & Plan Assessment/Plan (1) ESRD on dialysis: (2) Substance use disorder: (3) Depression with suicidal ideation: PLAN: 1. Depression with suicidal ideation-denies active thoughts of self-harm. Social work attempting psychiatric placement pending dialysis, repeat labs. 2. End-stage renal disease on hemodialysis, noncompliant-nephrology consulted. To undergo dialysis. Trend BMP. Patient is on transplant list however is not being considered due to recurrent positive tox screen. 3. Bipolar disorder-patient is on sertraline, not on dual therapy. 4. Hypertension-stable, continue amlodipine. 5. Polysubstance use-tox screen positive for cocaine. Admits to heavy alcohol use as well. 6. Anemia of chronic disease-stable. 7. GERD-on PPI. 8. Chronic COPD-stable, as needed albuterol aerosol. DVT prophylaxis- heparin sc This patient was seen by MILTON Oliveira under the supervision of Dr. Fenton. Documented by User: Dr. Moncho Fenton, 09/09/20 18:29 HPI - General General Date of Admission: 09/09/20 [facility] Medical History (Updated 09/09/20 @ 13:18 by Saima Ashford) Anemia Bipolar affective disorder Chronic back pain COPD (chronic obstructive pulmonary disease) Derangement of left patella ESRD (end stage renal disease) on dialysis Excessive daytime sleepiness Gastroesophageal reflux disease History of Vides's palsy History of drug dependence/abuse History of peptic ulcer disease Hyperlipidemia Hyperparathyroidism due to end stage renal disease on dialysis Hypertension Hypertriglyceridemia Neuropathy Nonrheumatic tricuspid (valve) insufficiency Obstructive Sleep Apnea-Hypopnea Syndrome TAY (obstructive sleep apnea) Polycystic kidney disease Renal failure Tobacco abuse Type II diabetes mellitus Home Medications lisinopril 40 mg tablet 40 mg PO DAILY 02/24/18 [History Last Taken 05/25/19] cinacalcet [Sensipar] 60 mg PO DAILY 11/10/18 [History Last Taken 05/25/19] sevelamer carbonate [Renvela] 1 tab PO TID 11/10/18 [History Last Taken 05/25/19] sucroferric oxyhydroxide [Velphoro] 1,000 mg PO TID 11/10/18 [History Last Taken 05/24/19] amlodipine 10 mg PO DAILY 05/17/19 [History Last Taken 05/25/19] sertraline 50 mg PO DAILY #30 tab 12/11/19 [Rx Last Taken Unknown] ipratropium-albuterol 3 ml INHALATION Q6H.RT #0 ampul.neb 06/16/20 [Rx Last Taken Unknown] Allergy/AdvReac Type Severity Reaction Status Date / Time latex Allergy Rash Verified 09/09/20 08:23 hydrocodone AdvReac Abd Verified 09/09/20 08:23 cramps/diarrhea TAPE Allergy Rash Uncoded 09/09/20 08:23 Family History (Reviewed 09/09/20 @ 14:15 by Mercedes Veliz PEDIATRIC MEDICAL ASSISTANT, PEDIATRIC MEDICAL ASSISTANT-C) Brother CAD (coronary artery disease) Congestive heart failure Father , age 58 from polycystic kidney disease Diabetes CAD (coronary artery disease) Kidney disease polycystic kidney disease Mother Bleeding disorder Brother Kidney disease Surgical History (Reviewed 09/09/20 @ 14:15 by Mercedes Veliz PEDIATRIC MEDICAL ASSISTANT, PEDIATRIC MEDICAL ASSISTANT-C) AV fistula (~2013) History of facial surgery History of total left knee replacement Social History (Updated 09/09/20 @ 14:16 by Mercedes Veliz PEDIATRIC MEDICAL ASSISTANT, PEDIATRIC MEDICAL ASSISTANT-C) Smoking Status: Current some day smoker tobacco type: cigarettes Tobacco: How many years used: 14 alcohol intake: current substance use type: crack/cocaine Results Lab / Micro Data Result Diagrams: 09/09/20 08:36 09/09/20 08:36 Charges/Coding Addendum Addendum: Patient was seen and examined today independently of Mercedes Veliz, he came to the ER today with threats of hurting himself and taking an overdose of gabapentin. Patient however does not have a known prescription for gabapentin. Patient missed his last dialysis-he has end-stage renal disease and he is on chronic dialysis-and his potassium was elevated today. Attempts were made to place the patient in a psychiatric facility but because of his abnormal labs and the fact that he had positive cocaine on his tox screen, he was declined by psych facility. On examination he appeared in good health and spirits. Vital signs as documented. Skin warm and dry and without overt rashes. Neck without JVD, neck was supple, trachea midline, thyroid was normal. Lungs clear bilaterally, normal air movement was noted. Heart exam notable for regular rhythm, normal sounds and absence of murmurs, rubs or gallops. Abdomen unremarkable and without evidence of organomegaly, masses, or abdominal aortic enlargement. Bowel sounds are present, abdomen is not distended. Extremities nonedematous, no cyanosis was noted, no clubbing was noted. Neuro: Cranial nerves II through XII are grossly intact, no focal motor deficits were noted, sensation to light touch and pinprick intact, motor exam 5/5 throughout. Psych: Patient is alert and oriented x3, he does not appear anxious or depressed, he does not appear agitated. Patient will be admitted to PCU, he will be seen in consultation by nephrology and undergo dialysis today. We will make further attempts at placement in a psychiatric facility-patient consents to this according to the social problems specialist. I have reviewed Mercedes Veliz's history and physical including her medical assessment and plan of care and endorse it Visit Charges Inpatient E&M: 04386 Init Hosp L3
--- NOTE | 2020-09-09 16:40 | CM.ED ---
Addendum entered by María Goff 09/09/20 18:08: SW called [facility]. No beds SW called [facility]. They do take psych dialysis patient but patient's chart can only be reviewed when patient is medically stable, which is off dialysis. SW called [facility]. They are unsure if they can manage patient with dialysis but will review chart. María TINEO Original Note: DAREK Referral Source: ED Staff SW called various placement settings to secure placement for patient. SW called [facility]. Denied Acuity too high. SW called [facility]. Geripsych only SW called [facility] and left voice mail. SW called [facility]. No beds SW called [facility]. They can't take dialysis patients SW called [facility]. Can't take dialysis patients. SW called [facility]. They can't take diaylsis patients. SW called [facility]. No beds for patient with high acuity. SW called [facility]. They can't review patient till after the weekend. SW called [facility] No dialysis patients. [facility]. No dialysis patient SW called [facility]. No dialysis patients. SW called [facility]. No dialysis patients.
--- NOTE | 2020-09-09 17:14 | CM.ED ---
SW Note SW asked for clarification. Patient was pink slipped to [facility]. Patient is voluntarily in agreement with psych placement. María SIMPSON
--- NOTE | 2020-09-09 18:28 | DIALYSIS ---
HD today as ordered. 4hr 2k F180 dialyzer 450/800. uf -4200ml. tolerated well no issues post bp 156/88-67
[2020-09-09] MEDS: SEVELAMER CARBONATE 800 MG TABLET PO (18:53)
[2020-09-09] MEDS: Ipratropium/Albuterol Sulfate 3 ML AMPUL.NEB INHALATION (19:24)
--- NOTE | 2020-09-09 20:02 | MDS.RN ---
Lab notifying this RN that patient is refusing lab draw at this time. This RN discussed with patient need for bloodwork regarding transfer. Pt continues to refuse, will notify
--- NOTE | 2020-09-09 20:15 | NURSING ---
Social Work in to see patient regarding refusal of blood drawl. Pt agrees to lab draw by this RN.
--- NOTE | 2020-09-09 20:56 | CM.ED ---
Addendum entered by María Goff 09/09/20 21:25: DAREK called [facility]. No psych intake staff on after 7pm. Original Note: DAREK Note SW received call from [facility]. SW received voice mail message. SW was advised that patient was refusing lab draw. SW went to patient's room. He said I can't have rookie take my blood. SW explained that we need the blood work to ensure that he is medically ready for discharge. Patient agreed to have his RN take blood. Patient's blood was drawn. SW will remain available. María TINEO
[2020-09-09 21:08] LABS: Anion Gap 8 (5-15); BUN 33 mg/dL (7-18); BUN/Creat Ratio 4.7 RATIO (10-20); Calcium,Total 9.4 mg/dL (8.5-10.1); Chloride 97 mmol/L (98-107); Creatinine, Serum 7.08 mg/dL (0.70-1.30); EST Glomerular Filtration Rate 9 mL/min (>60); Est Glom Filt Rate - Afr Amer 11 mL/min (>60); Glucose 163 mg/dL (74-106); Potassium 4.4 mmol/L (3.5-5.1); Sodium Level 134 mmol/L (136-145)
--- NOTE | 2020-09-09 21:22 | PN.HOSP_ITS ---
Hospitalist Note Repeat BMP following HD with normalization of potassium 6-->4.4. Patient medically cleared for psychiatric placement shoulder crisis deem this arleen ropriate.
--- NOTE | 2020-09-09 22:19 | CM.ED ---
DAREK Note DAREK received call from Magy at [facility]. DAREK gave updated on patient's presentation to the MD and channel executive wendy. Wendy indicated that they could get patient on diaylsis on Friday. Patient was accepted by Dr. Grant. RN to RN is [phone]. They need pink slip, labs, demographics and covid screen. DAREK faxed Magy in admission patient's face sheet/demographics. DAREK faxed lab work, demo, COVID test, MD reports and this filing writer's assessment to Wendy at [facility]. DAREK faxed documentation from that stated patient is medically appropriate for discharge to [facility] facility. DAREK also sent updated lab work to [facility]. DAREK spoke to patient. He asked how long he would be at [facility]. Advised that it is evaluated on a daily basis. DAREK said inpatient hospitalization length of stay is 3-5 day on average with some people staying shorter and some longer. Patient asked about how to return to [place] and DAREK advised that patient has [facility] Medicaid and asked him if they help with rides and he said that [facility] helps with rides. SW encouraged patient to use insurance for return trip. Patient was advised that he needs medication adjustment and he agreed. Patient said that his girlfriend thought he would be in there for 2 weeks. DAREK advised that due to confidentiality and HIPPA rules patient will most likely NOT be able to use his cell phone but the unit may make other arrangements for him but that is something he needs to address when he goes to [facility] as each facility has different rules. DAREK updated gaming pit boss that patient is being discharged to [facility] in [place]. Patient is leaving at 11:30pm per channel executive. Plan: [facility] in [place] María TINEO
--- NOTE | 2020-09-09 22:52 | NURSING ---
report called to Wendy CARL at [facility]. [facility], [phone].
--- NOTE | 2020-09-10 01:01 | NURSING ---
Physicians here to roll picker patient, report given to Physicians staff
--- NOTE | 2020-09-10 14:08 | PCM.DC.SUM ---
Documented by User: Mercedes Veliz NP, TRENCHING MACHINE OPERATOR-C 09/10/20 14:20 Providers Date of Admission: 09/09/20 Date of Discharge: 09/09/20 Primary Care Physician: No Primary Care Phys Consultations 09/09/20 12:26 Consult: Nephrology Routine Consulting Provider: Isidoro Rivera Reason for Consult: ESRD EMERGENT Consult: No MD Notified: Yes Date Notified: 09/09/20 Time Notified: 11:05 Method of Notification: Verbal Reason For Visit: HYPERKALEMIA, SUICIDAL INTENT Diagnosis Discharge Diagnosis (1) ESRD on dialysis: Status: Acute Code(s): N18.6 - End stage renal disease; Z99.2 - Dependence on renal dialysis (2) Substance use disorder: Status: Acute Code(s): F19.90 - Other psychoactive substance use, unspecified, uncomplicated (3) Depression with suicidal ideation: Status: Acute Code(s): F32.9 - Major depressive disorder, single episode, unspecified; R45.851 - Suicidal ideations Medications at Discharge Home Medications lisinopril 40 mg tablet 40 mg PO DAILY 02/24/18 cinacalcet [Sensipar] 60 mg PO DAILY 11/10/18 sevelamer carbonate [Renvela] 1 tab PO TID 11/10/18 sucroferric oxyhydroxide [Velphoro] 1,000 mg PO TID 11/10/18 amlodipine 10 mg PO DAILY 05/17/19 sertraline 50 mg PO DAILY #30 tab 12/11/19 ipratropium-albuterol 3 ml INHALATION Q6H.RT #0 ampul.neb 06/16/20 Hospital Course Operations None Procedures Dialysis Summary of Care Provided Minutes Spent on Discharge: 35 Hospital Course: Patient is a 54 year old male admitted 09/09/20 due to depression/suicidal ideations. 1. Depression with suicidal ideation-denies active thoughts of self-harm. Patient transferred to inpatient psychiatric facility in stable condition. 2. End-stage renal disease on hemodialysis, noncompliant-nephrology consulted. Underwent dialysis x1. Patient is on transplant list however is not being considered due to recurrent positive tox screen. 3. Bipolar disorder-patient is on sertraline, not on dual therapy. 4. Hypertension-stable, continue amlodipine. 5. Polysubstance use-tox screen positive for cocaine. Admits to heavy alcohol use as well. 6. Anemia of chronic disease-stable. 7. GERD-on PPI. 8. Chronic COPD-stable, as needed albuterol aerosol. Physical Exam Const alert, oriented x3 and no apparent distress Orientation / Consciousness: awake, oriented to person, oriented to place and oriented to time HEENT normocephalic and moist oral mucous membranes Eyes PERRL, EOMs intact bilaterally and conjunctivae normal Neck no lymphadenopathy Resp normal respiratory effort and clear to auscultation bilaterally Cardio regular rate, regular rhythm and no murmurs Peripheral Pulses: pulses 2+ throughout GI normal to inspection, nondistended, normoactive bowel sounds, non-tender and non-distended Extremity normal to inspection Skin no rashes or lesions noted Lesions: no lesions Rashes: no rashes Trauma: no lacerations or abrasions Neuro CN's II-XII intact bilaterally, no focal motor deficits, no sensory deficits noted and deep tendon reflexes 2+ bilaterally Psych mental status grossly normal and affect normal Patient seen and examined prior to discharge. Physical assessment as noted above. Patient is stable for discharge with follow up recommendations as noted above. This patient was seen by MILTON Oliveira under the supervision of Dr. Fenton. Weight / BMI Weight Weight: 302 lb 0.533 oz Body Mass Index (BMI) 42.1 ABG / Lab / Microbiology Data Result Diagrams: 09/09/20 08:36 09/09/20 20:30 Laboratory: Laboratory Results - last 24 hr 09/09/20 20:30 Sodium 134 L Potassium 4.4 Chloride 97 L Carbon Dioxide 29.0 Anion Gap 8 BUN 33 H Creatinine 7.08 H Estim Creat Clear Calc 13.00 Est GFR (MDRD) Af Amer 11 L Est GFR (MDRD) Non-Af 9 L BUN/Creatinine Ratio 4.7 L Glucose 163 H Calcium 9.4 Microbiology: Microbiology 09/09/20 08:36 SARS-CoV-2 Antigen (Rapid) - Final Mucosa - Nose Microbiology 09/09/20 08:36 Mucosa - Nose SARS-CoV-2 Antigen (Rapid) - Final Meaningful Use Info Meaningful Use Diagnoses (Choose all that apply): None applicable Discharge Plan Admission Admit Date/Time: 09/09/20 11:09 Attending Provider: Moncho Fenton Primary Care Provider: Care Physician,No Primary Consulting Providers: Isidoro Rivera Discharge Orders/Prescriptions Prescriptions: No Action lisinopril 40 mg tablet 40 mg PO DAILY RF: 0 cinacalcet [Sensipar] 60 MG tablet 60 mg PO DAILY RF: 0 sevelamer carbonate [Renvela] 800 MG tablet 1 tab PO TID RF: 0 Velphoro 500 MG tablet,chewable 1,000 mg PO TID RF: 0 amlodipine 10 MG tablet 10 mg PO DAILY RF: 0 sertraline 50 MG tablet 50 mg PO DAILY Qty: 30 RF: 0 ipratropium-albuterol 3 ML solution for nebulization 3 ml INHALATION Q6H.RT Qty: 0 RF: 0 Referrals / Follow Up: Care Physician,No Primary [Primary Care Provider] - Disposition Disposition (needs filled in before D/C Order can be placed): Psychiatric Hospital or Unit Documented by User: Dr. Moncho Fenton DO 09/13/20 17:26 Providers Date of Admission: 09/09/20 Reason For Visit: HYPERKALEMIA, SUICIDAL INTENT Medications at Discharge Home Medications lisinopril 40 mg tablet 40 mg PO DAILY 02/24/18 cinacalcet [Sensipar] 60 mg PO DAILY 11/10/18 sevelamer carbonate [Renvela] 1 tab PO TID 11/10/18 sucroferric oxyhydroxide [Velphoro] 1,000 mg PO TID 11/10/18 amlodipine 10 mg PO DAILY 05/17/19 sertraline 50 mg PO DAILY #30 tab 12/11/19 ipratropium-albuterol 3 ml INHALATION Q6H.RT #0 [email or web address] 06/16/20 ABG / Lab / Microbiology Data Result Diagrams: 09/09/20 08:36 09/09/20 20:30 Discharge Plan Admission Admit Date/Time: 09/09/20 11:09 Attending Provider: Moncho Fenton Primary Care Provider: Care Physician,No Primary Consulting Providers: Isidoro Rivera Discharge Orders/Prescriptions Prescriptions: No Action lisinopril 40 mg tablet 40 mg PO DAILY RF: 0 cinacalcet [Sensipar] 60 MG tablet 60 mg PO DAILY RF: 0 sevelamer carbonate [Renvela] 800 MG tablet 1 tab PO TID RF: 0 Velphoro 500 MG tablet,chewable 1,000 mg PO TID RF: 0 amlodipine 10 MG tablet 10 mg PO DAILY RF: 0 sertraline 50 MG tablet 50 mg PO DAILY Qty: 30 RF: 0 ipratropium-albuterol 3 ML solution for nebulization 3 ml INHALATION Q6H.RT Qty: 0 RF: 0 Referrals / Follow Up: Care Physician,No Primary [Primary Care Provider] - Disposition Disposition (needs filled in before D/C Order can be placed): Psychiatric Hospital or Unit Charges/Coding Addendum Addendum: Patient was seen and examined today independently of Mercedes Veliz, early in the evening the patient received permission to be transferred to a psych facility for further care. On examination he appeared in good health and spirits. Vital signs as documented. Skin warm and dry and without overt rashes. Neck without JVD, neck was supple, trachea midline, thyroid was normal. Lungs clear bilaterally, normal air movement was noted. Heart exam notable for regular rhythm, normal sounds and absence of murmurs, rubs or gallops. Abdomen unremarkable and without evidence of organomegaly, masses, or abdominal aortic enlargement. Bowel sounds are present, abdomen is not distended. Extremities nonedematous, no cyanosis was noted, no clubbing was noted. Neuro: Cranial nerves II through XII are grossly intact, no focal motor deficits were noted, sensation to light touch and pinprick intact, motor exam 5/5 throughout. Psych: Patient is alert and oriented x3, he does not appear anxious or depressed, he does not appear agitated. I have reviewed Mercedes Jose Alfredo's discharge summary including her medical assessment and plan of care and endorse it. Visit Charges OBSV E&M: [id number] Observ/hosp same date L3
== END 2020-09-09 23:45 | DRG 640 ==
LOC: ED 09:18 → PCU 11:15
PROVIDERS: Family Medicine; Admitting Provider Internal Medicine; Emergency Provider Emergency Medicine; Visit Provider Internal Medicine
DX: E87.5 Hyperkalemia (principal); N18.6 End stage renal disease; R45.851 Suicidal ideations; I13.2 Hypertensive heart and chronic kidney disease with heart failure and with stage 5 chronic kidney disease, or end stage renal disease; N25.81 Secondary hyperparathyroidism of renal origin; Q61.3 Polycystic kidney, unspecified; F31.9 Bipolar disorder, unspecified; Z99.2 Dependence on renal dialysis; I50.9 Heart failure, unspecified; E11.22 Type 2 diabetes mellitus with diabetic chronic kidney disease; Z91.19 Patient's noncompliance with other medical treatment and regimen; Z76.82 Awaiting organ transplant status; D63.8 Anemia in other chronic diseases classified elsewhere; K21.9 Gastro-esophageal reflux disease without esophagitis; J44.9 Chronic obstructive pulmonary disease, unspecified; F19.90 Other psychoactive substance use, unspecified, uncomplicated; F41.9 Anxiety disorder, unspecified; E78.5 Hyperlipidemia, unspecified; F17.210 Nicotine dependence, cigarettes, uncomplicated; G47.33 Obstructive sleep apnea (adult) (pediatric); I25.10 Atherosclerotic heart disease of native coronary artery without angina pectoris; Z82.49 Family history of ischemic heart disease and other diseases of the circulatory system; Z82.71 Family history of polycystic kidney; Z91.040 Latex allergy status; Z87.11 Personal history of peptic ulcer disease; Z96.652 Presence of left artificial knee joint; Z91.048 Other nonmedicinal substance allergy status; Z83.2 Family history of diseases of the blood and blood-forming organs and certain disorders involving the immune mechanism; Z83.3 Family history of diabetes mellitus
CPT/HCPCS: 80048; 80307; 82077; 85025; 87426; 90471; 90937; 93005; 94640; 99285; G0257

== ENCOUNTER 2020-12-21 05:24 | Emergency (ER) | payer MEDICARE, MEDICAID, SELFPAY ==
[2020-12-21 05:26] VITALS: BP 154/89; PULSE 69; RESP 18; TEMP 36.2; O2SAT 99; BMI 42.4
--- NOTE | 2020-12-21 05:46 | EX.ED.DYSGE1 ---
HPI History of Present Illness Chief Complaint: Substance Abuse Informant: patient Narrative Narrative: 55-year-old male presents the emergency room at about 5:30 in the morning requesting detox from cocaine. He states he is on dialysis if need to stay clean for 1 year than he can get on the transplant list. He states that no one in his family knows it is dark secret. He states that he was working with [facility] in the past but it was not helping. He states he called a one 800-number who told him that there is a hospital here in [place] that did inpatient detox. [facility] Medical History Anemia Bipolar affective disorder Chronic back pain COPD (chronic obstructive pulmonary disease) Derangement of left patella ESRD (end stage renal disease) on dialysis Excessive daytime sleepiness Gastroesophageal reflux disease History of Vides's palsy History of drug dependence/abuse History of peptic ulcer disease Hyperlipidemia Hyperparathyroidism due to end stage renal disease on dialysis Hypertension Hypertriglyceridemia Neuropathy Nonrheumatic tricuspid (valve) insufficiency Obstructive Sleep Apnea-Hypopnea Syndrome TAY (obstructive sleep apnea) Polycystic kidney disease Renal failure Tobacco abuse Type II diabetes mellitus Home Medications lisinopril 40 mg tablet 40 mg PO DAILY 02/24/18 [History Last Taken 05/25/19] cinacalcet [Sensipar] 60 mg PO DAILY 11/10/18 [History Last Taken 05/25/19] sevelamer carbonate [Renvela] 1 tab PO TID 11/10/18 [History Last Taken 05/25/19] sucroferric oxyhydroxide [Velphoro] 1,000 mg PO TID 11/10/18 [History Last Taken 05/24/19] amlodipine 10 mg PO DAILY 05/17/19 [History Last Taken 05/25/19] sertraline 50 mg PO DAILY #30 tab 12/11/19 [Rx Last Taken Unknown] ipratropium-albuterol 3 ml INHALATION Q6H.RT #0 ampul.neb 06/16/20 [Rx Last Taken Unknown] Allergy/AdvReac Type Severity Reaction Status Date / Time latex Allergy Rash Verified 09/09/20 08:23 hydrocodone AdvReac Abd Verified 09/09/20 08:23 cramps/diarrhea TAPE Allergy Rash Uncoded 09/09/20 08:23 Family History Brother CAD (coronary artery disease) Congestive heart failure Father , age 58 from polycystic kidney disease Diabetes CAD (coronary artery disease) Kidney disease polycystic kidney disease Mother Bleeding disorder Brother Kidney disease Surgical History AV fistula (~2013) History of facial surgery History of total left knee replacement Social History Smoking Status: Current some day smoker tobacco type: cigarettes Tobacco: How many years used: 14 alcohol intake: current substance use type: crack/cocaine ROS ROS ED Constitutional Constitutional ED: Denies chills or weight loss Eyes Eyes: Denies change in vision or diplopia ENT ENT ED: Denies ear pain, rhinorrhea or sore throat Cardiovascular Cardiovascular: Denies chest pain, orthopnea, palpitations or racing heartbeat Respiratory/Chest Respiratory/Chest: Denies cough, dyspnea or orthopnea Gastrointestinal Gastrointestinal: Denies abdominal pain, diarrhea, nausea or vomiting Genitourinary Genitourinary ED: Denies dysuria, hematuria or urinary frequency Musculoskeletal Musculoskeletal: Denies arthralgias or myalgias Integumentary Denies abscess or rash Neurologic Neurologic: Denies headache(s) or weakness Psychiatric Psychiatric: Reports depression; Denies anxiety, suicidal ideation or suicidal thoughts Endocrine Endocrinology: Denies polydipsia, polyphagia or polyuria Allergic/Immunologic Allergic/Immunologic ED: Denies mouth swelling, tongue swelling or urticaria EXAM Physical Exam Const Vital Signs: 12/21/20 05:26 Temperature 97.1 F L Temperature Source Temporal Pulse Rate 69 Respiratory Rate 18 Blood Pressure 154/89 H Blood Pressure Mean 110 Pulse Ox 99 Oxygen Delivery Method Room Air Positive well nourished, well developed and obese General Appearance ED: well developed Nutritional Appearance: obese HEENT Reports normocephalic, head/scalp atraumatic and moist mucous membranes Eyes PERRL and EOMs intact bilaterally Neck no lymphadenopathy, supple and no JVD Resp normal respiratory effort and clear to auscultation bilaterally Cardio regular rate, regular rhythm and no murmurs GI normal to inspection, nondistended, normoactive bowel sounds and non-tender Palpation: soft Back/Spine no CVA tenderness and normal ROM Extremity normal to inspection General Extremety ED: Negative for edema General Extremity: Negative for edema Neuro oriented x3 and CN's II-XII intact bilaterally Sensorium / Orientation: alert Motor Exam: strength 5/5 throughout Psych mental status grossly normal Mood & Affect: Negative for depressed or tearful Skin no rashes or lesions noted and no wounds MDM MDM MDM Narrative Medical decision making narrative: I informed the patient that the hospital does not do inpatient cocaine detox. Patient became very upset started taking off his gown and stating that everybody waste his time. He states that nobody is willing to help him. I tried to tell him that I could have the social science instructor call him with possible resources when she comes in in the morning but he cut me off stating he wants to talk to the social science instructor now. I informed him that there is no one else to talk to besides me raoul. I encouraged the patient to follow-up with [facility]. Patient informed nursing that he will be suing me. He states that I am refusing to treat him for his chronic illnesses such as sleep apnea and renal failure. He states that he has not had dialysis in 2 days. As it is actually 6:00 in the morning and the dialysis center is open he could actually go get dialysis. He is able to ambulate and his vital signs are stable and I do not see an emergent medical condition raoul. Discharge Plan Triage Chief Complaint: Substance Abuse ED Provider: Yousuf Chester Dx/Rx/DC Orders Clinical Impression: Cocaine abuse Instructions: ED Cocaine And Crack Abuse Prescriptions: No Action lisinopril 40 mg tablet 40 mg PO DAILY RF: 0 cinacalcet [Sensipar] 60 MG tablet 60 mg PO DAILY RF: 0 sevelamer carbonate [Renvela] 800 MG tablet 1 tab PO TID RF: 0 Velphoro 500 MG tablet,chewable 1,000 mg PO TID RF: 0 amlodipine 10 MG tablet 10 mg PO DAILY RF: 0 sertraline 50 MG tablet 50 mg PO DAILY Qty: 30 RF: 0 ipratropium-albuterol 3 ML solution for nebulization 3 ml INHALATION Q6H.RT Qty: 0 RF: 0 Primary Care Provider: Care Physician,No Primary Referrals: Care Physician,No Primary [Primary Care Provider] - [facility] [STAFF PHYSICIAN] - As soon as possible Disposition Disposition: Home, Self Care
--- NOTE | 2020-12-21 06:06 | ED.RN ---
Patient explains to physician he was here for detox of cocaine abuse. It was explained we do not treat cocaine abuse in our program. The physician offered to have SW contact him later with references for detox care. Upon entering to review d/c the patient states the physician ignored his complaint regarding missing dialysis x2 in the last week. He then proceeded to call a correspondence analyst, leaving a message regarding refusal of care. The patient then requested a transfer to [facility] for cocaine detox and care for his dialysis. I spoke to the physician and he verified the patient requested cocaine detox as before. The physician stated the patient would be able to follow up with the dialysis center today for his treatment. I informed the patient of this and he was once again leaving a message to a correspondence analyst. He states we are not treating him because there is law suit against the hospital. I informed him we would have no knowledge whether there was a lawsuit. The patient requested a grievance paper. I handed him a card for the patient advocate and explained how the process worked to file a grievance.
--- NOTE | 2020-12-21 12:25 | ED.RN ---
WHILE I WAS TALKING WITH THE PT HE SAID THAT HE FELL SEVERAL TIMES BY THE TRIAGE DESK WHEN HE WAS HERE EARLIER TODAY. I HAD SECURITY LOOK THROUGH SECURITY RECORDINGS, THEY DID NOT SEE THE PT FALL. THEY WATCHED THE VIDEO FROM WHEN HE WALKED OUT THE DOORS AND INTO THE WAITING ROOM THEN WHEN [place] [employer] ARRIVED AND TOOK HIM OUTSIDE IN A WHEELCHAIR.
== END 2020-12-21 06:20 | disposition home or self-care (01) ==
PROVIDERS: Emergency Provider Emergency Medicine
DX: F14.10 Cocaine abuse, uncomplicated (principal); E66.9 Obesity, unspecified; F17.210 Nicotine dependence, cigarettes, uncomplicated; Z96.652 Presence of left artificial knee joint; D64.9 Anemia, unspecified; E11.22 Type 2 diabetes mellitus with diabetic chronic kidney disease; E11.40 Type 2 diabetes mellitus with diabetic neuropathy, unspecified; E78.5 Hyperlipidemia, unspecified; F31.9 Bipolar disorder, unspecified; G47.33 Obstructive sleep apnea (adult) (pediatric); G89.29 Other chronic pain; J44.9 Chronic obstructive pulmonary disease, unspecified; I12.0 Hypertensive chronic kidney disease with stage 5 chronic kidney disease or end stage renal disease; N18.6 End stage renal disease; K21.9 Gastro-esophageal reflux disease without esophagitis; Z87.11 Personal history of peptic ulcer disease; Z99.2 Dependence on renal dialysis
CPT/HCPCS: 99282

== ENCOUNTER 2020-12-21 08:54 | Emergency (ER) | payer MEDICARE, MEDICAID, SELFPAY ==
[2020-12-21 09:09] VITALS: BP 143/79; PULSE 64; RESP 16; TEMP 36.6; O2SAT 99; BMI 42.6
--- NOTE | 2020-12-21 09:30 | EDS_ITS ---
HPI History of Present Illness Chief Complaint: Mental Health Detail of Chief Complaint: Requesting detox for cocaine abuse Informant: patient Onset/Context/Timing Onset: Month(s) Context: Gradual Onset Timing: Intermittent Current Severity: Mild Maximum Severity: Mild Narrative Narrative: 55-year-old male has extensive past medical history including mental health with a diagnosis of bipolar, COPD, end-stage renal disease for which he gets dialysis and is skipped as Friday dialysis. His last dialysis was on Friday. Also has a history of substance abuse using cocaine. He denies any IV abuse. And neuropathies. Patient was actually here earlier this morning. Again a return he is requesting detox. He knows that we do not offer cocaine detox at this facility. He does not want any labs done. He wants to speak with psychosocial rehabilitation counselor. They were but I have him do that earlier this morning but he did not want to wait till they were available. They were not available at the time that he presented to the emergency department. Prior similar symptoms: Yes Recent Illness/Hospitalization: No PFSH PFS Medical History Anemia Bipolar affective disorder Chronic back pain COPD (chronic obstructive pulmonary disease) Derangement of left patella ESRD (end stage renal disease) on dialysis Excessive daytime sleepiness Gastroesophageal reflux disease History of Vides's palsy History of drug dependence/abuse History of peptic ulcer disease Hyperlipidemia Hyperparathyroidism due to end stage renal disease on dialysis Hypertension Hypertriglyceridemia Neuropathy Nonrheumatic tricuspid (valve) insufficiency Obstructive Sleep Apnea-Hypopnea Syndrome TAY (obstructive sleep apnea) Polycystic kidney disease Renal failure Tobacco abuse Type II diabetes mellitus Home Medications lisinopril 40 mg tablet 40 mg PO DAILY 02/24/18 [History Last Taken 05/25/19] cinacalcet [Sensipar] 60 mg PO DAILY 11/10/18 [History Last Taken 05/25/19] sevelamer carbonate [Renvela] 1 tab PO TID 11/10/18 [History Last Taken 05/25/19] sucroferric oxyhydroxide [Velphoro] 1,000 mg PO TID 11/10/18 [History Last Taken 05/24/19] amlodipine 10 mg PO DAILY 05/17/19 [History Last Taken 05/25/19] sertraline 50 mg PO DAILY #30 tab 12/11/19 [Rx Last Taken Unknown] ipratropium-albuterol 3 ml INHALATION Q6H.RT #0 ampul.neb 06/16/20 [Rx Last Taken Unknown] Allergy/AdvReac Type Severity Reaction Status Date / Time latex Allergy Rash Verified 12/21/20 09:15 hydrocodone AdvReac Abd Verified 12/21/20 09:15 cramps/diarrhea TAPE Allergy Rash Uncoded 12/21/20 09:15 Family History Brother CAD (coronary artery disease) Congestive heart failure Father , age 58 from polycystic kidney disease Diabetes CAD (coronary artery disease) Kidney disease polycystic kidney disease Mother Bleeding disorder Brother Kidney disease Surgical History AV fistula (~2013) History of facial surgery History of total left knee replacement Social History Smoking Status: Current some day smoker tobacco type: cigarettes Tobacco: How many years used: 14 alcohol intake: current substance use type: crack/cocaine ROS ROS ED ROS Narrative Patient denies recent illness. Review of Systems ROS Unobtainable: Denies due to encephalopathy Constitutional Constitutional ED: Denies fever(s) Eyes Eyes: Denies change in vision ENT ENT ED: Denies ear pain or sore throat Cardiovascular Cardiovascular: Denies chest pain Respiratory/Chest Respiratory/Chest: Denies dyspnea Gastrointestinal Gastrointestinal: Denies abdominal pain Genitourinary Genitourinary ED: Denies dysuria Musculoskeletal Musculoskeletal: Denies myalgias Integumentary Denies rash Neurologic Neurologic: Denies headache(s) Psychiatric Psychiatric: Reports depression Endocrine Endocrinology: Denies polyuria Hematologic/Lymphatic Hematologic/Lymphatic: Denies easy bruising Allergic/Immunologic Allergic/Immunologic ED: Denies urticaria EXAM Physical Exam Narrative Exam Narrative: Middle-age male no acute distress. Vital signs are stable and afebrile. His pulse ox 99% on room air no hypoxia. When I entered the room he was actually talking on the phone with an trade mark attorney. He does not appear clinically ill or in any type of distress. Is resting comfortably in bed. H EENT exam unremarkable. Moist mucous membranes. Neck nontender no lymphadenopathy. Lungs clear to auscultation bilaterally. Heart regular rhythm rate about 65 no murmur. Chest wall nontender. Abdomen soft nontender normal bowel sounds no peritoneal signs. He is moving all 4 extremities. There is no edema. He has normal motor strength. He does have a vascular fistula for rafael lysis in his right bicep region. It has a good thrill. 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 His back is nontender. Neurologically is awake and alert. He is moving all 4 extremities. He does have decreased sensation in his feet with a known neuropathy. Const Vital Signs: 12/21/20 09:09 Temperature 97.9 F Temperature Source Temporal Pulse Rate 64 Respiratory Rate 16 Blood Pressure 143/79 H Blood Pressure Mean 100 Pulse Ox 99 Oxygen Delivery Method Room Air Positive well nourished, well developed and obese; Negative for cachectic, contractures or unkempt General Appearance ED: well developed and NAD; Negative for unkempt, cachectic, contractures or pallor Nutritional Appearance: obese; Negative for cachectic HEENT Reports moist mucous membranes atraumatic Eyes PERRL and EOMs intact bilaterally Neck no lymphadenopathy, supple and no JVD Thyroid: Negative for tender Lymph Lymphatic: no lymphadenopathy noted; Negative for lymphadenopathy Chest Wall inspection of chest normal and palpation of chest normal Resp normal respiratory effort and clear to auscultation bilaterally Auscultation: Negative for rales, rhonchi or wheezes Cardio regular rate, regular rhythm, S1 normal heart sound, S2 normal heart sound and no murmurs GI soft to palpation, non-tender, non-distended and no masses Inspection: Negative for abdominal distention Palpation: Negative for tender, guarding or rigid Back/Spine no CVA tenderness Extremity General Extremety ED: Negative for edema or tenderness General Extremity: Negative for edema Neuro oriented x3 Sensorium / Orientation: alert, oriented to person, oriented to place and oriented to time; Negative for confused, lethargic or stuporous Motor Exam: strength 5/5 throughout Psych mental status grossly normal and thought process normal Appearance: Negative for unkempt Attitude: No belligerent, No agitated, No aggressive and No hostile Mood & Affect: Negative for depressed, anxious or tearful Skin General Skin Exam: Negative for jaundice or pallor Lesions: no lesions Rashes: no rashes MDM MDM MDM Narrative Medical decision making narrative: Middle-age male requesting detox at I believe he understands that we do not offer at this facility. He is in no extremities. His exam is normal. His vital signs are normal. He has scheduled dialysis tomorrow. I do not see any reason at this time where that is emergent would need to be done now. Nurses have already spoken to the dialysis center and they will see him tomorrow. flight attendant inflight services will come down and speak to the patient. They are tied up at this time with other patients but will be down to talk to him. I believe the patient spoke to his who is currently I believe in [facility]. She wanted to do this as an outpatient since he had other responsibilities. Said 1 to be discharged. I went into the room to talk to him because I called [facility] and there is a facility called [facility] in the morning [place] that they refer patients to for detox for cocaine. I discussed that with the patient why was sitting in the waiting room because he basically walked out and he thanked me for that but said he would consider looking into that into the future that he was not to do that at this time. Discharge Plan Triage Chief Complaint: Mental Health ED Provider: Ottoniel Max Dx/Rx/DC Orders Clinical Impression: Cocaine abuse, End stage chronic kidney disease, History of bipolar disorder Instructions: Cocaine: Getting Help Prescriptions: No Action lisinopril 40 mg tablet 40 mg PO DAILY RF: 0 cinacalcet [Sensipar] 60 MG tablet 60 mg PO DAILY RF: 0 sevelamer carbonate [Renvela] 800 MG tablet 1 tab PO TID RF: 0 Velphoro 500 MG tablet,chewable 1,000 mg PO TID RF: 0 amlodipine 10 MG tablet 10 mg PO DAILY RF: 0 sertraline 50 MG tablet 50 mg PO DAILY Qty: 30 RF: 0 ipratropium-albuterol 3 ML solution for nebulization 3 ml INHALATION Q6H.RT Qty: 0 RF: 0 Primary Care Provider: Care Physician,No Primary Referrals: Veronica Valdez [NON-STAFF] - As soon as possible Care Physician,No Primary [Primary Care Provider] - Activity Restrictions/Additional Instructions: Follow-up with dialysis tomorrow. It is very important you make your appointment. Call [facility] and follow-up with them about your drug addiction. Follow the plan you and social work therapist is set out. Disposition Disposition: Home, Self Care
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
== END 2020-12-21 11:41 | disposition home or self-care (01) ==
LOC: ED 10:03
PROVIDERS: Emergency Provider Emergency Medicine
DX: F14.10 Cocaine abuse, uncomplicated (principal); N18.6 End stage renal disease; E11.22 Type 2 diabetes mellitus with diabetic chronic kidney disease; F31.9 Bipolar disorder, unspecified; D64.9 Anemia, unspecified; E11.40 Type 2 diabetes mellitus with diabetic neuropathy, unspecified; E78.5 Hyperlipidemia, unspecified; G47.33 Obstructive sleep apnea (adult) (pediatric); I12.0 Hypertensive chronic kidney disease with stage 5 chronic kidney disease or end stage renal disease; J44.9 Chronic obstructive pulmonary disease, unspecified; K21.9 Gastro-esophageal reflux disease without esophagitis; G89.29 Other chronic pain; Z87.11 Personal history of peptic ulcer disease; Z99.2 Dependence on renal dialysis; F17.210 Nicotine dependence, cigarettes, uncomplicated
CPT/HCPCS: 99284

== ENCOUNTER 2021-06-09 05:30 | Inpatient (IN) | payer MEDICARE, MEDICAID, SELFPAY ==
[2021-06-09] VITALS (14 sets, daily range): BP systolic 119–155; BP diastolic 64–100; PULSE 55–73; RESP 14–18; TEMP 36.1–37.2; O2SAT 96–100; BMI 42.2; BMI 41.8; BMI 38.3
--- NOTE | 2021-06-09 05:47 | EKG12_ITS ---
Test Reason : CP Blood Pressure : / mmHG Vent. Rate : 053 BPM Atrial Rate : 053 BPM P-R Int : 156 ms QRS Dur : 104 ms QT Int : 454 ms P-R-T Axes : 077 -23 039 degrees QTc Int : 426 ms Sinus bradycardia Otherwise normal ECG Confirmed by COLLEEN TOMAS, KAREN ([id number]), state editor JARRET KERN ([id number]) on 06/12/2021 11:10:28 AM Referred By: RAD Confirmed By:KAREN MACIAS MD
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
[2021-06-09 06:14] LABS: Absolute Lymphocyte Count 1.74 X10^3/uL (0.83-4.51); Absolute Neutrophil Count 5.1 X10^3/uL (2.0-7.7); Basophil# 0.07 X10^3/uL; Basophil% 0.9 % (0-1); Eosinophil# 0.37 X10^3/uL; Eosinophils% 4.7 % (0-5); Hematocrit 38.4 % (40-54); Lymphocyte # 1.74 X10^3/ul (0.83-4.51); Lymphocyte % 22.3 % (19-41); Mean Corp Hgb Conc 33.9 g/dL (32-36); Mean Corpuscular Hgb 29.5 pg (27.0-32.0); Mean Corpuscular Volume 87.1 fL (80-94); Mean Platelet Vol. 9.5 fl (6.2-12.0); Monocyte# 0.54 X10^3/uL; Monocyte% 6.9 % (0-10); NRBC Flagged by Analyzer 0 % (0-5); Neutrophil # 5.07 X10^3/uL (2.7-7.7); Neutrophil % 64.8 % (47-70); Platelet Count 204 K/mm3 (150-450); RBC Distribution Width CV 13.9 % (11.6-14.6); RBC Distribution Width SD 43.9 fl (35.1-43.9); Red Blood Count 4.41 M/mm3 (4.6-6.2); White Blood Count 7.8 K/mm3 (4.4-11.0)
[2021-06-09] MEDS: Aspirin 325 MG Tablet PO (06:30)
[2021-06-09] MEDS: Nitroglycerin SL (ED/IMG/CATH) 0.4 MG TABLET SL ×3 (06:35→07:16)
--- NOTE | 2021-06-09 06:45 | RAD_ITS ---
EXAM: XR CHEST, 1 VIEW CLINICAL INDICATION: chest pain TECHNIQUE: Frontal view of the chest. This report was created using [employer] report generation technology. COMPARISON: 06/14/2020 and 12/11/2019. FINDINGS: LUNGS AND PLEURAL SPACES: Low lung volumes somewhat limit the exam. Patchy retrocardiac opacity left lower lung. This was also seen on the prior examination dated 06/14/2020 but not on the prior exam dated 12/11/2019. HEART: Unremarkable. MEDIASTINUM: Central airways and mediastinal contour are unremarkable. BONES/JOINTS: Unremarkable. SOFT TISSUES: Unremarkable. RAD/Chest 1 View (Portable) IMPRESSION: Low lung volumes somewhat limit the exam. Patchy retrocardiac opacity left lower lung may be due to pneumonia. Consider true PA upright and lateral view. Electronically Signed: Demetris Tobias MD at 7:06 EDT ,
--- NOTE | 2021-06-09 06:45 | EDS_ITS ---
HPI History of Present Illness Chief Complaint: Chest Pain Narrative Narrative: Patient is a 55-year-old male with past medical history of renal failure currently on dialysis which he receives Friday. He states he missed dialysis yesterday but is scheduled to go today. He reports that he had difficulty sleeping and therefore he drank a beer. He reports that after this to help with his chronic pain issues he did cocaine as well. He states he then noticed some midsternal/upper abdominal pain discomfort. He denies any nausea vomiting diaphoresis or shortness of breath associated with this. He states that he was concerned because of his complex medical history a nd therefore called EMS to bring him in for evaluation. After arrival to the ER the patient reports that he has been very depressed recently as he cannot get on the transplant list because of his recurrent cocaine use. He states that his partner is in nursing home and his father is and he feels all alone. He states that he believes his family would be better off if he was not around. He states that he does not have a plan of suicide but does have access to a gun and he is concerned of what he would do if left alone. Patient denies any previous suicide attempt or previous psychiatric admission [facility] Medical History Anemia Bipolar affective disorder Chronic back pain COPD (chronic obstructive pulmonary disease) Derangement of left patella ESRD (end stage renal disease) on dialysis Excessive daytime sleepiness Gastroesophageal reflux disease History of Vides's palsy History of drug dependence/abuse History of peptic ulcer disease Hyperlipidemia Hyperparathyroidism due to end stage renal disease on dialysis Hypertension Hypertriglyceridemia Neuropathy Nonrheumatic tricuspid (valve) insufficiency Obstructive Sleep Apnea-Hypopnea Syndrome TAY (obstructive sleep apnea) Polycystic kidney disease Renal failure Tobacco abuse Type II diabetes mellitus Home Medications lisinopril 40 mg tablet 40 mg PO DAILY 02/24/18 [History Last Taken 05/25/19] cinacalcet [Sensipar] 60 mg PO DAILY 11/10/18 [History Last Taken 05/25/19] sevelamer carbonate [Renvela] 1 tab PO TID 11/10/18 [History Last Taken 05/25/19] sucroferric oxyhydroxide [Velphoro] 1,000 mg PO TID 11/10/18 [History Last Taken 05/24/19] amlodipine 10 mg PO DAILY 05/17/19 [History Last Taken 05/25/19] sertraline 50 mg PO DAILY #30 tab 12/11/19 [Rx Last Taken Unknown] ipratropium-albuterol 3 ml INHALATION Q6H.RT #0 ampul.neb 06/16/20 [Rx Last Taken Unknown] Allergy/AdvReac Type Severity Reaction Status Date / Time latex Allergy Rash Verified 12/21/20 09:15 hydrocodone AdvReac Abd Verified 12/21/20 09:15 cramps/diarrhea TAPE Allergy Rash Uncoded 12/21/20 09:15 Family History Brother CAD (coronary artery disease) Congestive heart failure Father , age 58 from polycystic kidney disease Diabetes CAD (coronary artery disease) Kidney disease polycystic kidney disease Mother Bleeding disorder Brother Kidney disease Surgical History AV fistula (~2013) History of facial surgery History of total left knee replacement Social History Smoking Status: Current some day smoker tobacco type: cigarettes Tobacco: How many years used: 14 alcohol intake: current substance use type: crack/cocaine ROS ROS ED Constitutional Constitutional ED: Denies chills or fever(s) ENT ENT ED: Denies sore throat Cardiovascular Cardiovascular: Reports chest pain; Denies palpitations or racing heartbeat Respiratory/Chest Respiratory/Chest: Denies cough or dyspnea Gastrointestinal Gastrointestinal: Reports abdominal pain; Denies diarrhea, nausea or vomiting Musculoskeletal Musculoskeletal: Denies myalgias Integumentary Denies rash Neurologic Neurologic: Denies headache(s) Hematologic/Lymphatic Hematologic/Lymphatic: Reports easy bleeding and easy bruising EXAM Physical Exam Const Vital Signs: 06/09/21 05:31 06/09/21 05:52 06/09/21 06:08 Temperature 97 F L 97.6 F L 98 F Temperature Source Temporal Temporal Temporal Pulse Rate 56 L 58 L Respiratory Rate 17 16 Respiratory Pattern Normal Blood Pressure 149/84 H 143/100 H Blood Pressure Mean 105 114 Pulse Ox 100 100 Oxygen Delivery Method Room Air Room Air 06/09/21 06:35 06/09/21 06:48 06/09/21 07:16 Temperature Temperature Source Pulse Rate 55 L 55 L 55 L Respiratory Rate Respiratory Pattern Blood Pressure 155/81 H 149/78 H 137/68 H Blood Pressure Mean Pulse Ox Oxygen Delivery Method 06/09/21 07:20 Temperature Temperature Source Pulse Rate 60 Respiratory Rate 14 Respiratory Pattern Blood Pressure 139/99 H Blood Pressure Mean 112 Pulse Ox 100 Oxygen Delivery Method Room Air Positive well nourished, well developed and obese General Appearance ED: well developed Nutritional Appearance: obese HEENT Reports moist mucous membranes Eyes PERRL and EOMs intact bilaterally Neck supple and no JVD Chest Wall Chest Narrative: There is reproducible midsternal pain with palpation that the patient states is the same pain he has been experiencing. No bony deformity or crepitance noted Resp normal respiratory effort Resp Narrative: Breath sounds are diminished throughout with faint rhonchi in the bilateral bases but no nasal flaring retractions tachypnea or accessory muscle use Cardio regular rate and regular rhythm GI non-distended and no masses GI Narrative: Abdomen is obese soft and nondistended with normoactive bowel sounds. There is pain with palpation in the midepigastric region without voluntary guarding or rigidity. No pulsatile mass or fluid wave Auscultation: normoactive bowel sounds Palpation: soft Extremity Extremity Narrative: Patient has a fistula present in his right upper arm with palpable thrill and good bruit. There is trace edema to the bilateral extremities that is equal and symmetric with negative Homans' sign bilaterally Neuro oriented x3 and CN's II-XII intact bilaterally Sensorium / Orientation: alert Motor Exam: strength 5/5 throughout Psych Psych Narrative: Patient has a depressed tearful affect with suicidal ideation but no plan Mood & Affect: depressed and tearful Skin no rashes or lesions noted MDM MDM MDM Narrative Medical decision making narrative: Patient presented to the ER complaining of chest pain and abdominal pain that was worse with motion and with palpation despite no reported trauma. He is on dialysis but is missed his last session which was Friday. He also reported that he has a history of cocaine abuse and did cocaine prior to symptoms beginning. Therefore at this time as he has mi ssed dialysis for last few days there is concern he could be fluid overloaded causing his symptoms or even have electrolyte derangement such as hyperkalemia as the cause. Therefore a cardiac work-up was obtained and as patient did stress depression with suicidal ideation I elected to perform a psychiatric screen as well. The patient's EKG is sinus rhythm without ischemic changes or peaked T waves. His initial troponin is normal at 35. However his potassium and phosphorus are both elevated concerning for worsening of symptoms if he does not undergo dialysis. Patient was given calcium albuterol insulin and glucose to help stabilize the cardiac membranes and reduce the potassium value. However ultimately he will require dialysis and therefore he will be admitted to the hospital secondary to this. A chest x-ray questioned a possible left lower lung pneumonia but he does not have a fever or white count and he has got a minimal cough and therefore do not feel this clinically correlate. Patient cannot be cleared from medical standpoint for placement for his depression and therefore after he is medically stabilized on admission social work can evaluate the patient to discuss need for possible placement. Lab Data Attestation: I reviewed the patient's lab results. Labs: Laboratory Results - last 24 hr 06/09/21 06/09/21 06/09/21 06:08 06:08 06:08 WBC 7.8 RBC 4.41 L Hgb 13.0 Hct 38.4 L MCV 87.1 MCH 29.5 MCHC 33.9 RDW Std Deviation 43.9 RDW Coeff of Mook 13.9 Plt Count 204 MPV 9.5 Immature Gran % (Auto) 0.400 Neut % (Auto) 64.8 Lymph % (Auto) 22.3 [place] % (Auto) 6.9 Eos % (Auto) 4.7 Baso % (Auto) 0.9 Absolute Neuts (auto) 5.1 Absolute Lymphs (auto) 1.74 Nucleated RBC % 0 Sodium 128 L Potassium 7.4 H* Chloride 91 L Carbon Dioxide 23.0 Anion Gap 14 BUN 61 H Creatinine 13.00 H* Estim Creat Clear Calc 7.00 Est GFR (MDRD) Af Amer 5 L Est GFR (MDRD) Non-Af 4 L BUN/Creatinine Ratio 4.7 L Glucose 72 L Calcium 9.5 Phosphorus 9.0 H* Total Bilirubin 0.50 Direct Bilirubin 0.06 AST 23 ALT 15 L Alkaline Phosphatase 153 H Troponin I High Sens 35 Total Protein 8.1 Albumin 3.6 Globulin 4.5 H Lipase 189 Salicylates Acetaminophen Ethyl Alcohol 06/09/21 06:08 WBC RBC Hgb Hct MCV MCH MCHC RDW Std Deviation RDW Coeff of Mook Plt Count MPV Immature Gran % (Auto) Neut % (Auto) Lymph % (Auto) [place] % (Auto) Eos % (Auto) Baso % (Auto) Absolute Neuts (auto) Absolute Lymphs (auto) Nucleated RBC % Sodium Potassium Chloride Carbon Dioxide Anion Gap BUN Creatinine Estim Creat Clear Calc Est GFR (MDRD) Af Amer Est GFR (MDRD) Non-Af BUN/Creatinine Ratio Glucose Calcium Phosphorus Total Bilirubin Direct Bilirubin AST ALT Alkaline Phosphatase Troponin I High Sens Total Protein Albumin Globulin Lipase Salicylates < 1.7 L Acetaminophen 2.8 L Ethyl Alcohol 8.0 Radiography Diagnostic Testing: Clinical Impression(s) from Imaging Studies Chest X-Ray 06/09/21 06:45 IMPRESSION: Low lung volumes somewhat limit the exam. Patchy retrocardiac opacity left lower lung may be due to pneumonia. Consider true PA upright and lateral view. Electronically Signed: Demetris Tobias MD at 7:06 EDT , X-rays interpreted by the emergency medicine physician shows mild vascular congestion without pneumothorax or pleural effusion. There is a questionable opacity in the left lower lung Critical Care Time Critical Care Time: Yes Critical care time (excluding procedures): - (33 minutes) Discharge Plan Triage Chief Complaint: Chest Pain ED Provider: Papa Gann Dx/Rx/DC Orders Clinical Impression: Acute hyperkalemia, ESRD (end stage renal disease) on dialysis, Depression with suicidal ideation, Nonspecific chest pain Prescriptions: No Action lisinopril 40 mg tablet 40 mg PO DAILY RF: 0 cinacalcet [Sensipar] 60 MG tablet 60 mg PO DAILY RF: 0 sevelamer carbonate [Renvela] 800 MG tablet 1 tab PO TID RF: 0 Velphoro 500 MG tablet,chewable 1,000 mg PO TID RF: 0 amlodipine 10 MG tablet 10 mg PO DAILY RF: 0 sertraline 50 MG tablet 50 mg PO DAILY Qty: 30 RF: 0 ipratropium-albuterol 3 ML solution for nebulization 3 ml INHALATION Q6H.RT Qty: 0 RF: 0 Primary Care Provider: Care Physician,No Primary Referrals: Care Physician,No Primary [Primary Care Provider] - Disposition Disposition: [facility]
[2021-06-09 06:53] LABS: Acetaminophen (Tylenol) Level 2.8 ug/mL (10.0-30.0); Salicylate < 1.7 mg/dL (2.8-20.0)
[2021-06-09 06:59] LABS: AST(SGOT) 23 U/L (15-37); Alanine Aminotransfer ALT/SGPT 15 U/L (16-61); Albumin, Serum 3.6 g/dL (3.2-5.0); Alkaline Phosphatase 153 U/L (45-117); Anion Gap 14 (5-15); BUN 61 mg/dL (7-18); BUN/Creat Ratio 4.7 RATIO (10-20); Bilirubin, Direct 0.06 mg/dL (0.00-0.30); Calcium,Total 9.5 mg/dL (8.5-10.1); Chloride 91 mmol/L (98-107); EST Glomerular Filtration Rate 4 mL/min (>60); Est Glom Filt Rate - Afr Amer 5 mL/min (>60); Globulin 4.5 g/dL (2.2-4.2); Glucose 72 mg/dL (74-106); Lipase 189 U/L (73-393); Potassium 7.4 mmol/L (3.5-5.1); Protein, Total 8.1 g/dL (6.4-8.2); Sodium Level 128 mmol/L (136-145); Troponin-I HS 35 pg/mL (3.0-78.0)
--- NOTE | 2021-06-09 07:19 | ED.RN ---
pt does not know meds. called dialysis center to get list and let them know he was being admitted and would not make 1100 appointment
[2021-06-09] MEDS: LORazepam 2 MG/ML Syringe 1 MG IV (07:28)
[2021-06-09] MEDS: Calcium Gluconate IV 3 GM in Syringe 1 EACH IV (07:39)
[2021-06-09] MEDS: Dextrose 10%-Water 250 ML 999 ML IV (07:41)
[2021-06-09] MEDS: Insulin Lispro 10 UNIT in Syringe 0 ML 6 UNIT IV (07:57)
--- NOTE | 2021-06-09 08:13 | HP.PCM.HOS_ITS ---
HPI - General General Date of Admission: 06/09/21 Date of Service: 06/09/21 Chief Complaint: Chest pain HPI Narrative CINDI WASHINGTON, is a 55 M who presents with chest pain. He complains of chest pain that occurred around 4 AM today but describes it more lower chest but primarily right lateral abdominal. Patient uses cocaine intermittently when he has abdominal pain. Took cocaine last night. Presented to the emergency room with this. Patient is end-stage renal disease on hemodialysis and missed his dialysis yesterday and plan is for him to have dialysis today but he presented to the emergency room. In the emergency room, patient had he a potassium of 7.4 that was hemolyzed. In the emergency room, patient received aspirin, nitroglycerin, calcium gluconate, albuterol, insulin and dextrose and one-time dose of lorazepam. Patient did report suicidal ideation to the emergency room physician and a sitter was provided for him. Patient states a rather vague plan regards to suicide. He does not have a gun at his house but he has a gun at his cousin's house where he can get easily and would want someone to shoot him. He does not think that he can muster the strength to shoot himself but has not ruled out the possibility. [facility] Medical History Anemia Bipolar affective disorder Chronic back pain COPD (chronic obstructive pulmonary disease) Derangement of left patella ESRD (end stage renal disease) on dialysis Excessive daytime sleepiness Gastroesophageal reflux disease History of Vides's palsy History of drug dependence/abuse History of peptic ulcer disease Hyperlipidemia Hyperparathyroidism due to end stage renal disease on dialysis Hypertension Hypertriglyceridemia Neuropathy Nonrheumatic tricuspid (valve) insufficiency Obstructive Sleep Apnea-Hypopnea Syndrome TAY (obstructive sleep apnea) Polycystic kidney disease Renal failure Tobacco abuse Type II diabetes mellitus Home Medications lisinopril 40 mg tablet 40 mg PO DAILY 02/24/18 [History Last Taken 05/25/19] sevelamer carbonate [Renvela] 1 tab PO TID 11/10/18 [History Last Taken 05/25/19] sucroferric oxyhydroxide [Velphoro] 1,000 mg PO TID 11/10/18 [History Last Taken 05/24/19] amlodipine 10 mg PO DAILY 05/17/19 [History Last Taken 05/25/19] B complex-vitamin C-folic acid [[place]] 1 tab PO DAILY 06/09/21 [History Last Taken Unknown] hydroxyzine pamoate 25 mg PO TID PRN 06/09/21 [History Last Taken Unknown] sertraline 50 mg PO DAILY 06/09/21 [History Last Taken Unknown] tramadol 50 mg PO Q4H PRN 06/09/21 [History Last Taken Unknown] Allergy/AdvReac Type Severity Reaction Status Date / Time latex Allergy Rash Verified 12/21/20 09:15 hydrocodone AdvReac Abd Verified 12/21/20 09:15 cramps/diarrhea TAPE Allergy Rash Uncoded 12/21/20 09:15 Family History Brother CAD (coronary artery disease) Congestive heart failure Father , age 58 from polycystic kidney disease Diabetes CAD (coronary artery disease) Kidney disease polycystic kidney disease Mother Bleeding disorder Brother Kidney disease Surgical History AV fistula (~2013) History of facial surgery History of total left knee replacement Social History Smoking Status: Current some day smoker tobacco type: cigarettes Tobacco: How many years used: 14 alcohol intake: current substance use type: crack/cocaine ROS ROS Narrative All review of systems were negative except as mentioned above in the history of present illness and the other review of systems. Vital Signs Vital Signs Vital Signs: 06/09/21 05:31 06/09/21 05:52 06/09/21 06:08 Temperature 36.1 C L 36.4 C L 36.6 C Temperature Source Temporal Temporal Temporal Pulse Rate 56 L 58 L Respiratory Rate 17 16 Respiratory Pattern Normal Blood Pressure 149/84 H 143/100 H Blood Pressure Mean 105 114 Pulse Ox 100 100 Oxygen Delivery Method Room Air Room Air 06/09/21 06:35 06/09/21 06:48 06/09/21 07:16 Temperature Temperature Source Pulse Rate 55 L 55 L 55 L Respiratory Rate Respiratory Pattern Blood Pressure 155/81 H 149/78 H 137/68 H Blood Pressure Mean Pulse Ox Oxygen Delivery Method 06/09/21 07:20 06/09/21 08:00 Temperature 36.6 C Temperature Source Temporal Pulse Rate 60 59 L Respiratory Rate 14 18 Respiratory Pattern Blood Pressure 139/99 H 124/76 H Blood Pressure Mean 112 92 Pulse Ox 100 98 Oxygen Delivery Method Room Air Room Air Weight Weight: 136.078 kg Body Mass Index (BMI) 41.8 Physical Exam Const alert, no apparent distress and average body habitus General Appearance: cooperative HEENT normocephalic, head/scalp atraumatic, hearing grossly normal bilaterally and moist oral mucous membranes Resp normal respiratory effort, no retractions, no use of accessory muscles and clear to auscultation bilaterally Cardio regular rate, regular rhythm, S1 normal heart sound and S2 normal heart sound GI normal to inspection, nondistended, normoactive bowel sounds, soft to palpation and non-distended GI Narrative: Right upper quadrant tenderness. No hepatosplenomegaly. Extremity normal to inspection and no clubbing, cyanosis or edema Neuro Neuro Narrative: Slightly groggy but had just received lorazepam. Sensorium / Orientation: awake and alert Psych affect normal Results Lab / Micro Data Attestation: I reviewed the patient's lab results. Result Diagrams: 06/09/21 06:08 06/09/21 06:08 Labs: Laboratory Results - last 24 hr 06/09/21 06:08: WBC 7.8, RBC 4.41 L, Hgb 13.0, Hct 38.4 L, MCV 87.1, MCH 29.5, MCHC 33.9, RDW Std Deviation 43.9, RDW Coeff of Mook 13.9, Plt Count 204, MPV 9.5, Immature Gran % (Auto) 0.400, Neut % (Auto) 64.8, Lymph % (Auto) 22.3, [place] % (Auto) 6.9, Eos % (Auto) 4.7, Baso % (Auto) 0.9, Absolute Neuts (auto) 5.1, Absolute Lymphs (auto) 1.74, Nucleated RBC % 0 06/09/21 06:08: Sodium 128 L, Potassium 7.4 H*, Chloride 91 L, Carbon Dioxide 23.0, Anion Gap 14, BUN 61 H, Creatinine 13.00 H*, Estim Creat Clear Calc 7.00, Est GFR (MDRD) Af Amer 5 L, Est GFR (MDRD) Non-Af 4 L, BUN/Creatinine Ratio 4.7 L, Glucose 72 L, Calcium 9.5, Total Bilirubin 0.50, Direct Bilirubin 0.06, AST 23, ALT 15 L, Alkaline Phosphatase 153 H, Troponin I High Sens 35, Total Protein 8.1, Albumin 3.6, Globulin 4.5 H, Lipase 189 06/09/21 06:08: Phosphorus 9.0 H* 06/09/21 06:08: Salicylates < 1.7 L, Acetaminophen 2.8 L, Ethyl Alcohol 8.0 Micro: Microbiology 06/09/21 06:25 Nasal Secretion SARS-CoV-2 Antigen (Rapid) - Final EKG Initial EKG: Attestation: I personally reviewed and interpreted this EKG as follows: Prior EKG tracings: available for review EKG Rhythm Intrepretation: Sinus Rhythm Radiology Impression Chest X-Ray 06/09/21 06:45 IMPRESSION: Low lung volumes somewhat limit the exam. Patchy retrocardiac opacity left lower lung may be due to pneumonia. Consider true PA upright and lateral view. Electronically Signed: Demetris Tobias MD at 7:06 EDT , Assessment & Plan Assessment/Plan (1) Acute hyperkalemia: (2) Depression with suicidal ideation: (3) Nonspecific chest pain: (4) Substance use disorder: PLAN: 1. Hyperkalemia * Patient has no EKG changes associated with that and the sample was noted to be hemolyzed. I discussed with the ER physician and recommended getting a repeat BMP * Patient did receive a battery of medications in the emergency room. If continues to be elevated despite that, patient will be getting hemodialysis today and patient may require Kayexalate. 2. Nonspecific chest pain * Patient is indicating more of abdominal pain, particular in the right upper quadrant. And his description is really not chest pain but more abdominal pain. * Will cycle troponins which thus far are unremarkable and patient end-stage renal disease * Troponins do continue to go up then will proceed with additional testing based on the trend troponins * For the abdominal pain, will check a right upper quadrant ultrasound as I am c oncerned the patient may have potential gallbladder issues. Patient does still have his gallbladder and. 3. End-stage renal disease * On hemodialysis * Missed dialysis on the first. * Discussed with Dr. Carrillo who will arrange for dialysis today. 4. Cocaine abuse * Complicates care and recovery * States that he uses it intermittently but not daily 5. Suicidal ideation * Patient has a rather vague plan in place but does have access to a handgun though not his house * Once patient is medically stabilized, patient will need crisis evaluation * Sitter at bedside 6. VTE prophylaxis with subcu heparin Charges/Coding Visit Charges Inpatient E&M: 67876 Init Hosp L3
--- NOTE | 2021-06-09 08:17 | US_ITS ---
STUDY: ABDOMINAL ULTRASOUND - RIGHT UPPER QUADRANT REASON FOR VISIT: Male, 55 years old RUQ abdominal pain TECHNIQUE: Ultrasound evaluation of the right upper quadrant was performed with real-time and static whitaker-scale imaging. TECHNICAL QUALITY: Adequate. COMPARISON: None. FINDINGS: Liver: The liver measures 16.2 cm. There is a heterogeneous echogenicity of the liver. The bile ducts are within normal limits. There is hepatic color flow. The direction of portal flow is hepatopetal. There is no demonstrated mass lesion. Gallbladder: Distended gallbladder. The gallbladder wall measures 2.1 mm. There is a negative sonographic Osman''s sign. There is no pericholecystic fluid. There is biliary sludge dependent within the gallbladder. Common Bile Duct (C.B.D.): The common bile duct measures 4.9 mm. Pancreas: Normal size of the head, body and tail of the pancreas. There is increased echogenicity of the pancreas. There is no demonstrated pancreatic mass or cyst. Finishing Range Feeder notes a 5 mm stone in the pancreatic body. Right Kidney: Right kidney is hypertrophic measuring 16 x 12.8 x 8.4 cm with innumerable simple cysts consistent with polycystic kidney disease. No obstructive uropathy or suspicious solid renal lesion. There is mild cortical thinning at 0.9 cm. US/Abdomen Limited IMPRESSION: Heterogeneous echotexture within the liver suggests early fatty infiltration, no discrete lesion Echogenic sludge in the gallbladder but no sonographic evidence of acute gallbladder disease. Polycystic right kidney Parenchymal calcification within the pancreas Electronically Signed: Kayden Walker MD at 10:06 EDT ,
--- NOTE | 2021-06-09 08:17 | EKG12_ITS ---
Test Reason : ROUTINE ADMISSION Blood Pressure : / mmHG Vent. Rate : 059 BPM Atrial Rate : 059 BPM P-R Int : 154 ms QRS Dur : 098 ms QT Int : 430 ms P-R-T Axes : 078 -36 016 degrees QTc Int : 425 ms Sinus bradycardia Left axis deviation Abnormal ECG Confirmed by COLLEEN TOMAS, KAREN ([id number]), international editorial producer HARLEY ABDI ([id number]) on 06/21/2021 1:37:05 PM Referred By: TRISTAN Confirmed By:KAREN MACIAS MD
[2021-06-09] MEDS: Glucerna Shake 120 ML LIQUID PO ×4 (09:27→23:07)
[2021-06-09] MEDS: Sertraline 50 MG Tablet PO (09:27)
[2021-06-09] MEDS: Folic Acid/Vitamin B Comp W-C 1 Capsule 1 CAP PO (09:27)
[2021-06-09] MEDS: amLODIPine 10 MG Tablet PO (09:27)
[2021-06-09 09:31] LABS: Troponin-I HS 34 pg/mL (3.0-78.0)
[2021-06-09 09:51] LABS: Anion Gap 15 (5-15); BUN 61 mg/dL (7-18); BUN/Creat Ratio 4.7 RATIO (10-20); Calcium,Total 9.9 mg/dL (8.5-10.1); Chloride 91 mmol/L (98-107); EST Glomerular Filtration Rate 4 mL/min (>60); Est Glom Filt Rate - Afr Amer 5 mL/min (>60); Glucose 63 mg/dL (74-106); Potassium 5.7 mmol/L (3.5-5.1); Sodium Level 130 mmol/L (136-145)
--- NOTE | 2021-06-09 14:47 | NURSING ---
This RN called and updated the pt's sister, Brii via phone with pt's permission.
[2021-06-09] MEDS: SEVELAMER CARBONATE 800 MG TABLET PO ×2 (14:51→17:22)
[2021-06-09 15:28] LABS: Troponin-I HS 30 pg/mL (3.0-78.0)
--- NOTE | 2021-06-09 15:56 | DIALYSIS ---
HD x 4 hours complete. Ran on 1k bath x 1 hour and 2k bath x 3 hours. UF of 3800ml. Used right arm fistula. [place] removed post tx and pressure applied x 10 minutes. Hemostasis achieved. Fresh gauze and tape applied. See tx sheet for more details. Report was given to MESERET Dimas.
--- NOTE | 2021-06-09 18:02 | CON.PCM.RE_ITS ---
Assessment & Plan Assessment/Plan (1) ESRD (end stage renal disease) on dialysis: PLAN: -The patient usually dialyzes at on MWF schedule. He missed dialysis yesterday. -The patient was urgently dialyzed this morning because of hyperkalemia. I supervised the dialysis treatment. -He should be okay until Friday for next dialysis. (2) Hyperkalemia: PLAN: -Potassium level was 7.4 mmol/L on presentation. -We used a 1 mEq potassium dialysate for 1 hour, and we finish the rest of dialysis with 2 mEq potassium dialysate. -Potassium level should improve with dialysis. -Recheck potassium level tomorrow. (3) Hyponatremia: PLAN: -Hyponatremia is likely secondary to ESRD. The patient is essentially anuric. -He also missed dialysis yesterday which exacerbated hyponatremia. -There is no worrisome symptoms of hyponatremia such as headache, confusion, or ataxia. -Serum sodium should improve with dialysis. Recheck serum sodium level tomorrow. (4) Hyperphosphatemia: PLAN: -Phosphorus level is 9 mg/dL. -Hyperphosphatemia secondary to renal failure and retention of phosphorus. -The patient is on sevelamer, but I will increase the dose to 2400 mg at each meal. (5) Nonspecific chest pain: PLAN: -Chest pain has resolved. May be related to cocaine use. -Keep O>I with dialysis. HPI Consult Data Date of Consult: 06/09/21 HPI Narrative Reason for Consultation: ESRD need for dialysis. HPI Narrative: The patient is a 55-year-old man who is known to our service with ESRD, hypertension, COPD, and bipolar disorder. The patient presented to the hospital today because of chest pain that occurred at 4 AM. The patient skipped dialysis yesterday and was planning on going to make up treatment today. However, he presented to the hospital instead because of chest pain. The patient was also found to have hyperkalemia with potassium level of 7.4 mmol/L on presentation although the specimen may have been hemolyzed. Apparently, the patient did test positive for cocaine. The patient was urgently dialyzed this morning. He usually dialyzes at on a MWF schedule. FOR[facility]LY [facility], LATER [facility] Medical History Anemia Bipolar affective disorder Chronic back pain COPD (chronic obstructive pulmonary disease) Derangement of left patella ESRD (end stage renal disease) on dialysis Excessive daytime sleepiness Gastroesophageal reflux disease History of Vides's palsy History of drug dependence/abuse History of peptic ulcer disease Hyperlipidemia Hyperparathyroidism due to end stage renal disease on dialysis Hypertension Hypertriglyceridemia Neuropathy Nonrheumatic tricuspid (valve) insufficiency Obstructive Sleep Apnea-Hypopnea Syndrome TAY (obstructive sleep apnea) Polycystic kidney disease Renal failure Tobacco abuse Type II diabetes mellitus Home Medications lisinopril 40 mg tablet 40 mg PO DAILY 02/24/18 [History Last Taken 05/25/19] sevelamer carbonate [Renvela] 1 tab PO TID 11/10/18 [History Last Taken 05/25/19] sucroferric oxyhydroxide [Velphoro] 1,000 mg PO TID 11/10/18 [History Last Taken 05/24/19] amlodipine 10 mg PO DAILY 05/17/19 [History Last Taken 05/25/19] B complex-vitamin C-folic acid [Maylin-Neal] 1 tab PO DAILY 06/09/21 [History Last Taken Unknown] hydroxyzine pamoate 25 mg PO TID PRN 06/09/21 [History Last Taken Unknown] sertraline 50 mg PO DAILY 06/09/21 [History Last Taken Unknown] tramadol 50 mg PO Q4H PRN 06/09/21 [History Last Taken Unknown] Allergy/AdvReac Type Severity Reaction Status Date / Time latex Allergy Rash Verified 12/21/20 09:15 hydrocodone AdvReac Abd Verified 12/21/20 09:15 cramps/diarrhea TAPE Allergy Rash Uncoded 12/21/20 09:15 Family History Brother CAD (coronary artery disease) Congestive heart failure Father , age 58 from polycystic kidney disease Diabetes CAD (coronary artery disease) Kidney disease polycystic kidney disease Mother Bleeding disorder Brother Kidney disease Surgical History AV fistula (~2013) History of facial surgery History of total left knee replacement Social History Smoking Status: Current some day smoker tobacco type: cigarettes Tobacco: How many years used: 14 alcohol intake: current substance use type: crack/cocaine ROS ROS Narrative 12/17 ROS was done which was otherwise negative. Physical Exam Narrative General: Alert and oriented x3. No apparent distress. HEENT: Normocephalic, atraumatic. Mucous membrane moist. Neck: Supple, no JVD. Heart: Normal S1, S2. No rubs, murmurs or gallops. Lungs: Clear to auscultation bilaterally. Abdomen: Normal bowel sound, soft, nontender, no guarding or rebound. Extremity: No clubbing, cyanosis, or edema. Musculoskeletal: Full passive range of motion. No joint swelling. Psychiatric: Normal mood and affect. Skin: No rash. Skin is warm and dry. Lab / Micro Data Result Diagrams: 06/09/21 06:08 06/09/21 08:25 Labs: Laboratory Results - last 24 hr 06/09/21 06:08: WBC 7.8, RBC 4.41 L, Hgb 13.0, Hct 38.4 L, MCV 87.1, MCH 29.5, MCHC 33.9, RDW Std Deviation 43.9, RDW Coeff of Mook 13.9, Plt Count 204, MPV 9.5, Immature Gran % (Auto) 0.400, Neut % (Auto) 64.8, Lymph % (Auto) 22.3, [place] % (Auto) 6.9, Eos % (Auto) 4.7, Baso % (Auto) 0.9, Absolute Neuts (auto) 5.1, Absolute Lymphs (auto) 1.74, Nucleated RBC % 0 06/09/21 06:08: Sodium 128 L, Potassium 7.4 H*, Chloride 91 L, Carbon Dioxide 23.0, Anion Gap 14, BUN 61 H, Creatinine 13.00 H*, Estim Creat Clear Calc 7.00, Est GFR (MDRD) Af Amer 5 L, Est GFR (MDRD) Non-Af 4 L, BUN/Creatinine Ratio 4.7 L, Glucose 72 L, Calcium 9.5, Total Bilirubin 0.50, Direct Bilirubin 0.06, AST 23, ALT 15 L, Alkaline Phosphatase 153 H, Troponin I High Sens 35, Total Protein 8.1, Albumin 3.6, Globulin 4.5 H, Lipase 189 06/09/21 06:08: Phosphorus 9.0 H* 06/09/21 06:08: Salicylates < 1.7 L, Acetaminophen 2.8 L, Ethyl Alcohol 8.0 06/09/21 08:25: Sodium 130 L, Potassium 5.7 H, Chloride 91 L, Carbon Dioxide 24.0, Anion Gap 15, BUN 61 H, Creatinine 13.00 H*, Estim Creat Clear Calc 7.00, Est GFR (MDRD) Af Amer 5 L, Est GFR (MDRD) Non-Af 4 L, BUN/Creatinine Ratio 4.7 L, Glucose 63 L, Calcium 9.9 06/09/21 08:25: Troponin I High Sens 34 06/09/21 15:00: Troponin I High Sens 30 Micro: Microbiology 06/09/21 06:25 Nasal Secretion SARS-CoV-2 Antigen (Rapid) - Final Radiology Impression Chest X-Ray 06/09/21 06:45 IMPRESSION: Low lung volumes somewhat limit the exam. Patchy retrocardiac opacity left lower lung may be due to pneumonia. Consider true PA upright and lateral view. Electronically Signed: Demetris Tobias MD at 7:06 EDT , Abdomen Ultrasound 06/09/21 08:17 IMPRESSION: Heterogeneous echotexture within the liver suggests early fatty infiltration, no discrete lesion Echogenic sludge in the gallbladder but no sonographic evidence of acute gallbladder disease. Polycystic right kidney Parenchymal calcification within the pancreas Electronically Signed: Kayden Walker MD at 10:06 EDT ,
[2021-06-10 04:00] VITALS: BP 124/70; PULSE 59; PULSE 60; RESP 16; TEMP 37.1; O2SAT 96
[2021-06-10 06:35] VITALS: PULSE 59
[2021-06-10 06:45] LABS: Absolute Lymphocyte Count 1.51 X10^3/uL (0.83-4.51); Absolute Neutrophil Count 3.5 X10^3/uL (2.0-7.7); Basophil# 0.06 X10^3/uL; Eosinophil# 0.32 X10^3/uL; Eosinophils% 5.4 % (0-5); Hemoglobin 12.2 g/dL (13.0-16.5); Lymphocyte # 1.51 X10^3/ul (0.83-4.51); Lymphocyte % 25.3 % (19-41); Mean Corpuscular Hgb 29.6 pg (27.0-32.0); Mean Corpuscular Volume 89.8 fL (80-94); Mean Platelet Vol. 9.4 fl (6.2-12.0); Monocyte# 0.57 X10^3/uL; Monocyte% 9.6 % (0-10); NRBC Flagged by Analyzer 0 % (0-5); Neutrophil # 3.48 X10^3/uL (2.7-7.7); Neutrophil % 58.4 % (47-70); Platelet Count 203 K/mm3 (150-450); RBC Distribution Width CV 14.2 % (11.6-14.6); RBC Distribution Width SD 46.1 fl (35.1-43.9); Red Blood Count 4.12 M/mm3 (4.6-6.2)
[2021-06-10 07:26] LABS: ALB/GLOB Ratio 0.8 RATIO (0.9-2.4); AST(SGOT) 11 U/L (15-37); Alanine Aminotransfer ALT/SGPT 10 U/L (16-61); Albumin, Serum 3.2 g/dL (3.2-5.0); Alkaline Phosphatase 159 U/L (45-117); Anion Gap 8 (5-15); BUN 41 mg/dL (7-18); BUN/Creat Ratio 4.4 RATIO (10-20); Calcium,Total 9.5 mg/dL (8.5-10.1); Chloride 96 mmol/L (98-107); Creatinine, Serum 9.36 mg/dL (0.70-1.30); EST Glomerular Filtration Rate 6 mL/min (>60); Est Glom Filt Rate - Afr Amer 8 mL/min (>60); Estimated Creatinine Clearance 9.72 ml/min; Globulin 3.8 g/dL (2.2-4.2); Glucose 80 mg/dL (74-106); Potassium 5.9 mmol/L (3.5-5.1); Sodium Level 134 mmol/L (136-145)
[2021-06-10] MEDS: Folic Acid/Vitamin B Comp W-C 1 Capsule 1 CAP PO (07:36)
[2021-06-10] MEDS: SEVELAMER CARBONATE 800 MG TABLET 2400 MG PO ×3 (07:36→17:00)
[2021-06-10 09:15] VITALS: BP 122/64; PULSE 59; RESP 16; TEMP 37.3; O2SAT 99
[2021-06-10] MEDS: Sertraline 50 MG Tablet PO (09:15)
[2021-06-10] MEDS: amLODIPine 10 MG Tablet PO (09:15)
[2021-06-10] MEDS: Glucerna Shake 120 ML LIQUID PO ×2 (09:15→17:00)
--- NOTE | 2021-06-10 11:35 | PN.HOSP_ITS ---
Subjective Subjective No events overnight. Feels well. Discussed with the sitter at bedside and no events that she is seen. Objective Data Objective Data Vital Signs: Vital Signs Temp Pulse Resp BP Pulse Ox 37.3 C 59 L 16 122/64 H 99 06/10/21 09:15 06/10/21 09:15 06/10/21 09:15 06/10/21 09:15 06/10/21 09:15 Oxygen Delivery Method Room Air Weight: 124.738 kg Body Mass Index (BMI) 38.3 Intake & Output: Intake and Output for Last 24 Hours 06/08/21 06/09/21 06/10/21 23:59 23:59 23:59 Intake Total 1180 / 1180 Balance 1180 / 1180 Lab / Micro Data Result Diagrams: 06/10/21 05:41 06/10/21 05:41 Labs: Laboratory Results - last 24 hr 06/09/21 15:00: Troponin I High Sens 30 06/10/21 05:41: WBC 6.0, RBC 4.12 L, Hgb 12.2 L, Hct 37.0 L, MCV 89.8, MCH 29.6, MCHC 33.0, RDW Std Deviation 46.1 H, RDW Coeff of Mook 14.2, Plt Count 203, MPV 9.4, Immature Gran % (Auto) 0.300, Neut % (Auto) 58.4, Lymph % (Auto) 25.3, [place] % (Auto) 9.6, Eos % (Auto) 5.4 H, Baso % (Auto) 1.0, Absolute Neuts (auto) 3.5, Absolute Lymphs (auto) 1.51, Nucleated RBC % 0 06/10/21 05:41: Sodium 134 L, Potassium 5.9 H, Chloride 96 L, Carbon Dioxide 30.0, Anion Gap 8, BUN 41 H, Creatinine 9.36 H*, Estim Creat Clear Calc 9.72, Est GFR (MDRD) Af Amer 8 L, Est GFR (MDRD) Non-Af 6 L, BUN/Creatinine Ratio 4.4 L, Glucose 80, Calcium 9.5, Total Bilirubin 0.30, AST 11 L, ALT 10 L, Alkaline Phosphatase 159 H, Total Protein 7.0, Albumin 3.2, Globulin 3.8, Albumin/Globulin Ratio 0.8 L Micro: Microbiology 06/09/21 06:25 Nasal Secretion SARS-CoV-2 Antigen (Rapid) - Final Physical Exam Const alert and no apparent distress Resp normal respiratory effort, no retractions, no use of accessory muscles and clear to auscultation bilaterally Cardio regular rate, regular rhythm, S1 normal heart sound and S2 normal heart sound GI normal to inspection, nondistended, normoactive bowel sounds, soft to palpation, non-tender and non-distended Extremity normal to inspection Assessment & Plan Assessment/Plan (1) Acute hyperkalemia: (2) Depression with suicidal ideation: (3) Nonspecific chest pain: (4) Substance use disorder: PLAN: 1. Hyperkalemia * Patient has no EKG changes associated with that and the sample was noted to be hemolyzed. I discussed with the ER physician and recommended getting a repeat BMP * Patient did receive a battery of medications in the emergency room. If continues to be elevated despite that, patient will be getting hemodialysis today and patient may require Kayexalate. * /: Improved after hemodialysis. 2. Nonspecific chest pain * Per the patient actually was not chest pain even though the same chest was indicating more of his abdomen. Did do an ultrasound of his abdomen that was unremarkable. Patient is stated that it was just right-sided transiently and resolved. No evidence of cholecystitis and being that it has been a one-time metal feel is any concern for chronic cholecystitis so a HIDA scan would not be indicated. Troponins have been negative and would not proceed with any additional work-up at this time. 3. End-stage renal disease * On hemodialysis * Missed dialysis on the first. * Discussed with Dr. Carrillo who will arrange for dialysis today. * Hemodialysis on the fourth 4. Cocaine abuse * Complicates care and recovery * States that he uses it intermittently but not daily 5. Suicidal ideation * Patient has a rather vague plan in place but does have access to a handgun though not his house * Once patient is medically stabilized, patient will need crisis evaluation * Sitter at bedside * Would have crisis evaluate patient after his hemodialysis on the fourth. 6. VTE prophylaxis with subcu heparin Charges/Coding Visit Charges Inpatient E&M: 01779 Subs Hosp L2
[2021-06-10 15:15] VITALS: BP 138/61; PULSE 60; PULSE 63; RESP 16; TEMP 37.1; O2SAT 99
--- NOTE | 2021-06-10 18:58 | PCM.PN.REN ---
Subjective Subjective Following for ESRD. The patient feels well today. He denies headache, nausea, or shortness of breath. Chest pain is resolved. Objective Data Objective Data Vital Signs: Vital Signs Temp Pulse Resp BP Pulse Ox 98.8 F 63 16 138/61 H 99 06/10/21 15:15 06/10/21 15:15 06/10/21 15:15 06/10/21 15:15 06/10/21 15:15 Oxygen Delivery Method Room Air Weight: 124.738 kg Body Mass Index (BMI) 38.3 Intake & Output: Intake and Output for Last 24 Hours 06/08/21 06/09/21 06/10/21 23:59 23:59 23:59 Intake Total 1180 / 1180 450 / 450 Balance 1180 / 1180 450 / 450 Lab / Micro Data Result Diagrams: 06/10/21 05:41 06/10/21 05:41 Labs: Laboratory Results - last 24 hr 06/10/21 05:41: WBC 6.0, RBC 4.12 L, Hgb 12.2 L, Hct 37.0 L, MCV 89.8, MCH 29.6, MCHC 33.0, RDW Std Deviation 46.1 H, RDW Coeff of Mook 14.2, Plt Count 203, MPV 9.4, Immature Gran % (Auto) 0.300, Neut % (Auto) 58.4, Lymph % (Auto) 25.3, [place] % (Auto) 9.6, Eos % (Auto) 5.4 H, Baso % (Auto) 1.0, Absolute Neuts (auto) 3.5, Absolute Lymphs (auto) 1.51, Nucleated RBC % 0 06/10/21 05:41: Sodium 134 L, Potassium 5.9 H, Chloride 96 L, Carbon Dioxide 30.0, Anion Gap 8, BUN 41 H, Creatinine 9.36 H*, Estim Creat Clear Calc 9.72, Est GFR (MDRD) Af Amer 8 L, Est GFR (MDRD) Non-Af 6 L, BUN/Creatinine Ratio 4.4 L, Glucose 80, Calcium 9.5, Total Bilirubin 0.30, AST 11 L, ALT 10 L, Alkaline Phosphatase 159 H, Total Protein 7.0, Albumin 3.2, Globulin 3.8, Albumin/Globulin Ratio 0.8 L Micro: Microbiology 06/09/21 06:25 Nasal Secretion SARS-CoV-2 Antigen (Rapid) - Final Physical Exam Narrative General: Alert and oriented x3. No apparent distress. HEENT: Normocephalic, atraumatic. Mucous membrane moist. Neck: Supple, no JVD. Heart: Normal S1, S2. No rubs, murmurs or gallops. Lungs: Clear to auscultation bilaterally. Abdomen: Normal bowel sound, soft, nontender, no guarding or rebound. Extremity: No clubbing, cyanosis, or edema. Assessment & Plan Assessment/Plan (1) ESRD (end stage renal disease) on dialysis: PLAN: -The patient usually dialyzes at [facility] on MWF schedule. He missed dialysis on 06/08/2021. -The patient was urgently dialyzed on 06/09/2021 because of hyperkalemia. -Next dialysis will be scheduled for tomorrow. (2) Hyperkalemia: PLAN: -Potassium level was 7.4 mmol/L on presentation. -We used a 1 mEq potassium dialysate for 1 hour, and we finish the rest of dialysis with 2 mEq potassium dialysate yesterday. -Potassium level is better at 5.9. -Recheck potassium level tomorrow. (3) Hyponatremia: PLAN: -Hyponatremia is likely secondary to ESRD. The patient is essentially anuric. -He also missed dialysis yesterday which exacerbated hyponatremia. -There is no worrisome symptoms of hyponatremia such as headache, confusion, or ataxia. -Serum sodium has improved from 128 mmol/L on presentation up to 134 mmol/L today with dialysis yesterday. -Serum sodium should improve with dialysis. Recheck serum sodium level tomorrow. (4) Hyperphosphatemia: PLAN: -Phosphorus level is 9 mg/dL on 06/09/2021. -Hyperphosphatemia secondary to renal failure and retention of phosphorus. -The patient is on sevelamer, but I will increase the dose to 2400 mg at each meal. -He is also taking his own Auryxia. -We will check calcium and phosphorus tomorrow. (5) Nonspecific chest pain: PLAN: -Chest pain has resolved. May be related to cocaine use. -Keep O>I with dialysis.
[2021-06-10 19:50] VITALS: PULSE 58
[2021-06-10 21:15] VITALS: BP 138/72; PULSE 57; RESP 16; TEMP 36.7; O2SAT 100
[2021-06-11] VITALS (9 sets, daily range): BP systolic 113–151; BP diastolic 53–81; PULSE 52–70; RESP 16; TEMP 36.5–36.9; O2SAT 95–99
[2021-06-11 07:00] LABS: Anion Gap 13 (5-15); BUN 65 mg/dL (7-18); BUN/Creat Ratio 5.6 RATIO (10-20); Calcium,Total 8.8 mg/dL (8.5-10.1); Chloride 98 mmol/L (98-107); EST Glomerular Filtration Rate 5 mL/min (>60); Est Glom Filt Rate - Afr Amer 6 mL/min (>60); Estimated Creatinine Clearance 7.84 ml/min; Glucose 78 mg/dL (74-106); Potassium 5.6 mmol/L (3.5-5.1); Sodium Level 133 mmol/L (136-145)
[2021-06-11 07:17] LABS: Phosphorus 8.1 mg/dL (2.5-4.9)
[2021-06-11] MEDS: SEVELAMER CARBONATE 800 MG TABLET 2400 MG PO (09:01)
[2021-06-11] MEDS: Sertraline 50 MG Tablet PO (09:01)
[2021-06-11] MEDS: Folic Acid/Vitamin B Comp W-C 1 Capsule 1 CAP PO (09:01)
[2021-06-11] MEDS: Glucerna Shake 120 ML LIQUID PO (09:07)
--- NOTE | 2021-06-11 09:25 | PN.HOSP_ITS ---
Objective Data Objective Data Vital Signs: Vital Signs Temp Pulse Resp BP Pulse Ox 98.3 F 70 16 113/53 L 95 06/11/21 08:58 06/11/21 08:58 06/11/21 08:58 06/11/21 08:58 06/11/21 08:58 Oxygen Delivery Method Room Air Weight: 275 lb 0.003 oz Body Mass Index (BMI) 38.3 Intake & Output: Intake and Output for Last 24 Hours 06/09/21 06/10/21 06/11/21 23:59 23:59 23:59 Intake Total 1180 / 1180 450 / 1290 1320 / 1320 Output Total 0 / 0 Balance 1180 / 1180 450 / 1290 1320 / 1320 Lab / Micro Data Result Diagrams: 06/10/21 05:41 06/11/21 06:20 Labs: Laboratory Results - last 24 hr 06/11/21 06:20: Sodium 133 L, Potassium 5.6 H, Chloride 98, Carbon Dioxide 22.0, Anion Gap 13, BUN 65 H, Creatinine 11.60 H*, Estim Creat Clear Calc 7.84, Est GFR (MDRD) Af Amer 6 L, Est GFR (MDRD) Non-Af 5 L, BUN/Creatinine Ratio 5.6 L, Glucose 78, Calcium 8.8 06/11/21 06:20: Phosphorus 8.1 H Micro: Microbiology 06/09/21 06:25 Nasal Secretion SARS-CoV-2 Antigen (Rapid) - Final Assessment & Plan Assessment/Plan (1) Acute hyperkalemia: (2) Depression with suicidal ideation: (3) Nonspecific chest pain: (4) Substance use disorder: PLAN: 1. Hyperkalemia * Patient has no EKG changes associated with that and the sample was noted to be hemolyzed. I discussed with the ER physician and recommended getting a repeat BMP * Patient did receive a battery of medications in the emergency room. If continues to be elevated despite that, patient will be getting hemodialysis today and patient may require Kayexalate. * 4/3: Improved after hemodialysis. 2. Nonspecific chest pain * Per the patient actually was not chest pain even though the same chest was indicating more of his abdomen. Did do an ultrasound of his abdomen that was unremarkable. Patient is stated that it was just right-sided transiently and resolved. No evidence of cholecystitis and being that it has been a one-time metal feel is any concern for chronic cholecystitis so a HIDA scan would not be indicated. Troponins have been negative and would not proceed with any additional work-up at this time. 3. End-stage renal disease * On hemodialysis * Missed dialysis on the first. * Discussed with Dr. Carrillo who will arrange for dialysis today. * Hemodialysis on the fourth 4. Cocaine abuse * Complicates care and recovery * States that he uses it intermittently but not daily 5. Suicidal ideation * Patient has a rather vague plan in place but does have access to a handgun though not his house * Once patient is medically stabilized, patient will need crisis evaluation * Sitter at bedside * Would have crisis evaluate patient after his hemodialysis on the fourth. 6. VTE prophylaxis with subcu heparin
--- NOTE | 2021-06-11 09:38 | CASEMGMT ---
Social Work Pt expressing suicidal ideation in the ED. Physician indicates that pt will be medically cleared for Crisis evaluation today after dialysis. Phone call to [facility] in Crisis and referral made. Information faxed and SW will notify [facility] when dialysis starts so they can see pt later today. RUSTY Mc
--- NOTE | 2021-06-11 10:13 | PCM.DC ---
Discharge Instructions Diet Discharge Diet: 8 Cup Fluid Restriction, 2000 mg Sodium Diet and Renal Diet Dressing / Incision Call your doctor if you observe: Fever of 101 or Higher, Coldness, Increased Pain, Numbness or Tingling, Change in Color, Inability to urinate, Inability to have a bowel movement, Shortness of breath, Dizziness, Fainting spells, Swelling in the ankles, Chest pain, Prolonged hiccupping, Increased palpitations (irregular heartbeat), Calf discomfort and Uncontrolled pain Follow Up Care Test Results: Test results from this visit will be discussed in further detail at your follow-up appointment, if applicable. Discharge Plan Admission Admit Date/Time: 06/09/21 08:00 Primary Reason for Your Visit: Hyperkalemia due to missed hemodialysis Attending Provider: Luke Cm Primary Care Provider: Care Physician,No Primary Consulting Providers: Isidoro Rivera Discharge Orders/Prescriptions Prescriptions: Continued sevelamer carbonate [Renvela] 800 MG tablet 1 tab PO TID RF: 0 Velphoro 500 MG tablet,chewable 1,000 mg PO TID RF: 0 amlodipine 10 MG tablet 10 mg PO DAILY RF: 0 tramadol 50 mg Tablet 50 mg PO Q4H PRN (Reason: Pain) RF: 0 Maylin-Neal 0.8 mg Tablet 1 tab PO DAILY RF: 0 hydroxyzine pamoate 25 mg Capsule 25 mg PO TID PRN (Reason: Anxiety) RF: 0 sertraline 50 MG tablet 50 mg PO DAILY RF: 0 Discontinued lisinopril 40 mg tablet 40 mg PO DAILY RF: 0 Referrals / Follow Up: Sandhya Dent MD [STAFF PHYSICIAN] - In 1 Week (for Hyperkalemia) Care Physician,No Primary [Primary Care Provider] - Disposition Disposition (needs filled in before D/C Order can be placed): Home, Self Care
--- NOTE | 2021-06-11 11:46 | PCM.PN.REN ---
Subjective Subjective Following for ESRD Resting in bed, denies any complaints today. Patient has sitter at bedside. Objective Data Objective Data Vital Signs: Vital Signs Temp Pulse Resp BP Pulse Ox 98.3 F 70 16 113/53 L 95 06/11/21 08:58 06/11/21 08:58 06/11/21 08:58 06/11/21 08:58 06/11/21 08:58 Oxygen Delivery Method Room Air Weight: 124.738 kg Body Mass Index (BMI) 38.3 Intake & Output: Intake and Output for Last 24 Hours 06/09/21 06/10/21 06/11/21 23:59 23:59 23:59 Intake Total 1180 / 1180 450 / 1290 1320 / 1320 Output Total 0 / 0 Balance 1180 / 1180 450 / 1290 1320 / 1320 Lab / Micro Data Result Diagrams: 06/10/21 05:41 06/11/21 06:20 Labs: Laboratory Results - last 24 hr 06/11/21 06:20: Sodium 133 L, Potassium 5.6 H, Chloride 98, Carbon Dioxide 22.0, Anion Gap 13, BUN 65 H, Creatinine 11.60 H*, Estim Creat Clear Calc 7.84, Est GFR (MDRD) Af Amer 6 L, Est GFR (MDRD) Non-Af 5 L, BUN/Creatinine Ratio 5.6 L, Glucose 78, Calcium 8.8 06/11/21 06:20: Phosphorus 8.1 H Micro: Microbiology 06/09/21 06:25 Nasal Secretion SARS-CoV-2 Antigen (Rapid) - Final Physical Exam Narrative General: Alert and oriented x3. No apparent distress. HEENT: Normocephalic, atraumatic. Mucous membrane moist. Neck: Supple, no JVD. Heart: Normal S1, S2. No rubs, murmurs or gallops. Lungs: Clear to auscultation bilaterally. Abdomen: Normal bowel sound, soft, nontender Extremity: No edema. AV fistula right upper arm positive thrill and bruit Assessment & Plan Assessment/Plan (1) ESRD (end stage renal disease) on dialysis: PLAN: -The patient usually dialyzes at [facility] on MWF schedule. He missed dialysis on 06/08/2021. -The patient was urgently dialyzed on 06/09/2021 because of hyperkalemia. -For dialysis today over 4 hours/2k bath with UF as patient/blood pressure tolerates. Outpatient EDW 128 kg - hgb 12.2, does not need NED with HD today - bps acceptable, on norvasc (2) Hyperkalemia: PLAN: -Potassium level was 7.4 mmol/L on presentation. Patient dialyzed on 1 mEq potassium dialysate for 1 hour, and we finished the rest of dialysis with 2 mEq K dialysate. -Potassium level is better at 5.6. Patient will dialyze on 2K bath with HD today -Recheck potassium level tomorrow. -Renal diet (3) Hyponatremia: PLAN: -Hyponatremia is likely secondary to ESRD. The patient is essentially anuric. -He also missed dialysis which exacerbated hyponatremia. -There is no worrisome symptoms of hyponatremia such as headache, confusion, or ataxia. -Serum sodium should improve with dialysis. Recheck serum sodium level tomorrow. (4) Hyperphosphatemia: PLAN: -Phosphorus level 9 mg/dL on 06/09/2021. Now 8.1 -Hyperphosphatemia secondary to renal failure and retention of phosphorus. -Continue renvela 2400 mg at each meal and continue Auryxia, he is taking his own Auryxia. Also continue renal diet (5) Nonspecific chest pain: PLAN: -Chest pain has resolved. May be related to cocaine use. -Keep O>I with dialysis. - suicidal ideation; patient to have crisis evaluation
--- NOTE | 2021-06-11 12:07 | CASEMGMT ---
Per Dr. Cm, pt is medically clear to be evaluated by crisis at this time. Clarissa OSWALD aware. SStbennett RN CM
--- NOTE | 2021-06-11 12:07 | CASEMGMT ---
Per Dr. Cm, pt is medically clear to be evaluated by hospice at this time. Clarissa OSWALD aware. John RN CM
--- NOTE | 2021-06-11 12:15 | CASEMGMT ---
Social Work Dr. Cm cleared pt for evaluation by crisis. Phone call to [facility] and Crisis and informed. [facility]ena to be in within the hour to evaluate. Ivania, Charge nurse notified. RUSTY Roberts
--- NOTE | 2021-06-11 13:25 | NURSING ---
Suicide sitter removed per Crisis center evaluation with ok for discharge home.
--- NOTE | 2021-06-11 14:20 | PCM.DC.SUM ---
Providers Date of Admission: 06/09/21 Date of Discharge: 06/11/21 Primary Care Physician: Sofia Primary Care Phys Consultations 06/09/21 08:17 Consult: Nephrology Routine Consulting Provider: Isidoro Rivera Reason for Consult: dialysis EMERGENT Consult: No MD Notified: Yes Date Notified: 06/09/21 Time Notified: 08:07 Method of Notification: Verbal Reason For Visit: CHEST PAIN Diagnosis Discharge Diagnosis (1) ESRD (end stage renal disease) on dialysis: Status: Chronic Code(s): N18.6 - End stage renal disease; Z99.2 - Dependence on renal dialysis (2) Hyperkalemia: Status: Acute Code(s): E87.5 - Hyperkalemia (3) Hyponatremia: Status: Acute Code(s): E87.1 - Hypo-osmolality and hyponatremia (4) Hyperphosphatemia: Status: Acute Code(s): E83.39 - Other disorders of phosphorus metabolism (5) Nonspecific chest pain: Status: Acute Code(s): R07.9 - Chest pain, unspecified Medications at Discharge Home Medications Velphoro 1,000 mg PO TID 11/10/18 sevelamer carbonate [Renvela] 1 tab PO TID 11/10/18 amlodipine 10 mg PO DAILY 05/17/19 Maylin-Neal 1 tab PO DAILY 06/09/21 hydroxyzine pamoate 25 mg PO TID PRN 06/09/21 sertraline 50 mg PO DAILY 06/09/21 tramadol 50 mg PO Q4H PRN 06/09/21 Hospital Course Summary of Care Provided Hospital Course: This 54-year-old gentleman was admitted with atypical chest pain when he used cocaine last night before admission. Patient has history of end-stage renal disease most probably genetic and is on hemodialysis but he missed hemodialysis schedule. In ED his potassium was 7.4 but that was hemolyzed, next one was 5.7. The patient was admitted in PCU. 1. Hyperkalemia most likely due to missed hemodialysis: There was no EKG acute changes suggestive of hyperkalemia. Patient had hyperkalemia treatment in the ED. The airdrop systems technician was consulted patient was comanaged with airdrop systems technician. Patient had hemodialysis and last potassium 5.6. Patient also on lisinopril 40 mg daily at home which was discontinued. 2. Nonspecific chest pain, patient confused abdominal pain with chest pain. It was right-sided, transient and resolved. Ultrasound abdomen was unremarkable. No evidence of cholecystitis. Troponins have been negative and therefore any further work-up was not proceeded. Follow-up PCP. 3. End-stage renal disease On hemodialysis Missed dialysis on the first. Discussed with Dr. Carrillo and hemodialysis was done. Hemodialysis was done on the day of discharge. 4. Cocaine abuse, chest/abdominal pain may be related with cocaine abuse Complicates care and recovery States that he uses it intermittently but not daily 5. Suicidal ideation: Patient had vague suicidal ideation although no suicidal plan or attempt. Patient was evaluated by Patient evaluated by crisis management team and seems no risk for suicidal attempt and does not need inpatient psychiatric admission and considered safe for home discharge. 6. VTE prophylaxis with subcu heparin Discharge medication reconciliation done. Discharge follow-up instructions completed. Discharge process discussed with the patient and all questions were answered to patient's satisfaction. Total time spent, exact 35 minutes on discharge meds reconciliation, examination, coordination of care with nurses and ancillary staff, review of imaging and blood test and discussion with the patient on follow-up instructions. Physical Exam Narrative Seen and examined. Patient does not have chest pain tightness or shortness of breath. He states he had vague suicidal ideation but no suicidal plan or attempt. General: Alert, Oriented x3, Cooperative HEENT: Atraumatic, PERRLA, EOMI, Normocephalic Oral: No Gingival or Mucosal Lesions/ Ulcerations Neck: Supple, No JVD, Negative Carotid Bruits Lungs: Air entry diminished in bilateral lung bases. No crepitation/rhonchi Cardiovascular: Regular rate, Regular Rhythm, Normal S1, Normal S2, No murmurs Abdomen: Bowel Sounds Present, Soft, Non Tender, Non-Distended : AV fistula lower right arm. Good thrill palpable. No renal angle tenderness. No suprapubic tenderness. Extremities: No edema, Capillary Refill Less than 3 Seconds Skin: No rashes, No breakdown Musculoskeletal: No Tenderness to Palpation of Joints or Extremities Neurological: Cranial nerves II-XII grossly intact, DTR 2+/4 and Symmetrical, Neuro grossly intact Psych/Mental Status: Normal Affect, Appropriate Weight / BMI Weight Weight: 275 lb 0.003 oz Body Mass Index (BMI) 38.3 ABG / Lab / Microbiology Data Result Diagrams: 06/10/21 05:41 06/11/21 06:20 Laboratory: Laboratory Results - last 24 hr 06/11/21 06:20: Sodium 133 L, Potassium 5.6 H, Chloride 98, Carbon Dioxide 22.0, Anion Gap 13, BUN 65 H, Creatinine 11.60 H*, Estim Creat Clear Calc 7.84, Est GFR (MDRD) Af Amer 6 L, Est GFR (MDRD) Non-Af 5 L, BUN/Creatinine Ratio 5.6 L, Glucose 78, Calcium 8.8 06/11/21 06:20: Phosphorus 8.1 H Microbiology: Microbiology 06/09/21 06:25 Nasal Secretion SARS-CoV-2 Antigen (Rapid) - Final D/C Instructions Discharge Diet: 8 Cup Fluid Restriction, 2000 mg Sodium Diet and Renal Diet Call your doctor if you observe: Fever of 101 or Higher, Coldness, Increased Pain, Numbness or Tingling, Change in Color, Inability to urinate, Inability to have a bowel movement, Shortness of breath, Dizziness, Fainting spells, Swelling in the ankles, Chest pain, Prolonged hiccupping, Increased palpitations (irregular heartbeat), Calf discomfort and Uncontrolled pain Meaningful Use Info Meaningful Use Diagnoses (Choose all that apply): None applicable Discharge Plan Admission Admit Date/Time: 06/09/21 08:00 Primary Reason for Your Visit: Hyperkalemia due to missed hemodialysis Attending Provider: Luke Cm Primary Care Provider: Care Physician,No Primary Consulting Providers: Isidoro Rivera Discharge Orders/Prescriptions Prescriptions: Continued sevelamer carbonate [Renvela] 800 MG tablet 1 tab PO TID RF: 0 Velphoro 500 MG tablet,chewable 1,000 mg PO TID RF: 0 amlodipine 10 MG tablet 10 mg PO DAILY RF: 0 tramadol 50 mg Tablet 50 mg PO Q4H PRN (Reason: Pain) RF: 0 Maylin-Neal 0.8 mg Tablet 1 tab PO DAILY RF: 0 hydroxyzine pamoate 25 mg Capsule 25 mg PO TID PRN (Reason: Anxiety) RF: 0 sertraline 50 MG tablet 50 mg PO DAILY RF: 0 Discontinued lisinopril 40 mg tablet 40 mg PO DAILY RF: 0 Referrals / Follow Up: Sandhya Dent MD [STAFF PHYSICIAN] - In 1 Week (for Hyperkalemia) Care Physician,No Primary [Primary Care Provider] - Disposition Disposition (needs filled in before D/C Order can be placed): Home, Self Care Charges/Coding Visit Charges Inpatient E&M: 38076 Disch Hosp
--- NOTE | 2021-06-11 15:15 | CASEMGMT ---
Social Work Pt with a history of substance use. SW met with pt and introduced self and role of SW. Pt states he does not drink alcohol but does use cocaine about twice a month. Pt states that he had been going to [facility] for individual and group counseling and this was very helpful but he stopped about a year ago. Pt agreeable to restarting program and agreeable for SW to make an appointment. Pt stating he does not have transportation, but in the past [facility] provided transportation. Phone call placed to [facility] and left requesting return call to set appointment. Of note pt has dialysis on MW and could go to [facility] on or . SW to continue to follow. RUSTY Roberts
--- NOTE | 2021-06-11 17:12 | DIALYSIS ---
hemodialysis completed x 4 hrs. Access via [facility]. NET fluid removal 3000ml. pt stable post tx. See HD flowsheet on chart.
--- NOTE | 2021-06-12 08:47 | CASEMGMT ---
Social Work SW received return call from [place] at [facility]. Appointment made for pt to meet with a counselor on 06/19 at 9:30 with [facility] transportation to pick him up at 9:15. Pt was discharged yesterday. VM left with pt at this time with appointment information. RUSTY Roberts
== END 2021-06-11 18:05 | disposition home or self-care (01) | DRG 640 ==
LOC: ED 07:37 → PCU 08:49
PROVIDERS: Internal Medicine Nephrology; Emergency Provider Emergency Medicine; Visit Provider Internal Medicine
DX: E87.5 Hyperkalemia (principal); N18.6 End stage renal disease; I12.0 Hypertensive chronic kidney disease with stage 5 chronic kidney disease or end stage renal disease; R45.851 Suicidal ideations; E83.39 Other disorders of phosphorus metabolism; Z99.2 Dependence on renal dialysis; E11.22 Type 2 diabetes mellitus with diabetic chronic kidney disease; F14.10 Cocaine abuse, uncomplicated; J44.9 Chronic obstructive pulmonary disease, unspecified; E11.40 Type 2 diabetes mellitus with diabetic neuropathy, unspecified; E87.1 Hypo-osmolality and hyponatremia; E87.8 Other disorders of electrolyte and fluid balance, not elsewhere classified; F17.210 Nicotine dependence, cigarettes, uncomplicated; E78.5 Hyperlipidemia, unspecified; R07.9 Chest pain, unspecified; F32.A Depression, unspecified
CPT/HCPCS: 36415; 71045; 76705; 80048; 80053; 80076; 80329; 82077; 83690; 84100; 84484; 85025; 87811; 90937; 93005; 99285; 99406; J7030; A4216; G0257; G0480; J0610

== ENCOUNTER 2022-08-02 11:25 | Emergency (ER) | payer MEDICARE, MEDICAID, SELFPAY ==
[2022-08-02] VITALS (9 sets, daily range): BP systolic 139–155; BP diastolic 82–88; PULSE 70–88; RESP 15–22; TEMP 37.2; O2SAT 99–100; BMI 40.8
--- NOTE | 2022-08-02 11:40 | EKG12_ITS ---
Test Reason : CP Blood Pressure : / mmHG Vent. Rate : 081 BPM Atrial Rate : 081 BPM P-R Int : 154 ms QRS Dur : 092 ms QT Int : 396 ms P-R-T Axes : 052 -29 038 degrees QTc Int : 460 ms Sinus rhythm with frequent Premature ventricular complexes Otherwise normal ECG Confirmed by ANA ROSA TOMAS, INDER ([id number]), legal editor HARLEY ABDI ([id number]) on 08/06/2022 10:11:28 AM Referred By: FADIA Confirmed By:INDER OSEGUERA MD
--- NOTE | 2022-08-02 11:40 | RAD_ITS ---
STUDY: X-RAY CHEST REASON FOR EXAM: Male, 56 years old. Chest pain TECHNIQUE: Single AP portable view of the chest. COMPARISON: June 09, 2021, June 14, 2020 chest x-ray FINDINGS: There is persistent mildly prominent interstitial markings in the left lung base. There is no demonstrated pleural abnormality. Normal size heart. Normal mediastinum and velma. Normal visualized pulmonary arteries. There is atherosclerotic tortuosity of the aortic arch and descending thoracic aorta. Normal visualized thoracic spine. Normal visualized ribs, clavicles, and shoulders. There is no demonstrated abnormality of the visualized soft tissue structures of the upper abdomen. RAD/Chest 1 View (Portable) IMPRESSION: Stable chest no visualized acute focal infiltrate. Electronically Signed: Nicole Armas MD at 12:25 EDT ,
--- NOTE | 2022-08-02 11:41 | ED.VIS.CHEST ---
HPI History of Present Illness Chief Complaint: Chest Pain Narrative Narrative: 56-year-old male past medical history of COPD, pulmonary hypertension, diabetes, end-stage renal disease presents from dialysis with chest pain. He states he usually has chest pain when his potassium is high. He had missed his last 2 dialysis sessions because he states he went to [place] last Friday, week ago, and did not come back until Friday morning. He was unable to get any dialysis in [place], and was going to go Friday, , and Friday, but was only able to go today. He only had half an hour left on his dialysis and he states he started experiencing chest pain and pressure as he had in the past. It is in the middle to left side. He denies any nausea or vomiting, no other symptoms. He denies any new shortness of breath. He may have felt feverish. He usually wears 3 to 4 L of oxygen and has history of obstructive sleep apnea. [facility] Medical History Anemia Bipolar affective disorder Chronic back pain COPD (chronic obstructive pulmonary disease) Derangement of left patella ESRD (end stage renal disease) on dialysis ESRD on dialysis Excessive daytime sleepiness Gastroesophageal reflux disease History of Vides's palsy History of drug dependence/abuse History of peptic ulcer disease Hyperlipidemia Hyperparathyroidism due to end stage renal disease on dialysis Hyperphosphatemia Hypertension Hypertriglyceridemia Hyponatremia Neuropathy Nonrheumatic tricuspid (valve) insufficiency Obstructive Sleep Apnea-Hypopnea Syndrome TAY (obstructive sleep apnea) Polycystic kidney disease Renal failure Substance use disorder Tobacco abuse Type II diabetes mellitus Home Medications sevelamer carbonate 800 mg tablet (Renvela) 1 tab PO TID dialysis 11/10/18 [History Last Taken 05/25/19] sucroferric oxyhydroxide 500 mg chewable tablet (Velphoro) 1,000 mg PO TID supplement 11/10/18 [History Last Taken 05/24/19] amlodipine 10 mg tablet 10 mg PO DAILY BP 05/17/19 [History Last Taken 05/25/19] hydroxyzine pamoate 25 mg capsule 25 mg PO TID PRN Anxiety 06/09/21 [History Last Taken Unknown] sertraline 50 mg tablet 50 mg PO DAILY depression 06/09/21 [History Last Taken Unknown] tramadol 50 mg tablet 50 mg PO Q4H PRN Pain 06/09/21 [History Last Taken Unknown] vitamin B complex-vitamin C-folic acid 0.8 mg tablet (Maylin-Neal) 1 tab PO DAILY dialysis 06/09/21 [History Last Taken Unknown] Allergy/AdvReac Type Severity Reaction Status Date / Time adhesive tape [tape] Allergy Rash Verified 08/02/22 11:43 latex Allergy Rash Verified 08/02/22 11:43 hydrocodone AdvReac Abd Verified 08/02/22 11:43 cramps/diarrhea Family History Brother CAD (coronary artery disease) Congestive heart failure Father , age 58 from polycystic kidney disease Diabetes CAD (coronary artery disease) Kidney disease polycystic kidney disease Mother Bleeding disorder Brother Kidney disease Surgical History AV fistula (~2013) History of facial surgery History of total left knee replacement Social History Smoking Status: Current some day smoker tobacco type: cigarettes Tobacco: How many years used: 14 alcohol intake: current substance use type: crack/cocaine ROS ROS ED ROS Narrative Constitutional: No fever, no chills. HEENT: No sore throat. No neck pain. No loss of vision. No rhinorrhea. Cardiovascular: Positive midsternal to left-sided chest pain. No palpitations. No pedal edema. Respiratory: No cough, no shortness of breath. Abdominal: No abdominal pain. No nausea. No vomiting. Genitourinary: No dysuria. No hematuria. Musculoskeletal: No myalgias. No arthralgias. Neurologic: No headaches. No dizziness. No lightheadedness. Skin: No rash. No change in color. Psychiatric: No depression. No anxiety. EXAM Physical Exam Narrative Exam Narrative: Afebrile. Vital signs noted. HEENT: Normocephalic. Atraumatic. PERRL, EOMI. Neck soft and supple. No point tenderness or step off. Cardiovascular: Regular rate and rhythm. No murmurs, rubs, or gallops appreciated. Respiratory: Mild tachypnea. Lungs clear to auscultation bilaterally. Gastrointestinal: Abdomen soft, nontender, with normoactive bowel sounds. No rebound or guarding. Neurological: Awake. Alert. Nonfocal, nonlateralizing. Skin: No rash. Normal color. No pallor. Musculoskeletal: No pedal edema. Full range of motion extremities. Const Vital Signs: 08/02/22 11:27 08/02/22 11:33 08/02/22 11:33 Temperature 98.9 F 98.9 F Temperature Source Temporal Temporal Pulse Rate 81 86 88 Respiratory Rate 20 H 15 20 H Respiratory Effort Blood Pressure 155/82 H 155/82 H 155/82 H Blood Pressure Mean 106 106 106 Pulse Ox 99 99 100 Oxygen Delivery Method Nasal Cannula Nasal Cannula Nasal Cannula Oxygen Flow Rate (L/min) 4 4 4 08/02/22 11:42 08/02/22 11:43 08/02/22 12:27 Temperature Temperature Source Pulse Rate 77 Respiratory Rate 19 H Respiratory Effort Short of Breath Labored Blood Pressure Blood Pressure Mean Pulse Ox 100 100 Oxygen Delivery Method Nasal Cannula Nasal Cannula Oxygen Flow Rate (L/min) 4 4 08/02/22 13:06 08/02/22 13:49 08/02/22 13:52 Temperature Temperature Source Pulse Rate 74 70 Respiratory Rate 17 18 Respiratory Effort Blood Pressure 140/83 H Blood Pressure Mean 102 Pulse Ox 100 100 Oxygen Delivery Method Room Air Nasal Cannula Oxygen Flow Rate (L/min) 4 08/02/22 14:11 Temperature Temperature Source Pulse Rate 81 Respiratory Rate 22 H Respiratory Effort Blood Pressure Blood Pressure Mean Pulse Ox Oxygen Delivery Method Room Air Oxygen Flow Rate (L/min) MDM MDM MDM Narrative Medical decision making narrative: I reviewed the patient's prior ED visits and laboratory work. He has had troponin of 30 last year even with his chronic kidney disease/end-stage renal disease. EKG was obtained and interpreted by myself as normal sinus rhythm at 81 bpm with PVCs but no acute ST changes. No STEMI. I will obtain obtain troponins and a chest x-ray along with CBC and a CMP to check his electrolyte status. I doubt that he is that hyperkalemic as he had almost completed his dialysis. There were no acute ST T changes or EKG changes found that would be consistent with hyperkalemia. I will obtain a chest x-ray to look for fluid overload. I do not feel a BNP is indicated as I feel it may be falsely elevated because of his end-stage renal disease. I reviewed the patient's laboratory work and he has a normal white count of 5.5, hemoglobin stable at 12.1, hematocrit 35.9. Normal platelet count of 194. Review of his CMP shows normal sodium of 137, potassium is normal at 3.7, chloride slightly low at 96. BUN is elevated at 45 and his creatinine is elevated at 8.93 consistent with his end-stage renal disease. Glucose is normal at 77 with a normal anion gap of 11. Initial high-sensitivity troponin is 29. Repeat is 31. This is around his baseline. Even with his end-stage renal disease and elevated creatinine, he has acceptable serial troponins. I feel he can be discharged safely home with follow-up. I reviewed and interpreted his chest x-ray independently and see no evidence of pneumonia or pneumothorax. I reviewed the radiology report which confirms my independent interpretation. He states that he feels well. He states he is going to try and get some more water taken off of him tomorrow and show up for dialysis on Friday as scheduled. Return instructions to the emergency department were reviewed. Disposition is discharged home in stable condition. History & Record Review Discussion w/independent historian: Patient Additional record(s) reviewed:: Prior ED visit and Prior labs Lab Data Attestation: I reviewed the patient's lab results. Labs: Laboratory Results - last 24 hr 08/02/22 08/02/22 08/02/22 12:00 12:00 14:20 WBC 5.5 RBC 4.24 L Hgb 12.1 L Hct 35.9 L MCV 84.7 MCH 28.5 MCHC 33.7 RDW Std Deviation 43.8 RDW Coeff of Mook 14.3 Plt Count 194 MPV 9.2 Immature Gran % (Auto) 0.200 Neut % (Auto) 67.3 Lymph % (Auto) 20.8 [place] % (Auto) 8.4 Eos % (Auto) 2.4 Baso % (Auto) 0.9 Absolute Neuts (auto) 3.7 Absolute Lymphs (auto) 1.14 Nucleated RBC % 0 Sodium 137 Potassium 3.7 Chloride 96 L Carbon Dioxide 30.0 Anion Gap 11 BUN 45 H Creatinine 8.93 H* Estim Creat Clear Calc 10.07 Est GFR (MDRD) Af Amer 8 L Est GFR (MDRD) Non-Af 7 L BUN/Creatinine Ratio 5.0 L Glucose 77 Calcium 9.5 Total Bilirubin 0.60 AST 11 L ALT 10 L Alkaline Phosphatase 161 H Troponin I High Sens 29 31 Total Protein 7.2 Albumin 3.2 Globulin 4.0 Albumin/Globulin Ratio 0.8 L Radiography Diagnostic Testing: Clinical Impression(s) from Imaging Studies Chest X-Ray 08/02/22 11:40 IMPRESSION: Stable chest no visualized acute focal infiltrate. Electronically Signed: Nicole Armas MD at 12:25 EDT , Discharge Plan Triage Chief Complaint: Chest Pain ED Provider: Amol Powell Dx/Rx/DC Orders Prescriptions: No Action sevelamer carbonate [Renvela] 800 MG tablet 1 tab PO TID Velphoro 500 MG tablet,chewable 1,000 mg PO TID Rx Instructions: WITH MEALS amlodipine 10 MG tablet 10 mg PO DAILY tramadol 50 mg Tablet 50 mg PO Q4H PRN (Reason: Pain) Maylin-Neal 0.8 mg Tablet 1 tab PO DAILY hydroxyzine pamoate 25 mg Capsule 25 mg PO TID PRN (Reason: Anxiety) sertraline 50 MG tablet 50 mg PO DAILY Rx Instructions: HAS BEEN OUT OF IT SINCE JULY BUT SHOULD BE ON IT Primary Care Provider: Care Physician,No Primary Referrals: Care Physician,No Primary [Primary Care Provider] -
--- NOTE | 2022-08-02 11:50 | ED.RN ---
THIS RN ATTEMPTED TO CALL PT MOTHER PER PT REQUEST. PT MOTHER DID NOT ANSWER AT 1150. NAME IS ADRIEN PHONE NUMBER IS [phone].
[2022-08-02 12:20] LABS: Absolute Lymphocyte Count 1.14 X10^3/uL (0.83-4.51); Absolute Neutrophil Count 3.7 X10^3/uL (2.0-7.7); Basophil# 0.05 X10^3/uL; Basophil% 0.9 % (0-1); Eosinophil# 0.13 X10^3/uL; Eosinophils% 2.4 % (0-5); Hematocrit 35.9 % (40-54); Hemoglobin 12.1 g/dL (13.0-16.5); Lymphocyte # 1.14 X10^3/ul (0.83-4.51); Lymphocyte % 20.8 % (19-41); Mean Corp Hgb Conc 33.7 g/dL (32-36); Mean Corpuscular Hgb 28.5 pg (27.0-32.0); Mean Corpuscular Volume 84.7 fL (80-94); Mean Platelet Vol. 9.2 fl (6.2-12.0); Monocyte# 0.46 X10^3/uL; Monocyte% 8.4 % (0-10); NRBC Flagged by Analyzer 0 % (0-5); Neutrophil # 3.68 X10^3/uL (2.7-7.7); Neutrophil % 67.3 % (47-70); Platelet Count 194 K/mm3 (150-450); RBC Distribution Width CV 14.3 % (11.6-14.6); RBC Distribution Width SD 43.8 fl (35.1-43.9); Red Blood Count 4.24 M/mm3 (4.6-6.2); White Blood Count 5.5 K/mm3 (4.4-11.0)
[2022-08-02 12:43] LABS: ALB/GLOB Ratio 0.8 RATIO (0.9-2.4); AST(SGOT) 11 U/L (15-37); Alanine Aminotransfer ALT/SGPT 10 U/L (16-61); Albumin, Serum 3.2 g/dL (3.2-5.0); Alkaline Phosphatase 161 U/L (45-117); Anion Gap 11 (5-15); BUN 45 mg/dL (7-18); Calcium,Total 9.5 mg/dL (8.5-10.1); Chloride 96 mmol/L (98-107); Creatinine, Serum 8.93 mg/dL (0.70-1.30); EST Glomerular Filtration Rate 7 mL/min (>60); Est Glom Filt Rate - Afr Amer 8 mL/min (>60); Estimated Creatinine Clearance 10.07 ml/min; Glucose 77 mg/dL (74-106); Potassium 3.7 mmol/L (3.5-5.1); Protein, Total 7.2 g/dL (6.4-8.2); Sodium Level 137 mmol/L (136-145); Troponin-I HS (w/2H Reflex) 29 pg/mL (3.0-78.0)
[2022-08-02 14:12] LABS: Reflex Troponin-HS? (from REC) Y
--- NOTE | 2022-08-02 14:35 | CM.ED ---
Addendum entered by Helen Mars 08/02/22 17:37: DAREK unable to reach [facility] transportation at 4:15p. DAREK contacted checkout supervisor with update, Aj provided permission to arrange taxi transportation and [facility] will pay bill. DAREK updated care team, community facilitator to set up transportation with local taxi company. Plan: Personal Transportation taxi to get patient and transport home TATIANA Benjamin Original Note: Social Work Referral Source: Assistant Activities Director Aj Referral Reason: transportation Patient needing transportation arranged to go home from ED. DAREK contacted [facility] transportation to inquire about transportation home for patient. [facility] transportation staff available to assist patient between 3:45-4pm. DAREK updated patient's RN. Plan: [facility] transportation will be transporting patient home from ED TATIANA Benjamin
[2022-08-02 14:46] LABS: Troponin-I HS 31 pg/mL (3.0-78.0)
== END 2022-08-02 16:58 | disposition home or self-care (01) ==
PROVIDERS: Emergency Provider Emergency Medicine; Visit Provider Emergency Medicine
DX: R07.9 Chest pain, unspecified (principal); Z99.2 Dependence on renal dialysis; J44.9 Chronic obstructive pulmonary disease, unspecified; E11.22 Type 2 diabetes mellitus with diabetic chronic kidney disease; E11.40 Type 2 diabetes mellitus with diabetic neuropathy, unspecified; N18.6 End stage renal disease; I12.0 Hypertensive chronic kidney disease with stage 5 chronic kidney disease or end stage renal disease; E78.5 Hyperlipidemia, unspecified; F17.210 Nicotine dependence, cigarettes, uncomplicated
CPT/HCPCS: 71045; 80053; 84484; 85025; 93005; 99285

== ENCOUNTER 2023-07-04 19:51 | Emergency (ER) | payer MEDICARE, MEDICAID, SELFPAY ==
[2023-07-04 19:52] VITALS: BP 166/96; PULSE 66; RESP 18; TEMP 36.3; O2SAT 96
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
[2023-07-04] MEDS: Oxycodone/Apap 5/325 Tablet PO (20:48)
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
[2023-07-04 21:22] VITALS: BP 149/85; PULSE 68; RESP 18; TEMP 36.3; O2SAT 92
== END 2023-07-04 21:26 | disposition home or self-care (01) ==
PROVIDERS: Emergency Provider Emergency Medicine; PCP Student in an Organized Health Care Education/Training Program; Visit Provider Emergency Medicine
DX: S00.93XA Contusion of unspecified part of head, initial encounter (principal); I12.0 Hypertensive chronic kidney disease with stage 5 chronic kidney disease or end stage renal disease; N18.6 End stage renal disease; J44.9 Chronic obstructive pulmonary disease, unspecified; E11.22 Type 2 diabetes mellitus with diabetic chronic kidney disease; S10.93XA Contusion of unspecified part of neck, initial encounter; Z87.891 Personal history of nicotine dependence; Z99.2 Dependence on renal dialysis; E78.5 Hyperlipidemia, unspecified; Z79.899 Other long term (current) drug therapy; Z96.652 Presence of left artificial knee joint; V49.40XA Driver injured in collision with unspecified motor vehicles in traffic accident, initial encounter; Y92.481 Parking lot as the place of occurrence of the external cause
CPT/HCPCS: 70450; 72125; 99282

== ENCOUNTER 2023-07-13 11:51 | Inpatient (IN) | payer MEDICARE, MEDICAID, SELFPAY ==
[2023-07-13] VITALS (32 sets, daily range): BP systolic 125–189; BP diastolic 71–94; PULSE 56–73; RESP 15–25; TEMP 36.6–36.8; O2SAT 91–100; BMI 38.5; BMI 37.8
--- NOTE | 2023-07-13 12:25 | CT_ITS ---
EXAM: CT HEAD WITHOUT INTRAVENOUS CONTRAST CLINICAL INDICATION: AMS TECHNIQUE: Multiple axial images were obtained of the head without intravenous contrast. This CT exam was performed using one or more of the following dose reduction techniques: automated exposure control, adjustment of the mA and/or kV according to patient size, and/or use of iterative reconstruction technique. RADIATION DOSE: CTDIvol = 44.99 mGy, DLP = 812.98 mGy-cm COMPARISON: 07/04/2023 FINDINGS: BRAIN AND EXTRA-AXIAL SPACES: Unremarkable. No intra- or extra-axial hemorrhage. No evidence of acute infarct. No intracranial mass or mass effect. There is preservation of the whitaker/white matter interface. Posterior fossa structures are unremarkable. Ventricles are appropriate for age. No hydrocephalus. Basal cisterns are patent. BONES/JOINTS: Diffuse abnormal calvarium with diffuse cortical thickening of the bone. This can relate to metabolic disorder, or diffuse metastatic disease. SINUSES: Unremarkable as visualized. Clear. MASTOID AIR CELLS: Unremarkable. Clear. ORBITS: Visualized globes, extraocular muscles, optic nerves and retrobulbar fat appear unremarkable. CT/Brain/Head without Contrast IMPRESSION: Diffuse abnormal calvarium with diffuse cortical thickening of the bone. This can relate to metabolic disorder, or diffuse metastatic disease. Electronically Signed: Rajesh Belcher MD at 14:20 EDT ,
--- NOTE | 2023-07-13 12:25 | CT_ITS ---
INDICATION: FALL EXAMINATION: CT CERVICAL SPINE - CT Spine Cervical W/O Contrast Injection TECHNIQUE: Helically acquired images were obtained of the cervical spine. 2D reformatted images were reviewed. A radiation dose optimization technique was used for this scan. IV Contrast dosage and agent: None. RADIATION DOSAGE (If Supplied By Facility): CTDIvol = ( 27.3 ) mGy, DLP = ( 622.26 ) mGycm COMPARISON: Prior study dated: 07/04/2023 FINDINGS: VERTEBRAE: No fracture or traumatic subluxation. Diffuse sclerosis and mottled appearance of the cervical spine unchanged the prior examination again suggestive of colonic bones disorder or possibly renal osteodystrophy. Metastatic disease is less likely. Question minimal anterolisthesis of C2 over C3 not seen on the previous exam however, the posterior elements are well aligned as well as the facet joints. Ligamentous laxity is doubtful. Normal craniocervical junction and cervicothoracic junction. DISCS and SPINAL CANAL: Disc heights are preserved. No critical stenosis. NECK SOFT TISSUES: No prevertebral soft tissue swelling. There is no cervical adenopathy. LUNG APICES: Clear. CT/Spine Cervical without Contras IMPRESSION: 1. No evidence of acute fracture. 2. Minimal anterolisthesis of C2 over C3 as described above could be positional. If symptoms persist further evaluation with MRI of the cervical spine is recommended. 3. Diffuse sclerosis of the osseous structures unchanged again likely due to metabolic bone disorder. Metastatic disease less likely. Electronically Signed: Yves Caro MD at 14:31 EDT ,
[2023-07-13 12:29] LABS: Bedside Glucose 151 mg/dL (74-106)
--- NOTE | 2023-07-13 12:30 | EKG12_ITS ---
Test Reason : CP Blood Pressure : / mmHG Vent. Rate : 062 BPM Atrial Rate : 062 BPM P-R Int : 170 ms QRS Dur : 108 ms QT Int : 468 ms P-R-T Axes : 025 -22 018 degrees QTc Int : 475 ms Normal sinus rhythm Normal ECG Confirmed by ANA ROSA TOMAS, INDER ([id number]), editor city JARRET KERN ([id number]) on 07/14/2023 7:01:21 AM Referred By: KAMILA/JULIETTE Confirmed By:INDER OSEGUERA MD
--- NOTE | 2023-07-13 12:35 | RAD_ITS ---
INDICATION: chest pain EXAMINATION/TECHNIQUE: X-RAY - XR Chest 1 View COMPARISON: Prior study dated: 08/02/2022 FINDINGS: LINES/DEVICES: None. LUNGS: Prominence of the pulmonary vasculature. No focal infiltrate is seen. No evidence of pleural effusions. MEDIASTINUM AND CARDIOVASCULAR STRUCTURES: Borderline enlargement of the cardiac silhouette. BONES AND SOFT TISSUES: Unremarkable. RAD/Chest 1 View (Portable) IMPRESSION: Pulmonary venous congestion. Electronically Signed: Yves Caro MD at 13:12 EDT ,
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
[2023-07-13] MEDS: LORazepam 2 MG/ML Syringe IM (13:30)
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
[2023-07-13 14:37] LABS: Absolute Lymphocyte Count 1.19 X10^3/uL (0.83-4.51); Absolute Neutrophil Count 2.9 X10^3/uL (2.0-7.7); Basophil# 0.04 X10^3/uL; Basophil% 0.8 % (0-1); Eosinophil# 0.27 X10^3/uL; Eosinophils% 5.5 % (0-5); Hematocrit 33.2 % (40-54); Hemoglobin 10.5 g/dL (13.0-16.5); Lymphocyte # 1.19 X10^3/ul (0.83-4.51); Lymphocyte % 24.4 % (19-41); Mean Corp Hgb Conc 31.6 g/dL (32-36); Mean Corpuscular Hgb 29.3 pg (27.0-32.0); Mean Corpuscular Volume 92.7 fL (80-94); Mean Platelet Vol. 9.7 fl (6.2-12.0); Monocyte# 0.44 X10^3/uL; NRBC Flagged by Analyzer 0 % (0-5); Neutrophil # 2.92 X10^3/uL (2.7-7.7); Neutrophil % 60.1 % (47-70); Platelet Count 183 K/mm3 (150-450); RBC Distribution Width CV 15.3 % (11.6-14.6); RBC Distribution Width SD 51.8 fl (35.1-43.9); Red Blood Count 3.58 M/mm3 (4.6-6.2); White Blood Count 4.9 K/mm3 (4.4-11.0)
[2023-07-13 15:02] LABS: BNP,B-Type NATRIURETIC PEPTIDE 1269.5 pg/mL (0-100)
[2023-07-13 15:07] LABS: Anion Gap 9 (5-15); BUN 62 mg/dL (7-18); BUN/Creat Ratio 4.5 RATIO (10-20); Calcium,Total 8.8 mg/dL (8.5-10.1); Chloride 101 mmol/L (98-107); EST Glomerular Filtration Rate 4 mL/min (>60); Est Glom Filt Rate - Afr Amer 5 mL/min (>60); Estimated Creatinine Clearance 8.21 ml/min; Glucose 81 mg/dL (74-106); Potassium 4.7 mmol/L (3.5-5.1); Sodium Level 141 mmol/L (136-145); Troponin-I HS (w/2H Reflex) 38 pg/mL (3.0-78.0)
[2023-07-13 15:16] LABS: Alcohol, Blood (Medical)-Serum < 3.0 mg/dL
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
[2023-07-13] MEDS: Haloperidol Lactate 5 MG/ML Vial 2 MG IV (15:46)
[2023-07-13] MEDS: Haloperidol Lactate 5 MG/ML Vial 3 MG IV (15:51)
[2023-07-13 16:05] LABS: AST(SGOT) 10 U/L (15-37); Alanine Aminotransfer ALT/SGPT 7 U/L (16-61); Albumin, Serum 3.2 g/dL (3.2-5.0); Alkaline Phosphatase 155 U/L (45-117); Bilirubin, Direct 0.15 mg/dL (0.00-0.30); Globulin 3.3 g/dL (2.2-4.2); Magnesium 2.4 mg/dL (1.6-2.6); Phosphorus 8.1 mg/dL (2.5-4.9); Protein, Total 6.5 g/dL (6.4-8.2)
[2023-07-13 16:10] LABS: International Normalized Ratio 1.1; Prothrombin Time (Protime)PT. 13.9 SECONDS (11.7-14.9)
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
[2023-07-13 16:27] LABS: Amphetamine Urine VISTA NEGATIVE (<1000 ng/mL); Barbiturate Urine VISTA NEGATIVE (< 200 ng/mL); Benzodiazepine Urine VISTA NEGATIVE (< 200 ng/mL); Cocaine Urine VISTA POSITIVE (< 300 ng/mL); Ecstacy Urine VISTA NEGATIVE (< 500 ng/mL); Methadone Urine VISTA NEGATIVE (< 300 ng/mL); PCP Urine VISTA NEGATIVE (< 25 ng/mL); THC Urine VISTA NEGATIVE (< 50 ng/mL); Vista UDS pH Range 7
[2023-07-13 16:34] LABS: Reflex Troponin-HS? (from REC) Y
--- NOTE | 2023-07-13 16:56 | ED.RN ---
1640: report called to ICU nurse Irma
--- NOTE | 2023-07-13 17:32 | CPS ---
pt has been on RA but now pt is asleep and has TAY and keeps desating so RT and Nurse Lauren decided to add some o2 support
[2023-07-13] MEDS: Dextrose 50%-Water 25 GM/50 ML DISP.SYRIN IV (18:03)
[2023-07-13 18:19] LABS: Bedside Glucose 66 mg/dL (74-106)
[2023-07-13 19:05] LABS: Allen Test Positive; Base Excess 4 mmol/L (-2 to +2); Bicarbonate 28.9 mmol/L (22-26); Blood Gas Specimen Type ART; Mode Not entered; O2 Delivery Device Cannula; PO2 98 mmHG (75-100); SITE L Radial; SO2 97 % (95-99); Total Carbon Dioxide 30 mmol/L; pCO2 48.9 mmHg (35-45); pH 7.38 (7.35-7.45)
[2023-07-13 19:13] LABS: Bedside Glucose 74 mg/dL (74-106)
--- NOTE | 2023-07-13 19:41 | PCMCONS.TICU ---
HPI Consult Data Date of Consult: 07/13/23 HPI Narrative HPI Narrative: CINDI WASHINGTON, is a 57 M who presents [facility] Medical History Anemia Bipolar affective disorder Chronic back pain COPD (chronic obstructive pulmonary disease) Derangement of left patella ESRD (end stage renal disease) on dialysis ESRD on dialysis Excessive daytime sleepiness Gastroesophageal reflux disease History of Vides's palsy History of drug dependence/abuse History of peptic ulcer disease Hyperlipidemia Hyperparathyroidism due to end stage renal disease on dialysis Hyperphosphatemia Hypertension Hypertriglyceridemia Hyponatremia Neuropathy Nonrheumatic tricuspid (valve) insufficiency Obstructive Sleep Apnea-Hypopnea Syndrome TAY (obstructive sleep apnea) Polycystic kidney disease Renal failure Substance use disorder Tobacco abuse Type II diabetes mellitus Home Medications sevelamer carbonate 800 mg tablet (Renvela) 1 tab PO TID dialysis 11/10/18 [History Last Taken 05/25/19] sucroferric oxyhydroxide 500 mg chewable tablet (Velphoro) 1,000 mg PO TID supplement 11/10/18 [History Last Taken 05/24/19] amlodipine 10 mg tablet 10 mg PO DAILY BP 05/17/19 [History Last Taken 05/25/19] hydroxyzine pamoate 25 mg capsule 25 mg PO TID PRN Anxiety 06/09/21 [History Last Taken Unknown] sertraline 50 mg tablet 50 mg PO DAILY depression 06/09/21 [History Last Taken Unknown] tramadol 50 mg tablet 50 mg PO Q4H PRN Pain 06/09/21 [History Last Taken Unknown] vitamin B complex-vitamin C-folic acid 0.8 mg tablet (Maylin-Neal) 1 tab PO DAILY dialysis 06/09/21 [History Last Taken Unknown] Allergy/AdvReac Type Severity Reaction Status Date / Time aspirin Allergy Mild Abd Verified 07/13/23 11:57 cramps/diarrhea adhesive tape [tape] Allergy Rash Verified 07/13/23 11:57 latex Allergy Rash Verified 07/13/23 11:57 Family History Brother CAD (coronary artery disease) Congestive heart failure Father , age 58 from polycystic kidney disease Diabetes CAD (coronary artery disease) Kidney disease polycystic kidney disease Mother Bleeding disorder Brother Kidney disease Surgical History AV fistula (~2013) History of facial surgery History of total left knee replacement Social History Smoking Status: Smoker, status unknown Tobacco: How many years used: 14 alcohol intake: current substance use type: crack/cocaine Objective Data Objective Data Vital Signs: Vital Signs Last response Temperature 36.8 C 07/13/23 15:20 Temperature Source Oral 07/13/23 11:52 Pulse Rate 59 L 07/13/23 18:30 Respiratory Rate 18 07/13/23 18:30 Respiratory Effort Normal 07/13/23 17:30 Respiratory Depth Shallow 07/13/23 17:30 Respiratory Pattern Normal 07/13/23 11:58 Blood Pressure 170/78 H 07/13/23 18:30 Blood Pressure Mean 108 07/13/23 18:30 Blood Pressure Source Monitor 07/13/23 18:30 Blood Pressure Position Semi-Fowlers 07/13/23 18:30 Blood Pressure Location Left Leg 07/13/23 18:30 Pulse Ox 100 07/13/23 18:30 Oxygen Delivery Method Nasal Cannula 07/13/23 18:30 Oxygen Flow Rate (L/min) 4 07/13/23 18:30 Current Meds Ordered / Administered: Current meds ordered / Administered Generic Name Dose Route Start Last Admin Trade Name Freq PRN Reason Stop Dose Admin Acetaminophen 650 mg 07/13/23 17:08 Acetaminophen 325 Mg Tablet PO Q6H PRN PRN Pain 1-10 Or Fever>100.7 Dextrose 0 gm 07/13/23 16:22 07/13/23 18:03 Dextrose 50%-Water 25 Gm/50 Ml Disp.Syrin IV 12.5 gm X1 PRN Administration Hypoglycemia Protocol Glucagon 1 mg 07/13/23 16:22 Glucagon 1 Mg/Ml Syringe IM X1 PRN Hypoglycemia Heparin Sodium (Porcine) 5,000 unit 07/13/23 22:00 Heparin Injection (Vial) 5,000 Unit/Ml Vial SC Q12 NORAH Sodium Chloride 500 mls @ 15 mls/hr 07/13/23 17:46 IV PRN PRN Blood Transfusion Sodium Chloride 250 mls @ 15 mls/hr 07/13/23 17:46 IV .[id number] PRN Additional IVPB Infusion Sodium Chloride 250 mls @ 15 mls/hr 07/13/23 17:46 IV .[id number] PRN Saline Flush Insulin Human Lispro 0 unit 07/13/23 18:00 07/13/23 18:58 Insulin Lispro 100 Unit/Ml Insuln.Pen SC Not Given Q4 NORAH Protocol Nitroglycerin 0.4 mg 07/13/23 17:08 Nitroglycerin (Inpatient Use) 0.4 Mg Tab.Subl SL Q5M PRN CARDIAC/CHEST PAIN Prochlorperazine Edisylate 5 mg 07/13/23 17:08 Prochlorperazine 10 Mg/2 Ml Vial IV Q4H PRN PRN Breakthrough Nausea/Vomiting Senna/Docusate Sodium 2 tablet 07/13/23 17:08 Senna/Docusate Sodium 1 Tablet PO BID PRN PRN Constipation Sodium Chloride 10 - 40 ml 07/13/23 17:46 0.9% Saline Lock 10 Ml Syringe IV UD PRN SALINE FLUSH Lab / Micro Data 07/13/23 14:25 07/13/23 14:25 Labs: Laboratory Results - last 24 hr 07/13/23 12:11: POC Glucose 151 H 07/13/23 14:25: WBC 4.9, RBC 3.58 L, Hgb 10.5 L, Hct 33.2 L, MCV 92.7, MCH 29.3, MCHC 31.6 L, RDW Std Deviation 51.8 H, RDW Coeff of Mook 15.3 H, Plt Count 183, MPV 9.7, Immature Gran % (Auto) 0.200, Neut % (Auto) 60.1, Lymph % (Auto) 24.4, [place] % (Auto) 9.0, Eos % (Auto) 5.5 H, Baso % (Auto) 0.8, Absolute Neuts (auto) 2.9, Absolute Lymphs (auto) 1.19, Nucleated RBC % 0, Sodium 141, Potassium 4.7, Chloride 101, Carbon Dioxide 31.0, Anion Gap 9, BUN 62 H, Creatinine 13.70 H*, Estim Creat Clear Calc 8.21, Est GFR (MDRD) Af Amer 5 L, Est GFR (MDRD) Non-Af 4 L, BUN/Creatinine Ratio 4.5 L, Glucose 81, Calcium 8.8, Phosphorus 8.1 H, Magnesium 2.4, Total Bilirubin 0.30, Direct Bilirubin 0.15, AST 10 L, ALT 7 L, Alkaline Phosphatase 155 H, Ammonia 17.0, Troponin I High Sens 38, B-Natriuretic Peptide 1269.5 H, Total Protein 6.5, Albumin 3.2, Globulin 3.3, Ethyl Alcohol < 3.0 07/13/23 15:35: Urine Opiates Screen NEGATIVE, Urine Methadone Screen NEGATIVE, Ur Barbiturates Screen NEGATIVE, Ur Phencyclidine Scrn NEGATIVE, Ur Amphetamines Screen NEGATIVE, MDMA (Ecstasy) Screen NEGATIVE, U Benzodiazepines Scrn NEGATIVE, Urine Cocaine Screen POSITIVE H, U Cannabinoids Screen NEGATIVE, Ur Drug Screen Comment 07/13/23 15:48: PT 13.9, INR 1.1 07/13/23 18:00: POC Glucose 66 L 07/13/23 18:56: POC Glucose 74 ABG Data ABG results: ABG 07/13/23 19:00 Specimen Type ART Sample Site L Radial pH 7.38 Bicarbonate Actual 28.9 H Total CO2 30 Base Excess 4 H O2 Saturation 97 O2 % 4.0 ABG pCO2 48.9 H ABG pO2 98 Jonathan Test Positive O2 Delivery Device Cannula Vent Mode Not entered Imaging Radiology Impression Brain CT 07/13/23 12:25 IMPRESSION: Diffuse abnormal calvarium with diffuse cortical thickening of the bone. This can relate to metabolic disorder, or diffuse metastatic disease. Electronically Signed: Rajesh Belcher MD at 14:20 EDT , Cervical Spine CT 07/13/23 12:25 IMPRESSION: 1. No evidence of acute fracture. 2. Minimal anterolisthesis of C2 over C3 as described above could be positional. If symptoms persist further evaluation with MRI of the cervical spine is recommended. 3. Diffuse sclerosis of the osseous structures unchanged again likely due to metabolic bone disorder. Metastatic disease less likely. Electronically Signed: Yves Caro MD at 14:31 EDT , Chest X-Ray 07/13/23 12:35 IMPRESSION: Pulmonary venous congestion. Electronically Signed: Yves Caro MD at 13:12 EDT , Assessment and Plan . Assessment and plan: 57 yo obese man w/ ESRD and h/o illicit drug use admitted 07/13/23 w/ confusion/delirium/stupor. Apparently noted to be very difficult to awaken earlier today. Brought to ED - noted stupor and difficulty w/ arousal. Afebrile and HD stable. Modest hypertension. No documented hypoglycemia. CT brain reveals NAP. During further evaluation, he apparently awoke and became very restless, agitated, uncooperative. He received ativan, and, subsequently, haldol as well. ABG reveals mild compensated hypercapnia. CXR largely unremarkable. Lab reveals chronic anemia and elevated BNP. BUN somewhat elevated. Otherwise largely unremarkable. UDS is (+) for cocaine. Apparently known h/o this as well. It has also apparently been reported that he has not attended HD for several days. He is currently in the ICU. He is currently stuporous, but will awaken somewhat w/ stimulation. HD stable - BP modestly elevated. He is breathing O2 via N/C comfortably. DFS is around 65 currently. PHYSICAL EXAM GEN NAD, stupor VS as above HEENT o/p clear, pupils small NECK no meningismus COR RRR CHEST CTA ABD soft EXT minimal edema SKIN w/d LAUREANO NF grossly ASSESSMENT 1. Delirium/encephalopathy - alternating hyper and hypo active 2. Cocaine abuse 3. Modest HTN - PRES unlikely 4. Modest hypoglycemia 5. ESRD - poor compliance w/ HD 6. Obesity 7. Anemia TREATMENT PLAN -supplemental O2 as needed -NPO for now -precedex as needed for hyperactivity -HD scheduled tomorrow -sq UFH -IV thiamine -follow [employer] exam clinically -low rate D10 infusion to prevent hypoglycemia Critical Care Time: 60 min The entirety of this encounter was done via Telemedicine
[2023-07-13] MEDS: Heparin Injection (Vial) 5,000 UNIT/ML VIAL 5000 UNIT SC (20:20)
[2023-07-13] MEDS: Thiamine Hydrochloride 200 MG in 0.9% Normal Saline (50mL Bag) 50 ML IV (20:20)
[2023-07-13] MEDS: 0.9% Normal Saline (250mL Bag) 250 ML 15 ML IV (20:20)
[2023-07-13] MEDS: Dextrose 10%-Water 250 ML 40 ML IV (20:27)
[2023-07-13 20:41] LABS: Bedside Glucose 66 mg/dL (74-106)
[2023-07-13 22:35] LABS: Bedside Glucose 66 mg/dL (74-106)
[2023-07-13] MEDS: NICARdipine 25 MG in 0.9% Normal Saline (250mL Bag) 240 ML 50 MG CONT INF (23:30)
[2023-07-14] VITALS (36 sets, daily range): BP systolic 116–297; BP diastolic 58–79; PULSE 49–64; RESP 12–19; TEMP 36.6–36.9; O2SAT 15–100; BMI 37.8; BMI 36.1
[2023-07-14] MEDS: Dextrose 10%-Water 250 ML 40 ML IV ×2 (02:23→08:48)
[2023-07-14] MEDS: NICARdipine 25 MG in 0.9% Normal Saline (250mL Bag) 240 ML 100 MG CONT INF (02:23)
[2023-07-14 03:22] LABS: Absolute Lymphocyte Count 1.25 X10^3/uL (0.83-4.51); Absolute Neutrophil Count 3.4 X10^3/uL (2.0-7.7); Basophil# 0.04 X10^3/uL; Basophil% 0.7 % (0-1); Eosinophil# 0.27 X10^3/uL; Hematocrit 33.3 % (40-54); Hemoglobin 10.5 g/dL (13.0-16.5); Lymphocyte # 1.25 X10^3/ul (0.83-4.51); Lymphocyte % 23.4 % (19-41); Mean Corp Hgb Conc 31.5 g/dL (32-36); Mean Corpuscular Hgb 29.2 pg (27.0-32.0); Mean Corpuscular Volume 92.8 fL (80-94); Mean Platelet Vol. 9.9 fl (6.2-12.0); Monocyte# 0.43 X10^3/uL; NRBC Flagged by Analyzer 0 % (0-5); Neutrophil # 3.35 X10^3/uL (2.7-7.7); Neutrophil % 62.7 % (47-70); Platelet Count 177 K/mm3 (150-450); RBC Distribution Width CV 15.2 % (11.6-14.6); RBC Distribution Width SD 51.5 fl (35.1-43.9); Red Blood Count 3.59 M/mm3 (4.6-6.2); White Blood Count 5.4 K/mm3 (4.4-11.0)
[2023-07-14 03:48] LABS: Troponin-I HS 46 pg/mL (3.0-78.0)
[2023-07-14 03:49] LABS: Anion Gap 11 (5-15); BUN 65 mg/dL (7-18); BUN/Creat Ratio 4.7 RATIO (10-20); Calcium,Total 8.9 mg/dL (8.5-10.1); Chloride 101 mmol/L (98-107); EST Glomerular Filtration Rate 4 mL/min (>60); Est Glom Filt Rate - Afr Amer 5 mL/min (>60); Glucose 100 mg/dL (74-106); Sodium Level 141 mmol/L (136-145)
[2023-07-14] MEDS: NICARdipine 25 MG in 0.9% Normal Saline (250mL Bag) 240 ML 75 MG CONT INF (05:00)
--- NOTE | 2023-07-14 05:55 | ECHOD_ITS ---
Reason For Study: SYNCOPE/NEAR SYNCOPE Procedure This was a 2D Doppler, Color Flow transthoracic echocardiogram. Exam performed portable in ICU/CCU. Left Ventricle Normal LV size. Left ventricular systolic function is normal. The left ventricular ejection fraction is 60 %. Stage 3 diastolic dysfunction. No regional wall motion abnormalities noted. Right Ventricle Normal RV size. Normal systolic function. Atria The left atrium is severely enlarged. The right atrium is mildly enlarged. Mitral Valve Thickened mitral valve leaflet especially of the anterior leaflet with a mobile calcified 1.1 x 0.5 cm structure noted. Previous calcified vegetation or part of the mitral leaflet cannot be excluded. Tricuspid Valve Normal tricuspid valve. Moderate (2+) tricuspid valve insufficiency. Pulmonary artery systolic pressure is 60 mmHg. Aortic Valve Trisinus/trileaflet aortic valve. Peak aortic valve gradient 27 mmHg. Mean aortic valve gradient 15 mmHg. Mild aortic stenosis. Pulmonic Valve Normal pulmonic valve. Great Vessels Calcified aortic root. The pulmonary artery is normal size. Inferior vena cava collapse with respiration. Pericardium/Pleural No pericardial effusion. MMode/2D Measurements & Calculations LVIDd: 6.6 cm IVSd: 1.2 cm LAV(MOD-bp): 213.0 ml LVIDs: 4.7 cm LVPWd: 1.1 cm LAV(MOD-bp) Indexed: 88.9 ml/m2 RVDd: 3.8 cm FS: 28.2 % LAV(MOD-sp2): 193.7 ml LAV(MOD-sp4): 200.1 ml SV(MOD-sp4): 159.3 ml LVAd ap4: 61.4 cm2 LVAd ap2: 50.5 cm2 LVLd ap4: 10.6 cm LVLd ap2: 10.0 cm EDV(MOD-sp4): 290.5 ml EDV(MOD-sp2): 210.9 ml EDV(sp4-el): 301.9 ml EDV(sp2-el): 216.4 ml LVAs ap4: 37.5 cm2 LVAs ap2: 30.1 cm2 LVLs ap4: 9.2 cm LVLs ap2: 8.5 cm ESV(MOD-sp4): 131.2 ml ESV(MOD-sp2): 88.8 ml ESV(sp4-el): 130.2 ml ESV(sp2-el): 91.2 ml EF(MOD-sp4): 54.8 % EF(MOD-sp2): 57.9 % EF(sp4-el): 56.9 % SV(MOD-sp2): 122.1 ml SV(sp4-el): 171.7 ml LA A4 area: 45.4 cm2 LA dimension(2D): 6.4 cm TAPSE: 2.9 cm RA A4 area: 21.5 cm2 Time Measurements MV dec time: 0.29 sec Doppler Measurements & Calculations MV E max jean carlos: 153.9 cm/sec Lat Peak E' Jean Carlos: 8.4 cm/sec Med Peak E' Jean Carlos: 7.2 cm/sec MV A max jean carlos: 67.4 cm/sec E/E' lat: 18.3 E/E' med: 21.4 MV E/A: 2.3 MV V2 max: 186.2 cm/sec MV P1/2t max jean carlos: 191.3 cm/sec Ao V2 max: 261.8 cm/sec MV max P.9 mmHg MV P1/2t: 41.2 msec Ao max P.4 mmHg MV V2 mean: 82.5 cm/sec MV dec slope: 1359 cm/sec2 Ao V2 mean: 187.9 cm/sec MV mean P.5 mmHg Ao mean P.5 mmHg MV V2 VTI: 56.5 cm MVA(P1/2t): 5.3 cm2 Ao V2 VTI: 57.7 cm AV (velocity ratio): 0.67 LV V1 max: 153.2 cm/sec MR max jean carlos: 502.5 cm/sec PA V2 max: 102.6 cm/sec LV V1 max P.4 mmHg MR max P.0 mmHg PA V2 mean: 70.7 cm/sec LV V1 mean P.8 mmHg MR mean jean carlos: 423.5 cm/sec LV V1 mean: 114.3 cm/sec MR mean P.5 mmHg LV V1 VTI: 38.6 cm MR VTI: 182.2 cm TR max jean carlos: 359.3 cm/sec TR max P.7 mmHg ECHO/Echo Complete Interpretation Summary Normal LV size. Left ventricular systolic function is normal. The left ventricular ejection fraction is 60 %. Thickened mitral valve leaflet especially of the anterior leaflet with a mobile calcified 1.1 x 0.5 cm structure noted. Previous calcified vegetation or part of the mitral leaflet cannot be excluded. Stage 3 diastolic dysfunction. Ordering Physician: Luke Cm Referring Physician: Kiet Martinez Performed By: Katie Carmona RDCS, RVT
[2023-07-14 06:49] LABS: Bedside Glucose 139 mg/dL (74-106)
--- NOTE | 2023-07-14 07:14 | PN.CC_ITS ---
Assessment & Plan Assessment/Plan (1) Syncope and collapse: PLAN: Plan RECOMMENDATIONS: 1. Restart home antihypertensive regimen and wean Cardene off. 2. Wean supplemental oxygen to maintain saturations at or above 90%. 3. Dialysis support per nephrology recommendations. 4. Echocardiogram is pending. IMPRESSIONS: 1. Syncope with altered mentation Potentially related to underlying metabolic derangements in the setting of end- stage renal disease with missed dialysis sessions, coupled with cocaine intoxication. Echocardiogram is currently pending. The patient appears to be improving from a mental status perspective. Plan to continue supportive care with ongoing dialysis support. 2. End-stage renal disease on hemodialysis The patient has a history of medical noncompliance with recent missed dialysis session. Continue supportive care with ongoing HD support per nephrology recommendations. 3. History of substance dependency/hypertension/bipolar disorder Complicates care, management, recovery and prognosis. Restart home antihypertensive regimen and wean from Cardene infusion. This note was generated with [employer] dictation software. It may contain incorrect words, spelling, and punctuation that were not noted in checking the note before signing. Subjective Subjective The patient was seen and examined at the bedside this morning. Events from the last 24 hours have been reviewed. The patient is currently afebrile, hemodynamically stable and maintaining appropriate oxygen saturations on 4 L/min via nasal cannula. The patient remains on a Cardene infusion. Precedex never had to be initiated. The patient is sleeping this morning but easily arouses and answers questions appropriately. He did note missed dialysis sessions prior to his hospitalization. Objective Data Objective Data The patient's most recent lab work, culture data and imaging studies have all been personally reviewed. Vital Signs: Vital Signs Temp Pulse Resp BP Pulse Ox O2 Del Method O2 Flow Rate 97.9 F 54 L 15 125/64 H 99 Nasal Cannula 4 07/14/23 04:00 07/14/23 07:00 07/14/23 07:00 07/14/23 07:00 07/14/23 07:00 07/14/23 07:00 07/14/23 07:00 Oxygen Flow Rate (L/min) 4 Oxygen Delivery Method Nasal Cannula Weight: 270 lb 8.115 oz Body Mass Index (BMI) 37.8 Intake & Output: Intake and Output for Last 24 Hours 07/12/23 07/13/23 07/14/23 23:59 23:59 23:59 Intake Total 64.5 / 77.0 1074.83 / 1074.83 Balance 64.5 / 77.0 1074.83 / 1074.83 Lab / Micro Data Attestation: I reviewed the patient's lab results. 07/14/23 03:10 07/14/23 03:10 Labs: Laboratory Results - last 24 hr 07/13/23 12:11: POC Glucose 151 H 07/13/23 14:25: WBC 4.9, RBC 3.58 L, Hgb 10.5 L, Hct 33.2 L, MCV 92.7, MCH 29.3, MCHC 31.6 L, RDW Std Deviation 51.8 H, RDW Coeff of Mook 15.3 H, Plt Count 183, MPV 9.7, Immature Gran % (Auto) 0.200, Neut % (Auto) 60.1, Lymph % (Auto) 24.4, [place] % (Auto) 9.0, Eos % (Auto) 5.5 H, Baso % (Auto) 0.8, Absolute Neuts (auto) 2.9, Absolute Lymphs (auto) 1.19, Nucleated RBC % 0, Sodium 141, Potassium 4.7, Chloride 101, Carbon Dioxide 31.0, Anion Gap 9, BUN 62 H, Creatinine 13.70 H*, Estim Creat Clear Calc 8.21, Est GFR (MDRD) Af Amer 5 L, Est GFR (MDRD) Non-Af 4 L, BUN/Creatinine Ratio 4.5 L, Glucose 81, Calcium 8.8, Phosphorus 8.1 H, Magnesium 2.4, Total Bilirubin 0.30, Direct Bilirubin 0.15, AST 10 L, ALT 7 L, Alkaline Phosphatase 155 H, Ammonia 17.0, Troponin I High Sens 38, B-Natriuretic Peptide 1269.5 H, Total Protein 6.5, Albumin 3.2, Globulin 3.3, Ethyl Alcohol < 3.0 07/13/23 15:35: Urine Opiates Screen NEGATIVE, Urine Methadone Screen NEGATIVE, Ur Barbiturates Screen NEGATIVE, Ur Phencyclidine Scrn NEGATIVE, Ur Amphetamines Screen NEGATIVE, MDMA (Ecstasy) Screen NEGATIVE, U Benzodiazepines Scrn NEGATIVE, Urine Cocaine Screen POSITIVE H, U Cannabinoids Screen NEGATIVE, Ur Drug Screen Comment 07/13/23 15:48: PT 13.9, INR 1.1 07/13/23 16:34: Troponin I High Sens 46 07/13/23 18:00: POC Glucose 66 L 07/13/23 18:56: POC Glucose 74 07/13/23 20:07: POC Glucose 66 L 07/13/23 22:17: POC Glucose 66 L 07/14/23 03:10: WBC 5.4, RBC 3.59 L, Hgb 10.5 L, Hct 33.3 L, MCV 92.8, MCH 29.2, MCHC 31.5 L, RDW Std Deviation 51.5 H, RDW Coeff of Mook 15.2 H, Plt Count 177, MPV 9.9, Immature Gran % (Auto) 0.200, Neut % (Auto) 62.7, Lymph % (Auto) 23.4, [place] % (Auto) 8.0, Eos % (Auto) 5.0, Baso % (Auto) 0.7, Absolute Neuts (auto) 3.4, Absolute Lymphs (auto) 1.25, Nucleated RBC % 0, Sodium 141, Potassium 5.0, Chloride 101, Carbon Dioxide 29.0, Anion Gap 11, BUN 65 H, Creatinine 13.70 H*, Estim Creat Clear Calc 8.00, Est GFR (MDRD) Af Amer 5 L, Est GFR (MDRD) Non-Af 4 L, BUN/Creatinine Ratio 4.7 L, Glucose 100, Calcium 8.9 07/14/23 06:29: POC Glucose 139 H ABG Data ABG results: ABG 07/13/23 19:00 Specimen Type ART Sample Site L Radial pH 7.38 Bicarbonate Actual 28.9 H Total CO2 30 Base Excess 4 H O2 Saturation 97 O2 % 4.0 ABG pCO2 48.9 H ABG pO2 98 Jonathan Test Positive O2 Delivery Device Cannula Vent Mode Not entered Radiography Diagnostic Testing: Radiology Impression Brain CT 07/13/23 12:25 IMPRESSION: Diffuse abnormal calvarium with diffuse cortical thickening of the bone. This can relate to metabolic disorder, or diffuse metastatic disease. Electronically Signed: Rajesh Belcher MD at 14:20 EDT , Cervical Spine CT 07/13/23 12:25 IMPRESSION: 1. No evidence of acute fracture. 2. Minimal anterolisthesis of C2 over C3 as described above could be positional. If symptoms persist further evaluation with MRI of the cervical spine is recommended. 3. Diffuse sclerosis of the osseous structures unchanged again likely due to metabolic bone disorder. Metastatic disease less likely. Electronically Signed: Yves Caro MD at 14:31 EDT , Chest X-Ray 07/13/23 12:35 IMPRESSION: Pulmonary venous congestion. Electronically Signed: Yves Caro MD at 13:12 EDT , Physical Exam Const Constitutional Narrative: Somnolent but easily arousable to verbal stimulation. Obese. Currently receiving dialysis. HEENT normocephalic and head/scalp atraumatic Eyes PERRL, EOMs intact bilaterally and conjunctivae normal Neck supple General: trachea midline Chest inspection of chest normal Resp normal respiratory effort Auscultation: Negative for rales, rhonchi or wheezes Cardio regular rate and regular rhythm GI normal to inspection, nondistended, normoactive bowel sounds Extremity General Extremity: edema bilateral lower extremity Skin no rashes or lesions noted Neuro CN's II-XII intact bilaterally, moves all extremities and no focal motor deficits Psych Mood & Affect: flat affect Charges/Coding Visit Charges Inpatient E&M: 27131 Subs Hosp L2
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
[2023-07-14] MEDS: 0.9% Normal Saline 1,000 ML IV.SOLN. 1000 ML OPERA.SITE (07:56)
[2023-07-14] MEDS: PureFlow B 2K Dialysis Soln 1 BAG 6 BAG PF (07:56)
[2023-07-14 10:05] LABS: Bedside Glucose 79 mg/dL (74-106)
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
[2023-07-14 10:56] LABS: Bedside Glucose 179 mg/dL (74-106)
--- NOTE | 2023-07-14 11:14 | CASEMGMT ---
Addendum entered by Kimmie Hicks 07/14/23 13:20: Pt RN states to this RN CM that the pt is safe for DC home with no additional needs at this time. Original Note: RN CM Assessment Face to Face with patient for initial transition planning/care coordination assessment. RN CM introduced self and role at [facility], pt voices understanding. Pt is currently getting HD. Pt is A&Ox3 however the pt is drowsy and unable to remain awake during interview. Pt states that this RN CM can call his mother for assessment. TC to Edith Mcneill at this time. Edith states that she is willing to answer this RN CM questions for assessment. Care providers, pharmacy, and demographics verified. Admitting dx: Syncope and Collapse LACE Strata: 3 PCP: Kiet Martinez Specialists: Pt mother states the pt sees a Stem Assembler in [place] but does not know the name Preferred Pharmacy: [facility] [place] Insurance: [facility] Dual and [facility] Community Plan Prescription Benefit: Yes LNOK: Edith Mcneill (M) Living Arrangements: Pt lives alone in a ground level apartment with a ramp to enter ADLs/IADLs: Pt mother states that the pt is ind Transportation: Edith states that the pt can drive but is not currently driving and has been using an e-bike for transportation. Pt mother drives. DME: Edith states that the pt stopped using a CPAP x 2 years ago. Pt has a walker at home but does not need to use. HHC/SNF: Edith states HH history but is unsure what agency or disciplines. [facility]: [facility] in [place] M[facility] with a chair time of 6am. Plan: Dr. Gonzales placed an order for pt DC. Pt mom states that she will pick the pt up later today. Pt mom states that the pt will not want or require additional therapy at home. Will follow up with the pt once he is more alert. PT/OT evals are pending as well. CM to follow for safe DC from [facility]. Vesna Hicks RN, CM
[2023-07-14] MEDS: amLODIPine 10 MG Tablet PO (12:06)
--- NOTE | 2023-07-14 14:03 | CHAPLAIN ---
Type of Pastoral Visit ___ Initial Visit ___ Follow-up Visit ___ On-call Visit ___ General Patient Visit ___ Spiritual Assessment ___ Family Conference ___ Bereavement ___ Rapid Response ___ Code Blue ___ Other (describe below) Pastoral Care Referral From ___ Patient ___ Family ___ Nurse ___ Physician ___ Web Consultant ___ Commercial Glazier ___ Other (describe below) Sacrament/Intervention ___ Active listening ___ Anointing ___ Anabaptism ___ Bereavement ___ Communion ___ Jailyn exploration ___ ___ Life review ___ Prayer ___ Reconciliation ___ Sacrament of Sick ___ Supportive presence ___ Wedding ___ Other (describe below) Pastoral Comments patient is receiving dialysis at this time and is resting quietly so did not disturb
--- NOTE | 2023-07-14 16:10 | PCM.CONS.R ---
Assessment & Plan Assessment/Plan (1) ESRD (end stage renal disease): PLAN: HD today. fluid removal 3-4 L. possible dc after HPI Consult Data Date of Consult: 07/14/23 HPI Narrative Reason for Consultation: ESRD HPI Narrative: CINDI WASHINGTON, is a 57 M who presents to the hospital with syncope. was hypertensive overnight requiring nicardipine drip. nephrology on consultation due to ESRD. on HD at [facility]. currently looks comfortable [facility] Medical History Anemia Bipolar affective disorder Chronic back pain COPD (chronic obstructive pulmonary disease) Derangement of left patella ESRD (end stage renal disease) on dialysis ESRD on dialysis Excessive daytime sleepiness Gastroesophageal reflux disease History of Vides's palsy History of drug dependence/abuse History of peptic ulcer disease Hyperlipidemia Hyperparathyroidism due to end stage renal disease on dialysis Hyperphosphatemia Hypertension Hypertriglyceridemia Hyponatremia Neuropathy Nonrheumatic tricuspid (valve) insufficiency Obstructive Sleep Apnea-Hypopnea Syndrome TAY (obstructive sleep apnea) Polycystic kidney disease Renal failure Substance use disorder Tobacco abuse Type II diabetes mellitus Home Medications sevelamer carbonate 800 mg tablet (Renvela) 1 tab PO TID dialysis 11/10/18 [History Last Taken 05/25/19] sucroferric oxyhydroxide 500 mg chewable tablet (Velphoro) 1,000 mg PO TID supplement 11/10/18 [History Last Taken 05/24/19] amlodipine 10 mg tablet 10 mg PO DAILY BP 05/17/19 [History Last Taken 05/25/19] hydroxyzine pamoate 25 mg capsule 25 mg PO TID PRN Anxiety 06/09/21 [History Last Taken Unknown] sertraline 50 mg tablet 50 mg PO DAILY depression 06/09/21 [History Last Taken Unknown] tramadol 50 mg tablet 50 mg PO Q4H PRN Pain 06/09/21 [History Last Taken Unknown] vitamin B complex-vitamin C-folic acid 0.8 mg tablet (Maylin-Neal) 1 tab PO DAILY dialysis 06/09/21 [History Last Taken Unknown] albuterol sulfate 90 mcg/actuation aerosol inhaler 2 puff inhalation Q6H PRN PRN wheezing 07/14/23 [History Last Taken Unknown] amlodipine 5 mg tablet 5 mg PO DAILY BP 07/14/23 [History Last Taken Unknown] lisinopril 40 mg tablet 40 mg PO DAILY BP 07/14/23 [History Last Taken Unknown] Allergy/AdvReac Type Severity Reaction Status Date / Time aspirin Allergy Mild Abd Verified 07/13/23 11:57 cramps/diarrhea adhesive tape [tape] Allergy Rash Verified 07/13/23 11:57 latex Allergy Rash Verified 07/13/23 11:57 Family History Brother CAD (coronary artery disease) Congestive heart failure Father , age 58 from polycystic kidney disease Diabetes CAD (coronary artery disease) Kidney disease polycystic kidney disease Mother Bleeding disorder Brother Kidney disease Surgical History AV fistula (~2013) History of facial surgery History of total left knee replacement Social History Smoking Status: Smoker, status unknown Tobacco: How many years used: 14 alcohol intake: current substance use type: crack/cocaine Physical Exam Narrative Alert awake oriented x 3 no obvious distress no pallor no icterus no JVD s1s2 no murmurs lungs clear abdomen soft no organomegaly no edema no cyanosis Lab / Micro Data 07/14/23 03:10 07/14/23 03:10 Labs: Laboratory Results - last 24 hr 07/13/23 15:35: Urine Opiates Screen NEGATIVE, Urine Methadone Screen NEGATIVE, Ur Barbiturates Screen NEGATIVE, Ur Phencyclidine Scrn NEGATIVE, Ur Amphetamines Screen NEGATIVE, MDMA (Ecstasy) Screen NEGATIVE, U Benzodiazepines Scrn NEGATIVE, Urine Cocaine Screen POSITIVE H, U Cannabinoids Screen NEGATIVE 07/13/23 15:48: PT 13.9, INR 1.1 07/13/23 16:34: Troponin I High Sens 46 07/13/23 18:00: POC Glucose 66 L 07/13/23 18:56: POC Glucose 74 07/13/23 20:07: POC Glucose 66 L 07/13/23 22:17: POC Glucose 66 L 07/14/23 03:10: WBC 5.4, RBC 3.59 L, Hgb 10.5 L, Hct 33.3 L, MCV 92.8, MCH 29.2, MCHC 31.5 L, RDW Std Deviation 51.5 H, RDW Coeff of Mook 15.2 H, Plt Count 177, MPV 9.9, Immature Gran % (Auto) 0.200, Neut % (Auto) 62.7, Lymph % (Auto) 23.4, [place] % (Auto) 8.0, Eos % (Auto) 5.0, Baso % (Auto) 0.7, Absolute Neuts (auto) 3.4, Absolute Lymphs (auto) 1.25, Nucleated RBC % 0, Sodium 141, Potassium 5.0, Chloride 101, Carbon Dioxide 29.0, Anion Gap 11, BUN 65 H, Creatinine 13.70 H*, Estim Creat Clear Calc 8.00, Est GFR (MDRD) Af Amer 5 L, Est GFR (MDRD) Non-Af 4 L, BUN/Creatinine Ratio 4.7 L, Glucose 100, Calcium 8.9 07/14/23 06:29: POC Glucose 139 H 07/14/23 09:46: POC Glucose 79 07/14/23 10:38: POC Glucose 179 H ABG Data ABG results: ABG 07/13/23 19:00 Specimen Type ART Sample Site L Radial pH 7.38 Bicarbonate Actual 28.9 H Total CO2 30 Base Excess 4 H O2 Saturation 97 O2 % 4.0 ABG pCO2 48.9 H ABG pO2 98 Jonathan Test Positive O2 Delivery Device Cannula Vent Mode Not entered
== END 2023-07-14 14:07 | disposition home or self-care (01) | DRG 291 ==
LOC: ED 15:47 → ICU 16:26
PROVIDERS: Admitting Provider Internal Medicine; Emergency Provider Student in an Organized Health Care Education/Training Program; PCP Student in an Organized Health Care Education/Training Program
DX: I13.2 Hypertensive heart and chronic kidney disease with heart failure and with stage 5 chronic kidney disease, or end stage renal disease (principal); N18.6 End stage renal disease; G92.8 Other toxic encephalopathy; I50.33 Acute on chronic diastolic (congestive) heart failure; E11.22 Type 2 diabetes mellitus with diabetic chronic kidney disease; F31.9 Bipolar disorder, unspecified; E11.40 Type 2 diabetes mellitus with diabetic neuropathy, unspecified; I50.812 Chronic right heart failure; F14.19 Cocaine abuse with unspecified cocaine-induced disorder; I16.0 Hypertensive urgency; Z99.2 Dependence on renal dialysis; E78.5 Hyperlipidemia, unspecified; F12.10 Cannabis abuse, uncomplicated; E66.9 Obesity, unspecified; R55 Syncope and collapse; R45.6 Violent behavior; R45.1 Restlessness and agitation; Z68.37 Body mass index [BMI] 37.0-37.9, adult; Z91.158 Patient's noncompliance with renal dialysis for other reason; Z79.899 Other long term (current) drug therapy; Z87.891 Personal history of nicotine dependence
CPT/HCPCS: 36600; 70450; 71045; 72125; 80048; 80076; 80307; 80320; 82140; 82803; 82962; 83735; 83880; 84100; 84484; 85025; 85610; 90937; 93005; 93306; 97802; 99285; J7030; J7050; Q9957; A4216; G0257; G0480; J3490

== ENCOUNTER → 2023-11-04 | Outpatient (CLI) | payer MEDICARE, MEDICAID, SELFPAY ==
--- NOTE | 2023-11-04 12:56 | US_ITS ---
STUDY: THYROID ULTRASOUND REASON FOR EXAM: Male, 58 years old. End stage renal disease, abnormal labs TECHNIQUE: Ultrasound evaluation of the thyroid was performed with real-time and static whitaker-scale imaging. COMPARISON: None. FINDINGS: RIGHT LOBE: The right lobe of the thyroid gland measures 3.8 x 1.4 x 1.9 cm. There is a homogeneous echotexture. Nodule 1:9 x 9 x 7 mm solid hypoechoic taller than wide smoothly marginated nodule with punctate echogenic foci (TR 5) nodule in the posterior right lobe and follow-up ultrasound is recommended one year. LEFT LOBE: The left lobe of the thyroid gland measures 4.3 x 1.6 x 2.3 cm. There is a homogeneous echotexture. There are no demonstrated solid, cystic or complex lesions. ISTHMUS: The isthmus measures 6 mm thick. Nodule 2:13 x 12 x 13 mm solid hypoechoic wider than tall smoothly marginated nodule with punctate echogenic foci (TR 5) in the isthmus for which ultrasound-guided biopsy is recommended.. The regional lymph nodes are normal. US/Thyroid IMPRESSION: Multinodular thyroid gland with a dominant nodule in the isthmus for which ultrasound-guided biopsy is recommended. Follow-up ultrasound is recommended in 1 year. Electronically Signed: Delbert Gonzalez MD at 9:11 EDT ,
== END | disposition home or self-care (01) ==
PROVIDERS: PCP Student in an Organized Health Care Education/Training Program; Referring Provider Internal Medicine Nephrology; Visit Provider Internal Medicine Nephrology
DX: N18.6 End stage renal disease (principal); N25.89 Other disorders resulting from impaired renal tubular function
CPT/HCPCS: 76536

== ENCOUNTER 2024-02-11 14:14 | Inpatient (IN) | payer MEDICARE, MEDICAID, SELFPAY ==
[2024-02-11] VITALS (12 sets, daily range): BP systolic 132–149; BP diastolic 68–84; PULSE 59–67; RESP 15–20; TEMP 36.4–36.6; O2SAT 87–100; BMI 35.6; BMI 35.2
--- NOTE | 2024-02-11 14:47 | EKG12_ITS ---
Test Reason : CP Blood Pressure : */* mmHG Vent. Rate : 61 BPM Atrial Rate : 61 BPM P-R Int : 102 ms QRS Dur : 94 ms QT Int : 486 ms P-R-T Axes : 89 -21 -32 degrees QTcB Int : 489 ms Sinus rhythm with short OK with occasional Premature ventricular complexes Nonspecific ST and T wave abnormality Prolonged QT Abnormal ECG Confirmed by Demetris Marmolejo ([id number]), state editor JARRET KERN ([id number]) on 02/12/2024 1:07:29 PM Referred By: Ottoniel Max Confirmed By: Demetris Marmolejo
--- NOTE | 2024-02-11 15:00 | RAD_ITS ---
STUDY: X-RAY CHEST REASON FOR EXAM: Male, 58 years old. Chest pain TECHNIQUE: Single AP portable view of the chest. COMPARISON: Comparison is made with prior study dated July 13, 2023. FINDINGS: Elevation of the right hemidiaphragm. Findings suggest vascular congestion and mild degree of CHF. There is no demonstrated pleural abnormality. There is severe cardiac enlargement. Normal mediastinum and velma. Normal visualized pulmonary arteries. Normal visualized aortic arch and descending thoracic aorta. Normal visualized thoracic spine. Normal visualized ribs, clavicles, and shoulders. Moderate-sized hiatal hernia. RAD/Chest 1 View (Portable) IMPRESSION: Cardiomegaly and CHF. Electronically Signed: Aron Wagner MD at 15:21 EST ,
[2024-02-11 15:05] LABS: Absolute Lymphocyte Count 0.58 X10^3/uL (0.83-4.51); Absolute Neutrophil Count 2.1 X10^3/uL (2.0-7.7); Basophil# 0.04 X10^3/uL; Basophil% 1.3 % (0-1); Eosinophil# 0.08 X10^3/uL; Eosinophils% 2.6 % (0-5); Hemoglobin 12.1 g/dL (13.0-16.5); Lymphocyte # 0.58 X10^3/ul (0.83-4.51); Lymphocyte % 18.9 % (19-41); Mean Corp Hgb Conc 32.7 g/dL (32-36); Mean Corpuscular Hgb 28.7 pg (27.0-32.0); Mean Corpuscular Volume 87.7 fL (80-94); Mean Platelet Vol. 10.7 fl (6.2-12.0); Monocyte% 9.8 % (0-10); NRBC Flagged by Analyzer 0 % (0-5); Neutrophil # 2.05 X10^3/uL (2.7-7.7); Neutrophil % 66.7 % (47-70); POSITIVE DIFFERENTIAL YES; Platelet Count 115 K/mm3 (150-450); RBC Distribution Width CV 15.1 % (11.6-14.6); RBC Distribution Width SD 48.6 fl (35.1-43.9); Red Blood Count 4.22 M/mm3 (4.6-6.2); White Blood Count 3.1 K/mm3 (4.4-11.0)
--- NOTE | 2024-02-11 15:06 | EX.ED.VIS.UR ---
HPI HPI - URI History of Present Illness Chief Complaint: Chest Pain Detail of Chief Complaint: Cough with wheezing for the last 3 to 4 days. Informant: patient Onset/Context/Timing Onset: Days Context: Gradual Onset Timing: Continuous Current Severity: Mild Maximum Severity: Mild Associated Symptoms Associated Symptoms: Positive for Hemoptysis and Productive Cough Narrative Narrative: 58-year-old male extensive past medical history of CHF, COPD, prior drug abuse, bipolar, end-stage renal disease gets dialyzed Friday was not dialyzed today because he was not feeling well he was dialyzed 2 days ago on Friday. Also history of diabetes. States that he has had recent URI symptoms since at least Friday. Cough with blood-tinged sputum. Chest discomfort with coughing. Fever as high as 99.8. Mild diarrhea. No history of DVT or PE. Prior similar symptoms: Yes Recent Illness/Hospitalization: No ROS ROS ED ROS Narrative Cough. Fever. Chest discomfort with coughing. Bloody sputum. Constitutional Constitutional ED: Reports fever(s); Denies chills Eyes Eyes: Denies blurry vision ENT ENT ED: Denies ear pain Cardiovascular Cardiovascular: Reports chest pain Respiratory/Chest Respiratory/Chest: Reports cough, sputum and other Details: Blood-tinged sputum. Gastrointestinal Gastrointestinal: Denies abdominal pain Genitourinary Genitourinary ED: Denies dysuria or hematuria Musculoskeletal Musculoskeletal: Denies arthralgias Integumentary Denies abscess Neurologic Neurologic: Denies headache(s) Psychiatric Psychiatric: Denies anxiety Endocrine Endocrinology: Denies cold intolerance Hematologic/Lymphatic Hematologic/Lymphatic: Denies easy bleeding Allergic/Immunologic Allergic/Immunologic ED: Denies mouth swelling, tongue swelling or urticaria [facility] Medical History Vitamin D deficiency Hypercalcemia Hyperphosphatemia Hyponatremia History of drug dependence/abuse Chronic back pain Neuropathy COPD (chronic obstructive pulmonary disease) Substance use disorder ESRD on dialysis Depression with suicidal ideation Renal failure Noncompliance with renal dialysis COPD (chronic obstructive pulmonary disease) Pulmonary HTN CHF (congestive heart failure) Obstructive Sleep Apnea-Hypopnea Syndrome Excessive daytime sleepiness Nonrheumatic tricuspid (valve) insufficiency Derangement of left patella History of Vides's palsy Bipolar affective disorder Hyperparathyroidism due to end stage renal disease on dialysis Anemia Polycystic kidney disease Hypertriglyceridemia Hyperlipidemia History of peptic ulcer disease Hypertension ESRD (end stage renal disease) on dialysis TAY (obstructive sleep apnea) Type II diabetes mellitus Tobacco abuse Gastroesophageal reflux disease Home Medications ?Medication ?Instructions ?Recorded ?Last Taken ?Type sevelamer carbonate 800 mg tablet 1 tablet PO TID dialysis 11/10/18 05/25/19 History (Renvela) sucroferric oxyhydroxide 500 mg 1,000 mg PO TID supplement 11/10/18 05/24/19 History chewable tablet (Velphoro) amlodipine 10 mg tablet 10 mg PO DAILY BP 05/17/19 05/25/19 History hydroxyzine pamoate 25 mg capsule 25 mg PO TID PRN Anxiety 06/09/21 Unknown History tramadol 50 mg tablet 50 mg PO Q4H PRN Pain 06/09/21 Unknown History vitamin B complex-vitamin C-folic 1 tab PO DAILY dialysis 06/09/21 Unknown History acid 0.8 mg tablet (Maylin-Neal) albuterol sulfate 90 mcg/actuation 2 puff inhalation Q6H PRN PRN 07/14/23 Unknown History aerosol inhaler wheezing amlodipine 5 mg tablet 5 mg PO DAILY BP 07/14/23 Unknown History lisinopril 40 mg tablet 40 mg PO DAILY BP 07/14/23 Unknown History Allergy/AdvReac Type Severity Reaction Status Date / Time aspirin Allergy Mild Abd Verified 02/11/24 14:15 cramps/diarrhea adhesive tape (tape) Allergy Rash Verified 02/11/24 14:15 latex Allergy Rash Verified 02/11/24 14:15 Family History Brother CAD (coronary artery disease) Congestive heart failure Father , age 58 from polycystic kidney disease Diabetes CAD (coronary artery disease) Kidney disease polycystic kidney disease Mother Bleeding disorder Brother Kidney disease Surgical History History of facial surgery History of total left knee replacement AV fistula (~2013) Social History Smoking Status: Smoker, status unknown alcohol intake: current EXAM Physical Exam Narrative Exam Narrative: 58-year-old male sitting upright in bed. Vital signs are stable afebrile. Pulse ox 94% on room air no signs of hypoxia. He does not look septic or toxic. H EENT exam unremarkable. Neck nontender no JVD. Lungs coarse breath sounds bilaterally. Inspiratory expiratory wheezing bilaterally. No rhonchi. Equal symmetrical. Heart regular rhythm rate about 60 no appreciable murmur. Chest wall ribs nontender. Abdomen soft nontender. Moving all 4 extremities. He has an old dialysis fistula in his left upper arm. He has a functioning dialysis fistula in his right upper arm. Moving all 4 extremities. Nontender no edema. He is awake and alert. Answer questions and following commands. Const Vital Signs: 02/11/24 14:15 02/11/24 14:17 02/11/24 14:54 Temperature 97.6 F L 97.9 F Temperature Source Oral Oral Pulse Rate 62 62 Respiratory Rate 16 16 Respiratory Pattern Blood Pressure 137/80 H 136/78 H Blood Pressure Mean 99 97 Pulse Ox 94 95 Oxygen Delivery Method Room Air Room Air Room Air 02/11/24 15:27 02/11/24 15:27 02/11/24 15:38 Temperature 97.8 F 97.8 F Temperature Source Temporal Temporal Pulse Rate 67 67 59 L Respiratory Rate 18 18 17 Respiratory Pattern Normal Blood Pressure 134/78 H 134/78 H Blood Pressure Mean 96 96 Pulse Ox 87 87 Oxygen Delivery Method Room Air Room Air Positive well nourished and well developed; Negative for cachectic or contractures General Appearance ED: well developed and NAD; Negative for cachectic, contractures, cyanotic, diaphoretic or pallor Nutritional Appearance: Negative for cachectic HEENT Reports moist mucous membranes normocephalic and atraumatic; Negative for scalp tenderness Face and Sinus: Negative for sinus tenderness Teeth and Gingiva: Negative for caries Throat: posterior oropharynx normal Eyes PERRL and EOMs intact bilaterally Neck no lymphadenopathy, supple, no meningeal signs and no JVD Resp No normal respiratory effort and No clear to auscultation bilaterally Resp Narrative: Bilateral wheezing. Wet cough. Equal and symmetrical. Auscultation: wheezes Cardio S1 normal heart sound, S2 normal heart sound and no murmurs GI non-tender, non-distended and no masses Palpation: soft; Negative for tender or guarding Back/Spine no CVA tenderness and normal ROM Extremity normal to inspection and full ROM Extremity Narrative: Old left upper arm fistula. Right upper arm fistula has a thrill. General Extremety ED: Negative for tenderness Neuro oriented x3 and CN's II-XII intact bilaterally Sensorium / Orientation: alert, oriented to person, oriented to place and oriented to time Motor Exam: strength 5/5 throughout Psych mental status grossly normal Appearance: Negative for other Attitude: No agitated Mood & Affect: Negative for depressed, anxious or tearful Skin General Skin Exam: Negative for pallor Lesions: no lesions Rashes: no rashes MDM MDM MDM Narrative Medical decision making narrative: 58-year-old male with COPD, CHF end-stage renal disease, dialysis and diabetic. Symptoms consistent with URI. Rule out COVID versus pneumonia versus viral syndrome. The chest pain I do not think is a PE nor do I think it is cardiac he will undergo a cardiac workup however. Clinic lighting the patient has both pulmonary edema with a history of CHF and underlying right lower lobe pneumonia with the appearance of the chest x-ray the sputum and hemoptysis. He will be started on IV antibiotics Rocephin and Zithromax for pneumonia given Lasix for his pulmonary edema he will need to be admitted and dialyzed. I have the hospitalist on page. Lab Data Attestation: I reviewed the patient's lab results. Lab results narrative: CBC shows a white count 3.1. H&H 12.1 and 37. Platelets 115. Chemistry shows sodium 135. Gap 11. BUN of 55 creatinine 9.48 consistent with a history of dialysis. Glucose 76. Troponins elevated 92 and BNP is elevated at 951. Labs: Laboratory Results - last 24 hr 02/11/24 14:40 WBC 3.1 L RBC 4.22 L Hgb 12.1 L Hct 37.0 L MCV 87.7 MCH 28.7 MCHC 32.7 RDW Std Deviation 48.6 H RDW Coeff of Mook 15.1 H Plt Count 115 L MPV 10.7 Immature Gran % (Auto) 0.700 Neut % (Auto) 66.7 Lymph % (Auto) 18.9 L [place] % (Auto) 9.8 Eos % (Auto) 2.6 Baso % (Auto) 1.3 H Absolute Neuts (auto) 2.1 Absolute Lymphs (auto) 0.58 L Nucleated RBC % 0 Sodium 135 L Potassium 4.3 Chloride 93 L Carbon Dioxide 31.0 Anion Gap 11 BUN 55 H Creatinine 9.48 H* Estim Creat Clear Calc 11.28 Est GFR (MDRD) Af Amer 7 L Est GFR (MDRD) Non-Af 6 L BUN/Creatinine Ratio 5.8 L Glucose 76 Calcium 8.3 L Troponin I High Sens 92 H B-Natriuretic Peptide 951.0 H Radiography Chest X-Ray - ED: 1 View, Read by ED Physician, Read by Radiologist, Chronic Changes, Cardiomegaly, CHF and Right Infiltrate Diagnostic Testing: Clinical Impression(s) from Imaging Studies Chest X-Ray 02/11/24 15:00 IMPRESSION: Cardiomegaly and CHF. Electronically Signed: Aron Wagner MD at 15:21 EST , Chest x-ray, portable, single view 2 films interpreted by myself and radiologist shows cardiomegaly, CHF, pulmonary edema and I suspect the right lower lobe pneumonia also. Radiologist is called at all CHF. Rhythm Strip Rhythm Strip: Sinus Rhythm Rate: 61 Ectopy: PVC(s) EKG Initial EKG: Attestation: I personally reviewed and interpreted this EKG as follows: Interpretation: Sinus Rhythm and No Acute Injury Pattern Comments: Normal sinus rhythm rate of 61 no acute signs of VA or ischemia. Occasional PVCs. Critical Care Time Critical Care Time: Yes Critical care time (excluding procedures): 30-74 minutes, Including time spent:, Discussing w/Patient &/or Family/Teacher Of The Sight Impaired, Discussing w/Consultants, Arranging Admission or Transfer, Performing Direct Patient Care at Bedside and - (34 minutes.) Discharge Plan Dx/Rx/DC Orders Clinical Impression: Right lower lobe pneumonia, Pulmonary edema, History of end stage renal disease, COPD exacerbation, History of diabetes mellitus Disposition Disposition: Acute Care Hospital [facility]
[2024-02-11 15:31] LABS: Anion Gap 11 (5-15); BUN 55 mg/dL (7-18); BUN/Creat Ratio 5.8 RATIO (10-20); Calcium,Total 8.3 mg/dL (8.5-10.1); Chloride 93 mmol/L (98-107); Creatinine, Serum 9.48 mg/dL (0.70-1.30); EST Glomerular Filtration Rate 6 mL/min (>60); Est Glom Filt Rate - Afr Amer 7 mL/min (>60); Estimated Creatinine Clearance 11.28 ml/min; Glucose 76 mg/dL (74-106); Potassium 4.3 mmol/L (3.5-5.1); Sodium Level 135 mmol/L (136-145); Troponin-I HS (w/2H Reflex) 92 pg/mL (3.0-78.0)
[2024-02-11] MEDS: Albuterol 2.5 MG/3 ML VIAL.NEB. INHALATION ×2 (15:38→15:41)
[2024-02-11] MEDS: Ipratropium/Albuterol Sulfate 3 ML AMPUL.NEB INHALATION ×3 (15:38→23:46)
[2024-02-11] MEDS: predniSONE 20 MG Tablet 60 MG PO (15:48)
--- NOTE | 2024-02-11 16:29 | PCM.HP.STD ---
[facility] - General General Date of Service: 02/11/24 Chief Complaint: SOB [facility] Narrative CINDI WASHINGTON, is a 58-year-old male history of CHF, COPD, end-stage renal disease on hemodialysis last dialyzed Friday not dialyzed today because he is not feeling well, diabetes who presented [facility] ED 02/11/2024 due to URI symptoms since Friday. Chest discomfort with coughing, productive cough with blood-tinged sputum and increased shortness of breath as well as mild diarrhea. Patient found to have fluid overload and a possible right lower lobe infiltrate on x-ray with significant wheezing so hospitalist contacted for admission. Patient evaluated at bedside and reports that since Friday he has had worsening productive cough with some blood in the sputum, low-grade fevers up to 99.8, stuffy nose, sore throat, headache, nausea, diarrhea and somewhat achy overall. Did miss dialysis today because he was feeling weak and unwell and does not necessarily feel peripherally overloaded but reports he feels achy. Additionally patient reports some and a tight feeling on both sides of his chest which are worse with his breathing and with inspiration, is feeling somewhat better now since he got a breathing treatment. Patient's only other complaint was some itching on his back [facility] Medical History (Updated 02/11/24 @ 16:27 by Krystal Orozco) Anemia Anxiety Vides's palsy Bipolar affective disorder Bipolar disorder CHF (congestive heart failure) Chronic back pain Chronic pain Congestive heart failure (CHF) COPD (chronic obstructive pulmonary disease) COPD (chronic obstructive pulmonary disease) Depression Depression with suicidal ideation Derangement of left patella Dialysis patient ESRD (end stage renal disease) on dialysis ESRD on dialysis Excessive daytime sleepiness Gastroesophageal reflux disease History of alcohol abuse History of Vides's palsy History of drug dependence/abuse History of peptic ulcer disease Hx of substance abuse Hypercalcemia Hyperlipidemia Hyperparathyroidism due to end stage renal disease on dialysis Hyperphosphatemia Hypertension Hypertension Hypertriglyceridemia Hyponatremia Kidney disease Neuropathy Non-smoker Noncompliance with renal dialysis Nonrheumatic tricuspid (valve) insufficiency Obstructive Sleep Apnea-Hypopnea Syndrome TAY (obstructive sleep apnea) Polycystic kidney disease Pulmonary HTN Renal failure Sleep apnea Substance use disorder Tobacco abuse Type II diabetes mellitus Vitamin D deficiency Home Medications ?Medication ?Instructions ?Recorded ?Last Taken ?Type sevelamer carbonate 800 mg tablet 1 tablet PO TID dialysis 11/10/18 05/25/19 History (Renvela) sucroferric oxyhydroxide 500 mg 1,000 mg PO TID supplement 11/10/18 05/24/19 History chewable tablet (Velphoro) amlodipine 10 mg tablet 10 mg PO DAILY BP 05/17/19 05/25/19 History hydroxyzine pamoate 25 mg capsule 25 mg PO TID PRN Anxiety 06/09/21 Unknown History vitamin B complex-vitamin C-folic 1 tab PO DAILY dialysis 06/09/21 Unknown History acid 0.8 mg tablet (Maylin-Neal) albuterol sulfate 90 mcg/actuation 2 puff inhalation Q6H PRN PRN 07/14/23 Unknown History aerosol inhaler wheezing amlodipine 5 mg tablet 5 mg PO DAILY BP 07/14/23 Unknown History lisinopril 40 mg tablet 40 mg PO DAILY BP 07/14/23 Unknown History Allergy/AdvReac Type Severity Reaction Status Date / Time aspirin Allergy Mild Abd Verified 02/11/24 14:15 cramps/diarrhea adhesive tape (tape) Allergy Rash Verified 02/11/24 14:15 latex Allergy Rash Verified 02/11/24 14:15 Family History Brother CAD (coronary artery disease) Congestive heart failure Father , age 58 from polycystic kidney disease Diabetes CAD (coronary artery disease) Kidney disease polycystic kidney disease Mother Bleeding disorder Brother Kidney disease Surgical History AV fistula (~2013) History of facial surgery History of total left knee replacement Social History Smoking Status: Smoker, status unknown alcohol intake: current ROS ROS Narrative General: Feels he has had some low-grade fevers, feels he has some itchiness on his back HENT: Has had headache, stuffy nose, sore throat EYES: Has had some floaters in his eyes Resp: Increased shortness of breath with increased productive cough Cardiac: Some chest tightness GI: On bit of abdominal pain, diarrhea, nausea : Denies changes in urination Extremity: Denies swelling MSK: Some generalized weakness Neuro: Denies any numbness/tingling Heme: Denies any bleeding or bruising Skin: Denies rashes Psychiatric: No complaints voiced Vital Signs Vital Signs Vital Signs: 02/11/24 14:15 02/11/24 14:17 02/11/24 14:54 Temperature 97.6 F L 97.9 F Temperature Source Oral Oral Pulse Rate 62 62 Respiratory Rate 16 16 Respiratory Pattern Blood Pressure 137/80 H 136/78 H Blood Pressure Mean 99 97 Pulse Ox 94 95 Oxygen Delivery Method Room Air Room Air Room Air 02/11/24 15:27 02/11/24 15:27 02/11/24 15:38 Temperature 97.8 F 97.8 F Temperature Source Temporal Temporal Pulse Rate 67 67 59 L Respiratory Rate 18 18 17 Respiratory Pattern Normal Blood Pressure 134/78 H 134/78 H Blood Pressure Mean 96 96 Pulse Ox 87 87 Oxygen Delivery Method Room Air Room Air 02/11/24 16:00 Temperature 97.8 F Temperature Source Oral Pulse Rate 62 Respiratory Rate 18 Respiratory Pattern Blood Pressure 140/84 H Blood Pressure Mean 102 Pulse Ox 97 Oxygen Delivery Method Room Air Weight Weight: 116.12 kg Body Mass Index (BMI) 35.6 Physical Exam Narrative General: Alert, oriented, appears unwell HEENT: Atraumatic Eyes: Anicteric, normal conjunctiva, extraocular movements grossly intact Neck: Supple Respiratory: Diffuse wheezing with increased respiratory effort Cardiovascular: Regular rate GI: Soft, little bit of tenderness over a palpable lymph node in right abdominal wall, no rebound, guarding, rigidity Extremities: No significant pitting edema Musculoskeletal: Moving all extremities Neuro: No overt focal neurological deficits Skin: No rashes appreciated Psych: Cooperative Results Lab / Micro Data 02/11/24 14:40 02/11/24 14:40 Labs: Laboratory Results - last 24 hr 02/11/24 14:40: WBC 3.1 L, RBC 4.22 L, Hgb 12.1 L, Hct 37.0 L, MCV 87.7, MCH 28.7, MCHC 32.7, RDW Std Deviation 48.6 H, RDW Coeff of Mook 15.1 H, Plt Count 115 L, MPV 10.7, Immature Gran % (Auto) 0.700, Neut % (Auto) 66.7, Lymph % (Auto) 18.9 L, [place] % (Auto) 9.8, Eos % (Auto) 2.6, Baso % (Auto) 1.3 H, Absolute Neuts (auto) 2.1, Absolute Lymphs (auto) 0.58 L, Nucleated RBC % 0, Sodium 135 L, Potassium 4.3, Chloride 93 L, Carbon Dioxide 31.0, Anion Gap 11, BUN 55 H, Creatinine 9.48 H*, Estim Creat Clear Calc 11.28, Est GFR (MDRD) Af Amer 7 L, Est GFR (MDRD) Non-Af 6 L, BUN/Creatinine Ratio 5.8 L, Glucose 76, Calcium 8.3 L, Troponin I High Sens 92 H, B-Natriuretic Peptide 951.0 H Micro: Microbiology 02/11/24 15:27 Mucosa - Nasopharyngeal SARS-CoV-2, Influenza & RSV (PCR) - Final Rhythm Strip Rhythm Strip: Sinus Rhythm Rate: 61 Ectopy: PVC(s) Imaging Radiology Impression Chest X-Ray 02/11/24 15:00 IMPRESSION: Cardiomegaly and CHF. Electronically Signed: Aron Wagner MD at 15:21 EST , Assessment & Plan Assessment/Plan (1) Pulmonary edema: PLAN: Plan # Hypoxia secondary to COPD exacerbation in setting of community-acquired pneumonia -Desaturated to 87% on room air -Imaging: Review of chest x-ray film appears to have a right lower lobe infiltrate -DuoNebs and as needed albuterol -Sputum culture, COVID negative, respiratory panel ordered -Urine antigens -Mucinex, I/S -Rocephin and azithromycin -Admit to floor, continuous O2 monitoring -IV methylprednisone -Scheduled DuoNebs -Albuterol prn -Incentive spirometer -Mucinex -Given patient's hemoptysis associated with his cough and shortness of breath (though is improving) may benefit from CT of the chest once patient more stable and better able to lay down, given his fluid overload and COPD exacerbation and significant shortness of breath would be hesitant to do so right now # Fluid overload in setting of chronic heart failure with preserved ejection fraction -Admit to telemetry -BNP 951 -CXR suggestive of pulmonary edema -Continue IV lasix -Last echo echo 07/14/2023 with EF 60% stage III diastolic dysfunction -Repeat echo ordered -Daily weights, I's and O's -Neprho c/s #N/V/Diarrhea -Unclear if this is due to underlying viral illness, check stool studies # Elevated troponin -Suspect secondary to fluid overload in setting of missing dialysis today -Continue to trend -EKG nonspecific -Patient had some chest wall tightness that is improving with improvement in his breathing so less suspicious for cardiac etiology -Obtaining echocardiogram -If significant increase in troponin over time can consider cardiology consult however suspect the patient will not be able to clear elevated troponin well given his end-stage renal disease so it may remain elevated # Pancytopenia -Unclear etiology, could be due to underlying viral illness -Repeat in the a.m. -May need further workup if this is not resolved #ESRD on HD -Consult nephrology -Renal diet -Daily weights, I's and O's #Hypertension -Continue home medications #TAY -Noncompliant with home CPAP #DVT ppx: Heparin subcu Charlene Leonard MD Charges/Coding Visit Charges Inpatient E&M: 90285 Init Hosp L2
[2024-02-11] MEDS: Ceftriaxone 1 GM/50 ML BAG IV (16:33)
[2024-02-11] MEDS: Furosemide 40 MG/4 ML Vial IV (16:33)
[2024-02-11 16:55] LABS: Reflex Troponin-HS? (from REC) Y
[2024-02-11] MEDS: Azithromycin 500 MG in Dextrose 5%-Water (250mL Bag) 250 ML 250 MG IV (17:11)
[2024-02-11 17:41] LABS: Troponin-I HS 81 pg/mL (3.0-78.0)
[2024-02-11 19:28] LABS: Troponin-I HS 84 pg/mL (3.0-78.0)
[2024-02-11] MEDS: guaiFENesin 1,200 MG Tablet 1200 MG PO (22:41)
[2024-02-12] VITALS (10 sets, daily range): BP systolic 87–320; BP diastolic 78–89; PULSE 59–89; RESP 14–24; TEMP 36.4–36.6; O2SAT 95; BMI 35.2; BMI 34.8
[2024-02-12] MEDS: Ipratropium/Albuterol Sulfate 3 ML AMPUL.NEB INHALATION (02:27)
[2024-02-12] MEDS: SEVELAMER CARBONATE 800 MG TABLET PO (05:50)
--- NOTE | 2024-02-12 10:07 | PN.HOSP_ITS ---
Reason for Visit Reason for Visit: Diagnoses Chronic pulmonary edema (02/11/24) Objective Data Objective Data Vital Signs: Vital Signs Temp Pulse Resp BP Pulse Ox O2 Del Method O2 Flow Rate 97.6 F L 59 L 14 167/88 H 95 Room Air 3 02/12/24 08:29 02/12/24 09:32 02/12/24 08:29 02/12/24 09:32 02/12/24 08:29 02/12/24 08:29 02/12/24 06:57 Oxygen Flow Rate (L/min) 3 Oxygen Delivery Method Room Air Weight: 252 lb 3.341 oz Body Mass Index (BMI) 35.2 Intake & Output: Intake and Output for Last 24 Hours 02/10/24 02/11/24 02/12/24 23:59 23:59 23:59 Intake Total 305 / 305 480 / 480 Balance 305 / 305 480 / 480 Lab / Micro Data 02/11/24 14:40 02/11/24 14:40 Labs: Laboratory Results - last 24 hr 02/11/24 14:40: WBC 3.1 L, RBC 4.22 L, Hgb 12.1 L, Hct 37.0 L, MCV 87.7, MCH 28.7, MCHC 32.7, RDW Std Deviation 48.6 H, RDW Coeff of Mook 15.1 H, Plt Count 115 L, MPV 10.7, Immature Gran % (Auto) 0.700, Neut % (Auto) 66.7, Lymph % (Auto) 18.9 L, [place] % (Auto) 9.8, Eos % (Auto) 2.6, Baso % (Auto) 1.3 H, Absolute Neuts (auto) 2.1, Absolute Lymphs (auto) 0.58 L, Nucleated RBC % 0, S odium 135 L, Potassium 4.3, Chloride 93 L, Carbon Dioxide 31.0, Anion Gap 11, B UN 55 H, Creatinine 9.48 H*, Estim Creat Clear Calc 11.28, Est GFR (MDRD) Af Amer 7 L, Est GFR (MDRD) Non-Af 6 L, BUN/Creatinine Ratio 5.8 L, Glucose 76, C alcium 8.3 L, Troponin I High Sens 92 H, B-Natriuretic Peptide 951.0 H 02/11/24 17:12: Troponin I High Sens 81 H 02/11/24 18:59: Troponin I High Sens 84 H Micro: Microbiology 02/11/24 19:45 Mucosa - Nasopharyngeal Respiratory Panel (PCR) - Final [place] 02/11/24 15:27 Mucosa - Nasopharyngeal SARS-CoV-2, Influenza & RSV (PCR) - Final Radiography Diagnostic Testing: Radiology Impression Chest X-Ray 02/11/24 15:00 IMPRESSION: Cardiomegaly and CHF. Electronically Signed: Aron Wagner MD at 15:21 EST , Rhythm Strip Rhythm Strip: Sinus Rhythm Rate: 61 Ectopy: PVC(s) Physical Exam Narrative little bit of tenderness over a palpable lymph node in right abdominal wall Assessment & Plan Assessment/Plan (1) Pulmonary edema: PLAN: Plan # Hypoxia secondary to COPD exacerbation in setting of community-acquired pneumonia -Desaturated to 87% on room air -Imaging: Review of chest x-ray film appears to have a right lower lobe infiltrate -DuoNebs and as needed albuterol -Sputum culture, COVID negative, respiratory panel ordered -Urine antigens -Mucinex, I/S -Rocephin and azithromycin -Admit to floor, continuous O2 monitoring -IV methylprednisone -Scheduled DuoNebs -Albuterol prn -Incentive spirometer -Mucinex -Given patient's hemoptysis associated with his cough and shortness of breath (though is improving) may benefit from CT of the chest once patient more stable and better able to lay down, given his fluid overload and COPD exacerbation and significant shortness of breath would be hesitant to do so right now # Fluid overload in setting of chronic heart failure with preserved ejection fraction -Admit to telemetry -BNP 951 -CXR suggestive of pulmonary edema -Continue IV lasix -Last echo echo 07/14/2023 with EF 60% stage III diastolic dysfunction -Repeat echo ordered -Daily weights, I's and O's -Neprho c/s #N/V/Diarrhea -Unclear if this is due to underlying viral illness, check stool studies # Elevated troponin -Suspect secondary to fluid overload in setting of missing dialysis today -Continue to trend -EKG nonspecific -Patient had some chest wall tightness that is improving with improvement in his breathing so less suspicious for cardiac etiology -Obtaining echocardiogram -If significant increase in troponin over time can consider cardiology consult however suspect the patient will not be able to clear elevated troponin well given his end-stage renal disease so it may remain elevated # Pancytopenia -Unclear etiology, could be due to underlying viral illness -Repeat in the a.m. -May need further workup if this is not resolved #ESRD on HD -Consult nephrology -Renal diet -Daily weights, I's and O's #Hypertension -Continue home medications #TAY -Noncompliant with home CPAP #DVT ppx: Heparin subcu Charlene Leonard MD
--- NOTE | 2024-02-12 10:40 | NURSING ---
pt expressing frustration that he did not get enough for breakfast and how pt does not want to be on a fluid restriction. pt repeatedly stating he does not want to receive any more treatment. This RN and unit kiln charger, Ingrid attempted to calm pt and resolve issues but pt still stating he wants to leave hospital. Pt tells this RN to take him off diaylsis tx. This RN attempted to convince pt to run dialysis until 1200pm like originally discussed. PT demands this RN take him off dialysis treatment. Pt states he wants AMA papers to sign. RN updated kiln charger Amanda and primary RN Sandy.
--- NOTE | 2024-02-12 10:44 | PCM.DC.SUM ---
Providers Date of Admission: 02/11/24 Date of Discharge: 02/12/24 Primary Care Physician: Out of Town Doctor Consultations 02/11/24 18:36 Consult: Nephrology Routine Consulting Provider: Sandhya Dent Reason for Consult: ESRD, missed HD today EMERGENT Consult: No MD Notified: Yes Date Notified: 02/11/24 Time Notified: 18:38 Method of Notification: Answering Service Reason For Visit: PNA, AECOPD, FLUID OVERLOAD Diagnosis Discharge Diagnosis (1) Pulmonary edema: Status: Acute Code(s): J81.1 - Chronic pulmonary edema Plan 58-year-old gentleman was admitted for 5 days symptoms of URI and 3 days symptoms of cough with greenish-yellow and blood-tinged sputum for last 3 days. Patient also febrile Tmax 99.8 Fahrenheit. Patient was admitted in peace # Hypoxia secondary to COPD exacerbation in setting of community-acquired pneumonia: In PCU patient was not febrile. Was admitted to the pulse ox 87% on room air suggestive of hypoxia. Last pulse ox 95% on room air.I individually reviewed the chest x-ray which showed right lower lobe infiltrate suggestive of pneumonia. Patient is being managed on scheduled bronchodilator, IV Solu-Medrol, Mucinex, incentive spirometry and Pep. Started on IV ceftriaxone and azithromycin. Respiratory panel showed human metapneumovirus. Blood cultures pending. Triple PCR for SARS-CoV-2, flu and RSV are negative In the morning patient was upset with too little food and fluid restriction and delay in the breakfast therefore signed AMA. Discussed with him the risk of signing AMA but he wants to go home. He said he has dialysis scheduled and was to see MD Farnsworth In the next 1 to 2 weeks. Prescription was given for cefdinir, prednisone and Mucinex DM. Continue incentive spirometry and PEP for 1 week # Acute exacerbation of chronic heart failure with preserved ejection fraction - -BNP 951 -CXR suggestive of pulmonary edema -Continue IV lasix -Last echo echo 07/14/2023 with EF 60% stage III diastolic dysfunction -Repeat echo ordered but patient signed -Daily weights, I's and O's -Neprho c/s #N/V/Diarrhea -Unclear if this is due to underlying viral illness, check stool studies # Elevated troponin -Suspect secondary to fluid overload in setting of missing dialysis today -Continue to trend -EKG nonspecific -Patient had some chest wall tightness that is improving with improvement in his breathing so less suspicious for cardiac etiology -Obtaining echocardiogram -If significant increase in troponin over time can consider cardiology consult however suspect the patient will not be able to clear elevated troponin well given his end-stage renal disease so it may remain elevated # Pancytopenia -Unclear etiology, could be due to underlying viral illness -Repeat in the a.m. -May need further workup if this is not resolved #ESRD on HD -Consult nephrology -Renal diet -Daily weights, I's and O's #Hypertension -Continue home medications #TAY -Noncompliant with home CPAP #DVT ppx: Heparin subcu Admission level patient signed AMA. Advised to follow with PCP in 2 to 3 days Go to the nearest ER if patient feels very sick short of breath Medications at Discharge Home Medications sevelamer carbonate 800 mg tablet (Renvela) 1 tablet PO TID dialysis 11/10/18 sucroferric oxyhydroxide 500 mg chewable tablet (Velphoro) 1,000 mg PO TID supplement 11/10/18 amlodipine 10 mg tablet 10 mg PO DAILY BP 05/17/19 hydroxyzine pamoate 25 mg capsule 25 mg PO TID PRN Anxiety 06/09/21 vitamin B complex-vitamin C-folic acid 0.8 mg tablet (Maylin-Neal) 1 tab PO DAILY dialysis 06/09/21 albuterol sulfate 90 mcg/actuation aerosol inhaler 2 puff inhalation Q6H PRN PRN wheezing 07/14/23 lisinopril 40 mg tablet 40 mg PO DAILY BP 07/14/23 cefdinir 300 mg capsule 300 mg PO Q48H 7 days #4 caps 02/12/24 prednisone 20 mg tablet 40 mg (2 x 20 mg) PO DAILY 5 days #10 tabs 02/12/24 pseudoephedrine-guaifenesin ER 120 mg-1,200 mg tab,extend release 12hr (Mucinex D Maximum Strength) 1 tab PO Q12H cold symptoms 1 week #14 tabs 02/12/24 Physical Exam Narrative Seen and examined Patient has cough, blood-tinged and greenish-yellowish sputum. States he has history of CHF. Not on home oxygen Physical exam General: Alert, Oriented x3, Cooperative HEENT: Atraumatic, PERRLA, EOMI, Normocephalic Oral: Oral mucosa dry no Gingival or Mucosal Lesions/ Ulcerations Neck: Supple, No JVD, Negative Carotid Bruits Chest wall/Lungs: Air entry diminished in bilateral lung bases. Bilateral lower lobes coarse crepitations Cardiovascular: Regular rate, Regular Rhythm, Normal S1, Normal S2, No M/G/R Abdomen: Bowel Sounds Present, Soft, Non Tender, Non-Distended : On hemodialysis through right upper arm AV fistula . No renal angle tenderness. No suprapubic tenderness. Extremities: Bilateral pitting edema, Capillary Refill Less than 3 Seconds Skin: No rashes, No breakdown Musculoskeletal: No Tenderness to Palpation of Joints or Extremities Neurological: Cranial nerves II-XII grossly intact, DTR 2+/4. No acute focal neurological deficit. Psych/Mental Status: Flat affect Weight / BMI Weight Weight: 250 lb 0.067 oz Body Mass Index (BMI) 34.8 ABG / Lab / Microbiology Data 02/11/24 14:40 02/11/24 14:40 Laboratory: Laboratory Results - last 24 hr 02/11/24 14:40: WBC 3.1 L, RBC 4.22 L, Hgb 12.1 L, Hct 37.0 L, MCV 87.7, MCH 28.7, MCHC 32.7, RDW Std Deviation 48.6 H, RDW Coeff of Mook 15.1 H, Plt Count 115 L, MPV 10.7, Immature Gran % (Auto) 0.700, Neut % (Auto) 66.7, Lymph % (Auto) 18.9 L, [place] % (Auto) 9.8, Eos % (Auto) 2.6, Baso % (Auto) 1.3 H, Absolute Neuts (auto) 2.1, Absolute Lymphs (auto) 0.58 L, Nucleated RBC % 0, Sodium 135 L, Potassium 4.3, Chloride 93 L, Carbon Dioxide 31.0, Anion Gap 11, BUN 55 H, Creatinine 9.48 H*, Estim Creat Clear Calc 11.28, Est GFR (MDRD) Af Amer 7 L, Est GFR (MDRD) Non-Af 6 L, BUN/Creatinine Ratio 5.8 L, Glucose 76, Calcium 8.3 L, Troponin I High Sens 92 H, B-Natriuretic Peptide 951.0 H 02/11/24 17:12: Troponin I High Sens 81 H 02/11/24 18:59: Troponin I High Sens 84 H Microbiology: Microbiology 02/11/24 19:45 Mucosa - Nasopharyngeal Respiratory Panel (PCR) - Final Human [place] 02/11/24 15:27 Mucosa - Nasopharyngeal SARS-CoV-2, Influenza & RSV (PCR) - Final Radiography Diagnostic Testing: Radiology Impression Chest X-Ray 02/11/24 15:00 IMPRESSION: Cardiomegaly and CHF. Electronically Signed: Aron Wagner MD at 15:21 EST , D/C Instructions DC O2, CPAP, BIPAP Needs Additional Home O2 Discharge instructions: No DC home with Oxygen: No Meaningful Use Info Meaningful Use Meaningful Use Diagnoses (Choose all that apply): None applicable Ischemic Stroke Statin Dosing Therapy Reference: STATIN DOSE THERAPY REFERENCE: * Patients > 75 years receive moderate or high dose statin therapy. * Patients 75 years or YOUNGER should receive HIGH intensity statin dose unless contraindicated. You will be required to document reason for non-treatment if statin daily dose does not meet guidelines. HIGH DOSE STATIN THERAPY DAILY Atorvastatin > than or = to 40 mg Rosuvastatin > than or = to 20 mg Amlodipine + Atorvastatin > than or = to 2.5/40 mg Ezetimibe + Simvastatin 10/80 mg Simvastatin 80mg Discharge Plan Admission Admit Date/Time: 02/11/24 16:29 Attending Provider: Luke Cm Primary Care Provider: [facility] Doctor,Out of Consulting Providers: Sandhya Dent; Charlene Leonard Discharge Orders/Prescriptions Prescriptions: New prednisone 20 mg tablet 40 mg PO DAILY 5 Days Qty: 10 0RF cefdinir 300 mg capsule 300 mg PO Q48H 7 Days Qty: 4 0RF Rx Instructions: Take it after dialysis on the day of dialysis for pseudoephedrine-guaifenesin [Mucinex D Maximum Strength] 120-1,200 mg tablet extended release 12 hr 1 tab PO Q12H 7 Days Qty: 14 0RF Continued sevelamer carbonate [Renvela] 800 MG tablet 1 tablet PO TID Velphoro 500 MG tablet,chewable 1,000 mg PO TID Rx Instructions: WITH MEALS amlodipine 10 MG tablet 10 mg PO DAILY Maylin-Neal 0.8 mg Tablet 1 tab PO DAILY hydroxyzine pamoate 25 mg Capsule 25 mg PO TID PRN (Reason: Anxiety) lisinopril 40 mg tablet 40 mg PO DAILY albuterol sulfate 90 mcg/actuation HFA aerosol inhaler 2 puff inhalation Q6H PRN PRN (Reason: wheezing) Discontinued amlodipine 5 mg tablet 5 mg PO DAILY Referrals / Follow Up: [facility] Doctor,Out of [Primary Care Provider] - Charges/Coding Visit Charges Inpatient E&M: 27765 Disch Hosp >30min
[2024-02-12] MEDS: 0.9% Normal Saline 1,000 ML IV.SOLN. 1000 ML OPERA.SITE (10:58)
[2024-02-12] MEDS: PureFlow B 2K Dialysis Soln 1 BAG 6 BAG PF (10:58)
== END 2024-02-12 11:16 | disposition left against medical advice (07) | DRG 640 ==
LOC: ED 15:59 → PCU 17:43
PROVIDERS: Admitting Provider Internal Medicine; Emergency Provider Emergency Medicine; Referring Provider Emergency Medicine; Visit Provider Internal Medicine
DX: E87.70 Fluid overload, unspecified (principal); J18.9 Pneumonia, unspecified organism; I50.33 Acute on chronic diastolic (congestive) heart failure; N18.6 End stage renal disease; I13.2 Hypertensive heart and chronic kidney disease with heart failure and with stage 5 chronic kidney disease, or end stage renal disease; D61.818 Other pancytopenia; J44.1 Chronic obstructive pulmonary disease with (acute) exacerbation; J44.0 Chronic obstructive pulmonary disease with (acute) lower respiratory infection; J81.1 Chronic pulmonary edema; R04.2 Hemoptysis; E11.22 Type 2 diabetes mellitus with diabetic chronic kidney disease; Z99.2 Dependence on renal dialysis; F17.200 Nicotine dependence, unspecified, uncomplicated; G47.33 Obstructive sleep apnea (adult) (pediatric); E78.5 Hyperlipidemia, unspecified; E11.40 Type 2 diabetes mellitus with diabetic neuropathy, unspecified; Z99.89 Dependence on other enabling machines and devices; Z91.199 Patient's noncompliance with other medical treatment and regimen due to unspecified reason
CPT/HCPCS: 71045; 80048; 83880; 84484; 85025; 87040; 87631; 87633; 90937; 93005; 94640; 99285; J7030; J7040; A4216; G0257; J1940

== ENCOUNTER 2024-06-21 07:43 | Inpatient (IN) | payer MEDICARE, MEDICAID, SELFPAY ==
[2024-06-21] VITALS (26 sets, daily range): BP systolic 130–264; BP diastolic 87–151; PULSE 50–95; RESP 15–23; TEMP 36.6–36.9; O2SAT 91–100; BMI 36.1; BMI 35.6; BMI 34.7
--- NOTE | 2024-06-21 07:59 | EKG12_ITS ---
Test Reason : SOB Blood Pressure : */* mmHG Vent. Rate : 54 BPM Atrial Rate : 54 BPM P-R Int : 190 ms QRS Dur : 122 ms QT Int : 500 ms P-R-T Axes : 17 -33 58 degrees QTcB Int : 474 ms Sinus bradycardia Left axis deviation Non-specific intra-ventricular conduction delay Abnormal ECG Confirmed by Demetris Marmolejo ([id number]), sports editor HARLEY ABDI ([id number]) on 06/22/2024 11:25:17 AM Referred By: Giovanni Pinedo Confirmed By: Demetris Marmolejo
--- NOTE | 2024-06-21 08:00 | EDS_ITS ---
HPI History of Present Illness Chief Complaint: Shortness of Breath Detail of Chief Complaint: Shortness of breath Informant: patient Narrative Narrative: Patient presents to the emergency department complaint shortness of breath that started 3 days ago. Patient states that he has missed dialysis and has not been for a week. Patient states he has had some insurance issues about getting a ride to dialysis. He thinks maybe his potassium is high because he feels weak. He said some episodes of vomiting when trying to eat. Complains of diarrhea since yesterday. He denies chest pain. Describes some abdominal fullness. Denies gaining weight. [facility] Medical History (Updated 06/21/24 @ 10:[address] Maren Lloyd, DO) Hx of substance abuse History of alcohol abuse Bipolar disorder Anxiety Depression Chronic pain Dialysis patient Kidney disease Non-smoker Sleep apnea Congestive heart failure (CHF) Hypertension Vides's palsy Vitamin D deficiency Hypercalcemia Hyperphosphatemia Hyponatremia History of drug dependence/abuse Chronic back pain Neuropathy COPD (chronic obstructive pulmonary disease) Substance use disorder ESRD on dialysis Depression with suicidal ideation Renal failure Noncompliance with renal dialysis COPD (chronic obstructive pulmonary disease) Pulmonary HTN CHF (congestive heart failure) Obstructive Sleep Apnea-Hypopnea Syndrome Excessive daytime sleepiness Nonrheumatic tricuspid (valve) insufficiency Derangement of left patella History of Vides's palsy Bipolar affective disorder Hyperparathyroidism due to end stage renal disease on dialysis Anemia Polycystic kidney disease Hypertriglyceridemia Hyperlipidemia History of peptic ulcer disease Hypertension ESRD (end stage renal disease) on dialysis TAY (obstructive sleep apnea) Type II diabetes mellitus Tobacco abuse Gastroesophageal reflux disease Home Medications ?Medication ?Instructions ?Recorded ?Last Taken ?Type sevelamer carbonate 800 mg tablet 1 tablet PO TID dial ysis 11/10/18 05/25/19 History (Renvela) sucroferric oxyhydroxide 500 mg 1,000 mg PO TID supple ment 11/10/18 05/24/19 History chewable tablet (Velphoro) amlodipine 10 mg tablet 10 mg PO DAILY BP 05/17/19 0 05/25/19 History hydroxyzine pamoate 25 mg capsule 25 mg PO TID PRN Anx iety 06/09/21 Unknown History vitamin B complex-vitamin C-folic 1 tab PO DAILY dialy sis 06/09/21 Unknown History acid 0.8 mg tablet (Maylin-Neal) albuterol sulfate 90 mcg/actuation 2 puff inhalation Q 6H PRN PRN 05/06/24 Unknown History aerosol inhaler wheezing lisinopril 40 mg tablet 40 mg PO DAILY BP 07/14/23 U nknown History cefdinir 300 mg capsule 300 mg PO Q48H 7 days #4 cap s 02/12/24 Unknown Rx prednisone 20 mg tablet 40 mg (2 x 20 mg) PO DAILY 5 days 02/12/24 Unknown Rx #10 tabs pseudoephedrine-guaifenesin ER 120 1 tab PO Q12H cold symptoms 1 week 02/12/24 Unknown Rx mg-1,200 mg tab,extend release #14 tabs 12hr (Mucinex D Maximum Strength) Allergy/AdvReac Type Severity Reaction Status Date / Time aspirin Allergy Mild Abd Verified 06/21/24 07:43 cramps/diarrhea adhesive tape (tape) Allergy Rash Verified 06/21/24 07:43 latex Allergy Rash Verified 06/21/24 07:43 Family History Brother CAD (coronary artery disease) Congestive heart failure Father , age 58 from polycystic kidney disease Diabetes CAD (coronary artery disease) Kidney disease polycystic kidney disease Mother Bleeding disorder Brother Kidney disease Surgical History History of facial surgery History of total left knee replacement AV fistula (~2013) Social History Smoking Status: Smoker, status unknown alcohol intake: current ROS ROS ED Review of Systems ROS Unobtainable: other Constitutional Constitutional ED: Reports lethargy; Denies chills, fever(s), sweats or weight loss Eyes Eyes: Denies blurry vision, change in vision or diplopia ENT ENT ED: Denies rhinorrhea or sore throat Cardiovascular Cardiovascular: Denies chest pain, orthopnea or racing heartbeat Respiratory/Chest Respiratory/Chest: Reports dyspnea and dyspnea on exertion; Denies cough, ortho pnea or sputum Gastrointestinal Gastrointestinal: Denies abdominal pain, diarrhea, nausea or vomiting Genitourinary Genitourinary ED: Denies dysuria, hematuria or urinary frequency Musculoskeletal Musculoskeletal: Denies arthralgias, back pain, myalgias or neck pain Integumentary Denies abscess, Abrasions or rash Neurologic Neurologic: Denies headache(s) or weakness Psychiatric Psychiatric: Denies anxiety, depression or suicidal thoughts Endocrine Endocrinology: Denies polydipsia, polyphagia or polyuria Hematologic/Lymphatic Hematologic/Lymphatic: Denies easy bleeding, easy bruising or lymphadenopathy Allergic/Immunologic Allergic/Immunologic ED: Denies mouth swelling, tongue swelling or urticaria EXAM Physical Exam Const Vital Signs: 06/21/24 07:44 06/21/24 07:48 06/21/24 08:02 Temperature 97.9 F Temperature Source Oral Pulse Rate 58 L 54 L Respiratory Rate 18 19 H Respiratory Effort Normal Respiratory Depth Normal Respiratory Pattern Normal Blood Pressure 159/109 H Blood Pressure Mean 125 Pulse Ox 95 96 Oxygen Delivery Method Room Air Room Air Room Air Positive well nourished and well developed General Appearance ED: well developed and NAD HEENT Reports TM's clear and moist mucous membranes normocephalic and atraumatic; Negative for trauma or tenderness Tympanic Membrane ED: Yes TM's clear Eyes PERRL and EOMs intact bilaterally General Eye ED: Negative for pale conjunctiva or scleral icterus Neck no lymphadenopathy, supple and no JVD General: Negative for tenderness Chest Wall inspection of chest normal and palpation of chest normal Chest: Negative for tenderness Resp normal respiratory effort and clear to auscultation bilaterally Effort and Inspection: Negative for respiratory distress or pain with movement Auscultation: Negative for rhonchi, wheezes or diminished lung sounds Cardio regular rate, regular rhythm, S1 normal heart sound, S2 normal heart sound and no murmurs Peripheral Pulses: pulses 2+ throughout GI normal to inspection, nondistended, normoactive bowel sounds, soft to palpation, non-tender and no masses; Negative for non-distended GI Narrative: Mildly distended abdomen. Mild diffuse tenderness. There is no rebound, rigidity, or perio signs. No mass palpated. Back/Spine no CVA tenderness and no thoracic nor lumbar tenderness Extremity normal to inspection General Extremety ED: Negative for edema General Extremity: Negative for edema Neuro oriented x3, CN's II-XII intact bilaterally, no sensory deficits noted and gait normal Sensorium / Orientation: awake, alert, oriented to person, oriented to place and oriented to time Motor Exam: strength 5/5 throughout and strength abnormal Psych mental status grossly normal Skin no rashes or lesions noted and no wounds MDM MDM MDM Narrative Medical decision making narrative: Patient presents with generalized weakness and concern for hyperkalemia as he is missed dialysis for a week. Clinically looks well. Initially was a tough IV stick and he refused to allow me to put in EJ in his neck. Patient was going to sign out AGAINST MEDICAL ADVICE however I did convince him to stay and we discussed that if he is hyperkalemic and needs emergent dialysis this could be a life-threatening situation. Ultimately were able to get an IV and labs. CBC with differential obtained showed white count 5.9 with hemoglobin 11 and platelet count of 138. Chemistry showed sodium 134 with potassium 7.6 and chloride of 93 as well as CO2 of 16. BUN was 102 and creatinine 18. Patient was ordered treatment for his hyperkalemia with albuterol as well as calcium. Patient case discussed with his account support associate to arrange for emergent dialysis. Discussed case with hospitalist Dr. Grover who will see patient for admission. Lab Data Attestation: I reviewed the patient's lab results. Labs: Laboratory Results - last 24 hr 06/21/24 06/21/24 08:26 08:50 WBC 5.9 RBC 3.80 L Hgb 11.0 L Hct 34.0 L MCV 89.5 MCH 28.9 MCHC 32.4 RDW Std Deviation 45.8 H RDW Coeff of Mook 14.3 Plt Count 138 L MPV 10.7 Immature Gran % (Auto) 0.500 Neut % (Auto) 66.3 Lymph % (Auto) 16.6 L [place] % (Auto) 13.1 H Eos % (Auto) 2.5 Baso % (Auto) 1.0 Absolute Neuts (auto) 3.9 Absolute Lymphs (auto) 0.98 Nucleated RBC % 0 Sodium 134 Potassium 7.6 H* Chloride 93 L Carbon Dioxide 16.1 L Anion Gap 25 H BUN 102 H* Creatinine 18.00 H* Estim Creat Clear Calc 5.97 L* Est GFR (MDRD) Non-Af 3 L BUN/Creatinine Ratio 5.7 L Glucose 58 L Calcium 10.3 Radiography Chest X-Ray - ED: 1 View Diagnostic Testing: Clinical Impression(s) from Imaging Studies Chest X-Ray 06/21/24 08:50 IMPRESSION: Cardiomegaly and mild degree of CHF. Reading Location: [facility]-IR-1 1 view chest x-ray obtained interpreted by myself as cardiomegaly with no evidence of infiltrate or pneumothorax or acute disease process. Radiology felt there was mild degree of CHF. EKG Initial EKG: Attestation: I personally reviewed and interpreted this EKG as follows: Comments: Sinus rhythm with rate of 54 bpm with nonspecific intraventricular conduction delay. No significant signs of hyperkalemia such as peaked T waves. Critical Care Time Critical Care Time: Yes Critical care time (excluding procedures): 30-74 minutes, Including time spent:, Discussing w/Patient &/or Family/Stock Dealer, Discussing w/Consultants, Arranging Admission or Transfer, Performing Direct Patient Care at Bedside and - (30 minutes) Discharge Plan Dx/Rx/DC Orders Clinical Impression: Chronic kidney disease, Acute uremia, Acute hyperkalemia, Hypoglycemia Disposition Disposition: [facility] Care [facility]
--- NOTE | 2024-06-21 08:04 | ED.RN ---
This RN bedside with ultrasound to place USIV. Patient would not remain still and continuously jerked on his arm while this RN tried to place IV. IV was unable to be placed successfully due to patient continuously moving and yelling despite this RN's education that patient must try to remain still and relax arm. Patient yelled for IV to be removed even though IV was not actively being moved at the time.
--- NOTE | 2024-06-21 08:18 | ED.RN ---
Mary rn ATTEMPTED TO GET IV WITH U/S. PT THRASHING YELLING AND MOVING ARM. AFTER ONE ATTEMPT PT STATES HE CAN NOT TAKE BEING POKED AND HE IS LEAVING. THIS NURSE WENT IN TO TALK WITH PT, DISCUSSED PLAN OF CARE AND AGAINST MEDICAL ADVISE. PT STATES I KNOW I JUST NOT GOING TO GET POKED AGAIN. DISCUSSED NEED FOR LABS AND TREATMENT AGAIN PT STATES IM NOT ARGUING WITH YOU IM LEAVING PT DOES NOT HAVE A RIDE TO LEAVE, BUT STATES I WILL GET ONE IM LEAVING. DR ENRIQUEZ AWARE AND WENT IN TO TALK TO PATIENT, PT AGREEABLE TO ALLOW ONE MORE ATTEMPT FOR BLOODWORK AND LINE. PT WAS ON PHONE WITH HIS DIALYISIS PROVIDER AND THEY THEN CALLED US. STATES HE HAS MISSED DIALYISIS SINCE FRIDAY, HE REPORTS TRANSPORTATION ISSUES BUT TRANSPORTATION IS LINE UP AND DOES SHOW UP, PT DOESNT ANSWER DOOR OR CANCELS PER THEIR REPORT. PT REPORTS THAT HE HAS TO SHOW UP IN COURT TOMORROW FOR DISORDERLY AND LAST TIME HE WAS AT THIS FACILITY THE COOKING CASING AND DRYING SUPERVISOR WERE HERE BECAUSE HE GOT SO WORKED UP.
--- NOTE | 2024-06-21 08:35 | ED.RN ---
PT ALLOWED U/S STICKS X2. LINES INFILTATED. WAS ABLE TO GET HALF THE ORDERED BLOODWORK. LAB CALLED FOR REMAINING BLOODWORK
--- NOTE | 2024-06-21 08:50 | RAD_ITS ---
PROCEDURE: CHEST 1 VIEW (PORTABLE) N/A REASON FOR EXAM: DYSPNEA TECHNIQUE: Frontal view of the chest. COMPARISON: None FINDINGS: Hardware: EKG electrodes are seen. Heart: Cardiomegaly. Lungs: Elevation of the right hemidiaphragm. Vascular congestion and mild degree of CHF. Bones: Degenerative changes are identified within the thoracic spine. Other: None RAD/Chest 1 View (Portable) IMPRESSION: Cardiomegaly and mild degree of CHF. Reading Location: [place] [id number]
[2024-06-21 09:00] LABS: Absolute Lymphocyte Count 0.98 X10^3/uL (0.83-4.51); Absolute Neutrophil Count 3.9 X10^3/uL (2.0-7.7); Basophil# 0.06 X10^3/uL; Eosinophil# 0.15 X10^3/uL; Eosinophils% 2.5 % (0-5); Lymphocyte # 0.98 X10^3/ul (0.83-4.51); Lymphocyte % 16.6 % (19-41); Mean Corp Hgb Conc 32.4 g/dL (32-36); Mean Corpuscular Hgb 28.9 pg (27.0-32.0); Mean Corpuscular Volume 89.5 fL (80-94); Mean Platelet Vol. 10.7 fl (6.2-12.0); Monocyte# 0.77 X10^3/uL; Monocyte% 13.1 % (0-10); NRBC Flagged by Analyzer 0 % (0-5); Neutrophil % 66.3 % (47-70); Platelet Count 138 K/mm3 (150-450); RBC Distribution Width CV 14.3 % (11.6-14.6); RBC Distribution Width SD 45.8 fl (35.1-43.9); White Blood Count 5.9 K/mm3 (4.4-11.0)
[2024-06-21 10:09] LABS: Anion Gap 25 (5-15); BUN 102 mg/dL (4-19); BUN/Creat Ratio 5.7 RATIO (10-20); Calcium,Total 10.3 mg/dL (7.6-11.0); Carbon Dioxide 16.1 mmol/L (21.0-32.0); Chloride 93 mmol/L (98-108); EST Glomerular Filtration Rate 3 (>60); Estimated Creatinine Clearance 5.97 ml/min (50-250); Glucose 58 mg/dL (70-99); Potassium 7.6 mmol/L (3.3-5.1); Sodium Level 134 mmol/L (133-145)
[2024-06-21] MEDS: Albuterol *CONC* 2.5mg/0.5mL VIAL.NEB. 10 MG INHALATION (10:25)
--- NOTE | 2024-06-21 10:26 | PCM.HP.STD ---
HPI - General General Date of Admission: 06/21/24 Date of Service: 06/21/24 Chief Complaint: Shortness of breath HPI Narrative CINDI WASHINGTON, is a with past medical history seen for diabetes mellitus type 2, end-stage renal disease on hemodialysis who presented to the emergency department with shortness of breath. Per patient he had missed his 3 previous dialysis as a result of transportation issues related to his insurance. He presented to the emergency department with worsening symptoms. In addition to shortness of breath did experience significant weight gain and swelling involving both lower extremities. In the emergency department workup did reveal hyperkalemia. Treatments initiated in the ED with calcium gluconate as well as Kayexalate. Nephrology consulted patient admitted to the intensive care unit with plans for patient to undergo emergency dialysis [facility] Medical History (Updated 06/21/24 @ 10:[address] Maren Lloyd, ) Hx of substance abuse History of alcohol abuse Bipolar disorder Anxiety Depression Chronic pain Dialysis patient Kidney disease Non-smoker Sleep apnea Congestive heart failure (CHF) Hypertension Vides's palsy Vitamin D deficiency Hypercalcemia Hyperphosphatemia Hyponatremia History of drug dependence/abuse Chronic back pain Neuropathy COPD (chronic obstructive pulmonary disease) Substance use disorder ESRD on dialysis Depression with suicidal ideation Renal failure Noncompliance with renal dialysis COPD (chronic obstructive pulmonary disease) Pulmonary HTN CHF (congestive heart failure) Obstructive Sleep Apnea-Hypopnea Syndrome Excessive daytime sleepiness Nonrheumatic tricuspid (valve) insufficiency Derangement of left patella History of Vides's palsy Bipolar affective disorder Hyperparathyroidism due to end stage renal disease on dialysis Anemia Polycystic kidney disease Hypertriglyceridemia Hyperlipidemia History of peptic ulcer disease Hypertension ESRD (end stage renal disease) on dialysis TAY (obstructive sleep apnea) Type II diabetes mellitus Tobacco abuse Gastroesophageal reflux disease Home Medications ?Medication ?Instructions ?Recorded ?Last Taken ?Type sevelamer carbonate 800 mg tablet 1 tablet PO TID dialysis 11/10/18 05/25/19 History (Renvela) sucroferric oxyhydroxide 500 mg 1,000 mg PO TID supplement 11/10/18 05/24/19 History chewable tablet (Velphoro) amlodipine 10 mg tablet 10 mg PO DAILY BP 05/17/19 05/25/19 History hydroxyzine pamoate 25 mg capsule 25 mg PO TID PRN Anxiety 06/09/21 Unknown History vitamin B complex-vitamin C-folic 1 tab PO DAILY dialysis 06/09/21 Unknown History acid 0.8 mg tablet (Maylin-Neal) albuterol sulfate 90 mcg/actuation 2 puff inhalation Q6H PRN PRN 07/14/23 Unknown History aerosol inhaler wheezing lisinopril 40 mg tablet 40 mg PO DAILY BP 07/14/23 Unknown History cefdinir 300 mg capsule 300 mg PO Q48H 7 days #4 caps 02/12/24 Unknown Rx prednisone 20 mg tablet 40 mg (2 x 20 mg) PO DAILY 5 days 02/12/24 Unknown Rx #10 tabs pseudoephedrine-guaifenesin ER 120 1 tab PO Q12H cold symptoms 1 week 02/12/24 Unknown Rx mg-1,200 mg tab,extend release #14 tabs 12hr (Mucinex D Maximum Strength) Allergy/AdvReac Type Severity Reaction Status Date / Time aspirin Allergy Mild Abd Verified 06/21/24 07:43 cramps/diarrhea adhesive tape (tape) Allergy Rash Verified 06/21/24 07:43 latex Allergy Rash Verified 06/21/24 07:43 Family History Brother CAD (coronary artery disease) Congestive heart failure Father , age 58 from polycystic kidney disease Diabetes CAD (coronary artery disease) Kidney disease polycystic kidney disease Mother Bleeding disorder Brother Kidney disease Surgical History History of facial surgery History of total left knee replacement AV fistula (~2013) Social History Smoking Status: Smoker, status unknown alcohol intake: current ROS ROS Narrative GENERAL: denies fever, chills, night sweats, HEENT: denies headache, sinus congestion, or drainage, dysphagia RESPIRATORY: deshortness of breath, dyspnea on exertion CARDIAC: denies chest pain, palpitations, orthopnea, PND GASTROINTESTINAL: denies abdominal pain, nausea, vomiting, melena, GENITOURINARY: denies dysuria, urgency, frequency, heamaturia EXTREMITY: swelling MUSCULOSKELETAL: denies current joint pain or tenderness NEUROLOGIC: denies focal numbness, weakness, tingling HEMATOLOGIC: denies easy bruising and/or hemorrhage INTEGUMENT: denies rashes PSYCHIATRIC: denies suicidal or homicidal ideation Vital Signs Vital Signs Vital Signs: 06/21/24 07:44 06/21/24 07:48 06/21/24 08:02 Temperature 97.9 F Temperature Source Oral Pulse Rate 58 L 54 L Respiratory Rate 18 19 H Respiratory Effort Normal Respiratory Depth Normal Respiratory Pattern Normal Blood Pressure 159/109 H Blood Pressure Mean 125 Pulse Ox 95 96 Oxygen Delivery Method Room Air Room Air Room Air Weight Weight: 117.5 kg Body Mass Index (BMI) 36.1 Physical Exam Narrative GENERAL: Dyspneic at rest, on nonrebreather HEENT: Atraumatic; normocephalic EYES; Anicteric, Normal Conjunctiva NECK; supple, normal thyroid, RESPIRATORY: Diminished to auscultation CARDIOVASCULAR: Regular S1 S2, GI: soft, normoactive bowel sounds, : No Renal angle tenderness; EXTREMITIES: Bipedal MUSCULOSKELETAL: no muscle wasting NEURO: Awake; no lateralizing signs. SKIN: No Rash PSYCH; Flat affect Results Lab / Micro Data 06/21/24 08:50 06/21/24 08:26 Labs: Laboratory Results - last 24 hr 06/21/24 08:26: Sodium 134, Potassium 7.6 H*, Chloride 93 L, Carbon Dioxide 16.1 L, Anion Gap 25 H, BUN 102 H*, Creatinine 18.00 H*, Estim Creat Clear Calc 5.97 L*, Est GFR (MDRD) Non-Af 3 L, BUN/Creatinine Ratio 5.7 L, Glucose 58 L, Calcium 10.3 06/21/24 08:50: WBC 5.9, RBC 3.80 L, Hgb 11.0 L, Hct 34.0 L, MCV 89.5, MCH 28.9, MCHC 32.4, RDW Std Deviation 45.8 H, RDW Coeff of Mook 14.3, Plt Count 138 L, MPV 10.7, Immature Gran % (Auto) 0.500, Neut % (Auto) 66.3, Lymph % (Auto) 16.6 L, [place] % (Auto) 13.1 H, Eos % (Auto) 2.5, Baso % (Auto) 1.0, Absolute Neuts (auto) 3.9, Absolute Lymphs (auto) 0.98, Nucleated RBC % 0 Imaging Radiology Impression Chest X-Ray 06/21/24 08:50 IMPRESSION: Cardiomegaly and mild degree of CHF. Reading Location: [facility] Assessment & Plan Assessment/Plan (1) Acute hyperkalemia: (2) ESRD (end stage renal disease): PLAN: Plan Patient is a 58-year-old gentleman presented with progressive shortness of breath diagnosed with fluid overload as a result of having missed dialysis 1. Acute on chronic congestive heart failure with preserved ejection fraction ? Echo from 07/14/2023 demonstrated EF of 60%. Patient acute exacerbation is secondary to patient having missed dialysis. Patient has been admitted to the intensive care unit plan is to manage patient fluid status through dialysis 2. End-stage renal disease ? Patient did miss his 3 previous dialysis. Nephrology was consulted from the emergency department plans for patient to undergo emergency dialysis 3. Hyperkalemia ? Secondary to patient having missed dialysis. Treatment initiated with calcium gluconate as well as Kayexalate. Plan is for patient to undergo emergency dialysis 4. Essential hypertension ? Plan is to continue home meds after med reconciliation 5. COPD ? Not in exacerbation aerosol treatment as needed 6. Diabetes mellitus type 2 with complications including diabetic polyneuropathy resulting in end-stage renal disease ? Plan is to resume patient home meds following med reconciliation was placed on Accu-Cheks AC and at bedtime with sliding scale coverage 7. Tobacco dependence ? Counseled on cessation, offered nicotine patch for tobacco cravings 8. Class II obesity with BMI of 36.2 ? Complicating care 9. Anemia ? Secondary to chronic disorder monitoring H&H and transfuse if patient becomes symptomatic or hemoglobin falls below 7 10. Severe metabolic acidosis ? Secondary to end-stage renal disease. Do expect improvement with dialysis 11. DVT prophylaxis ? Subcu heparin Time spent in the patient's overall evaluation,decision-making process, review of diagnostic data, adjustment of management, discussion with other providers, nursing nursing and ancillary staff involved in patient's care documentation, 75 Minutes Advance planning; did discuss with the patient regarding advanced directives as well as CODE STATUS. Did explain the various scenarios involved ( FULL CODE, DNR CCA, DNR CCA with no intubation, and DNR CC and what each meant) patient remain full code with CPR and intubation if needed. Order was placed. Time spent on discussion 18 minutes. Charges/Coding Multi Select Codes Visit Charges Visit Charges: 09678 Init Hosp Hospitalists' Procedures Procedures: 85483 Advncd Care Plan 30 Min
--- NOTE | 2024-06-21 10:37 | ED.RN ---
mary lou meza, dr rodríguez aware. food and oj given no further orders
[2024-06-21 10:54] LABS: Bedside Glucose 47 mg/dL (74-106)
[2024-06-21] MEDS: Insulin Lispro 10 UNIT in Syringe 0 ML 6 UNIT IV (10:55)
[2024-06-21] MEDS: Glucagon 1 MG/ML Syringe IM (10:55)
[2024-06-21] MEDS: Calcium Gluconate IV 3 GM in Syringe 1 EACH IV (10:55)
[2024-06-21] MEDS: Sodium Polystyrene Sulfonate 15 GM/60 ML UDC 30 GM PO (10:56)
[2024-06-21] MEDS: Dextrose 10%-Water 250 ML 999 ML IV (11:45)
[2024-06-21 12:33] LABS: Bedside Glucose 77 mg/dL (74-106)
--- NOTE | 2024-06-21 12:50 | CON.PCM.RE_ITS ---
Assessment & Plan Assessment/Plan (1) Acute hyperkalemia: (2) ESRD (end stage renal disease): PLAN: Plan Will plan for dialysis today over 4 hours on 2K bath attempting around 4 L fluid removal as patient/blood pressure tolerates. Will evaluate for dialysis, sequential needs tomorrow. Patient will dialyze on 2K bath, his potassium in the emergency room 7.6. Recommend low potassium diet restrictions. Dry weight 107 kg, patient is around 10 kg above EDW. Patient has history of anemia of chronic disease, hemoglobin is at goal, patient does not need NED with dialysis today. Further orders forthcoming as hospitalization evolves, assessment and plan reviewed with Dr. Dent. HPI Consult Data Date of Consult: 06/21/24 HPI Narrative HPI Narrative: CINDI WASHINGTON, is a 58 M who presented to the emergency room with complaints of shortness of breath, admitted to ICU for acute on chronic CHF, fluid overload and hyperkalemia. Nephrology consulted as patient has a history of ESRD and is on hemodialysis. Patient dialyzes at [facility], his last dialysis was 06/14. Patient states he was not able to make his dialysis session on Friday due to court issues, unable to make outpatient dialysis today due to transportation issues. Patient denies any chest pain. He is complaining of some shortness of breath. [facility] Medical History (Updated 06/21/24 @ 10:[address] Maren Lloyd, ) Hx of substance abuse History of alcohol abuse Bipolar disorder Anxiety Depression Chronic pain Dialysis patient Kidney disease Non-smoker Sleep apnea Congestive heart failure (CHF) Hypertension Vides's palsy Vitamin D deficiency Hypercalcemia Hyperphosphatemia Hyponatremia History of drug dependence/abuse Chronic back pain Neuropathy COPD (chronic obstructive pulmonary disease) Substance use disorder ESRD on dialysis Depression with suicidal ideation Renal failure Noncompliance with renal dialysis COPD (chronic obstructive pulmonary disease) Pulmonary HTN CHF (congestive heart failure) Obstructive Sleep Apnea-Hypopnea Syndrome Excessive daytime sleepiness Nonrheumatic tricuspid (valve) insufficiency Derangement of left patella History of Vides's palsy Bipolar affective disorder Hyperparathyroidism due to end stage renal disease on dialysis Anemia Polycystic kidney disease Hypertriglyceridemia Hyperlipidemia History of peptic ulcer disease Hypertension ESRD (end stage renal disease) on dialysis TAY (obstructive sleep apnea) Type II diabetes mellitus Tobacco abuse Gastroesophageal reflux disease Home Medications ?Medication ?Instructions ?Recorded ?Last Taken ?Type sevelamer carbonate 800 mg tablet 1 tablet PO TID dial ysis 11/10/18 05/25/19 History (Renvela) sucroferric oxyhydroxide 500 mg 1,000 mg PO TID supple ment 11/10/18 05/24/19 History chewable tablet (Velphoro) amlodipine 10 mg tablet 10 mg PO DAILY BP 05/17/19 0 05/25/19 History hydroxyzine pamoate 25 mg capsule 25 mg PO TID PRN Anx iety 06/09/21 Unknown History vitamin B complex-vitamin C-folic 1 tab PO DAILY dialy sis 06/09/21 Unknown History acid 0.8 mg tablet (Maylin-Neal) albuterol sulfate 90 mcg/actuation 2 puff inhalation Q 6H PRN PRN 07/14/23 Unknown History aerosol inhaler wheezing lisinopril 40 mg tablet 40 mg PO DAILY BP 07/14/23 U nknown History cefdinir 300 mg capsule 300 mg PO Q48H 7 days #4 cap s 02/12/24 Unknown Rx prednisone 20 mg tablet 40 mg (2 x 20 mg) PO DAILY 5 days 02/12/24 Unknown Rx #10 tabs pseudoephedrine-guaifenesin ER 120 1 tab PO Q12H cold symptoms 1 week 02/12/24 Unknown Rx mg-1,200 mg tab,extend release #14 tabs 12hr (Mucinex D Maximum Strength) Allergy/AdvReac Type Severity Reaction Status Date / Time aspirin Allergy Mild Abd Verified 06/21/24 07:43 cramps/diarrhea adhesive tape (tape) Allergy Rash Verified 06/21/24 07:43 latex Allergy Rash Verified 06/21/24 07:43 Family History Brother CAD (coronary artery disease) Congestive heart failure Father , age 58 from polycystic kidney disease Diabetes CAD (coronary artery disease) Kidney disease polycystic kidney disease Mother Bleeding disorder Brother Kidney disease Surgical History History of facial surgery History of total left knee replacement AV fistula (~2013) Social History Smoking Status: Smoker, status unknown alcohol intake: current ROS ROS Narrative As in HPI Physical Exam Narrative Alert and oriented x 3, no apparent distress S1, S2, RRR Abdomen soft, nontender Diminished breath sounds Trace edema bilateral lower legs and feet Right arm AV fistula positive thrill and bruit Lab / Micro Data 06/21/24 08:50 06/21/24 08:26 Labs: Laboratory Results - last 24 hr 06/21/24 08:26: Sodium 134, Potassium 7.6 H*, Chloride 93 L, Carbon Dioxide 16.1 L, Anion Gap 25 H, BUN 102 H*, Creatinine 18.00 H*, Estim Creat Clear Calc 5.97 L*, Est GFR (MDRD) Non-Af 3 L, BUN/Creatinine Ratio 5.7 L, Glucose 58 L, Calcium 10.3 06/21/24 08:50: WBC 5.9, RBC 3.80 L, Hgb 11.0 L, Hct 34.0 L, MCV 89.5, MCH 28.9, MCHC 32.4, RDW Std Deviation 45.8 H, RDW Coeff of Mook 14.3, Plt Count 138 L, MPV 10.7, Immature Gran % (Auto) 0.500, Neut % (Auto) 66.3, Lymph % (Auto) 16.6 L, M teo % (Auto) 13.1 H, Eos % (Auto) 2.5, Baso % (Auto) 1.0, Absolute Neuts (auto) 3.9, Absolute Lymphs (auto) 0.98, Nucleated RBC % 0 06/21/24 10:37: POC Glucose 47 L 06/21/24 12:14: POC Glucose 77 Imaging Radiology Impression Chest X-Ray 06/21/24 08:50 IMPRESSION: Cardiomegaly and mild degree of CHF. Reading Location: [place] [address]
[2024-06-21] MEDS: 0.9% Saline Lock 10 ML Syringe IV ×2 (13:37→21:06)
[2024-06-21] MEDS: Dextrose 10%-Water 250 ML 40 ML IV ×2 (13:37→19:52)
[2024-06-21] MEDS: 0.9% Normal Saline 1,000 ML IV.SOLN. 1000 ML OPERA.SITE (13:38)
[2024-06-21] MEDS: PureFlow B 2K Dialysis Soln 1 BAG 6 BAG PF (13:38)
[2024-06-21 13:53] LABS: Bedside Glucose 58 mg/dL (74-106)
[2024-06-21 14:41] LABS: Bedside Glucose 72 mg/dL (74-106)
--- NOTE | 2024-06-21 15:33 | CASEMGMT ---
Social Work SW attempted to meet w/pt to give resources for transportation and food, as these were indicated as needs in the SDOH. Pt is getting dialysis and sleeping soundly, SW unable to wake pt. SW also informed pt has not been to dialysis in a week due to transportation. As per the bedside RN, pt also has a court date tomorrow and is concerned about letting the court know he is here. SW will follow up on Friday and can update the court. DAREK called the [facility] to inquire about pt's transportation to and from dialysis. DAREK spoke w/RN Atul, he states is not sure how pt was getting to and from dialysis, states he has used [employer] and [employer] in the past. DAREK asked Atul to have SW from [facility] call SW. Atul also thought that pt's CM may know. DAREK will speak w/pt tomorrow to see who his high risk case manager is, and follow up. BRANDAN Stanford
[2024-06-21 16:09] LABS: Bedside Glucose 63 mg/dL (74-106)
[2024-06-21] MEDS: amLODIPine 10 MG Tablet PO (17:18)
[2024-06-21] MEDS: SEVELAMER CARBONATE 800 MG TABLET 2400 MG PO (17:18)
[2024-06-21 17:51] LABS: Anion Gap 17 (5-15); BUN 67 mg/dL (4-19); BUN/Creat Ratio 5.8 RATIO (10-20); Calcium,Total 9.6 mg/dL (7.6-11.0); Carbon Dioxide 21.4 mmol/L (21.0-32.0); Chloride 97 mmol/L (98-108); EST Glomerular Filtration Rate 5 (>60); Estimated Creatinine Clearance 9.16 ml/min (50-250); Glucose 127 mg/dL (70-99); Sodium Level 135 mmol/L (133-145)
[2024-06-21] MEDS: hydrALAZINE 20 MG/ML Vial 10 MG IV (21:06)
[2024-06-21] MEDS: Acetaminophen 325 MG Tablet 650 MG PO (23:07)
[2024-06-22] VITALS (30 sets, daily range): BP systolic 116–289; BP diastolic 75–154; PULSE 10–68; RESP 16–22; TEMP 36.4–37.2; O2SAT 97–100; BMI 35.0; BMI 33.7; BMI 34.2
[2024-06-22] MEDS: Dextrose 10%-Water 250 ML 40 ML IV (02:07)
[2024-06-22 05:15] LABS: Absolute Lymphocyte Count 0.89 X10^3/uL (0.83-4.51); Basophil# 0.03 X10^3/uL; Basophil% 0.6 % (0-1); Eosinophil# 0.17 X10^3/uL; Eosinophils% 3.6 % (0-5); Hematocrit 31.5 % (40-54); Hemoglobin 10.7 g/dL (13.0-16.5); Lymphocyte # 0.89 X10^3/ul (0.83-4.51); Lymphocyte % 19.1 % (19-41); Mean Corpuscular Hgb 29.7 pg (27.0-32.0); Mean Corpuscular Volume 87.5 fL (80-94); Mean Platelet Vol. 10.5 fl (6.2-12.0); Monocyte# 0.59 X10^3/uL; Monocyte% 12.7 % (0-10); NRBC Flagged by Analyzer 0 % (0-5); Neutrophil # 2.97 X10^3/uL (2.7-7.7); Neutrophil % 63.8 % (47-70); Platelet Count 125 K/mm3 (150-450); RBC Distribution Width CV 14.4 % (11.6-14.6); RBC Distribution Width SD 46.1 fl (35.1-43.9); White Blood Count 4.7 K/mm3 (4.4-11.0)
[2024-06-22 06:26] LABS: Magnesium 2.6 mg/dL (1.5-2.2); Phosphorus 8.8 mg/dL (2.7-4.5)
[2024-06-22 06:29] LABS: Anion Gap 20 (5-15); BUN 74 mg/dL (4-19); BUN/Creat Ratio 5.3 RATIO (10-20); Calcium,Total 9.8 mg/dL (7.6-11.0); Carbon Dioxide 21.1 mmol/L (21.0-32.0); Chloride 96 mmol/L (98-108); EST Glomerular Filtration Rate 4 (>60); Glucose 88 mg/dL (70-99); Potassium 5.5 mmol/L (3.3-5.1); Sodium Level 137 mmol/L (133-145)
[2024-06-22] MEDS: hydrALAZINE 20 MG/ML Vial 10 MG IV (06:39)
[2024-06-22] MEDS: 0.9% Saline Lock 10 ML Syringe IV ×2 (06:40→22:43)
[2024-06-22] MEDS: Insulin Lispro 100 UNIT/ML INSULN.PEN SC (06:40)
[2024-06-22 07:03] LABS: Bedside Glucose 169 mg/dL (74-106)
--- NOTE | 2024-06-22 07:19 | PCM.PN.HOSP ---
Reason for Visit Reason for Visit: Diagnoses Hyperkalemia (06/21/24) End stage renal disease (06/21/24) Subjective Subjective Patient is a 58-year-old gentleman presented with progressive shortness of breath diagnosed with fluid overload as a result of having missed dialysis. Patient admitted to the intensive care unit underwent emergency dialysis seen this morning complains of headache. Patient blood pressure markedly elevated with systolic in the 190s. Objective Data Objective Data Vital Signs: Vital Signs Temp Pulse Resp BP Pulse Ox O2 Del Method O2 Flow Rate 98.4 F 10 L 16 171/95 H 100 Nasal Cannula 3 06/22/24 04:00 06/22/24 06:39 06/22/24 06:00 06/22/24 06:39 06/22/24 06:00 06/22/24 06:00 06/22/24 06:00 Oxygen Flow Rate (L/min) 3 Oxygen Delivery Method Nasal Cannula Weight: 113.5 kg Body Mass Index (BMI) 35.0 Intake & Output: Intake and Output for Last 24 Hours 06/20/24 06/21/24 06/22/24 23:59 23:59 23:59 Intake Total 1010 / 1010 470 / 470 Output Total 4340 / 4340 Balance -3330 / -3330 470 / 470 Lab / Micro Data 06/22/24 04:50 06/22/24 04:50 Labs: Laboratory Results - last 24 hr 06/21/24 08:26: Sodium 134, Potassium 7.6 H*, Chloride 93 L, Carbon Dioxide 16.1 L, Anion Gap 25 H, BUN 102 H*, Creatinine 18.00 H*, Estim Creat Clear Calc 5.97 L*, Est GFR (MDRD) Non-Af 3 L, BUN/Creatinine Ratio 5.7 L, Glucose 58 L, Calcium 10.3 06/21/24 08:50: WBC 5.9, RBC 3.80 L, Hgb 11.0 L, Hct 34.0 L, MCV 89.5, MCH 28.9, MCHC 32.4, RDW Std Deviation 45.8 H, RDW Coeff of Mook 14.3, Plt Count 138 L, MPV 10.7, Immature Gran % (Auto) 0.500, Neut % (Auto) 66.3, Lymph % (Auto) 16.6 L, [place] % (Auto) 13.1 H, Eos % (Auto) 2.5, Baso % (Auto) 1.0, Absolute Neuts (auto) 3.9, Absolute Lymphs (auto) 0.98, Nucleated RBC % 0 06/21/24 10:37: POC Glucose 47 L 06/21/24 12:14: POC Glucose 77 06/21/24 13:33: POC Glucose 58 L 06/21/24 14:23: POC Glucose 72 L 06/21/24 15:50: POC Glucose 63 L 06/21/24 16:48: Sodium 135, Potassium 5.0, Chloride 97 L, Carbon Dioxide 21.4, Anion Gap 17 H, BUN 67 H, Creatinine 11.50 H*, Estim Creat Clear Calc 9.16 L*, Est GFR (MDRD) Non-Af 5 L, BUN/Creatinine Ratio 5.8 L, Glucose 127 H, Calcium 9.6 06/22/24 04:50: WBC 4.7, RBC 3.60 L, Hgb 10.7 L, Hct 31.5 L, MCV 87.5, MCH 29.7, MCHC 34.0, RDW Std Deviation 46.1 H, RDW Coeff of Mook 14.4, Plt Count 125 L, MPV 10.5, Immature Gran % (Auto) 0.200, Neut % (Auto) 63.8, Lymph % (Auto) 19.1, [place] % (Auto) 12.7 H, Eos % (Auto) 3.6, Baso % (Auto) 0.6, Absolute Neuts (auto) 3.0, Absolute Lymphs (auto) 0.89, Nucleated RBC % 0, Sodium 137, Potassium 5.5 H, Chloride 96 L, Carbon Dioxide 21.1, Anion Gap 20 H, BUN 74 H, Creatinine 13.90 H*, Estim Creat Clear Calc 7.60 L*, Est GFR (MDRD) Non-Af 4 L, BUN/Creatinine Ratio 5.3 L, Glucose 88, Calcium 9.8, Phosphorus 8.8 H, Magnesium 2.6 H 06/22/24 06:30: POC Glucose 169 H Radiography Diagnostic Testing: Radiology Impression Chest X-Ray 06/21/24 08:50 IMPRESSION: Cardiomegaly and mild degree of CHF. Reading Location: [facility] Physical Exam Narrative GENERAL: Dyspneic at rest, HEENT: Atraumatic; normocephalic EYES; Anicteric, Normal Conjunctiva NECK; supple, normal thyroid, RESPIRATORY: Diminished to auscultation CARDIOVASCULAR: Regular S1 S2, GI: soft, normoactive bowel sounds, : No Renal angle tenderness; EXTREMITIES: Bipedal MUSCULOSKELETAL: no muscle wasting NEURO: Awake; no lateralizing signs. SKIN: No Rash PSYCH; Flat affect Assessment & Plan Assessment/Plan (1) Acute hyperkalemia: (2) ESRD (end stage renal disease): PLAN: Plan Patient is a 58-year-old gentleman presented with progressive shortness of breath diagnosed with fluid overload as a result of having missed dialysis 1. Acute on chronic congestive heart failure with preserved ejection fraction ? Echo from 07/14/2023 demonstrated EF of 60%. Patient acute exacerbation is secondary to patient having missed dialysis. Patient has been admitted to the intensive care unit plan is to manage patient fluid status through dialysis ? 06/22/2024 patient underwent emergency dialysis the day prior with 4 L of fluid removed 2. End-stage renal disease ? Patient did miss his 3 previous dialysis. Nephrology was consulted from the emergency department plans for patient to undergo emergency dialysis ? 06/22/2024; patient was apparently 10 pounds above his expected dry weight underwent emergency dialysis today prior 3. Hyperkalemia ? Secondary to patient having missed dialysis. Treatment initiated with calcium gluconate as well as Kayexalate. Plan is for patient to undergo emergency dialysis ? 06/22/2024; potassium down to 5.5 to 4. Essential hypertension ? Plan is to continue home meds after med reconciliation ? 06/22/2024; patient seen blood pressure markedly elevated did resume home med added hydralazine as needed for systolic blood pressure greater than 1 6 5. COPD ? Not in exacerbation aerosol treatment as needed 6. Diabetes mellitus type 2 with complications including diabetic polyneuropathy resulting in end-stage renal disease ? Plan is to resume patient home meds following med reconciliation was placed on Accu-Cheks AC and at bedtime with sliding scale coverage 7. Tobacco dependence ? Counseled on cessation, offered nicotine patch for tobacco cravings 8. Class II obesity with BMI of 36.2 ? Complicating care 9. Anemia ? Secondary to chronic disorder monitoring H&H and transfuse if patient becomes symptomatic or hemoglobin falls below 7 10. Severe metabolic acidosis ? Secondary to end-stage renal disease. Do expect improvement with dialysis 11. DVT prophylaxis ? Subcu heparin Time spent in the patient's overall evaluation,decision-making process, review of diagnostic data, adjustment of management, discussion with other providers, nursing nursing and ancillary staff involved in patient's care documentation, 52 Minutes Charges/Coding Visit Charges Inpatient E&M: 54242 [facility] L3
[2024-06-22] MEDS: Folic Acid/Vitamin B Comp W-C 1 Capsule 1 CAP PO (08:27)
[2024-06-22] MEDS: amLODIPine 10 MG Tablet PO (08:27)
[2024-06-22] MEDS: SEVELAMER CARBONATE 800 MG TABLET 2400 MG PO ×2 (08:28→17:00)
[2024-06-22] MEDS: Acetaminophen 325 MG Tablet 650 MG PO (08:30)
[2024-06-22] MEDS: hydrALAZINE 25 MG Tablet PO ×3 (09:23→22:44)
--- NOTE | 2024-06-22 09:55 | CASEMGMT ---
DAREK was informed that patient has a court date today and needs SW to notify the courts. DAREK met with patient. Introduced self and role at [facility]. Patient stated his court date [place] today [place] [address] DAREK [address] and was informed that patient will need to sign the letter SW faxes to the courts. Patient's court case number is: [id number]. DAREK was informed that the letter will need to be faxed to [address] and the electronic page makeup system operator's office ([phone] and [phone]. DAREK typed a letter stating patient was admitted 06-21-24 and is currently a patient in the ICU. DAREK had patient sign the letter. DAREK then faxed the letter to both fax numbers and received confirmation print outs. Elvia SIMPSON
--- NOTE | 2024-06-22 10:01 | CASEMGMT ---
RN MARIA ESTHER Assessment Face to Face with patient for initial transition planning/care coordination assessment. RN MARIA ESTHER introduced self and role at [facility], pt voices understanding. Pt is A&Ox4 and is resting comfortably in bed and is calm. Care providers, pharmacy, and demographics verified. Admitting dx: Dyspnea LACE Strata: 3 PCP: Pt reports that he has a PCP through [facility] but is unsure of the provider. TC to [facility] [place] and CC states that the pt is under the care of Elzbieta Lorenzo Specialists: Jailene (Nephro) Preferred Pharmacy: [facility] Insurance: [facility] MCR DUAL COMPLETE, [facility] Community Plan [facility]. Pt states that he does not know if he has a CM or not. Prescription Benefit: Yes LNOK: Edith Mcneill (Mother). Pt states that she is currently in [place]. Pt states that he also has a Fiance that he has been with for 29 years (They do not live together). Living Arrangements: Pt lives alone in a ground level apartment with a ramp to enter ADLs/IADLs: Pt sates that he is normally independent but is feeling really weak now. Pt states that he is agreeable with a PT/OT eval. Pt states that his fiance is able to help him at home as needed Transportation: Pt reports that he has has issues with transportation to and from dialysis recently. Pt states that he has used [facility] [employer] in the past. Pt states that his mom is able to help drive him when she is around but she is currently out of state. Pt states that he most recently has been using [employer] services out of [place] through his insurance. Pt will need assistance with transportation if he discharges home from [facility]. DME: Pt reports that he has a PAP through [employer] but has not been compliant with it. Pt states that he does not bleed any additional oxygen into it. TC to Bhavesh @ [employer] who states that pt's current BiPAP settings are 23/19 cmh2o. Pt does not have any other additional oxygen equipment and is currently requiring additional oxygen and may qualify for home oxygen use. A verbal list of local in-network DME companies were provided to the pt at this time. Pt prefers [employer].?Pt also reports that he has a FWW, grab bars, and a walk-in shower. Pt was educated about purchasing options for a pulse ox and states that he can afford one. This MESERET MAYO also noted that the pt has a history of DM. Pt states that he does not have a BGM or supplies and would like an Rx for this. CM to follow. HHC/SNF: Pt states that an [facility] comes to his home monthly but denies other skilled HHC history. Pt states that he has been to [facility] and a SNF in [place] but could not recall the name of the agency. Pt states that he had a good experience at that SNF in [place]. HD: Pt is active with [facility] in [facility] and has a chair time of 0700. Pt states that he is often late due to transportation issues. CM and SW are following. Pt?s goal: Return to PLOF Plan: TBD. Anticipate short term SNF rehabilitation stay vs Home with skilled HHC, support from pt fiance, new oxygen equipment, BGM and supplies Rx, transportation needs, and the continuation of OP HD. At this time, the pt states that he prefers to return home @ the time of DC but states that he is open to going to a SNF if warranted. No PT ordered. This MESERET MAYO collaborated with Dr Pinedo who states that it is OK to order a PT/OT evaluation. Order placed. Pt states that if he were to return home at the time of DC that he would like skilled HHC set up. Pt currently declines wanting to review a list of local in-network HHC agencies and states that he would prefer [facility] if they are in-network. CM to follow. Pt thanks this MESERET MAYO and denies further questions, concerns, or needs at this time. CM and SW to follow. Vesna Hicks RN, CM
--- NOTE | 2024-06-22 10:36 | PCM.PN.REN ---
Subjective Subjective Patient resting in bed. He is complaining of feeling short of breath. He is worried about his blood pressure being elevated. No other complaints. Objective Data Objective Data Vital Signs: Vital Signs Temp Pulse Resp BP Pulse Ox O2 Del Method O2 Flow Rate 97.5 F L 59 L 19 H 171/75 H 100 Nasal Cannula 3 06/22/24 08:00 06/22/24 10:00 06/22/24 10:00 06/22/24 10:00 06/22/24 10:00 06/22/24 10:00 06/22/24 10:00 Oxygen Flow Rate (L/min) 3 Oxygen Delivery Method Nasal Cannula Weight: 113.5 kg Body Mass Index (BMI) 35.0 Intake & Output: Intake and Output for Last 24 Hours 06/20/24 06/21/24 06/22/24 23:59 23:59 23:59 Intake Total 1010 / 1010 720 / 720 Output Total 4340 / 4340 Balance -3330 / -3330 720 / 720 Lab / Micro Data 06/22/24 04:50 06/22/24 04:50 Labs: Laboratory Results - last 24 hr 06/21/24 10:37: POC Glucose 47 L 06/21/24 12:14: POC Glucose 77 06/21/24 13:33: POC Glucose 58 L 06/21/24 14:23: POC Glucose 72 L 06/21/24 15:50: POC Glucose 63 L 06/21/24 16:48: Sodium 135, Potassium 5.0, Chloride 97 L, Carbon Dioxide 21.4, Anion Gap 17 H, BUN 67 H, Creatinine 11.50 H*, Estim Creat Clear Calc 9.16 L*, Est GFR (MDRD) Non-Af 5 L, BUN/Creatinine Ratio 5.8 L, Glucose 127 H, Calcium 9.6 06/22/24 04:50: WBC 4.7, RBC 3.60 L, Hgb 10.7 L, Hct 31.5 L, MCV 87.5, MCH 29.7, MCHC 34.0, RDW Std Deviation 46.1 H, RDW Coeff of Mook 14.4, Plt Count 125 L, MPV 10.5, Immature Gran % (Auto) 0.200, Neut % (Auto) 63.8, Lymph % (Auto) 19.1, [place] % (Auto) 12.7 H, Eos % (Auto) 3.6, Baso % (Auto) 0.6, Absolute Neuts (auto) 3.0, Absolute Lymphs (auto) 0.89, Nucleated RBC % 0, Sodium 137, Potassium 5.5 H, Chloride 96 L, Carbon Dioxide 21.1, Anion Gap 20 H, BUN 74 H, Creatinine 13.90 H*, Estim Creat Clear Calc 7.60 L*, Est GFR (MDRD) Non-Af 4 L, BUN/Creatinine Ratio 5.3 L, Glucose 88, Calcium 9.8, Phosphorus 8.8 H, Magnesium 2.6 H 06/22/24 06:30: POC Glucose 169 H Physical Exam Narrative Alert and oriented x 3, no apparent distress S1, S2, RRR Abdomen soft, nontender Diminished breath sounds with scattered faint rales. On O2 3 L per nasal cannula Trace edema bilateral lower legs and feet Right arm AV fistula positive thrill and bruit Assessment & Plan Assessment/Plan (1) Acute hyperkalemia: (2) ESRD (end stage renal disease): PLAN: Plan - ESRD on hemodialysis Friday; patient underwent dialysis yesterday on 2K bath and tolerated 4.3 L fluid removal. Patient is complaining of feeling short of breath again today, remains on O2 nasal cannula (does not wear oxygen at home), blood pressure is elevated, will plan for dialysis today on 2K bath over 4 hours and attempt around 4-5L fluid removal as patient/blood pressure tolerates. Dry weight 107 kg, on admission patient was around 10 kg above EDW. Patient has history of anemia of chronic disease, hemoglobin is at goal, patient does not need NED with dialysis today. Blood pressures elevated, expect blood pressures to improve with fluid removal/ultrafiltration. Antihypertensives: Amlodipine and hydralazine. Assessment and plan reviewed with Dr. Dent.
[2024-06-22] MEDS: 0.9% Normal Saline 1,000 ML IV.SOLN. 1000 ML OPERA.SITE (11:07)
[2024-06-22] MEDS: PureFlow B 2K Dialysis Soln 1 BAG 6 BAG PF (11:07)
--- NOTE | 2024-06-22 11:58 | CHAPLAIN ---
Type of Pastoral Visit _x__ Initial Visit ___ Follow-up Visit ___ On-call Visit ___ General Patient Visit ___ Spiritual Assessment ___ Family Conference ___ Bereavement ___ Rapid Response ___ Code Blue ___ Other (describe below) Pastoral Care Referral From _x__ Patient ___ Family ___ Nurse ___ Physician ___ Bulk Mail Clerk ___ Sewage Disposal Engineer ___ Other (describe below) Sacrament/Intervention _x__ Active listening ___ Anointing ___ Jew ___ Bereavement ___ Communion ___ Jailyn exploration ___ _x__ Life review _x__ Prayer ___ Reconciliation ___ Sacrament of Sick ___ Supportive presence ___ Wedding ___ Other (describe below) Pastoral Comments patient is receiving his dialysis but is alert and able to talk; pt talks a lot about his family, particularly his parents of whom his father, a cement based materials pump tender, is now ; pt speaks of his inherited kidney disease and who else it affects in his family; pt says that he welcomed a visit from this cement based materials pump tender because it would be good to have prayer, I know prayer works; pt says there are no other needs or concerns at this time
[2024-06-22 12:02] LABS: Bedside Glucose 88 mg/dL (74-106)
--- NOTE | 2024-06-22 15:21 | CASEMGMT ---
SW met with patient as he triggered [facility] for transportation to dialysis. SW asked patient about his difficulties. Patient said the insurance transportation is not reliable. Sometimes they show up and sometimes not. Patient said he used to have [facility], but they won't transport him anymore. He would sometimes not call and cancel then they would show up to get him and he wouldn't go. [facility] will no longer take him either. Patient used to get gas vouchers from [facility], but something happened and he was banned from that program. Patient said he can drive, but he does not have a car. He is hoping to get a car in the fall. Patient has a fiance, but she does not drive. DAREK told patient DAREK will try and see if there are any resources out there for him. Elvia SIMPSON
[2024-06-22 17:07] LABS: Bedside Glucose 110 mg/dL (74-106)
[2024-06-22 23:29] LABS: Bedside Glucose 119 mg/dL (74-106)
[2024-06-23] VITALS (9 sets, daily range): BP systolic 168–179; BP diastolic 76–99; PULSE 56–62; RESP 18–22; TEMP 36.8–37; O2SAT 90–99; BMI 34.6
[2024-06-23] MEDS: hydrALAZINE 25 MG Tablet PO ×2 (07:00→14:36)
[2024-06-23 07:26] LABS: Bedside Glucose 81 mg/dL (74-106)
--- NOTE | 2024-06-23 08:18 | PCM.PN.HOSP ---
Reason for Visit Reason for Visit: Diagnoses Hyperkalemia (06/21/24) End stage renal disease (06/21/24) Subjective Subjective Patient seen, breathing much improved. Plan is for patient to be assessed for discharge following his dialysis Objective Data Objective Data Vital Signs: Vital Signs Temp Pulse Resp BP Pulse Ox O2 Del Method O2 Flow Rate 98.2 F 58 L 22 H 168/76 H 96 Nasal Cannula 3 06/23/24 06:55 06/23/24 07:00 06/23/24 06:55 06/23/24 07:00 06/23/24 06:55 06/23/24 06:55 06/23/24 06:55 Oxygen Flow Rate (L/min) 3 Oxygen Delivery Method Nasal Cannula Weight: 112.3 kg Body Mass Index (BMI) 34.6 Intake & Output: Intake and Output for Last 24 Hours 06/21/24 06/22/24 06/23/24 23:59 23:59 23:59 Intake Total 1010 / 1010 720 / 720 Output Total 4340 / 4340 4310 / 4310 Balance -3330 / -3330 -3590 / -3590 Lab / Micro Data 06/22/24 04:50 06/22/24 04:50 Labs: Laboratory Results - last 24 hr 06/22/24 11:44: POC Glucose 88 06/22/24 16:47: POC Glucose 110 H 06/22/24 22:30: POC Glucose 119 H 06/23/24 06:57: POC Glucose 81 Physical Exam Narrative GENERAL: Dyspneic at rest, HEENT: Atraumatic; normocephalic EYES; Anicteric, Normal Conjunctiva NECK; supple, normal thyroid, RESPIRATORY: Diminished to auscultation CARDIOVASCULAR: Regular S1 S2, GI: soft, normoactive bowel sounds, : No Renal angle tenderness; EXTREMITIES: Bipedal MUSCULOSKELETAL: no muscle wasting NEURO: Awake; no lateralizing signs. SKIN: No Rash PSYCH; Flat affect Assessment & Plan Assessment/Plan (1) Acute hyperkalemia: (2) ESRD (end stage renal disease): PLAN: Plan Patient is a 58-year-old gentleman presented with progressive shortness of breath diagnosed with fluid overload as a result of having missed dialysis 1. Acute on chronic congestive heart failure with preserved ejection fraction ? Echo from 07/14/2023 demonstrated EF of 60%. Patient acute exacerbation is secondary to patient having missed dialysis. Patient has been admitted to the intensive care unit plan is to manage patient fluid status through dialysis ? 06/22/2024 patient underwent emergency dialysis the day prior with 4 L of fluid removed ? 06/23/2024 improved symptomatically following dialysis 2. End-stage renal disease ? Patient did miss his 3 previous dialysis. Nephrology was consulted from the emergency department plans for patient to undergo emergency dialysis ? 06/22/2024; patient was apparently 10 pounds above his expected dry weight underwent emergency dialysis today prior ? 06/23/2024; counseled on the need to keep with his current dialysis schedule 3. Hyperkalemia ? Secondary to patient having missed dialysis. Treatment initiated with calcium gluconate as well as Kayexalate. Plan is for patient to undergo emergency dialysis ? 06/22/2024; potassium down to 5.5 to 4. Essential hypertension ? Plan is to continue home meds after med reconciliation ? 06/22/2024; patient seen blood pressure markedly elevated did resume home med added hydralazine as needed for systolic blood pressure greater than 1 6 5. COPD ? Not in exacerbation aerosol treatment as needed 6. Diabetes mellitus type 2 with complications including diabetic polyneuropathy resulting in end-stage renal disease ? Plan is to resume patient home meds following med reconciliation was placed on Accu-Cheks AC and at bedtime with sliding scale coverage 7. Tobacco dependence ? Counseled on cessation, offered nicotine patch for tobacco cravings 8. Class II obesity with BMI of 36.2 ? Complicating care 9. Anemia ? Secondary to chronic disorder monitoring H&H and transfuse if patient becomes symptomatic or hemoglobin falls below 7 10. Severe metabolic acidosis ? Secondary to end-stage renal disease. Do expect improvement with dialysis 11. DVT prophylaxis ? Subcu heparin Charges/Coding Visit Charges Inpatient E&M: 08146 Subs Hosp L2
[2024-06-23] MEDS: Folic Acid/Vitamin B Comp W-C 1 Capsule 1 CAP PO (09:53)
[2024-06-23] MEDS: amLODIPine 10 MG Tablet PO (09:53)
[2024-06-23] MEDS: Acetaminophen 325 MG Tablet 650 MG PO (09:53)
[2024-06-23] MEDS: SEVELAMER CARBONATE 800 MG TABLET 2400 MG PO ×2 (09:53→12:25)
--- NOTE | 2024-06-23 10:04 | DS.PCM_ITS ---
Providers Date of Admission: 06/21/24 Date of Discharge: 06/23/24 Primary Care Physician: Dr. Elzbieta Lorenzo MD Consultations 06/21/24 12:45 Consult: Nephrology Routine Consulting Provider: Sandhya Dent Reason for Consult: ESRD EMERGENT Consult: Yes MD Notified: Yes Date Notified: 06/21/24 Time Notified: 10:22 Method of Notification: ED Physician Initiated Reason For Visit: DYSPNEA Diagnosis Discharge Diagnosis (1) Acute hyperkalemia: Status: Acute Code(s): E87.5 - Hyperkalemia (2) ESRD (end stage renal disease): Status: Acute Code(s): N18.6 - End stage renal disease Plan Patient is a 58-year-old gentleman presented with progressive shortness of breath diagnosed with fluid overload as a result of having missed dialysis 1. Acute on chronic congestive heart failure with preserved ejection fraction ? Echo from 07/14/2023 demonstrated EF of 60%. Patient acute exacerbation is secondary to patient having missed dialysis. Patient has been admitted to the intensive care unit plan is to manage patient fluid status through dialysis ? 06/22/2024 patient underwent emergency dialysis the day prior with 4 L of fluid removed ? 06/23/2024 improved symptomatically following dialysis 2. End-stage renal disease ? Patient did miss his 3 previous dialysis. Nephrology was consulted from the emergency department plans for patient to undergo emergency dialysis ? 06/22/2024; patient was apparently 10 pounds above his expected dry weight underwent emergency dialysis today prior ? 06/23/2024; counseled on the need to keep with his current dialysis schedule 3. Hyperkalemia ? Secondary to patient having missed dialysis. Treatment initiated with calcium gluconate as well as Kayexalate. Plan is for patient to undergo emergency dialysis ? 06/22/2024; potassium down to 5.5 to 4. Essential hypertension ? Plan is to continue home meds after med reconciliation ? 06/22/2024; patient seen blood pressure markedly elevated did resume home med added hydralazine as needed for systolic blood pressure greater than 1 6 5. COPD ? Not in exacerbation aerosol treatment as needed 6. Diabetes mellitus type 2 with complications including diabetic polyneuropathy resulting in end-stage renal disease ? Plan is to resume patient home meds following med reconciliation was placed on Accu-Cheks AC and at bedtime with sliding scale coverage 7. Tobacco dependence ? Counseled on cessation, offered nicotine patch for tobacco cravings 8. Class II obesity with BMI of 36.2 ? Complicating care 9. Anemia ? Secondary to chronic disorder monitoring H&H and transfuse if patient becomes symptomatic or hemoglobin falls below 7 10. Severe metabolic acidosis ? Secondary to end-stage renal disease. Do expect improvement with dialysis 11. DVT prophylaxis ? Subcu heparin Medications at Discharge Home Medications sevelamer carbonate 800 mg tablet (Renvela) 1 tablet PO TID dialysis 11/10/18 sucroferric oxyhydroxide 500 mg chewable tablet (Velphoro) 1,000 mg PO TID supplement 11/10/18 amlodipine 10 mg tablet 10 mg PO DAILY BP 05/17/19 hydroxyzine pamoate 25 mg capsule 25 mg PO TID PRN Anxiety 06/09/21 vitamin B complex-vitamin C-folic acid 0.8 mg tablet (Maylin-Neal) 1 tab PO DAILY dialysis 06/09/21 albuterol sulfate 90 mcg/actuation aerosol inhaler 2 puff inhalation Q6H PRN PRN wheezing 07/14/23 hydralazine 25 mg tablet 25 mg PO TID #180 tabs 06/23/24 Hospital Course Summary of Care Provided Minutes Spent on Discharge: 32 Physical Exam Narrative GENERAL: Cooperative HEENT: Atraumatic; normocephalic EYES; Anicteric, Normal Conjunctiva NECK; supple, normal thyroid, RESPIRATORY: Diminished to auscultation CARDIOVASCULAR: Regular S1 S2, GI: soft, normoactive bowel sounds, : No Renal angle tenderness; EXTREMITIES: Bipedal MUSCULOSKELETAL: no muscle wasting NEURO: Awake; no lateralizing signs. SKIN: No Rash PSYCH; Flat affect Weight / BMI Weight Weight: 112.3 kg Body Mass Index (BMI) 34.6 ABG / Lab / Microbiology Data 06/22/24 04:50 06/22/24 04:50 Laboratory: Laboratory Results - last 24 hr 06/22/24 11:44: POC Glucose 88 06/22/24 16:47: POC Glucose 110 H 06/22/24 22:30: POC Glucose 119 H 06/23/24 06:57: POC Glucose 81 D/C Instructions Discharge Diet: 1800 Calorie Control Diet and Renal Diet Discharge Activity: Return to Normal Activity Call your doctor if you observe: Fever of 101 or Higher, Shortness of breath, Fainting spells and Chest pain DC O2, CPAP, BIPAP Needs Home O2 Discharge instructions: No Meaningful Use Info Meaningful Use Meaningful Use Diagnoses (Choose all that apply): CHF CHF MARIFER/ARB ordered at discharge?: No Reason MARIFER/ARB not ordered?: Hyperkalemia Documented LVEF (%): 60 Ischemic Stroke Statin Dosing Therapy Reference: STATIN DOSE THERAPY REFERENCE: * Patients > 75 years receive moderate or high dose statin therapy. * Patients 75 years or YOUNGER should receive HIGH intensity statin dose unless contraindicated. You will be required to document reason for non-treatment if statin daily dose does not meet guidelines. HIGH DOSE STATIN THERAPY DAILY Atorvastatin > than or = to 40 mg Rosuvastatin > than or = to 20 mg Amlodipine + Atorvastatin > than or = to 2.5/40 mg Ezetimibe + Simvastatin 10/80 mg Simvastatin 80mg Discharge Plan Admission Admit Date/Time: 06/21/24 10:21 Attending Provider: Giovanni Pinedo Primary Care Provider: Elzbieta Lorenzo Consulting Providers: Sandhya Dent Discharge Orders/Prescriptions Prescriptions: New hydralazine 25 mg Tablet 25 mg PO TID Qty: 180 0RF Continued sevelamer carbonate [Renvela] 800 MG tablet 1 tablet PO TID Velphoro 500 MG tablet,chewable 1,000 mg PO TID Rx Instructions: WITH MEALS amlodipine 10 MG tablet 10 mg PO DAILY Maylin-Neal 0.8 mg Tablet 1 tab PO DAILY hydroxyzine pamoate 25 mg Capsule 25 mg PO TID PRN (Reason: Anxiety) albuterol sulfate 90 mcg/actuation HFA aerosol inhaler 2 puff inhalation Q6H PRN PRN (Reason: wheezing) Discontinued lisinopril 40 mg tablet 40 mg PO DAILY Referrals / Follow Up: Elzbieta Lorenzo MD [Primary Care Provider] - [facility] Doctor,Out of [Non-Staff] - Disposition Disposition (needs filled in before D/C Order can be placed): Home, Self Care Charges/Coding Visit Charges Inpatient E&M: 76173 Disch Hosp >30min
--- NOTE | 2024-06-23 10:52 | CASEMGMT ---
Discharge Planning A list of?HH providers including quality and resource use data and consistent with the patient's preferred geographic region, medical needs, and insurance network was created in [facility] Guide.? This list was provided to the RN MARIA ESTHER. Brianda Ellison, Discharge Planning Asst.
--- NOTE | 2024-06-23 11:12 | CASEMGMT ---
DAREK received a voice mail from Jennifer social service manager with [facility] ([phone]). Jennifer stated she has transportation to dialysis arranged for Friday and all of next week. DAREK called Jennifer back and left a voice mail requesting a return call. DAREK will also update patient with this information. Elvia Alfrao MEDICAL RADIATION TECH TATIANA
--- NOTE | 2024-06-23 11:22 | CASEMGMT ---
DAREK spoke with patient letting him know that Jennifer the social media assistant at [facility] set up transportation to dialysis for Friday and all of next week. Patient was thankful for that. DAREK also offered a copy of the letter DAREK typed and sent to the court. Patient did want a copy and DAREK gave him this. Patient thanked DAREK for all of the help. Elvia SIMPSON
--- NOTE | 2024-06-23 11:37 | PCM.PN.REN ---
Subjective Subjective Sleepy this morning. No complaints. Objective Data Objective Data Vital Signs: Vital Signs Temp Pulse Resp BP Pulse Ox O2 Del Method O2 Flow Rate 98.2 F 58 L 22 H 168/76 H 99 Nasal Cannula 3 06/23/24 06:55 06/23/24 07:00 06/23/24 06:55 06/23/24 07:00 06/23/24 07:36 06/23/24 10:00 06/23/24 10:00 Oxygen Flow Rate (L/min) 3 Oxygen Delivery Method Nasal Cannula Weight: 112.3 kg Body Mass Index (BMI) 34.6 Intake & Output: Intake and Output for Last 24 Hours 06/21/24 06/22/24 06/23/24 23:59 23:59 23:59 Intake Total 1010 / 1010 720 / 720 Output Total 4340 / 4340 4310 / 4310 Balance -3330 / -3330 -3590 / -3590 Lab / Micro Data 06/22/24 04:50 06/22/24 04:50 Labs: Laboratory Results - last 24 hr 06/22/24 11:44: POC Glucose 88 06/22/24 16:47: POC Glucose 110 H 06/22/24 22:30: POC Glucose 119 H 06/23/24 06:57: POC Glucose 81 Physical Exam Narrative Alert and oriented x 3, no apparent distress S1, S2, RRR Abdomen soft, nontender Diminished breath sounds with scattered faint rales. On O2 3 L per nasal cannula Trace edema bilateral lower legs and feet Right arm AV fistula positive thrill and bruit Assessment & Plan Assessment/Plan (1) Acute hyperkalemia: (2) ESRD (end stage renal disease): PLAN: Plan - ESRD on hemodialysis Friday; came in after missing dialysis. Fluid overloaded. Received 2 dialysis treatments in a row. Did not want a third treatment. Potentially discharge today. Advised to call clinic after discharge to see if he can make up tomorrow. If not next treatment on Friday. Hyperkalemia. Potassium was 5.5 yesterday. S/p dialysis yesterday.
--- NOTE | 2024-06-23 12:10 | CASEMGMT ---
Patient has order for discharge. Patient does not qualify for home oxygen at discharge. RN CM received script for glucometer and placed in discharge packet. RN CM in to discuss needs at discharge. RN CM inquired if patient would like HHC at discharge. Patient inquired what HHC would do for him, RN CM provided education that nursing would check vitals, provided education regading DM, CHF, CKD. Patient states he already knows that stuff and declined HHC services at discharge. RN CM updated patient regarding glucometer script. Patient asked if his medications could be filled at [facility] and that he will need transportation home. bilingual secretary to check with [facility] transport to see if van is available. [facility], RN CM asked [facility] to transfer script from [facility] and to deliver to room at discharge. RN CM update that hospital van is available at 1500 for transport home. RN CM updated patient regarding transport at 1500 for discharge, patient voiced appreciation. Patient had no further questions or concerns.
[2024-06-23 12:44] LABS: Bedside Glucose 93 mg/dL (74-106)
--- NOTE | 2024-06-23 14:22 | PHA.DC.MC.R ---
Pharmacy [facility] Pharmacy Service has performed discharge medication reconciliation and counseling for this patient. 1. Hydralazine 25mg PO TID 2. Stop lisinopril The patient's discharge medication list was reviewed for discrepancies and discrepancies were resolved. The patient was counseled on the following discharge medications and changes in medications for homegoing were reviewed. The Reason for Use, instructions for use, and potential side effects were reviewed for all new medications. The patient's questions regarding all of their medications were answered. The patient was able to verbally demonstrate an understanding of their discharge medications. Patient counseled by pharmacy intake coordinator, Conner. Medications at Discharge Home Medications sevelamer carbonate 800 mg tablet (Renvela) 1 tablet PO TID dialysis 11/10/18 sucroferric oxyhydroxide 500 mg chewable tablet (Velphoro) 1,000 mg PO TID supplement 11/10/18 amlodipine 10 mg tablet 10 mg PO DAILY BP 05/17/19 hydroxyzine pamoate 25 mg capsule 25 mg PO TID PRN Anxiety 06/09/21 vitamin B complex-vitamin C-folic acid 0.8 mg tablet (Maylin-Neal) 1 tab PO DAILY dialysis 06/09/21 albuterol sulfate 90 mcg/actuation aerosol inhaler 2 puff inhalation Q6H PRN PRN wheezing 07/14/23 hydralazine 25 mg tablet 25 mg PO TID #180 tabs 06/23/24
== END 2024-06-23 14:47 | disposition home or self-care (01) | DRG 640 ==
LOC: ED 11:03 → ICU 12:09 → PCU 06-23 10:06 → ICU 06-24 14:30
PROVIDERS: Admitting Provider Internal Medicine; Emergency Provider Emergency Medicine; PCP Internal Medicine; Referring Provider Internal Medicine; Visit Provider Internal Medicine
DX: E87.5 Hyperkalemia (principal); N18.6 End stage renal disease; I50.33 Acute on chronic diastolic (congestive) heart failure; I13.2 Hypertensive heart and chronic kidney disease with heart failure and with stage 5 chronic kidney disease, or end stage renal disease; E87.20 Acidosis, unspecified; Z66 Do not resuscitate; J44.9 Chronic obstructive pulmonary disease, unspecified; E11.649 Type 2 diabetes mellitus with hypoglycemia without coma; D63.1 Anemia in chronic kidney disease; Z68.36 Body mass index [BMI] 36.0-36.9, adult; E11.42 Type 2 diabetes mellitus with diabetic polyneuropathy; E87.70 Fluid overload, unspecified; Z99.2 Dependence on renal dialysis; E78.5 Hyperlipidemia, unspecified; E11.22 Type 2 diabetes mellitus with diabetic chronic kidney disease; F17.200 Nicotine dependence, unspecified, uncomplicated; Z82.49 Family history of ischemic heart disease and other diseases of the circulatory system; Z83.3 Family history of diabetes mellitus; E66.812 Obesity, class 2
CPT/HCPCS: 71045; 80048; 82962; 83735; 84100; 85025; 90937; 93005; 94640; 94762; 99285; 99406; A4216; G0257; J0612; J1610